=== PATIENT | male | born 1955 | race Caucasian/White ===

== ENCOUNTER 2021-07-17 09:18 | Inpatient (IN) ==
[2021-07-17] MEDS ORDERED: dexAMETHasone**PF** 10 MG/ML VIAL IM ONE (09:52)
[2021-07-17] MEDS ORDERED: SODIUM CHLORIDE 0.9% 1000ML 1,000 ML IV SCH (10:00)
[2021-07-17 10:10] LABS: Basophils # (auto) 0.01 K/uL (0-0.2); Basophils % (auto) 0.1 %; Hematocrit (blood only) 45.7 % (42-52); Hemoglobin 16.3 g/dL (14.0-18.0); Immature Granulocytes # (auto) 0.01 K/uL (0.00-0.02); Immature Granulocytes % (auto) 0.1 %; Lymphocytes # (auto) 0.56 K/uL (1.2-3.4); Lymphocytes % (auto) 7.9 %; Mean Corpuscular Hemoglobin 32.1 pg (25-34); Mean Corpuscular Hgb Conc 35.7 g/dL (32-36); Mean Platelet Volume 10.3 fL (7.4-10.4); Monocytes # (auto) 0.41 K/uL (0.11-0.59); Monocytes % (auto) 5.8 %; Neutrophils # (auto) 6.09 K/uL (1.4-6.5); Neutrophils % (auto) 86.1 %; Platelet Count 172 K/uL (130-400); RDW Coefficient of Variation 12.8 % (11.5-14.5); RDW Standard Deviation 42.2 fL (36.4-46.3); Red Blood Count 5.08 M/uL (4.7-6.1); White Blood Count 7.08 K/uL (4.8-10.8)
[2021-07-17 10:25] LABS: Base Excess VBG 1.2 mEq/L; pH VBG 7.46 (7.36-7.41)
[2021-07-17 10:25] LABS: Partial Thromboplastin Ratio 1.1; Partial Thromboplastin Time 28.1 Seconds (21.0-31.0)
[2021-07-17 10:27] LABS: Alanine Aminotransferase 97 U/L (12-78); Albumin Level 3.1 gm/dl (3.4-5.0); Aspartate Aminotransferase 112 U/L (15-37); BUN Creatinine Ratio 17.8 (10-20); Blood Urea Nitrogen 19 mg/dl (7-18); Calcium 8.2 mg/dl (8.5-10.1); Carbon Dioxide 24 mmol/L (21-32); Chloride 99 mmol/L (98-107); Est GFR (African American) 85.9 ml/min; Est GFR (Non-African American) 74.1 ml/min; Glucose 116 mg/dl (70-99); Magnesium 1.8 mg/dl (1.8-2.4); Potassium 3.8 mmol/L (3.5-5.1); Sodium 132 mmol/L (136-145)
[2021-07-17 10:32] LABS: Albumin Globulin Ratio 0.7 (0.9-2); Alkaline Phosphatase 69 U/L (45-117); Bilirubin,Total 0.7 mg/dl (0.2-1); Globulin 4.5 gm/dl (2.5-4.0); Total Protein 7.6 gm/dl (6.4-8.2); Troponin I < 0.015 ng/ml (0-0.045)
--- NOTE | 2021-07-17 11:19 | CT Scan Report ---
CT ANGIOGRAM OF THE CHEST CLINICAL HISTORY: ro PE COMPARISON STUDY: No previous studies for comparison. TECHNIQUE: Following the IV administration of 119 mL of Optiray, CT angiogram of the thorax was perfo rmed from the thoracic inlet to the lung bases utilizing the pulmonary embolus protocol. Images are r eviewed in the axial, sagittal, and coronal planes. IV contrast was administered without complication . MIP imaging was performed. A dose lowering technique was utilized adhering to the principles of AL SARAH. CT DOSE: 527.22 mGycm FINDINGS: There is adequate opacification within main pulmonary artery. No evidence of filling defect is seen t o suggest pulmonary embolus. Pulmonary artery is normal in caliber. No right heart strain is seen. Heart is normal in size with small amount of of pericardial fluid, likely physiologic. Mild coronary calcifications are seen. There is no axillary, supra clavicle or internal mammary lymphadenopathy seen. Mediastinal and hilar lymph nodes up prominent and measured up to 1.2 cm in short axis. Tracheobronchial tree is patent. Patchy areas of groundglass attenuation associated with septal thickening are seen throughout bilater al lungs, predominantly in peripheral distribution, lower lobes affected more than upper lobes. Patch y areas of airspace consolidations are seen at dependent portions of bilateral lower lobes. Limited evaluation of upper abdominal viscera shows mild fat stranding surrounding partially visualiz ed right kidney which might represent inflammatory process. Small fat containing hiatal hernia is see n. Osseous structures: Multilevel degenerative changes of the spine. IMPRESSION: 1. No evidence of pulmonary embolus. No secondary signs of pulmonary embolus. 2. Patchy areas of groundglass and consolidative opacities associated with septal thickening are see n throughout bilateral lungs and could represent atypical pneumonia/Covid. Short-term follow-up with noncontrast CT of the chest on nonemergency basis in 4-6 weeks is recommended to document improvement /resolution. Report will be sent to emergency Department. 3. Questionable fat stranding surrounding partially visualized right kidney which could represent in flammatory process or sequela from prior inflammatory changes. Please correlate above-mentioned findi ngs with clinical presentation. 4. The rest of findings as above. ACT 112: Negative or not required by law. The above report was generated using voice recognition software. It may contain grammatical, syntax o r spelling errors. Electronically signed by: Moira Flores DO 07/17/2021 11:18 AM
--- NOTE | 2021-07-17 12:08 | XRay Report ---
XR chest 1V portable CLINICAL HISTORY: SEPSIS COMPARISON STUDY: Chest CT performed earlier today. FINDINGS: Lung volumes are normal. Moderate to extensive bilateral airspace opacities are present. Th ere is no pneumothorax or pleural effusion. Cardiac size is normal. Mediastinal contours are normal. There is no evidence for pulmonary edema. IMPRESSION: Moderate to extensive bilateral airspace opacities suggestive of viral pneumonia. ACT 112: Negative or not required by law. Electronically signed by: Ravi Erickson M.D. 07/17/2021 12:06 PM
[2021-07-17 12:26] LABS: Appearance Urine Clear (Clear); Bacteria Urine Automated Negative (Negative); Bilirubin Urine Negative (Negative); Blood Urine 1+ (Negative); Color Urine Yellow; Glucose Urine UA Negative (Negative); Ketones Urine 1+ (Negative); Leukocyte Esterase Urine Negative (Negative); Nitrite Urine Negative (Negative); Protein Urine 2+ (Negative); RBC Urine Automated 0-4 /hpf (0-4); Specific Gravity Urine > 1.045 (1.000-1.030); Urobilinogen Urine Negative (Negative); pH Urine 6.5 (4.5-7.5)
--- NOTE | 2021-07-17 13:25 | History & Physical Report ---
Date of Service July 17, 2021 Assessment & Plan (1) Acute respiratory alkalosis: (2) Pneumonia due to COVID-19 virus: Plan: This is a 65 year old M who has a significant pmh HTN, HLD, pulm nodule, hx of tobacco abuse, RF + who presents to ED 2/2 to worsening SOB x 3 days. Pt tested + 3 days ago for Covid-19. Presents today with hypoxia, O2 in 70s, requiring High Flow NC. VBG reveals respiratory alkalosis. He is unvaccinated. Admit to PCU IV remdesivir - monitor LFTs, AST 112, ALT 97 today, if continues to rise would d/c likely elevated 2/2 to viral etiology IV dexamethasone 6mg daily continue High flow - wean as able aggressive pulmonary toilet incentive spirometry, tessalon Perles, albuterol low threshold for pulm consult follow vbg (3) Transaminitis: Plan: previously not elevated, not on a statin AST 112, ALT 97, likely viral repeat in a.m. follow closely (4) HTN (hypertension): Plan: BP stable, 122/80 continue lisinopril, monitor Dispo: PCU PCP: Lauren FULL CODE Pt was seen and examined in collaboration with Dr. Garcia, please see addendum History of Present Illness Chief Complaint: SOB x 3 days. Primary Care Provider: Luke Aguilar MD This is a 65 year old M who has a significant pmh HTN, HLD, pulm nodule, hx of tobacco abuse, RF + who presents to ED 2/2 to worsening SOB. In ED patient was found to be hypoxic at 74% on room air. Currently requiring high flow nasal cannula saturating at 90%. He did test positive for SARS-CoV-2.VBG pH did reveal acute respiratory alkalosis. In ED he did receive IV dexamethasone. Went to [place] on a trip 2 weeks ago. He got back on 07/08 and started to feel strange with decreased appetite, 2 episodes of loose stool; however since 3 days ago has been getting progressively SOB, "I'm in trouble." He did seek medical care at [facility] 3 days ago and tested positive for covid. He is not vaccinated. Denies f/c/s, chest pain, sob, n/v, abdominal pain. Will be admitted for covid PNA. Allergies Allergy/AdvReac Type Severity Reaction Status Date / Time naproxen [From Naprosyn] Allergy Intermediate Rash Unverified 07/17/21 11:45 atorvastatin [From Lipitor] Allergy Unknown Verified 07/17/21 12:55 house dust Allergy Unknown Verified 07/17/21 12:55 milk Allergy Unknown Verified 07/17/21 12:55 Home Medications Medication Instructions Recorded Confirmed Type albuterol sulfate 90 mcg/actuation 1 puff INHALATION DAILY PRN 07/17/21 07/17/21 History aerosol inhaler (Ventolin HFA) aspirin 81 mg tablet,delayed 81 mg PO DAILY 07/17/21 07/17/21 History release (Aspirin Low Dose) garlic 300 mg capsule (Odorless 0 mg PO DAILY 07/17/21 07/17/21 History Garlic) lisinopril 5 mg tablet (Zestril) 5 mg PO QAM 07/17/21 07/17/21 History ognljmqi-pvy-hzeqw acid 300 1 tab PO DAILY 07/17/21 07/17/21 History mcg-lycopene 600 mcg-lutein 300 mcg tablet (Centrum Silver Men) omega 9-llj-pbl-fish oil 1,200 mg 1 cap PO DAILY 07/17/21 07/17/21 History (144 mg-216 mg) capsule (Fish Oil) ondansetron HCl 4 mg tablet 4 mg PO Q8H PRN 07/17/21 07/17/21 History (Zofran) vitamin C 500 mg-multivitamin with 1 tab PO BID 07/17/21 07/17/21 History minerals chewable tablet (Emergen-C) Past Med/Surg History Medical History (Updated 07/17/21 @ 13:41 by Peyton Lowe PA-C) HLD (hyperlipidemia) HTN (hypertension) Obesity Pulmonary nodule Rheumatoid factor positive Surgical History (Updated 07/17/21 @ 13:28 by Peyton Lowe PA-C) History of tooth extraction Family History Father Coronary heart disease Mother No problems noted. Social History (Updated 07/17/21 @ 13:31 by Peyton Lowe PA-C) Smoking Status: Former smoker Age Quit Using Tobacco: 50; packs per day: 1; Years Smoked: 25; Hx Alcohol Use: No Hx Substance Use: No Preferred Language: Swedish Communication Ability: Effective marital status: Current Living Situation: Spouse Feels Safe at Home: Yes Review of Systems Review of Systems: All systems reviewed & are unremarkable except as noted in HPI & below Physical Exam Physical Exam: refer to Dr. Garcia addendum for physical exam findings Results & Data Results & Data ([facility]) Vital Signs (Past 12 Hours) Vital Signs Temp Pulse Pulse Resp BP BP Pulse Ox 07/17/21 12:12 100 H 22 122/80 90 07/17/21 12:00 104 H 22 122/80 90 07/17/21 11:35 26 H 92 07/17/21 11:31 103 H 22 141/78 H 91 07/17/21 11:00 113 H 25 H 140/94 90 07/17/21 10:30 103 H 29 H 127/78 93 07/17/21 10:11 106 H 24 148/88 H 95 07/17/21 10:07 20 92 07/17/21 09:57 90 07/17/21 09:35 36.9 C 124 H 22 110/67 74 L Diagnostic Findings Chest CTA 07/17/21 09:53 CT ANGIOGRAM OF THE CHEST CLINICAL HISTORY: ro PE COMPARISON STUDY: No previous studies for comparison. TECHNIQUE: Following the IV administration of 119 mL of Optiray, CT angiogram of the thorax was performed from the thoracic inlet to the lung bases utilizing the pulmonary embolus protocol. Images are reviewed in the axial, sagittal, and coronal planes. IV contrast was administered without complication. MIP imaging was performed. A dose lowering technique was utilized adhering to the principles of ALARA. CT DOSE: 527.22 mGycm FINDINGS: There is adequate opacification within main pulmonary artery. No evidence of filling defect is seen to suggest pulmonary embolus. Pulmonary artery is normal in caliber. No right heart strain is seen. Heart is normal in size with small amount of of pericardial fluid, likely physiologic. Mild coronary calcifications are seen. There is no axillary, supra clavicle or internal mammary lymphadenopathy seen. Mediastinal and hilar lymph nodes up prominent and measured up to 1.2 cm in short axis. Tracheobronchial tree is patent. Patchy areas of groundglass attenuation associated with septal thickening are seen throughout bilateral lungs, predominantly in peripheral distribution, lower lobes affected more than upper lobes. Patchy areas of airspace consolidations are seen at dependent portions of bilateral lower lobes. Limited evaluation of upper abdominal viscera shows mild fat stranding surrounding partially visualized right kidney which might represent inflammatory process. Small fat containing hiatal hernia is seen. Osseous structures: Multilevel degenerative changes of the spine. IMPRESSION: 1. No evidence of pulmonary embolus. No secondary signs of pulmonary embolus. 2. Patchy areas of groundglass and consolidative opacities associated with septal thickening are seen throughout bilateral lungs and could represent atypical pneumonia/Covid. Short-term follow-up with noncontrast CT of the chest on nonemergency basis in 4-6 weeks is recommended to document improvement/resolution. Report will be sent to emergency Department. 3. Questionable fat stranding surrounding partially visualized right kidney which could represent inflammatory process or sequela from prior inflammatory changes. Please correlate above-mentioned findings with clinical presentation. 4. The rest of findings as above. ACT 112: Negative or not required by law. The above report was generated using voice recognition software. It may contain grammatical, syntax or spelling errors. Electronically signed by: Moira Flores DO 07/17/2021 11:18 AM Chest X-Ray 07/17/21 09:53 XR chest 1V portable CLINICAL HISTORY: SEPSIS COMPARISON STUDY: Chest CT performed earlier today. FINDINGS: Lung volumes are normal. Moderate to extensive bilateral airspace opacities are present. There is no pneumothorax or pleural effusion. Cardiac size is normal. Mediastinal contours are normal. There is no evidence for pulmonary edema. IMPRESSION: Moderate to extensive bilateral airspace opacities suggestive of viral pneumonia. ACT 112: Negative or not required by law. Electronically signed by: Ravi Erickson M.D. 07/17/2021 12:06 PM Medications Administered Medication List Sodium Chloride (Nss 1000ml) 1,000 mls @ 125 mls/hr IV .Q8H ZARA Stop: 08/16/21 09:59 Last Admin: 07/17/21 10:10 Dose: 125 mls/hr Documented by: [id number] Discontinued Medications Dexamethasone Sodium Phosphate (DexamethasonePf 10 Mg/Ml Vial) 6 mg IM NOW ONE Stop: 07/17/21 09:53 Last Admin: 07/17/21 10:09 Dose: 6 mg Documented by: [id number] COVID-19 Results Results COVID-19 Adm Lab Results: RBC 5.08 M/uL (4.7-6.1) 07/17/21 WBC 7.08 K/uL (4.8-10.8) 07/17/21 Hgb 16.3 g/dL (14.0-18.0) 07/17/21 Hct 45.7 % (42-52) 07/17/21 Plt Count 172 K/uL (130-400) 07/17/21 Neutrophils (%) (Auto) 86.1 % 07/17/21 Lymphocytes (%) (Auto) 7.9 % 07/17/21 Monocytes # (Auto) 0.41 K/uL (0.11-0.59) 07/17/21 Eosinophils # (Auto) 0.00 K/uL (0-0.5) 07/17/21 Immature Granulocyte % (Auto) 0.1 % 07/17/21 Neutrophils # (Auto) 6.09 K/uL (1.4-6.5) 07/17/21 Lymphocytes # (Auto) 0.56 K/uL (1.2-3.4) L 07/17/21 Monocytes # (Auto) 0.41 K/uL (0.11-0.59) 07/17/21 Eosinophils # (Auto) 0.00 K/uL (0-0.5) 07/17/21 Basophils # (Auto) 0.01 K/uL (0-0.2) 07/17/21 Immature Granulocyte # (Auto) 0.01 K/uL (0.00-0.02) 07/17/21 Na 132 mmol/L (136-145) L 07/17/21 K 3.8 mmol/L (3.5-5.1) 07/17/21 Cl 99 mmol/L (98-107) 07/17/21 CO2 24 mmol/L (21-32) 07/17/21 Anion Gap 9.0 (3-11) 07/17/21 BUN 19 mg/dl (7-18) H 07/17/21 Creatinine 1.05 mg/dl (0.6-1.4) 07/17/21 BUN/Creatinine Ratio 17.8 (10-20) 07/17/21 Glucose Level 116 mg/dl (70-99) H 07/17/21 Ca 8.2 mg/dl (8.5-10.1) L 07/17/21 Total Bilirubin 0.7 mg/dl (0.2-1) 07/17/21 AST/SGOT 112 U/L (15-37) H 07/17/21 ALT/SGPT 97 U/L (12-78) H 07/17/21 Alkaline Phosphatase 69 U/L (45-117) 07/17/21 Total Protein 7.6 gm/dl (6.4-8.2) 07/17/21 Albumin 3.1 gm/dl (3.4-5.0) L 07/17/21 Globulin 4.5 gm/dl (2.5-4.0) H 07/17/21 Albumin/Globulin Ratio 0.7 (0.9-2) L 07/17/21 Troponin I < 0.015 ng/ml (0-0.045) 07/17/21 CRP Pending 07/17/21 Procalcitonin 0.09 ng/ml (0-0.5) 07/17/21 Ferritin Pending 07/17/21 PTT 28.1 Seconds (21.0-31.0) 07/17/21 INR 1.0 (0.9-1.1) 07/17/21 COVID-19 PCR POSITIVE (Negative) A* 07/17/21 Chest X-Ray 07/17/21 Code Status & VTE Plan Code Status Full Code VTE Prophylaxis Plan VTE Prophylaxis will be ordered: Yes Supervising Physician Co-Signing Physician Notes I saw this patient with the physician assistant operations manager, I participated in the history, physical, review of systems, and physical exam. I reviewed the medications with the patient and the physician assistant operations manager and helped reconcile the medications. I helped take a detailed family and social history as well. I formulated the assessment and plan personally with the physician assistant operations manager and went over it with the patient. Physical Exam Gen-AAO x 3, NAD, Afebrile, on HFNC Head-NCAT, EOMI, PERRLA, Anicteric Sclera, No Posterior Pharyngeal Erythema Neck-Supple, No JVD, No Thyromegaly, No Masses, No LAD, No Bruits Lungs-Clear to Auscultation Bilaterally, No Rales, No Rhonchi, No Wheezing, No Crepitus Chest-No S4, +S1, +S2, No S3, No Murmurs, No Rubs, No Gallops, No Ectopy Abdomen-Soft, Bowel Sounds Present, Non Tender, Non Distended, No Hepatomegaly, No Splenomegaly, No Palpable Masses, No Rebound, No Rigidity, No Guarding Musculoskeletal-Full Range of Motion Bilaterally, No CVAT Extremities-No Cyanosis, No Clubbing, No Edema Nuero-Cranial Nerves II-XII grossly intact, Motor WNL, DTRs WNL, Strength WNL, Non Focal Psych-Normal Mood
[2021-07-17] MEDS ORDERED: REMDESIVIR 200 MG in SODIUM CHLORIDE 0.9% 210 ML IV STA (13:34)
[2021-07-17 14:37] LABS: Ferritin 2654.1 ng/ml (8-388)
[2021-07-17] MEDS ORDERED: ONDANSETRON INJ 2 MG/ML 2 ML VIAL IV PRN ×2 (15:00)
[2021-07-17] MEDS ORDERED: ALBUTEROL HFA 8 GM INHALER INH SCH (16:00)
[2021-07-17 16:41] LABS: Base Excess VBG 0.9 mEq/L; Oxygen Saturation VBG 89.3 %; pH VBG 7.48 (7.36-7.41)
[2021-07-17] MEDS: BENZONATATE 100 MG CAPSULE PO SCH ×2 (17:01→22:14)
[2021-07-17] MEDS: ALUMINUM/MAGNESIUM SUSP 30 ML UDC PO PRN ×2 (17:32→23:38)
--- NOTE | 2021-07-17 18:44 | Emergency Department Note ---
History of Present Illness General Chief Complaint: Illness Stated Complaint: COVID SYMPTOMS Time Seen by Provider: 07/17/21 09:52 History of Present Illness Provider Complaint: shortness of breath and cough Onset (ago): week(s) (1) Severity: severe Consistency/Duration: + progressively worsening Maximum Pain Intensity: 4 Exacerbated By: + exertion and + coughing Context: + recent illness (Diagnosed with COVID-19 1 week ago.) Associated symptoms: + fever, + cough and + dizziness; no wheezing, no sputum production, no orthopnea, no lower extremity pain, no polyuria, no polydipsia, no paresthesias, no palpitations, no hemoptysis, no diaphoresis, no syncope, no abdominal pain, no sense of impending doom or no lightheadedness HPI Narrative: Patient was not vaccinated against COVID-19. Home Medications Medication Instructions Recorded Confirmed Type albuterol sulfate 90 mcg/actuation 1 puff INHALATION DAILY PRN 07/17/21 07/17/21 History aerosol inhaler (Ventolin HFA) aspirin 81 mg tablet,delayed 81 mg PO DAILY 07/17/21 07/17/21 History release (Aspirin Low Dose) garlic 300 mg capsule (Odorless 0 mg PO DAILY 07/17/21 07/17/21 History Garlic) lisinopril 5 mg tablet (Zestril) 5 mg PO QAM 07/17/21 07/17/21 History dylfbllw-mrt-fgpbh acid 300 1 tab PO DAILY 07/17/21 07/17/21 History mcg-lycopene 600 mcg-lutein 300 mcg tablet (Centrum Silver Men) omega 4-wwx-rkz-fish oil 1,200 mg 1 cap PO DAILY 07/17/21 07/17/21 History (144 mg-216 mg) capsule (Fish Oil) ondansetron HCl 4 mg tablet 4 mg PO Q8H PRN 07/17/21 07/17/21 History (Zofran) vitamin C 500 mg-multivitamin with 1 tab PO BID 07/17/21 07/17/21 History minerals chewable tablet (Emergen-C) Allergies Allergy/AdvReac Type Severity Reaction Status Date / Time naproxen [From Naprosyn] Allergy Intermediate Rash Unverified 07/17/21 11:45 atorvastatin [From Lipitor] Allergy Unknown Verified 07/17/21 12:55 house dust Allergy Unknown Verified 07/17/21 12:55 milk Allergy Unknown Verified 07/17/21 12:55 Past Med/Surg History Medical History HLD (hyperlipidemia) HTN (hypertension) Obesity Pulmonary nodule Rheumatoid factor positive Surgical History History of tooth extraction Family History Father Coronary heart disease Mother No problems noted. Social History Smoking Status: Former smoker Age Quit Using Tobacco: 50; packs per day: 1; Years Smoked: 25; Second Hand Exposure: No; Do You Dip or Chew Tobacco: No; Hx Alcohol Use: No Hx Substance Use: No Preferred Language: [place] Communication Ability: Effective Bottom Ironer Required: No Beliefs That Will Affect Care: None marital status: Current Living Situation: Spouse Feels Safe at Home: Yes Safety Concerns: Feels Safe At This Time Assistive Devices: Glasses Review of Systems A total of 10 systems reviewed and were otherwise negative Physical Exam Vital Signs: Vital Signs - 24 hr 07/17/21 09:35 07/17/21 09:57 07/17/21 10:07 Temperature 36.9 C Temperature Source Oral Pulse Rate 124 H Pulse Rate [Right] Pulse Rate from Sp O2 Sensor Respiratory Rate 22 20 Respiratory Effort / Characteristics Labored Non-Labored Sponta neous Blood Pressure 110/67 Blood Pressure [Ri ght Arm] Blood Pressure Anna n 81 Blood Pressure Anna n [Right Arm] Pulse Oximetry 74 L 90 92 Oxygen Delivery Me thod Room Air Nasal Cannula High Flow Nasal Ca nnula Oxygen Flow Rate 4 25 Fraction of Inspir ed Oxygen 45 Sepsis Recent Feve r Within 48 Hours No Sepsis New/Unexpla ined Change in Men nilay Status No Sepsis Action Take n by Nursing Physician Notified 07/17/21 10:11 07/17/21 10:30 07/17/21 11:00 Temperature Temperature Source Pulse Rate 103 H 113 H Pulse Rate [Right] 106 H Pulse Rate from Sp O2 Sensor 103 H 111 H Respiratory Rate 24 29 H 25 H Respiratory Effort / Characteristics Blood Pressure 127/78 140/94 Blood Pressure [Ri ght Arm] 148/88 H Blood Pressure Anna n 94 109 Blood Pressure Anna n [Right Arm] 108 Pulse Oximetry 95 93 90 Oxygen Delivery Me thod High Flow Nasal Ca nnula High Flow Nasal Ca nnula High Flow Nasal Ca nnula Oxygen Flow Rate Fraction of Inspir ed Oxygen Sepsis Recent Feve r Within 48 Hours Sepsis New/Unexpla ined Change in Men nilay Status Sepsis Action Take n by Nursing 07/17/21 11:31 07/17/21 11:35 07/17/21 12:00 Temperature Temperature Source Pulse Rate 103 H 104 H Pulse Rate [Right] Pulse Rate from Sp O2 Sensor 104 H 103 H Respiratory Rate 22 26 H 22 Respiratory Effort / Characteristics Non-Labored Blood Pressure 141/78 H 122/80 Blood Pressure [Ri ght Arm] Blood Pressure Anna n 99 94 Blood Pressure Anna n [Right Arm] Pulse Oximetry 91 92 90 Oxygen Delivery Me thod High Flow Nasal Ca nnula High Flow Nasal Ca nnula High Flow Nasal Ca nnula Oxygen Flow Rate Fraction of Inspir ed Oxygen Sepsis Recent Feve r Within 48 Hours Sepsis New/Unexpla ined Change in Men nilay Status Sepsis Action Take n by Nursing 07/17/21 12:12 Temperature Temperature Source Pulse Rate Pulse Rate [Right] 100 H Pulse Rate from Sp O2 Sensor Respiratory Rate 22 Respiratory Effort / Characteristics Non-Labored Blood Pressure Blood Pressure [Ri ght Arm] 122/80 Blood Pressure Anna n Blood Pressure Anna n [Right Arm] 94 Pulse Oximetry 90 Oxygen Delivery Me thod High Flow Nasal Ca nnula Oxygen Flow Rate Fraction of Inspir ed Oxygen Sepsis Recent Feve r Within 48 Hours Sepsis New/Unexpla ined Change in Men nilay Status Sepsis Action Take n by Nursing Physical Exam: Physical Exam HENT: Exam performed. - Head: Normocephalic and atraumatic. - Right Ear: External ear normal. No mastoid tenderness. - Left Ear: External ear normal. No mastoid tenderness. - Mouth/Throat: The oropharynx is clear and moist. No trismus in the jaw. No dental abscesses or uvula swelling. No oropharyngeal exudate or tonsillar abscesses. EYES: Conjunctivae and EOM are normal. Pupils are equal, round, and reactive to light. Right eye exhibits no discharge. Left eye exhibits no discharge. No scleral icterus. NECK: Normal range of motion. Neck supple. No JVD present. No spinous process tenderness present. No carotid bruit present. No rigidity. No tracheal deviation and normal range of motion present. No Brudzinski's sign and no Kernig's sign noted. CV: Tachycardic rate, regular rhythm, normal heart sounds and intact distal pulses. There is no peripheral edema. Palpable radial pulses bue. PULM/CHEST: Patient in respiratory distress. Bilateral rhonchi. Tachypneic. ABD: The abdomen is soft. Bowel sounds are normal. He has no distension. No mass is present. There is no tenderness. There is no rebound, no guarding, no Schwarz's sign and no tenderness at McBurney's point. Rovsig negative. MUSC/SKEL: Normal range of motion. There is no peripheral edema, tenderness or deformity. LYMPH: No cervical adenopathy. NEURO: He is alert and oriented to person, place, and time. He has normal strength. No cranial nerve deficit or sensory deficit. Coordination and gait normal. GCS eye subscore is 4. GCS verbal subscore is 5. GCS motor subscore is 6. Cerebellar tests wnl. SKIN: Skin is warm and dry. He is not diaphoretic. PSYCH: He has a normal mood and affect. Behavior is normal. Judgment and thought content normal. Course Course 0952: The patient was evaluated in room C10. A complete history and physical exam was performed Cardiac monitoring: An order was placed for continuous cardiac monitoring. The monitor shows a rate of 120 with sinus tachycardia rhythm Patient was found to be hypoxic on room air. Patient was supplied supplemental oxygen via nasal cannula which minimally improved his oxygen saturations. Respiratory therapy was called and high flow nasal cannula will be started. Decadron 6 mg IV push ordered for the patient given his hypoxia, respiratory distress, and recent COVID-19 positive's test. Will obtain labs and imaging including CT of the chest. 1030: Patient's oxygen saturations are more stable on the high flow nasal cannula and his work of breathing is improved. 1230: Patient's oxygen saturations are more stable on the high flow nasal cannula and his work of breathing is improved. CTA of the chest is negative for PE but does show groundglass opacities. Patient will be admitted to the [facility] team Dr. Garcia. Administered Medications Al Hydrox/Mg Hydrox/Simethicone (Aluminum/Magnesium Susp 30 Ml Udc) 15 ml PO Q4H PRN PRN Reason: Dyspepsia Stop: 08/16/21 14:59 Last Admin: 07/17/21 17:32 Dose: 15 ml Documented by: [id number] Benzonatate (Benzonatate 100 Mg Capsule) 100 mg PO TID ZARA Stop: 08/16/21 15:59 Last Admin: 07/17/21 17:01 Dose: 100 mg Documented by: [id number] Discontinued Medications Albuterol (Albuterol Hfa 8 Gm Inhaler) 2 puffs INH Q4HWA ZARA Stop: 08/16/21 15:59 Last Admin: 07/17/21 15:34 Dose: 2 puffs Documented by: [id number] Dexamethasone Sodium Phosphate (DexamethasonePf 10 Mg/Ml Vial) 6 mg IM NOW ONE Stop: 07/17/21 09:53 Last Admin: 07/17/21 10:09 Dose: 6 mg Documented by: [id number] Sodium Chloride (Nss 1000ml) 1,000 mls @ 125 mls/hr IV .Q8H ZARA Stop: 08/16/21 09:59 Last Infusion: 07/17/21 15:10 Dose: 0 mls/hr Documented by: [id number] Infusion: 07/17/21 15:10 Dose: 0 mls/hr Documented by: [id number] Admin: 07/17/21 10:10 Dose: 125 mls/hr Documented by: [id number] Remdesivir 200 mg/ Sodium (Chloride) 250 mls @ 125 mls/hr IV ONE STA; Protocol Stop: 07/17/21 15:33 Last Infusion: 07/17/21 16:03 Dose: 0 mls/hr Documented by: [id number] Admin: 07/17/21 13:57 Dose: 125 mls/hr Documented by: [id number] Medical Decision Making Laboratory Data Result diagrams: 07/17/21 09:35 07/17/21 09:35 Lab Results 07/17/21 07/17/21 07/17/21 Range/Units 09:25 09:35 09:35 WBC (4.8-10.8) K/uL RBC (4.7-6.1) M/uL Hgb (14.0-18.0) g/dL Hct (42-52) % MCV (80-100) fL MCH (25-34) pg MCHC (32-36) g/dL RDW Std Deviation (36.4-46.3) fL RDW Coeff of Veronica (11.5-14.5) % Plt Count (130-400) K/uL MPV (7.4-10.4) fL Immature Gran % (Auto) % Neut % (Auto) % Lymph % (Auto) % [place] % (Auto) % Eos % (Auto) % Baso % (Auto) % Neut # (Auto) (1.4-6.5) K/uL Lymph # (Auto) (1.2-3.4) K/uL [place] # (Auto) (0.11-0.59) K/uL Eos # (Auto) (0-0.5) K/uL Baso # (Auto) (0-0.2) K/uL Immature Gran # (Auto) (0.00-0.02) K/uL ESR 47 H (0-20) mm/hr PT (9.0-12.0) Seconds INR (0.9-1.1) APTT (21.0-31.0) Seconds PTT Ratio VBG pH (7.36-7.41) VBG pCO2 (38-50) mmHg VBG pO2 mmHg VBG HCO3 mmol/L VBG O2 Saturation % VBG Base Excess mEq/L Barometric Pressure mm/Hg Sodium 132 L (136-145) mmol/L Potassium 3.8 (3.5-5.1) mmol/L Chloride 99 (98-107) mmol/L Carbon Dioxide 24 (21-32) mmol/L Anion Gap 9.0 (3-11) BUN 19 H (7-18) mg/dl Creatinine 1.05 (0.6-1.4) mg/dl Est Cr Clr Drug Dosing 82.0 ml/min Est GFR ( Amer) 85.9 ml/min Est GFR (Non-Af Amer) 74.1 ml/min BUN/Creatinine Ratio 17.8 (10-20) Glucose 116 H (70-99) mg/dl Lactate (0.4-2.0) mmol/L Calcium 8.2 L (8.5-10.1) mg/dl Magnesium 1.8 (1.8-2.4) mg/dl Ferritin (8-388) ng/ml Total Bilirubin 0.7 (0.2-1) mg/dl AST 112 H (15-37) U/L ALT 97 H (12-78) U/L Alkaline Phosphatase 69 (45-117) U/L Troponin I < 0.015 (0-0.045) ng/ml C-Reactive Protein (0-0.29) mg/dl Total Protein 7.6 (6.4-8.2) gm/dl Albumin 3.1 L (3.4-5.0) gm/dl Globulin 4.5 H (2.5-4.0) gm/dl Albumin/Globulin Ratio 0.7 L (0.9-2) Procalcitonin 0.09 (0-0.5) ng/ml Urine Color Urine Appearance (Clear) Urine pH (4.5-7.5) Ur Specific [place] (1.000-1.030) Urine Protein (Negative) Urine Glucose (UA) (Negative) Urine Ketones (Negative) Urine Blood (Negative) Urine Nitrite (Negative) Urine Bilirubin (Negative) Urine Urobilinogen (Negative) Ur Leukocyte Esterase (Negative) Urine WBC (Auto) (0-5) /hpf Urine RBC (Auto) (0-4) /hpf U Hyaline Cast (Auto) (0-5) /lpf U Epithel Cells (Auto) (0-5) /lpf Urine Bacteria (Auto) (Negative) COVID-19 Eval Order SARS-CoV-2 (PCR) (Negative) 07/17/21 07/17/21 07/17/21 Range/Units 09:35 09:35 09:35 WBC 7.08 (4.8-10.8) K/uL RBC 5.08 (4.7-6.1) M/uL Hgb 16.3 (14.0-18.0) g/dL Hct 45.7 (42-52) % MCV 90.0 (80-100) fL MCH 32.1 (25-34) pg MCHC 35.7 (32-36) g/dL RDW Std Deviation 42.2 (36.4-46.3) fL RDW Coeff of Veronica 12.8 (11.5-14.5) % Plt Count 172 (130-400) K/uL MPV 10.3 (7.4-10.4) fL Immature Gran % (Auto) 0.1 % Neut % (Auto) 86.1 % Lymph % (Auto) 7.9 % [place] % (Auto) 5.8 % Eos % (Auto) 0.0 % Baso % (Auto) 0.1 % Neut # (Auto) 6.09 (1.4-6.5) K/uL Lymph # (Auto) 0.56 L (1.2-3.4) K/uL [place] # (Auto) 0.41 (0.11-0.59) K/uL Eos # (Auto) 0.00 (0-0.5) K/uL Baso # (Auto) 0.01 (0-0.2) K/uL Immature Gran # (Auto) 0.01 (0.00-0.02) K/uL ESR (0-20) mm/hr PT 10.0 (9.0-12.0) Seconds INR 1.0 (0.9-1.1) APTT 28.1 (21.0-31.0) Seconds PTT Ratio 1.1 VBG pH (7.36-7.41) VBG pCO2 (38-50) mmHg VBG pO2 mmHg VBG HCO3 mmol/L VBG O2 Saturation % VBG Base Excess mEq/L Barometric Pressure mm/Hg Sodium (136-145) mmol/L Potassium (3.5-5.1) mmol/L Chloride (98-107) mmol/L Carbon Dioxide (21-32) mmol/L Anion Gap (3-11) BUN (7-18) mg/dl Creatinine (0.6-1.4) mg/dl Est Cr Clr Drug Dosing ml/min Est GFR ( Amer) ml/min Est GFR (Non-Af Amer) ml/min BUN/Creatinine Ratio (10-20) Glucose (70-99) mg/dl Lactate (0.4-2.0) mmol/L Calcium (8.5-10.1) mg/dl Magnesium (1.8-2.4) mg/dl Ferritin 2654.1 H (8-388) ng/ml Total Bilirubin (0.2-1) mg/dl AST (15-37) U/L ALT (12-78) U/L Alkaline Phosphatase (45-117) U/L Troponin I (0-0.045) ng/ml C-Reactive Protein 10.00 H (0-0.29) mg/dl Total Protein (6.4-8.2) gm/dl Albumin (3.4-5.0) gm/dl Globulin (2.5-4.0) gm/dl Albumin/Globulin Ratio (0.9-2) Procalcitonin (0-0.5) ng/ml Urine Color Urine Appearance (Clear) Urine pH (4.5-7.5) Ur Specific [place] (1.000-1.030) Urine Protein (Negative) Urine Glucose (UA) (Negative) Urine Ketones (Negative) Urine Blood (Negative) Urine Nitrite (Negative) Urine Bilirubin (Negative) Urine Urobilinogen (Negative) Ur Leukocyte Esterase (Negative) Urine WBC (Auto) (0-5) /hpf Urine RBC (Auto) (0-4) /hpf U Hyaline Cast (Auto) (0-5) /lpf U Epithel Cells (Auto) (0-5) /lpf Urine Bacteria (Auto) (Negative) COVID-19 Eval Order SARS-CoV-2 (PCR) (Negative) 07/17/21 07/17/21 07/17/21 Range/Units 10:07 10:22 10:22 WBC (4.8-10.8) K/uL RBC (4.7-6.1) M/uL Hgb (14.0-18.0) g/dL Hct (42-52) % MCV (80-100) fL MCH (25-34) pg MCHC (32-36) g/dL RDW Std Deviation (36.4-46.3) fL RDW Coeff of Veronica (11.5-14.5) % Plt Count (130-400) K/uL MPV (7.4-10.4) fL Immature Gran % (Auto) % Neut % (Auto) % Lymph % (Auto) % [place] % (Auto) % Eos % (Auto) % Baso % (Auto) % Neut # (Auto) (1.4-6.5) K/uL Lymph # (Auto) (1.2-3.4) K/uL [place] # (Auto) (0.11-0.59) K/uL Eos # (Auto) (0-0.5) K/uL Baso # (Auto) (0-0.2) K/uL Immature Gran # (Auto) (0.00-0.02) K/uL ESR (0-20) mm/hr PT (9.0-12.0) Seconds INR (0.9-1.1) APTT (21.0-31.0) Seconds PTT Ratio VBG pH 7.46 H (7.36-7.41) VBG pCO2 35 L (38-50) mmHg VBG pO2 37 mmHg VBG HCO3 25 mmol/L VBG O2 Saturation 72.0 % VBG Base Excess 1.2 mEq/L Barometric Pressure 728.7 mm/Hg Sodium (136-145) mmol/L Potassium (3.5-5.1) mmol/L Chloride (98-107) mmol/L Carbon Dioxide (21-32) mmol/L Anion Gap (3-11) BUN (7-18) mg/dl Creatinine (0.6-1.4) mg/dl Est Cr Clr Drug Dosing ml/min Est GFR ( Amer) ml/min Est GFR (Non-Af Amer) ml/min BUN/Creatinine Ratio (10-20) Glucose (70-99) mg/dl Lactate (0.4-2.0) mmol/L Calcium (8.5-10.1) mg/dl Magnesium (1.8-2.4) mg/dl Ferritin (8-388) ng/ml Total Bilirubin (0.2-1) mg/dl AST (15-37) U/L ALT (12-78) U/L Alkaline Phosphatase (45-117) U/L Troponin I (0-0.045) ng/ml C-Reactive Protein (0-0.29) mg/dl Total Protein (6.4-8.2) gm/dl Albumin (3.4-5.0) gm/dl Globulin (2.5-4.0) gm/dl Albumin/Globulin Ratio (0.9-2) Procalcitonin (0-0.5) ng/ml Urine Color Urine Appearance (Clear) Urine pH (4.5-7.5) Ur Specific [place] (1.000-1.030) Urine Protein (Negative) Urine Glucose (UA) (Negative) Urine Ketones (Negative) Urine Blood (Negative) Urine Nitrite (Negative) Urine Bilirubin (Negative) Urine Urobilinogen (Negative) Ur Leukocyte Esterase (Negative) Urine WBC (Auto) (0-5) /hpf Urine RBC (Auto) (0-4) /hpf U Hyaline Cast (Auto) (0-5) /lpf U Epithel Cells (Auto) (0-5) /lpf Urine Bacteria (Auto) (Negative) COVID-19 Eval Order Covid19 at [facility] SARS-CoV-2 (PCR) POSITIVE A* (Negative) 07/17/21 07/17/21 Range/Units 11:21 11:42 WBC (4.8-10.8) K/uL RBC (4.7-6.1) M/uL Hgb (14.0-18.0) g/dL Hct (42-52) % MCV (80-100) fL MCH (25-34) pg MCHC (32-36) g/dL RDW Std Deviation (36.4-46.3) fL RDW Coeff of Veronica (11.5-14.5) % Plt Count (130-400) K/uL MPV (7.4-10.4) fL Immature Gran % (Auto) % Neut % (Auto) % Lymph % (Auto) % [place] % (Auto) % Eos % (Auto) % Baso % (Auto) % Neut # (Auto) (1.4-6.5) K/uL Lymph # (Auto) (1.2-3.4) K/uL [place] # (Auto) (0.11-0.59) K/uL Eos # (Auto) (0-0.5) K/uL Baso # (Auto) (0-0.2) K/uL Immature Gran # (Auto) (0.00-0.02) K/uL ESR (0-20) mm/hr PT (9.0-12.0) Seconds INR (0.9-1.1) APTT (21.0-31.0) Seconds PTT Ratio VBG pH (7.36-7.41) VBG pCO2 (38-50) mmHg VBG pO2 mmHg VBG HCO3 mmol/L VBG O2 Saturation % VBG Base Excess mEq/L Barometric Pressure mm/Hg Sodium (136-145) mmol/L Potassium (3.5-5.1) mmol/L Chloride (98-107) mmol/L Carbon Dioxide (21-32) mmol/L Anion Gap (3-11) BUN (7-18) mg/dl Creatinine (0.6-1.4) mg/dl Est Cr Clr Drug Dosing ml/min Est GFR ( Amer) ml/min Est GFR (Non-Af Amer) ml/min BUN/Creatinine Ratio (10-20) Glucose (70-99) mg/dl Lactate 1.2 (0.4-2.0) mmol/L Calcium (8.5-10.1) mg/dl Magnesium (1.8-2.4) mg/dl Ferritin (8-388) ng/ml Total Bilirubin (0.2-1) mg/dl AST (15-37) U/L ALT (12-78) U/L Alkaline Phosphatase (45-117) U/L Troponin I (0-0.045) ng/ml C-Reactive Protein (0-0.29) mg/dl Total Protein (6.4-8.2) gm/dl Albumin (3.4-5.0) gm/dl Globulin (2.5-4.0) gm/dl Albumin/Globulin Ratio (0.9-2) Procalcitonin (0-0.5) ng/ml Urine Color Yellow Urine Appearance Clear (Clear) Urine pH 6.5 (4.5-7.5) Ur Specific [place] > 1.045 H (1.000-1.030) Urine Protein 2+ H (Negative) Urine Glucose (UA) Negative (Negative) Urine Ketones 1+ H (Negative) Urine Blood 1+ H (Negative) Urine Nitrite Negative (Negative) Urine Bilirubin Negative (Negative) Urine Urobilinogen Negative (Negative) Ur Leukocyte Esterase Negative (Negative) Urine WBC (Auto) 1-5 (0-5) /hpf Urine RBC (Auto) 0-4 (0-4) /hpf U Hyaline Cast (Auto) 1-5 (0-5) /lpf U Epithel Cells (Auto) 10-20 H (0-5) /lpf Urine Bacteria (Auto) Negative (Negative) COVID-19 Eval Order SARS-CoV-2 (PCR) (Negative) Imaging Data Radiologist's Impression: Chest CTA 07/17/21 09:53 CT ANGIOGRAM OF THE CHEST CLINICAL HISTORY: ro PE COMPARISON STUDY: No previous studies for comparison. TECHNIQUE: Following the IV administration of 119 mL of Optiray, CT angiogram of the thorax was performed from the thoracic inlet to the lung bases utilizing the pulmonary embolus protocol. Images are reviewed in the axial, sagittal, and coronal planes. IV contrast was administered without complication. MIP imaging was performed. A dose lowering technique was utilized adhering to the principles of ALARA. CT DOSE: 527.22 mGycm FINDINGS: There is adequate opacification within main pulmonary artery. No evidence of filling defect is seen to suggest pulmonary embolus. Pulmonary artery is normal in caliber. No right heart strain is seen. Heart is normal in size with small amount of of pericardial fluid, likely physiologic. Mild coronary calcifications are seen. There is no axillary, supra clavicle or internal mammary lymphadenopathy seen. Mediastinal and hilar lymph nodes up prominent and measured up to 1.2 cm in short axis. Tracheobronchial tree is patent. Patchy areas of groundglass attenuation associated with septal thickening are seen throughout bilateral lungs, predominantly in peripheral distribution, lower lobes affected more than upper lobes. Patchy areas of airspace consolidations are seen at dependent portions of bilateral lower lobes. Limited evaluation of upper abdominal viscera shows mild fat stranding surrounding partially visualized right kidney which might represent inflammatory process. Small fat containing hiatal hernia is seen. Osseous structures: Multilevel degenerative changes of the spine. IMPRESSION: 1. No evidence of pulmonary embolus. No secondary signs of pulmonary embolus. 2. Patchy areas of groundglass and consolidative opacities associated with septal thickening are seen throughout bilateral lungs and could represent at ypical pneumonia/Covid. Short-term follow-up with noncontrast CT of the chest on nonemergency basis in 4-6 weeks is recommended to document improvement/resolution. Report will be sent to emergency Department. 3. Questionable fat stranding surrounding partially visualized right kidney which could represent inflammatory process or sequela from prior inflammatory changes. Please correlate above-mentioned findings with clinical presentation. 4. The rest of findings as above. ACT 112: Negative or not required by law. The above report was generated using voice recognition software. It may contain grammatical, syntax or spelling errors. Electronically signed by: Moira Flores DO 07/17/2021 11:18 AM Chest X-Ray 07/17/21 09:53 XR chest 1V portable CLINICAL HISTORY: SEPSIS COMPARISON STUDY: Chest CT performed earlier today. FINDINGS: Lung volumes are normal. Moderate to extensive bilateral airspace opacities are present. There is no pneumothorax or pleural effusion. Cardiac size is normal. Mediastinal contours are normal. There is no evidence for pulmonary edema. IMPRESSION: Moderate to extensive bilateral airspace opacities suggestive of viral pneumonia. ACT 112: Negative or not required by law. Electronically signed by: Ravi Erickson M.D. 07/17/2021 12:06 PM ECG Data Interpretation: Sinus tachycardia with rate of 108. NE 152 QRS [address] elevation or ST depression. MDM Narrative 0952: The patient was evaluated in room C10. A complete history and physical exam was performed Cardiac monitoring: An order was placed for continuous cardiac monitoring. The monitor shows a rate of 120 with sinus tachycardia rhythm Patient was found to be hypoxic on room air. Patient was supplied supplemental oxygen via nasal cannula which minimally improved his oxygen saturations. Respiratory therapy was called and high flow nasal cannula will be started. Decadron 6 mg IV push ordered for the patient given his hypoxia, respiratory distress, and recent COVID-19 positive's test. Will obtain labs and imaging including CT of the chest. 1030: Patient's oxygen saturations are more stable on the high flow nasal cannula and his work of breathing is improved. 1230: Patient's oxygen saturations are more stable on the high flow nasal cannula and his work of breathing is improved. CTA of the chest is negative for PE but does show groundglass opacities. Patient will be admitted to the [facility] team Dr. Garcia. Impression & Plan Hypoxia, Pneumonia due to COVID-19 virus Critical Care Time Critical Care Time: Yes Total Critical Care Time: 43 I have personally spent greater than 43 minutes of critical care time in the direct management of this patient. This includes bedside care, interpretation of diagnostic studies, and testing, discussion with consultants, patient, and family members, and other required patient management activities. This 43 minutes is in excess of all separately billable procedures. Discharge Plan Visit Data Chief Complaint: Illness Stated Complaint: COVID SYMPTOMS Discharge Problem: Hypoxia, Pneumonia due to COVID-19 virus Patient Disposition: Admitted As Inpatient Discharge Instructions Interventions: ED Discharge Assessment Last Done: 07/17/21 13:38
[2021-07-17] MEDS: ALBUTEROL HFA 8 GM INHALER INH SCH (19:41)
[2021-07-17] MEDS: ENOXAPARIN INJ 40 MG/0.4 ML SYR SQ SCH (22:13)
[2021-07-18] MEDS ORDERED: PNEUMOCOCCAL Polysaccharide Vaccine 25mcg/0.5mL vial/Syr IM ONE (01:00)
--- NOTE | 2021-07-18 05:44 | Electrocardiogram Report ---
Test Reason : Blood Pressure : / mmHG Vent. Rate : 108 BPM Atrial Rate : 108 BPM P-R Int : 152 ms QRS Dur : 068 ms QT Int : 320 ms P-R-T Axes : 048 037 012 degrees QTc Int : 428 ms Sinus tachycardia Possible Left atrial enlargement Nonspecific T wave abnormality Abnormal ECG No previous ECGs available Confirmed by Dre Nguyen ([id number]) on 07/18/2021 5:43:31 AM Referred By: REFERRED SELF Confirmed By:Dre Nguyen
[2021-07-18 07:17] LABS: Hematocrit (blood only) 42.2 % (42-52); Hemoglobin 14.8 g/dL (14.0-18.0); Mean Corpuscular Hemoglobin 31.6 pg (25-34); Mean Corpuscular Hgb Conc 35.1 g/dL (32-36); Mean Corpuscular Volume 90.2 fL (80-100); Mean Platelet Volume 9.9 fL (7.4-10.4); Platelet Count 171 K/uL (130-400); RDW Coefficient of Variation 12.8 % (11.5-14.5); RDW Standard Deviation 41.8 fL (36.4-46.3); Red Blood Count 4.68 M/uL (4.7-6.1)
[2021-07-18] MEDS: ALBUTEROL HFA 8 GM INHALER INH SCH ×4 (07:29→19:30)
[2021-07-18 07:49] LABS: Albumin Level 2.5 gm/dl (3.4-5.0); BUN Creatinine Ratio 24.8 (10-20); Creatinine Clr Calc Pharmacy 104.2 ml/min; Est GFR (African American) 108.7 ml/min; Est GFR (Non-African American) 93.7 ml/min; Potassium 4.2 mmol/L (3.5-5.1)
[2021-07-18 07:52] LABS: Albumin Globulin Ratio 0.6 (0.9-2); Bilirubin,Total 0.4 mg/dl (0.2-1); Total Protein 6.5 gm/dl (6.4-8.2)
[2021-07-18 07:53] LABS: Basophils # (auto) 0.04 K/uL (0-0.2); Basophils % (auto) 0.6 %; Immature Granulocytes # (auto) 0.01 K/uL (0.00-0.02); Immature Granulocytes % (auto) 0.2 %; Lymphocytes # (auto) 0.67 K/uL (1.2-3.4); Lymphocytes % (auto) 10.6 %; Monocytes # (auto) 0.67 K/uL (0.11-0.59); Monocytes % (auto) 10.6 %; Neutrophils # (auto) 4.91 K/uL (1.4-6.5); RBC Morphology Unremarkable
[2021-07-18] MEDS: BENZONATATE 100 MG CAPSULE PO SCH ×3 (08:23→21:00)
[2021-07-18] MEDS: ASPIRIN 81 MG ECTAB PO SCH (08:23)
[2021-07-18] MEDS: CEROVITE ADV FORMULA TAB PO SCH (08:23)
[2021-07-18] MEDS: ENOXAPARIN INJ 40 MG/0.4 ML SYR SQ SCH ×2 (08:24→21:00)
[2021-07-18] MEDS ORDERED: dexAMETHasone 6 MG in SYRINGE 0 ML IV SCH (09:00)
[2021-07-18] MEDS ORDERED: POTASSIUM CHLORIDE CRTAB 20 MEQ TABCR PO STA (10:10)
[2021-07-18] MEDS ORDERED: FUROSEMIDE 40 MG/4 ML VIAL IV SCH (10:30)
[2021-07-18] MEDS ORDERED: FUROSEMIDE 20 MG in SYRINGE 0 ML IV ONE (10:30)
--- NOTE | 2021-07-18 10:46 | Hospitalist Progress Note ---
Date of Service July 18, 2021 Assessment & Plan (1) Acute respiratory failure with hypoxia: Plan: 2/2 covid pneumonia. (2) Pneumonia due to COVID-19 virus: Plan: Worsening hypoxia, continue remdesivir and dexamethasone daily. Pulm evaluated and he is doing well on current therapy. Needs to prone when able. Pulmonary toilet efforts as tolerated. Continues to require max oxygen supplementation on vapotherm. Improvement in saturation with proning. He is unvaccinated. Lasix to keep him net negative (3) Transaminitis: Plan: previously not elevated, not on a statin AST 112, ALT 97, likely viral will cont to monitor (4) HTN (hypertension): Plan: chronic, at goal. Cont home lisinopril . (5) DVT prophylaxis: Plan: Lovenox Full Code Dispo-cont PCU monitoring. Jackie Beltrán DO [facility] Hospitalist Admission and Anticipated Discharge Date Admission Date: July 17, 2021 Subjective 65 yo M appears fatigued, weak and depressed. Dinner is half eaten and he reports a poor appetite this week. Symptoms started "just recently" Denies BM in last two days Some cough present that is productive Has been sweating and warm Review of Systems Review of Systems: At least ten systems were reviewed and negative except as indicated in HPI above. Physical Exam Physical Exam: CONSTITUTIONAL: WNWD, vitals as above, generally ill- appearing. EYES: normal conjunctivae, no scleral icterus ENT: external ear and nose normal, MMM RESPIRATORY: intermittent crackles, slight increased work of breathing, no crackles, rales or wheezes, slight increase in respiratory effort CARDIOVASCULAR: regular rate and rhythm, S1 and 2 heard without murmurs, gallops or rubs, no JVD, no peripheral edema CHEST: inspection of chest was normal GASTROINTESTINAL: soft, nontender, nondistended, no guarding MUSCULOSKELETAL: strength 5/5 throughout, head is normocephalic and atraumatic SKIN: warm and dry NEUROLOGIC: No facial palsy, no dysarthria. CN 2-12 grossly intact, no sensory deficit, normal cognition, normal speech, no tremor PSYCHIATRIC: alert cooperative and oriented to person, place and time. Results & Data Results & Data ([facility]) Vital Signs (Past 12 Hours) Vital Signs Temp Pulse Resp BP Pulse Ox 07/18/21 07:29 89 18 89 L 07/18/21 07:13 36.8 C 83 20 120/72 93 07/18/21 04:08 90 07/18/21 03:36 36.8 C 78 20 118/62 94 07/18/21 03:02 84 20 93 07/18/21 00:47 92 07/18/21 00:20 18 92 07/17/21 23:44 91 07/17/21 23:08 82 22 92 07/17/21 22:55 36.9 C 81 18 113/59 L 95 Laboratory Results Short CBC 07/18/21 Range/Units 06:39 WBC 6.30 (4.8-10.8) K/uL Hgb 14.8 (14.0-18.0) g/dL Hct 42.2 (42-52) % Plt Count 171 (130-400) K/uL BMP 07/18/21 06:39 Sodium 135 L Potassium 4.2 Chloride 102 Carbon Dioxide 26 BUN 20 H Creatinine 0.80 Glucose 121 H Calcium 8.0 L Liver Function 07/18/21 Range/Units 06:39 Total Bilirubin 0.4 (0.2-1) mg/dl AST 83 H (15-37) U/L ALT 79 H (12-78) U/L Alkaline Phosphatase 56 (45-117) U/L Albumin 2.5 L (3.4-5.0) gm/dl Urine 07/17/21 Range/Units 11:42 Urine Color Yellow Urine Appearance Clear (Clear) Urine pH 6.5 (4.5-7.5) Ur Specific [place] > 1.045 H (1.000-1.030) Urine Protein 2+ H (Negative) Urine Glucose (UA) Negative (Negative) Medications Administered Current Inpatient Medications Acetaminophen (Acetaminophen 325 Mg Tab) 650 mg PO Q4H PRN PRN Reason: Pain or Fever Stop: 08/16/21 14:59 Al Hydrox/Mg Hydrox/Simethicone (Aluminum/Magnesium Susp 30 Ml Udc) 15 ml PO Q4H PRN PRN Reason: Dyspepsia Stop: 08/16/21 14:59 Last Admin: 07/17/21 23:38 Dose: 15 ml Documented by: Albuterol (Albuterol Hfa 8 Gm Inhaler) 2 puffs INH Q4RWA [facility] Stop: 08/16/21 15:59 Last Admin: 07/18/21 07:29 Dose: 2 puffs Documented by: Ascorbic Acid (Ascorbic Acid 500 Mg Tab) 500 mg PO BID [facility] Stop: 08/17/21 10:14 Aspirin (Aspirin 81 Mg Ectab) 81 mg PO DAILY [facility] Stop: 08/17/21 08:59 Last Admin: 07/18/21 08:23 Dose: 81 mg Documented by: Benzonatate (Benzonatate 100 Mg Capsule) 100 mg PO TID [facility] Stop: 08/16/21 15:59 Last Admin: 07/18/21 08:23 Dose: 100 mg Documented by: Enoxaparin Sodium (Enoxaparin Inj 40 Mg/0.4 Ml Syr) 40 mg SQ Q12H [facility] Stop: 08/16/21 20:59 Last Admin: 07/18/21 08:24 Dose: 40 mg Documented by: Dexamethasone 6 mg/ Syringe 1.5 mls @ 1 mls/min IV DAILY@0900 [facility] Stop: 07/27/21 09:02 Last Admin: 07/18/21 08:23 Dose: 1 mls/min Documented by: Remdesivir 100 mg/ Sodium (Chloride) 250 mls @ 250 mls/hr IV Q24H [facility]; Protocol Stop: 07/21/21 12:59 Lisinopril (Lisinopril 5 Mg Tab) 5 mg PO QAM [facility] Stop: 08/17/21 08:59 Magnesium Hydroxide (Magnesium Hydroxide Susp 30 Ml Udc) 30 ml PO Q12H PRN PRN Reason: Constipation Stop: 08/16/21 14:59 Multivitamins/Minerals (Cerovite Adv Formula Tab) 1 tab PO DAILY [facility] Stop: 08/17/21 08:59 Last Admin: 07/18/21 08:23 Dose: 1 tab Documented by: Ondansetron HCl (Ondansetron Inj 2 Mg/Ml 2 Ml Vial) 4 mg IV Q6H PRN PRN Reason: Nausea Stop: 08/16/21 14:59 Ondansetron HCl (Ondansetron Inj 2 Mg/Ml 2 Ml Vial) 4 mg IV Q6H PRN PRN Reason: Nausea And Vomiting Stop: 08/16/21 14:59 Polyethylene Glycol (Polyethylene (Miralax) 17 Gm Pack) 17 gm PO DAILY PRN PRN Reason: Constipation Stop: 08/16/21 14:59 Sodium Chloride (Sodium Chloride 0.9% 10ml Flush) 30 ml IV Q24H [facility] Stop: 07/21/21 13:01 Vitamin D (Cholecalciferol 1,000 Units 25 Mcg Tab) 1,000 units PO QA [facility] Stop: 08/17/21 10:14 Zinc Sulfate (Zinc Sulfate 220 Mg Capsule) 220 mg PO [facility] Stop: 08/17/21 10:14
--- NOTE | 2021-07-18 10:49 | Pulmonary Consultation ---
Date of Consultation July 18, 2021 Assessment & Plan (1) Pneumonia due to COVID-19 virus: (2) Acute respiratory failure with hypoxia: CT chest 07/17/2021 personally reviewed: Patchy groundglass opacities appreciated bilaterally upper and lower lobes Minimal biapical scarring more on the left side Mild mediastinal lymphadenopathy --Acute hypoxic respiratory failure Secondary to multilobar COVID-19 pneumonia COVID-19 PCR positive 07/17/2021 CRP 10 Procalcitonin 0.09 Continue with O2 supplementation to keep oxygen saturation between 90-92%. Awake proning will be helpful Continue with incentive spirometry Continue with flutter valve. Recommend patient to be kept euvolemic to negative balance --COPD Not on any inhalers at home Plan: Increase dexamethasone to 10 mg on a daily basis. Add guaifenesin Continue with flutter valve and incentive spirometry Give the patient negative balance Please note the above document was generated using voice recognition software. It may contain grammatical, syntax or spelling errors.Any formal questions or concerns about the content, text or information contained within the body of this dictation should be directly addressed to the provider for clarification. History of Present Illness Attending Physician: Jackie Beltrán, History of Present Illness 65-year-old male past medical history of hypertension, pulmonary nodule, dyslipidemia presented to hospital with complaints of shortness of breath which has been going on for approximately a week it was progressively getting worsethe reason he came to the hospital In the ER he was found to be 74% on room air. He was found to be COVID-19 positive Pulmonary were consulted because of increasing oxygen demand At the time of examination patient was on high flow. He was not in any respiratory distress He said he is feeling the same. May be mild improvement compared to before. Denies any chest pain. No nausea or vomiting. Does complain of cough and he says that whenever he coughs he has this pain in the chest. He does complain of having GERD and burping issues. Denies any dysuria, no diarrhea. Fair appetite. Social history: Greater than [id number] smoking history quit 10 years ago No history of asthma Allergies Allergy/AdvReac Type Severity Reaction Status Date / Time naproxen [From Naprosyn] Allergy Intermediate Rash Unverified 07/17/21 11:45 atorvastatin [From Lipitor] Allergy Unknown Verified 07/17/21 12:55 house dust Allergy Unknown Verified 07/17/21 12:55 milk Allergy Unknown Verified 07/17/21 12:55 Home Medications Medication Instructions Recorded Confirmed Type albuterol sulfate 90 mcg/actuation 1 puff INHALATION DAILY PRN 07/17/21 07/17/21 History aerosol inhaler (Ventolin HFA) aspirin 81 mg tablet,delayed 81 mg PO DAILY 07/17/21 07/17/21 History release (Aspirin Low Dose) garlic 300 mg capsule (Odorless 0 mg PO DAILY 07/17/21 07/17/21 History Garlic) lisinopril 5 mg tablet (Zestril) 5 mg PO QAM 07/17/21 07/17/21 History axwblkhj-yoz-ojvyx acid 300 1 tab PO DAILY 07/17/21 07/17/21 History mcg-lycopene 600 mcg-lutein 300 mcg tablet (Centrum Silver Men) omega 5-bdx-gyk-fish oil 1,200 mg 1 cap PO DAILY 07/17/21 07/17/21 History (144 mg-216 mg) capsule (Fish Oil) ondansetron HCl 4 mg tablet 4 mg PO Q8H PRN 07/17/21 07/17/21 History (Zofran) vitamin C 500 mg-multivitamin with 1 tab PO BID 07/17/21 07/17/21 History minerals chewable tablet (Emergen-C) Patient History Medical History HLD (hyperlipidemia) HTN (hypertension) Obesity Pulmonary nodule Rheumatoid factor positive Surgical History History of tooth extraction Family History Father Coronary heart disease Mother No problems noted. Social History Smoking Status: Former smoker Age Quit Using Tobacco: 50; packs per day: 1; Years Smoked: 25; Second Hand Exposure: No; Do You Dip or Chew Tobacco: No; Hx Alcohol Use: No Hx Substance Use: No Preferred Language: Qatari Communication Ability: Effective Scrap Separator Required: No Beliefs That Will Affect Care: None marital status: Current Living Situation: Spouse Feels Safe at Home: Yes Safety Concerns: Feels Safe At This Time Assistive Devices: Oxygen - Continuous Review of Systems Review of Systems: All systems reviewed & are unremarkable except as noted in HPI & below Physical Exam Physical Exam: Constitutional: No acute distress HEENT: EOMI, PERRLA Respiratory system: Decreased antibiotic, no wheeze, no rhonchi, positive crackles bilateral lower lobes CVS: S1-S2 positive, no murmurs or gallops Abdomen: Soft, nontender, nondistended, positive bowel sounds x4, obese Extremities: +2 pulses bilaterally radialis/ dorsalis pedis, no cyanosis, no edema, no clubbing Neuro: Awake alert oriented x3 Psych: Normal mood and affect G/U: No [place] Skin: no rashes, warm and dry Lymphatic: no cervical or axillary lymphadenopathy Results & Data Results & Data ([facility]) Vital Signs (Past 12 Hours) Vital Signs Temp Pulse Resp BP Pulse Ox 07/18/21 07:29 89 18 89 L 07/18/21 07:13 36.8 C 83 20 120/72 93 07/18/21 04:08 90 07/18/21 03:36 36.8 C 78 20 118/62 94 07/18/21 03:02 84 20 93 07/18/21 00:47 92 07/18/21 00:20 18 92 07/17/21 23:44 91 07/17/21 23:08 82 22 92 07/17/21 22:55 36.9 C 81 18 113/59 L 95 07/18/21 06:39 07/18/21 06:39 PG Care Time/CCT Total # of Minutes Spent Total Time Spent with Patient: Total time spent is greater than 50% in coordination of care (as documented) at patient's floor/unit and/or counseling patient: Coding Level of Care Code 91563 Initial Inpt Care Lvl 3 Diagnoses Pneumonia due to COVID-19 virus U07.1; J12.82 Acute respiratory failure with hypoxia J96.01
[2021-07-18] MEDS: CHOLECALCIFEROL 1,000 UNITS 25 MCG TAB PO SCH (11:30)
[2021-07-18] MEDS: ZINC SULFATE 220 MG CAPSULE PO SCH (11:54)
[2021-07-18] MEDS: ASCORBIC ACID 500 MG TAB PO SCH ×2 (11:55→21:02)
[2021-07-18] MEDS: lisinopril 5 MG TAB PO SCH (11:55)
[2021-07-18] MEDS: REMDESIVIR 100 MG in SODIUM CHLORIDE 0.9% 230 ML IV SCH (11:56)
[2021-07-18] MEDS: SODIUM CHLORIDE 0.9% 10ML FLUSH IV SCH (14:37)
[2021-07-18] MEDS ORDERED: dexAMETHasone 4 MG in SYRINGE 0 ML IV ONE (14:45)
[2021-07-18] MEDS: guaiFENesin 600 MG TABCR PO SCH (21:01)
[2021-07-19] MEDS: ALBUTEROL HFA 8 GM INHALER INH SCH ×4 (07:35→22:21)
[2021-07-19 08:17] LABS: Albumin Globulin Ratio 0.6 (0.9-2); Albumin Level 2.4 gm/dl (3.4-5.0); Bilirubin,Total 0.6 mg/dl (0.2-1); C Reactive Protein 4.12 mg/dl (0-0.29); Calcium 8.1 mg/dl (8.5-10.1); Est GFR (African American) 119.1 ml/min; Est GFR (Non-African American) 102.7 ml/min; Total Protein 6.4 gm/dl (6.4-8.2)
[2021-07-19] MEDS: ASPIRIN 81 MG ECTAB PO SCH (08:44)
[2021-07-19] MEDS: dexAMETHasone 10 MG in SYRINGE 0 ML IV SCH (08:45)
[2021-07-19] MEDS: BENZONATATE 100 MG CAPSULE PO SCH ×3 (08:45→20:35)
[2021-07-19] MEDS: guaiFENesin 600 MG TABCR PO SCH (08:46)
[2021-07-19] MEDS: lisinopril 5 MG TAB PO SCH (08:46)
[2021-07-19] MEDS: ENOXAPARIN INJ 40 MG/0.4 ML SYR SQ SCH ×2 (08:47→20:36)
[2021-07-19] MEDS: ZINC SULFATE 220 MG CAPSULE PO SCH (08:47)
[2021-07-19] MEDS: CEROVITE ADV FORMULA TAB PO SCH (08:47)
[2021-07-19] MEDS: CHOLECALCIFEROL 1,000 UNITS 25 MCG TAB PO SCH (08:47)
[2021-07-19] MEDS: ASCORBIC ACID 500 MG TAB PO SCH ×2 (08:48→20:36)
[2021-07-19 09:09] LABS: Potassium 4.2 mmol/L (3.5-5.1)
[2021-07-19 09:14] LABS: Magnesium 2.6 mg/dl (1.8-2.4)
[2021-07-19] MEDS ORDERED: FUROSEMIDE 20 MG in SYRINGE 0 ML IV ONE (11:25)
[2021-07-19] MEDS ORDERED: POTASSIUM CHLORIDE CRTAB 20 MEQ TABCR PO STA (11:25)
[2021-07-19] MEDS: REMDESIVIR 100 MG in SODIUM CHLORIDE 0.9% 230 ML IV SCH (11:28)
--- NOTE | 2021-07-19 11:30 | Hospitalist Progress Note ---
Date of Service July 19, 2021 Assessment & Plan (1) Acute respiratory failure with hypoxia: Plan: 2/2 covid pneumonia. (2) Pneumonia due to COVID-19 virus: Plan: Worsening hypoxia, continue remdesivir and dexamethasone daily. Pulm evaluated and he is doing well on current therapy. Needs to prone when able. Pulmonary toilet efforts as tolerated. Continues to require max oxygen supplementation on vapotherm. Improvement in saturation with proning. He is unvaccinated. Lasix to keep him net negative (3) Transaminitis: Plan: previously not elevated, not on a statin LFTs improving, likely related to this viral infection will cont to monitor (4) HTN (hypertension): Plan: chronic, at goal. Cont home lisinopril . (5) DVT prophylaxis: Plan: Lovenox Full Code Dispo-cont PCU monitoring. Jackie Beltrán DO [facility] Hospitalist Admission and Anticipated Discharge Date Admission Date: July 17, 2021 Subjective 65 yo M admitted with acute respiratory failure 2/2 covid pneumonia Reports "feeling rotten" States had some chest pain because his pills taken together, got stuck -this has resolved Breathing ok wtih BIPAP overnight Doing well on high flow Continues to prone when he can and utilize incentive spirometry Min to no coughing. Review of Systems Review of Systems: All systems were reviewed and negative except as indicated in HPI above. Physical Exam Physical Exam: CONSTITUTIONAL: WNWD, vitals as above, generally ill- appearing. NAD EYES: normal conjunctivae, no scleral icterus ENT: external ear and nose normal, MMM RESPIRATORY: CTAB, no crackles, rales or wheezes,normal resp effort on vapotherm CARDIOVASCULAR: regular rate and rhythm, S1 and 2 heard without murmurs, gallops or rubs, no JVD, no peripheral edema CHEST: inspection of chest was normal GASTROINTESTINAL: soft, nontender, nondistended, no guarding MUSCULOSKELETAL: strength 5/5 throughout, head is normocephalic and atraumatic SKIN: warm and dry NEUROLOGIC: No facial palsy, no dysarthria. CN 2-12 grossly intact, no sensory deficit, normal cognition, normal speech, no tremor PSYCHIATRIC: alert cooperative and oriented to person, place and time. Results & Data Results & Data ([facility]) Vital Signs (Past 12 Hours) Vital Signs Temp Pulse Pulse Resp BP BP Pulse Ox 07/19/21 09:43 102 H 122/81 90 07/19/21 08:00 96 H 07/19/21 07:50 24 90 07/19/21 07:36 99 H 20 90 07/19/21 07:35 24 86 L 07/19/21 07:00 36.7 C 88 18 113/62 93 07/19/21 04:00 96 07/19/21 03:30 73 25 H 94 07/19/21 03:00 36.8 C 90 20 124/73 93 07/19/21 00:00 20 95 07/18/21 23:59 81 Laboratory Results BMP 07/19/21 07/19/21 06:17 08:32 Sodium 134 L Potassium 4.2 Chloride 104 Carbon Dioxide 23 BUN 24 H Creatinine 0.64 Glucose 121 H Calcium 8.1 L Liver Function 07/19/21 07/19/21 Range/Units 06:17 08:32 Total Bilirubin 0.6 (0.2-1) mg/dl AST 69 H (15-37) U/L ALT 83 H (12-78) U/L Alkaline Phosphatase 59 (45-117) U/L Albumin 2.4 L (3.4-5.0) gm/dl Medications Administered Current Inpatient Medications Acetaminophen (Acetaminophen 325 Mg Tab) 650 mg PO Q4H PRN PRN Reason: Pain or Fever Stop: 08/16/21 14:59 Al Hydrox/Mg Hydrox/Simethicone (Aluminum/Magnesium Susp 30 Ml Udc) 15 ml PO Q4H PRN PRN Reason: Dyspepsia Stop: 08/16/21 14:59 Last Admin: 07/17/21 23:38 Dose: 15 ml Documented by: Albuterol (Albuterol Hfa 8 Gm Inhaler) 2 puffs INH Q4RWA [facility] Stop: 08/16/21 15:59 Last Admin: 07/19/21 07:35 Dose: 2 puffs Documented by: Ascorbic Acid (Ascorbic Acid 500 Mg Tab) 500 mg PO BID [facility] Stop: 08/17/21 10:14 Last Admin: 07/19/21 08:48 Dose: 500 mg Documented by: Aspirin (Aspirin 81 Mg Ectab) 81 mg PO DAILY [facility] Stop: 08/17/21 08:59 Last Admin: 07/19/21 08:44 Dose: 81 mg Documented by: Benzonatate (Benzonatate 100 Mg Capsule) 100 mg PO TID [facility] Stop: 08/16/21 15:59 Last Admin: 07/19/21 08:45 Dose: 100 mg Documented by: Enoxaparin Sodium (Enoxaparin Inj 40 Mg/0.4 Ml Syr) 40 mg SQ Q12H [facility] Stop: 08/16/21 20:59 Last Admin: 07/19/21 08:47 Dose: 40 mg Documented by: Guaifenesin (Guaifenesin 600 Mg Tabcr) 600 mg PO Q12 [facility] Stop: 08/17/21 20:59 Last Admin: 07/19/21 08:46 Dose: 600 mg Documented by: Guaifenesin/Codeine Phosphate (Guaifenesin/Codeine 200mg/20mg 10ml Udc) 10 ml PO Q6H PRN PRN Reason: Cough Stop: 08/17/21 18:18 Remdesivir 100 mg/ Sodium (Chloride) 250 mls @ 250 mls/hr IV Q24H [facility]; Protocol Stop: 07/21/21 12:59 Last Admin: 07/19/21 11:28 Dose: 250 mls/hr Documented by: Dexamethasone 10 mg/ Syringe 2.5 mls @ 1 mls/min IV DAILY@0900 [facility] Stop: 07/27/21 09:03 Last Admin: 07/19/21 08:45 Dose: 1 mls/min Documented by: Furosemide 20 mg/ Syringe 2 mls @ 4 mls/min IV ONE ONE Stop: 07/19/21 11:26 Furosemide 20 mg/ Syringe 2 mls @ 4 mls/min IV QAM [facility] Stop: 08/19/21 08:59 Lisinopril (Lisinopril 5 Mg Tab) 5 mg PO QAM [facility] Stop: 08/17/21 08:59 Last Admin: 07/19/21 08:46 Dose: 5 mg Documented by: Magnesium Hydroxide (Magnesium Hydroxide Susp 30 Ml Udc) 30 ml PO Q12H PRN PRN Reason: Constipation Stop: 08/16/21 14:59 Multivitamins/Minerals (Cerovite Adv Formula Tab) 1 tab PO DAILY [facility] Stop: 08/17/21 08:59 Last Admin: 07/19/21 08:47 Dose: 1 tab Documented by: Ondansetron HCl (Ondansetron Inj 2 Mg/Ml 2 Ml Vial) 4 mg IV Q6H PRN PRN Reason: Nausea Stop: 08/16/21 14:59 Ondansetron HCl (Ondansetron Inj 2 Mg/Ml 2 Ml Vial) 4 mg IV Q6H PRN PRN Reason: Nausea And Vomiting Stop: 08/16/21 14:59 Polyethylene Glycol (Polyethylene (Miralax) 17 Gm Pack) 17 gm PO DAILY PRN PRN Reason: Constipation Stop: 08/16/21 14:59 Potassium Chloride (Potassium Chloride Crtab 20 Meq Tabcr) 20 meq PO NOW STA Stop: 07/19/21 11:26 Potassium Chloride (Potassium Chloride Crtab 20 Meq Tabcr) 20 meq PO QAM [facility] Stop: 08/19/21 08:59 Sodium Chloride (Sodium Chloride 0.9% 10ml Flush) 30 ml IV Q24H [facility] Stop: 07/21/21 13:01 Last Admin: 07/18/21 14:37 Dose: 30 ml Documented by: Vitamin D (Cholecalciferol 1,000 Units 25 Mcg Tab) [facility]: 08/17/21 10:14 Last Admin: 07/19/21 08:47 Dose: 1,000 units Documented by: Zinc Sulfate (Zinc Sulfate 220 Mg Capsule) [facility] Stop: 08/17/21 10:14 Last Admin: 07/19/21 08:47 Dose: 220 mg Documented by:
[2021-07-19] MEDS ORDERED: FUROSEMIDE 40 MG/4 ML VIAL IV SCH (11:45)
[2021-07-19] MEDS: SODIUM CHLORIDE 0.9% 10ML FLUSH IV SCH (12:56)
--- NOTE | 2021-07-19 13:49 | Pulmonology Progress Note ---
Date of Service July 19, 2021 Assessment & Plan (1) Pneumonia due to COVID-19 virus: (2) Acute respiratory failure with hypoxia: (3) COPD with emphysema: (4) Pulmonary nodule: Plan: CT chest 07/17/2021 personally reviewed: Patchy groundglass opacities appreciated bilaterally upper and lower lobes Minimal biapical scarring more on the left side Mild mediastinal lymphadenopathy --Acute hypoxic respiratory failure Secondary to multilobar COVID-19 pneumonia COVID-19 PCR positive 07/17/2021 CRP 10 --> 4.12 Procalcitonin 0.09 Continue with O2 supplementation to keep oxygen saturation between 90-92%. Awake proning will be helpful Continue with incentive spirometry Continue with flutter valve. Recommend patient to be kept euvolemic to negative balance --COPD Not on any inhalers at home Start patient on Anoro --History of lung nodule Not clearly appreciated on the latest CAT scan likely secondary to the opacities Continue outpatient screening Plan: In/out: -390, urine output 2200 Continue with diuretics to keep the patient negative balance I will start the patient on guaifenesin-DM [id number] given that he has issues with significant desaturation on coughing Can go down on the frequency of flutter valve Continue with aggressive incentive spirometry Awake proning will be helpful Given the patient has history of reflux complaining of epigastric pain and burping and is on high-dose steroids I will start the patient on Protonix 40 mg p.o. twice daily along Please note the above document was generated using voice recognition software. It may contain grammatical, syntax or spelling errors.Any formal questions or concerns about the content, text or information contained within the body of this dictation should be directly addressed to the provider for clarification. Admission and Anticipated Discharge Date Admission Date: July 17, 2021 Subjective Patient seen and examined at bedside. No acute distress, no adverse events overnight. Patient was a 90% FiO2, 40 L saturating 93-94% Not in any respiratory distress I went down to 80% patient was still saturating 92%. He says that he has been having epigastric discomfort which is usually feels when he gets reflux. Denies any chest pain Does state that whenever he coughs he really get short of breath. Afebrile. Review of Systems Review of Systems: All systems reviewed & are unremarkable except as noted in Subjective Physical Exam Physical Exam: Constitutional: No acute distress HEENT: EOMI, PERRLA Respiratory system: Decreased antibiotic, no wheeze, no rhonchi, positive crackles bilateral lower lobes CVS: S1-S2 positive, no murmurs or gallops Abdomen: Soft, nontender, nondistended, positive bowel sounds x4, obese Extremities: +2 pulses bilaterally radialis/ dorsalis pedis, no cyanosis, no edema, no clubbing Neuro: Awake alert oriented x3 Psych: Normal mood and affect G/U: No [place] Skin: no rashes, warm and dry Lymphatic: no cervical or axillary lymphadenopathy Results & Data Results & Data ([facility]) Vital Signs (Past 12 Hours) Vital Signs Temp Pulse Pulse Resp BP BP Pulse Ox 07/19/21 11:55 37.1 C 96 H 20 139/71 94 07/19/21 11:49 93 H 22 98 07/19/21 09:43 102 H 122/81 90 07/19/21 08:00 96 H 07/19/21 07:50 24 90 07/19/21 07:36 99 H 20 90 07/19/21 07:35 24 86 L 07/19/21 07:00 36.7 C 88 18 113/62 93 07/19/21 04:00 96 07/19/21 03:30 73 25 H 94 07/19/21 03:00 36.8 C 90 20 124/73 93 07/18/21 06:39 07/19/21 08:32 PG Care Time/CCT Total # of Minutes Spent Total Time Spent with Patient: Total time spent is greater than 50% in coordination of care (as documented) at patient's floor/unit and/or counseling patient: Coding Level of Care Code 60239 Subseq Hosp Care Lvl 3 Diagnoses Pneumonia due to COVID-19 virus U07.1; J12.82 Acute respiratory failure with hypoxia J96.01 COPD with emphysema J43.9 Pulmonary nodule R91.1
[2021-07-19] MEDS: guaiFENesin/DEXTROM SYRUP 200MG/20MG 10ML UDC PO SCH ×2 (15:37→20:35)
[2021-07-19] MEDS: PANTOprazole 40 MG TAB PO SCH (19:05)
[2021-07-20] MEDS: guaiFENesin/DEXTROM SYRUP 200MG/20MG 10ML UDC PO SCH ×4 (02:59→21:14)
--- NOTE | 2021-07-20 06:17 | Electrocardiogram Report ---
Test Reason : Blood Pressure : / mmHG Vent. Rate : 096 BPM Atrial Rate : 096 BPM P-R Int : 162 ms QRS Dur : 068 ms QT Int : 328 ms P-R-T Axes : 056 040 021 degrees QTc Int : 414 ms Normal sinus rhythm Nonspecific T wave abnormality When compared with ECG of 17-JUL-2021 09:33, No significant change was found Confirmed by Dre Nguyen ([id number] on 07/20/2021 6:16:22 AM Referred By: REFERRED SELF Confirmed By:Dre Nguyen
[2021-07-20] MEDS: ALBUTEROL HFA 8 GM INHALER INH SCH ×3 (07:18→22:24)
[2021-07-20 07:41] LABS: Hematocrit (blood only) 42.7 % (42-52); Hemoglobin 15.3 g/dL (14.0-18.0); Mean Corpuscular Hemoglobin 32.3 pg (25-34); Mean Corpuscular Hgb Conc 35.8 g/dL (32-36); Mean Corpuscular Volume 90.1 fL (80-100); Mean Platelet Volume 10.2 fL (7.4-10.4); Platelet Count 275 K/uL (130-400); RDW Coefficient of Variation 12.6 % (11.5-14.5); RDW Standard Deviation 41.5 fL (36.4-46.3); Red Blood Count 4.74 M/uL (4.7-6.1); White Blood Count 13.04 K/uL (4.8-10.8)
[2021-07-20] MEDS: dexAMETHasone 10 MG in SYRINGE 0 ML IV SCH (07:53)
[2021-07-20 08:11] LABS: Albumin Level 2.5 gm/dl (3.4-5.0); BUN Creatinine Ratio 34.1 (10-20); Calcium 8.2 mg/dl (8.5-10.1); Est GFR (African American) 114.8 ml/min; Potassium 4.5 mmol/L (3.5-5.1)
[2021-07-20 08:14] LABS: Albumin Globulin Ratio 0.6 (0.9-2); Bilirubin,Total 0.7 mg/dl (0.2-1); C Reactive Protein 1.75 mg/dl (0-0.29); Globulin 4.1 gm/dl (2.5-4.0); Total Protein 6.6 gm/dl (6.4-8.2)
--- NOTE | 2021-07-20 08:27 | Pulmonology Progress Note ---
Date of Service July 20, 2021 Assessment & Plan (1) Pneumonia due to COVID-19 virus: (2) Acute respiratory failure with hypoxia: (3) COPD with emphysema: (4) Pulmonary nodule: Plan: CT chest 07/17/2021 personally reviewed: Patchy groundglass opacities appreciated bilaterally upper and lower lobes Minimal biapical scarring more on the left side Mild mediastinal lymphadenopathy --Acute hypoxic respiratory failure Secondary to multilobar COVID-19 pneumonia COVID-19 PCR positive 07/17/2021 CRP 10 --> 4.12 Procalcitonin 0.09 Continue with O2 supplementation to keep oxygen saturation between 90-92%. Awake proning will be helpful Continue with incentive spirometry Continue with flutter valve. Recommend patient to be kept euvolemic to negative balance --COPD Not on any inhalers at home Continue with Anoro --History of lung nodule Not clearly appreciated on the latest CAT scan likely secondary to the opacities Continue outpatient screening Plan: In/out: Negative 1000ml, urine output 1250 Continue with diuretics to keep the patient negative balance Continue with guaifenesin DM [id number] Please note the above document was generated using voice recognition software. It may contain grammatical, syntax or spelling errors.Any formal questions or concerns about the content, text or information contained within the body of this dictation should be directly addressed to the provider for clarification. Admission and Anticipated Discharge Date Admission Date: July 17, 2021 Subjective Patient seen and examined at bedside. No acute distress, no adverse events overnight. Patient was lying in the right decubitus position saturating 99% on 80% FiO2, 40 L I went down to 65% patient was still maintaining saturation around 90-92% Stated he is feeling better compared to yesterday. The burping and the epigastric burning has reduced Still coughing bringing up clear phlegm. Denies any chest pain. No fever or chills. Review of Systems Review of Systems: All systems reviewed & are unremarkable except as noted in Subjective Physical Exam Physical Exam: Constitutional: No acute distress HEENT: EOMI, PERRLA Respiratory system: Decreased antibiotic, no wheeze, no rhonchi, positive crackles bilateral lower lobes CVS: S1-S2 positive, no murmurs or gallops Abdomen: Soft, nontender, nondistended, positive bowel sounds x4, obese Extremities: +2 pulses bilaterally radialis/ dorsalis pedis, no cyanosis, no edema, no clubbing Neuro: Awake alert oriented x3 Psych: Normal mood and affect G/U: Positive [place] Skin: no rashes, warm and dry Lymphatic: no cervical or axillary lymphadenopathy Results & Data Results & Data ([facility]) Vital Signs (Past 12 Hours) Vital Signs Temp Pulse Pulse Resp BP Pulse Ox 07/20/21 08:00 76 07/20/21 07:19 87 20 93 07/20/21 04:00 26 H 96 07/20/21 03:34 76 30 H 93 07/20/21 03:00 36.5 C 87 18 133/71 95 07/20/21 00:00 24 94 07/19/21 23:59 74 07/19/21 23:54 36.9 C 90 20 116/72 95 07/19/21 22:23 84 24 92 07/19/21 22:21 78 24 93 07/20/21 06:46 07/20/21 06:46 PG Care Time/CCT Total # of Minutes Spent Total Time Spent with Patient: Total time spent is greater than 50% in coordination of care (as documented) at patient's floor/unit and/or counseling patient: Coding Level of Care Code 02007 Subseq Hosp Care Lvl 3 Diagnoses Pneumonia due to COVID-19 virus U07.1; J12.82 Acute respiratory failure with hypoxia J96.01 COPD with emphysema J43.9 Pulmonary nodule R91.1
[2021-07-20] MEDS ORDERED: FUROSEMIDE 20 MG in SYRINGE 0 ML IV SCH (09:00)
[2021-07-20] MEDS: UMECLIDINIUM/VILANTEROL 62.5/25MCG 7 PUFFS/INHALER INH SCH (09:25)
[2021-07-20] MEDS: PANTOprazole 40 MG TAB PO SCH ×2 (09:26→21:16)
[2021-07-20] MEDS: BENZONATATE 100 MG CAPSULE PO SCH ×3 (09:26→21:14)
[2021-07-20] MEDS: ZINC SULFATE 220 MG CAPSULE PO SCH (09:27)
[2021-07-20] MEDS: ASCORBIC ACID 500 MG TAB PO SCH ×2 (09:27→21:15)
[2021-07-20] MEDS: ASPIRIN 81 MG ECTAB PO SCH (09:27)
[2021-07-20] MEDS: CHOLECALCIFEROL 1,000 UNITS 25 MCG TAB PO SCH (09:27)
[2021-07-20] MEDS: CEROVITE ADV FORMULA TAB PO SCH (09:28)
[2021-07-20] MEDS: lisinopril 5 MG TAB PO SCH (09:28)
[2021-07-20] MEDS: ENOXAPARIN INJ 40 MG/0.4 ML SYR SQ SCH ×2 (09:28→21:15)
[2021-07-20] MEDS: FUROSEMIDE 40 MG/4 ML VIAL IV SCH (09:37)
[2021-07-20] MEDS: POTASSIUM CHLORIDE CRTAB 20 MEQ TABCR PO SCH (09:37)
[2021-07-20] MEDS: REMDESIVIR 100 MG in SODIUM CHLORIDE 0.9% 230 ML IV SCH (11:32)
[2021-07-20] MEDS: SODIUM CHLORIDE 0.9% 10ML FLUSH IV SCH (11:33)
--- NOTE | 2021-07-20 16:06 | Hospitalist Progress Note ---
Date of Service July 20, 2021 Assessment & Plan (1) Acute respiratory failure with hypoxia: Plan: 2/2 covid pneumonia. Has been requiring high flow oxygen to maintain saturation Remains moderate to severe shortness of breath at rest (2) Pneumonia due to COVID-19 virus: Plan: Worsening hypoxia, continue remdesivir and dexamethasone daily. Appreciate pulmonary input and recommendation Needs to prone when able. Continues to require max oxygen supplementation on vapotherm. He is unvaccinated. Lasix to keep him net negative (3) Transaminitis: Plan: Previously not elevated, not on a statin LFTs improving, likely related to this viral infection will cont to monitor-remains minimally elevated (4) HTN (hypertension): Plan: chronic, at goal. Cont home lisinopril . (5) DVT prophylaxis: Plan: Lovenox Full Code Dispo-cont PCU monitoring. Admission and Anticipated Discharge Date Admission Date: July 17, 2021 Subjective 07/20/2021 The patient was seen and examined in telemetry unit in the [facility] room He has been feeling that great and requiring high flow oxygen to maintain saturation Has cough with moderate to severe shortness of breath at rest No fever and no chills and no pain Review of Systems Review of Systems: All systems reviewed and are unremarkable except as noted below Respiratory: Moderate to severe shortness of breath at rest Physical Exam Physical Exam: Lying in bed with some discomfort due to shortness of breath Constitutional: well developed, well nourished, + ill appearing and + obese Eyes: PERRL, conjunctivae normal, anicteric sclerae ENMT: external ear and nose normal, oropharynx normal Neck: trachea midline, no thyromegaly Respiratory: + respiratory distress (Moderate distress at rest) and + uses accessory muscles Auscultation: + diminished lung sounds and + crackles (Minimal crackles at the bases) Cardiovascular: Rate/Rhythm: regular rate and regular rhythm; not tachycardic Heart Sounds: normal S1 and normal S2; no murmur Extremities: no edema Gastrointestinal (Abdomen): Inspection/Auscultation: normal bowel sounds; abdomen not distended Musculoskeletal: No acute arthritis in any joint Neurologic: Alert, awake and oriented x3. No focal sensory no motor deficit appreciated Results & Data Results & Data ([facility]) Vital Signs (Past 12 Hours) Vital Signs Temp Pulse Pulse Resp BP Pulse Ox 07/20/21 15:29 22 92 07/20/21 15:26 95 H 22 90 07/20/21 14:00 36.8 C 98 H 22 93 07/20/21 12:00 20 94 07/20/21 10:53 36.8 C 92 H 20 118/68 94 07/20/21 10:39 107 H 21 91 07/20/21 08:00 76 07/20/21 07:19 87 20 93 07/20/21 07:00 36.1 C L Laboratory Results Short CBC 07/20/21 Range/Units 06:46 WBC 13.04 H (4.8-10.8) K/uL Hgb 15.3 (14.0-18.0) g/dL Hct 42.7 (42-52) % Plt Count 275 (130-400) K/uL BMP 07/20/21 06:46 Sodium 135 L Potassium 4.5 Chloride 104 Carbon Dioxide 24 BUN 24 H Creatinine 0.70 Glucose 108 H Calcium 8.2 L Liver Function 07/20/21 Range/Units 06:46 Total Bilirubin 0.7 (0.2-1) mg/dl AST 67 H (15-37) U/L ALT 92 H (12-78) U/L Alkaline Phosphatase 61 (45-117) U/L Albumin 2.5 L (3.4-5.0) gm/dl Medications Administered Current Inpatient Medications Acetaminophen (Acetaminophen 325 Mg Tab) 650 mg PO Q4H PRN PRN Reason: Pain or Fever Stop: 08/16/21 14:59 Al Hydrox/Mg Hydrox/Simethicone (Aluminum/Magnesium Susp 30 Ml Udc) 15 ml PO Q4H PRN PRN Reason: Dyspepsia Stop: 08/16/21 14:59 Last Admin: 07/17/21 23:38 Dose: 15 ml Documented by: Albuterol (Albuterol Hfa 8 Gm Inhaler) 2 puffs INH Q8R [facility] Stop: 08/18/21 14:59 Last Admin: 07/20/21 15:25 Dose: 2 puffs Documented by: Ascorbic Acid (Ascorbic Acid 500 Mg Tab) 500 mg PO BID [facility] Stop: 08/17/21 10:14 Last Admin: 07/20/21 09:27 Dose: 500 mg Documented by: Aspirin (Aspirin 81 Mg Ectab) 81 mg PO DAILY [facility] Stop: 08/17/21 08:59 Last Admin: 07/20/21 09:27 Dose: 81 mg Documented by: Benzonatate (Benzonatate 100 Mg Capsule) 100 mg PO TID [facility] Stop: 08/16/21 15:59 Last Admin: 07/20/21 13:53 Dose: 100 mg Documented by: Enoxaparin Sodium (Enoxaparin Inj 40 Mg/0.4 Ml Syr) 40 mg SQ Q12H [facility] Stop: 08/16/21 20:59 Last Admin: 07/20/21 09:28 Dose: 40 mg Documented by: Furosemide (Furosemide 40 Mg/4 Ml Vial) 20 mg IV DAILY [facility] Stop: 08/19/21 08:59 Last Admin: 07/20/21 09:37 Dose: 20 mg Documented by: Guaifenesin/Codeine Phosphate (Guaifenesin/Codeine 200mg/20mg 10ml Udc) 10 ml PO Q6H PRN PRN Reason: Cough Stop: 08/17/21 18:18 Guaifenesin/Dextromethorphan (Guaifenesin/Dextrom Syrup 200mg/20mg 10ml Udc) 10 ml PO Q6H [facility] Stop: 08/18/21 13:59 Last Admin: 07/20/21 13:54 Dose: 10 ml Documented by: Remdesivir 100 mg/ Sodium (Chloride) 250 mls @ 250 mls/hr IV Q24H [facility]; Protocol Stop: 07/21/21 12:59 Last Infusion: 07/20/21 12:45 Dose: Infused Documented by: Dexamethasone 10 mg/ Syringe 2.5 mls @ 1 mls/min IV DAILY@0900 [facility] Stop: 07/27/21 09:03 Last Admin: 07/20/21 07:53 Dose: 1 mls/min Documented by: Lisinopril (Lisinopril 5 Mg Tab) 5 mg PO QAM [facility] Stop: 08/17/21 08:59 Last Admin: 07/20/21 09:28 Dose: 5 mg Documented by: Magnesium Hydroxide (Magnesium Hydroxide Susp 30 Ml Udc) 30 ml PO Q12H PRN PRN Reason: Constipation Stop: 08/16/21 14:59 Multivitamins/Minerals (Cerovite Adv Formula Tab) 1 tab PO DAILY [facility] Stop: 08/17/21 08:59 Last Admin: 07/20/21 09:28 Dose: 1 tab Documented by: Ondansetron HCl (Ondansetron Inj 2 Mg/Ml 2 Ml Vial) 4 mg IV Q6H PRN PRN Reason: Nausea Stop: 08/16/21 14:59 Ondansetron HCl (Ondansetron Inj 2 Mg/Ml 2 Ml Vial) 4 mg IV Q6H PRN PRN Reason: Nausea And Vomiting Stop: 08/16/21 14:59 Pantoprazole Sodium (Pantoprazole 40 Mg Tab) 40 mg PO BID [facility] Stop: 08/18/21 20:59 Last Admin: 07/20/21 09:26 Dose: 40 mg Documented by: Polyethylene Glycol (Polyethylene (Miralax) 17 Gm Pack) 17 gm PO DAILY PRN PRN Reason: Constipation Stop: 08/16/21 14:59 Potassium Chloride (Potassium Chloride Crtab 20 Meq Tabcr) 20 meq PO QAM [facility] Stop: 08/19/21 08:59 Last Admin: 07/20/21 09:37 Dose: 20 meq Documented by: Sodium Chloride (Sodium Chloride 0.9% 10ml Flush) 30 ml IV Q24H [facility] Stop: 07/21/21 13:01 Last Admin: 07/20/21 11:33 Dose: 30 ml Documented by: Umeclidinium/Vilanterol (Umeclidinium/Vilanterol 62.5/25mcg 7 Puffs/Inhaler) 1 puffs INH DAILY [facility] Stop: 08/19/21 08:59 Last Admin: 07/20/21 09:25 Dose: 1 puffs Documented by: Vitamin D (Cholecalciferol 1,000 Units 25 Mcg Tab) 1,000 units PO QAM [facility] Stop: 08/17/21 10:14 Last Admin: 07/20/21 09:27 Dose: 1,000 units Documented by: Zinc Sulfate (Zinc Sulfate 220 Mg Capsule) 220 mg PO QAM [facility] Stop: 08/17/21 10:14 Last Admin: 07/20/21 09:27 Dose: 220 mg Documented by:
[2021-07-20] MEDS: POLYETHYLENE (MIRALAX) 17 GM PACK PO PRN (17:58)
[2021-07-20] MEDS ORDERED: SODIUM CHLORIDE 0.65% NA SOLN 45 ML (OCEAN) PRN (22:38)
[2021-07-21] MEDS: guaiFENesin/DEXTROM SYRUP 200MG/20MG 10ML UDC PO SCH ×4 (02:30→19:47)
[2021-07-21 06:35] LABS: Basophils # (auto) 0.03 K/uL (0-0.2); Basophils % (auto) 0.2 %; Hematocrit (blood only) 44.9 % (42-52); Hemoglobin 15.7 g/dL (14.0-18.0); Immature Granulocytes # (auto) 0.05 K/uL (0.00-0.02); Immature Granulocytes % (auto) 0.4 %; Lymphocytes # (auto) 0.83 K/uL (1.2-3.4); Lymphocytes % (auto) 6.9 %; Mean Corpuscular Hemoglobin 31.8 pg (25-34); Mean Corpuscular Volume 90.9 fL (80-100); Mean Platelet Volume 10.5 fL (7.4-10.4); Monocytes # (auto) 0.19 K/uL (0.11-0.59); Monocytes % (auto) 1.6 %; Neutrophils # (auto) 11.01 K/uL (1.4-6.5); Neutrophils % (auto) 90.9 %; Platelet Count 297 K/uL (130-400); RDW Coefficient of Variation 12.6 % (11.5-14.5); RDW Standard Deviation 42.3 fL (36.4-46.3); Red Blood Count 4.94 M/uL (4.7-6.1); White Blood Count 12.11 K/uL (4.8-10.8)
[2021-07-21 07:03] LABS: Albumin Level 2.6 gm/dl (3.4-5.0); BUN Creatinine Ratio 32.8 (10-20); C Reactive Protein 3.24 mg/dl (0-0.29); Calcium 8.5 mg/dl (8.5-10.1); Creatinine Clr Calc Pharmacy 95.1 ml/min; Est GFR (African American) 108.7 ml/min; Est GFR (Non-African American) 93.7 ml/min; Magnesium 2.3 mg/dl (1.8-2.4); Potassium 4.6 mmol/L (3.5-5.1)
[2021-07-21 07:05] LABS: Albumin Globulin Ratio 0.6 (0.9-2); Globulin 4.2 gm/dl (2.5-4.0); Phosphorus 3.1 mg/dl (2.5-4.9); Total Protein 6.8 gm/dl (6.4-8.2)
--- NOTE | 2021-07-21 07:10 | XRay Report ---
XR chest 1V portable CLINICAL HISTORY: f/u COMPARISON STUDY: Chest radiograph and chest CT July 17, 2021. FINDINGS: Lung volumes are normal. Bilateral airspace opacity has slightly improved since exam of Jun us2020. There is no pneumothorax or pleural effusion. Cardiac size is normal. Mediastinal conto urs are normal. There is no evidence for pulmonary edema. IMPRESSION: Slight improvement in bilateral airspace opacities since exam of July 17, 2021. ACT 112: Negative or not required by law. Electronically signed by: Ravi Erickson M.D. 07/21/2021 7:08 AM
[2021-07-21] MEDS: ENOXAPARIN INJ 40 MG/0.4 ML SYR SQ SCH ×2 (07:15→19:46)
[2021-07-21] MEDS: UMECLIDINIUM/VILANTEROL 62.5/25MCG 7 PUFFS/INHALER INH SCH (07:15)
[2021-07-21] MEDS: BENZONATATE 100 MG CAPSULE PO SCH ×4 (07:16→20:01)
[2021-07-21] MEDS: dexAMETHasone 10 MG in SYRINGE 0 ML IV SCH (07:20)
[2021-07-21] MEDS: FUROSEMIDE 40 MG/4 ML VIAL IV SCH (07:20)
[2021-07-21] MEDS ORDERED: LEVALBUTEROL TARTRATE 15 GM HFA.AER.AD INH PRN (07:25)
[2021-07-21] MEDS: CHOLECALCIFEROL 1,000 UNITS 25 MCG TAB PO SCH (07:36)
[2021-07-21] MEDS: ASCORBIC ACID 500 MG TAB PO SCH ×3 (07:36→20:01)
[2021-07-21] MEDS: CEROVITE ADV FORMULA TAB PO SCH (07:37)
[2021-07-21] MEDS: lisinopril 5 MG TAB PO SCH (07:37)
[2021-07-21] MEDS: ASPIRIN 81 MG ECTAB PO SCH (07:37)
[2021-07-21] MEDS: ZINC SULFATE 220 MG CAPSULE PO SCH (07:38)
[2021-07-21] MEDS: POTASSIUM CHLORIDE CRTAB 20 MEQ TABCR PO SCH (07:44)
[2021-07-21] MEDS: PANTOprazole 40 MG TAB PO SCH ×3 (07:44→20:02)
[2021-07-21] MEDS: ALBUTEROL HFA 8 GM INHALER INH SCH (07:46)
--- NOTE | 2021-07-21 08:05 | Pulmonology Progress Note ---
Date of Service July 21, 2021 Assessment & Plan (1) Pneumonia due to COVID-19 virus: (2) Acute respiratory failure with hypoxia: (3) COPD with emphysema: (4) Pulmonary nodule: Plan: CT chest 07/17/2021 personally reviewed: Patchy groundglass opacities appreciated bilaterally upper and lower lobes Minimal biapical scarring more on the left side Mild mediastinal lymphadenopathy --Acute hypoxic respiratory failure Secondary to multilobar COVID-19 pneumonia COVID-19 PCR positive 07/17/2021 CRP 10 --> 4.12 Procalcitonin 0.09 Continue with O2 supplementation to keep oxygen saturation between 90-92%. Awake proning will be helpful Continue with incentive spirometry Continue with flutter valve. Recommend patient to be kept euvolemic to negative balance --COPD Not on any inhalers at home Continue with Anoro --History of lung nodule Not clearly appreciated on the latest CAT scan likely secondary to the opacities Continue outpatient screening Plan: In/out: Negative 690, urine output 2550 Chest x-ray from today shows improvement in the bilateral opacities. I will put patient on CPAP right now. Can go back to high flow once he is more relaxed. He does complain of anxiety as well. I will give him 0.5 of Ativan x1 dose while on CPAP with backup rate of 16. Continue with diuretics to keep the patient negative balance Continue with guaifenesin DM [id number] Case discussed with LILY Alonso Please note the above document was generated using voice recognition software. It may contain grammatical, syntax or spelling errors.Any formal questions or concerns about the content, text or information contained within the body of this dictation should be directly addressed to the provider for clarification. Admission and Anticipated Discharge Date Admission Date: July 17, 2021 Subjective Patient seen and examined at bedside. No acute distress, no adverse events overnight. Patient was on 40 L, 70% saturating 93-94% while proning Today he stated that he feels little bit worse compared to yesterday. He is complaining of heartburn. Has been complaining that he is having difficulty swallowing pills. He denies any odynophagia. Has been urinating well. Patient did not use CPAP last night Review of Systems Review of Systems: All systems reviewed & are unremarkable except as noted in Subjective Physical Exam Physical Exam: Constitutional: No acute distress HEENT: EOMI, PERRLA, no oral thrush Respiratory system: Decreased antibiotic, no wheeze, no rhonchi, positive crackles bilateral lower lobes CVS: S1-S2 positive, no murmurs or gallops Abdomen: Soft, nontender, nondistended, positive bowel sounds x4, obese Extremities: +2 pulses bilaterally radialis/ dorsalis pedis, no cyanosis, no edema, no clubbing Neuro: Awake alert oriented x3 Psych: Normal mood and affect G/U: No [place] Skin: no rashes, warm and dry Lymphatic: no cervical or axillary lymphadenopathy Results & Data Results & Data ([facility]) Vital Signs (Past 12 Hours) Vital Signs Temp Pulse Pulse Pulse Resp BP BP 07/21/21 07:35 110 H 22 07/21/21 07:00 36.8 C 118 H 28 H 140/73 07/21/21 06:00 20 07/21/21 03:23 36.5 C 108 H 18 117/69 07/21/21 02:03 81 18 07/21/21 02:00 18 07/20/21 23:59 89 07/20/21 23:28 35.8 C L 128 H 18 128/79 07/20/21 22:24 92 H 92 H 18 07/20/21 22:00 18 Pulse Ox 07/21/21 07:35 94 07/21/21 07:00 93 07/21/21 06:00 20 L 07/21/21 03:23 90 07/21/21 02:03 94 07/21/21 02:00 95 07/20/21 23:59 07/20/21 23:28 93 07/20/21 22:24 92 07/20/21 22:00 93 07/21/21 05:32 07/21/21 05:32 PG Care Time/CCT Total # of Minutes Spent Total Time Spent with Patient: Total time spent is greater than 50% in coordination of care (as documented) at patient's floor/unit and/or counseling patient: Coding Level of Care Code 60277 Subseq Hosp Care Lvl 3 Diagnoses Pneumonia due to COVID-19 virus U07.1; J12.82 Acute respiratory failure with hypoxia J96.01 COPD with emphysema J43.9 Pulmonary nodule R91.1
[2021-07-21] MEDS ORDERED: LORazepam 0.5 MG/1 ML VIAL IV STA ×2 (09:31→15:40)
[2021-07-21] MEDS: SODIUM CHLORIDE 0.9% 10ML FLUSH IV SCH (12:24)
[2021-07-21] MEDS: REMDESIVIR 100 MG in SODIUM CHLORIDE 0.9% 230 ML IV SCH (12:24)
[2021-07-21] MEDS ORDERED: FUROSEMIDE 20 MG in SYRINGE 0 ML IV ONE (13:44)
[2021-07-21] MEDS ORDERED: FUROSEMIDE 40 MG/4 ML VIAL IV SCH (14:00)
[2021-07-21] MEDS: LORazepam 0.25 MG/0.5 ML VIAL IV PRN (14:25)
--- NOTE | 2021-07-21 16:17 | Hospitalist Progress Note ---
Date of Service July 21, 2021 Assessment & Plan (1) Acute respiratory failure with hypoxia: Plan: 2/2 covid pneumonia. Has been requiring high flow oxygen to maintain saturation Remains moderate to severe shortness of breath at rest Chest x-ray showed some improvement of bibasilar infiltration (2) Pneumonia due to COVID-19 virus: Plan: Worsening hypoxia, continue remdesivir and dexamethasone daily. Appreciate pulmonary input and recommendation Needs to prone when able. Continues to require max oxygen supplementation on vapotherm. He is unvaccinated. Lasix to keep him net negative Intravenous Lasix doses have been increased to 40 mg once daily Has been requiring high flow oxygen at FiO2 of 0.45 with BiPAP to maintain saturation Has been requiring small dose of Ativan for agitation and tachypnea CPR is minimally elevated at 3.24 on 07/21/2021 from 1.75 yesterday (3) Transaminitis: Plan: Previously not elevated, not on a statin LFTs improving, likely related to this viral infection will cont to monitor-remains minimally elevated (4) HTN (hypertension): Plan: chronic, at goal. Cont home lisinopril . (5) DVT prophylaxis: Plan: Lovenox Full Code Dispo-cont PCU monitoring. Admission and Anticipated Discharge Date Admission Date: July 17, 2021 Subjective 07/20/2021 The patient was seen and examined in telemetry unit in the [facility] room He has been feeling that great and requiring high flow oxygen to maintain saturation Has cough with moderate to severe shortness of breath at rest No fever and no chills and no pain 07/21/2021 The patient was seen and examined in telemetry unit and in the [facility] room He has not been doing much better today and has been requiring high flow oxygen with BiPAP to maintain saturation He was noted to be tachycardic, tachypneic early this morning During my examination he was a stable in the room Review of Systems Review of Systems: All systems reviewed and are unremarkable except as noted below Respiratory: Severe shortness of breath at rest on BiPAP Physical Exam Physical Exam: Lying in bed with prone position and with BiPAP Constitutional: well developed, well nourished, + ill appearing and + obese Eyes: PERRL, conjunctivae normal, anicteric sclerae ENMT: external ear and nose normal, oropharynx normal Neck: trachea midline, no thyromegaly Respiratory: + respiratory distress (Moderate distress at rest) and + uses accessory muscles Auscultation: + diminished lung sounds and + crackles (Minimal crackles at the bases) Cardiovascular: Rate/Rhythm: regular rate and regular rhythm; not tachycardic Heart Sounds: normal S1 and normal S2; no murmur Extremities: no edema Gastrointestinal (Abdomen): Inspection/Auscultation: normal bowel sounds; abdomen not distended Musculoskeletal: No acute arthritis in any joint Neurologic: Alert and awake. Generally very weak and lethargic Results & Data Results & Data ([facility]) Vital Signs (Past 12 Hours) Vital Signs Temp Pulse Pulse Resp BP BP Pulse Ox 07/21/21 16:00 104 H 07/21/21 15:58 35 H 95 07/21/21 15:13 113 H 39 H 92 07/21/21 15:00 36.6 C 107 H 40 H 111/69 91 07/21/21 14:00 95 07/21/21 11:06 115 H 34 H 94 07/21/21 11:00 36.8 C 106 H 30 H 117/76 94 07/21/21 10:00 90 07/21/21 09:23 89 L 07/21/21 09:00 07/21/21 08:00 110 H 07/21/21 07:35 110 H 22 94 07/21/21 07:00 36.8 C 118 H 28 H 140/73 93 07/21/21 06:00 20 20 L Pulse Ox 07/21/21 16:00 07/21/21 15:58 07/21/21 15:13 07/21/21 15:00 07/21/21 14:00 07/21/21 11:06 07/21/21 11:00 07/21/21 10:00 91 07/21/21 09:23 07/21/21 09:00 88 L 07/21/21 08:00 07/21/21 07:35 07/21/21 07:00 07/21/21 06:00 Laboratory Results Short CBC 07/21/21 Range/Units 05:32 WBC 12.11 H (4.8-10.8) K/uL Hgb 15.7 (14.0-18.0) g/dL Hct 44.9 (42-52) % Plt Count 297 (130-400) K/uL BMP 09/04/21 05:32 Sodium 134 L Potassium 4.6 Chloride 102 Carbon Dioxide 25 BUN 26 H Creatinine 0.80 Glucose 99 Calcium 8.5 Liver Function 07/21/21 Range/Units 05:32 Total Bilirubin 1.0 (0.2-1) mg/dl AST 75 H (15-37) U/L ALT 138 H (12-78) U/L Alkaline Phosphatase 64 (45-117) U/L Albumin 2.6 L (3.4-5.0) gm/dl Medications Administered Current Inpatient Medications Acetaminophen (Acetaminophen 325 Mg Tab) 650 mg PO Q4H PRN PRN Reason: Pain or Fever Stop: 08/16/21 14:59 Al Hydrox/Mg Hydrox/Simethicone (Aluminum/Magnesium Susp 30 Ml Udc) 15 ml PO Q4H PRN PRN Reason: Dyspepsia Stop: 08/16/21 14:59 Last Admin: 07/17/21 23:38 Dose: 15 ml Documented by: Ascorbic Acid (Ascorbic Acid 500 Mg Tab) 500 mg PO BID [facility] Stop: 08/17/21 10:14 Last Admin: 07/21/21 07:36 Dose: 500 mg Documented by: Aspirin (Aspirin 81 Mg Ectab) 81 mg PO DAILY [facility] Stop: 08/17/21 08:59 Last Admin: 07/21/21 07:37 Dose: 81 mg Documented by: Benzonatate (Benzonatate 100 Mg Capsule) 100 mg PO TID [facility] Stop: 08/16/21 15:59 Last Admin: 07/21/21 14:50 Dose: 100 mg Documented by: Enoxaparin Sodium (Enoxaparin Inj 40 Mg/0.4 Ml Syr) 40 mg SQ Q12H [facility] Stop: 08/16/21 20:59 Last Admin: 07/21/21 07:15 Dose: 40 mg Documented by: Furosemide (Furosemide 40 Mg/4 Ml Vial) 20 mg IV DAILY [facility] Stop: 08/19/21 08:59 Last Admin: 07/21/21 07:20 Dose: 20 mg Documented by: Guaifenesin/Codeine Phosphate (Guaifenesin/Codeine 200mg/20mg 10ml Udc) 10 ml PO Q6H PRN PRN Reason: Cough Stop: 08/17/21 18:18 Guaifenesin/Dextromethorphan (Guaifenesin/Dextrom Syrup 200mg/20mg 10ml Udc) 10 ml PO Q6H [facility] Stop: 08/18/21 13:59 Last Admin: 07/21/21 14:50 Dose: 10 ml Documented by: Dexamethasone 10 mg/ Syringe 2.5 mls @ 1 mls/min IV DAILY@0900 [facility] Stop: 07/27/21 09:03 Last Admin: 07/21/21 07:20 Dose: 1 mls/min Documented by: Lorazepam (Ativan) 0.25 mg in 0.5 mls @ 0.5 mls/min IV Q6H PRN PRN Reason: Anxiety Stop: 08/20/21 13:45 Last Admin: 07/21/21 14:25 Dose: 0.5 mls/min Documented by: Levalbuterol HCl (Levalbuterol Tartrate 15 Gm Hfa.Aer.Ad) 2 puffs INH QID PRN; Protocol PRN Reason: Wheezing Stop: 08/20/21 08:59 Lisinopril (Lisinopril 5 Mg Tab) 5 mg PO QAM [facility] Stop: 08/17/21 08:59 Last Admin: 07/21/21 07:37 Dose: 5 mg Documented by: Magnesium Hydroxide (Magnesium Hydroxide Susp 30 Ml Udc) 30 ml PO Q12H PRN PRN Reason: Constipation Stop: 08/16/21 14:59 Multivitamins/Minerals (Cerovite Adv Formula Tab) 1 tab PO DAILY [facility] Stop: 08/17/21 08:59 Last Admin: 07/21/21 07:37 Dose: 1 tab Documented by: Ondansetron HCl (Ondansetron Inj 2 Mg/Ml 2 Ml Vial) 4 mg IV Q6H PRN PRN Reason: Nausea Stop: 08/16/21 14:59 Ondansetron HCl (Ondansetron Inj 2 Mg/Ml 2 Ml Vial) 4 mg IV Q6H PRN PRN Reason: Nausea And Vomiting Stop: 08/16/21 14:59 Pantoprazole Sodium (Pantoprazole 40 Mg Tab) 40 mg PO BID [facility] Stop: 08/18/21 20:59 Last Admin: 07/21/21 07:44 Dose: 40 mg Documented by: Polyethylene Glycol (Polyethylene (Miralax) 17 Gm Pack) 17 gm PO DAILY PRN PRN Reason: Constipation Stop: 08/16/21 14:59 Last Admin: 07/20/21 17:58 Dose: 17 gm Documented by: Potassium Chloride (Potassium Chloride Crtab 20 Meq Tabcr) 20 meq PO QAM [facility] Stop: 08/19/21 08:59 Last Admin: 07/21/21 07:44 Dose: 20 meq Documented by: Sodium Chloride (Sodium Chloride 0.65% Na Soln 45 Ml ([place])) 2 sprays NA TID PRN PRN Reason: Nasal Congestion Stop: 08/19/21 22:37 Umeclidinium/Vilanterol (Umeclidinium/Vilanterol 62.5/25mcg 7 Puffs/Inhaler) 1 puffs INH DAILY [facility] Stop: 08/19/21 08:59 Last Admin: 07/21/21 07:15 Dose: 1 puffs Documented by: Vitamin D (Cholecalciferol 1,000 Units 25 Mcg Tab) 1,000 units PO QAM [facility] Stop: 08/17/21 10:14 Last Admin: 07/21/21 07:36 Dose: 1,000 units Documented by: Zinc Sulfate (Zinc Sulfate 220 Mg Capsule) 220 mg PO QAM [facility] Stop: 08/17/21 10:14 Last Admin: 07/21/21 07:38 Dose: 220 mg Documented by:
[2021-07-21] MEDS ORDERED: RAPID SEQUENCE INDUCTION BAG ONE (17:18)
--- NOTE | 2021-07-21 18:16 | Communication Note ---
Date of Service: July 21, 2021 Critical CARE addendum: Was called to evaluate the patient as he was getting more tachypneic. During the time of examination earlier he was on 40 L, 70% saturating 93-94 I was able to go down to 65%. He was breathing at that time in the mid 20s. RN called me that patient is getting more tachypneic. On asking what he is on he was put on BiPAP. Respiratory rate on the phone was told to be in the 40s. Patient saturation was 93% on 45% FiO2 I do know the patient is very anxious to CPAP/BiPAP. Patient was given 0.5 of Ativan IV around 10 AM which was followed by 0.25. He was given another 0.5 prior to me going to see the patient At the time of examination patient was on BiPAP 14/10 45% saturating 93% He was breathing in the mid 30s. Getting tidal volume 500-650 I went down on BiPAP to 12/8. Patient was still getting good tidal volume. His respiratory rate did improve. He was still under the effect of the Ativan was not able to get much history out of him. Given the need of oxygen being not that high once the Ativan starts to wean off I will try to put the patient on high flow again If the patient is still anxious I would can give a trial of Precedex. If the patient is still tachypneic not responding to the above measures I would intubate the patient Case was discussed with RN, RT. Patient will be transferred to the ICU for closer monitoring I have personally spent 41 minutes of critical care time in the direct management of this patient. This is a life/limb threatening event. This includes time spent evaluating patient, direct bedside care, chart review, placing orders, interpretation of diagnostic studies, discussion with consultants, patient, and family members, as well as other required patient management activities. This time is exclusive of all separately billable procedures, and teaching time and separate from and in addition to any other critical care service time. Please note the above document was generated using voice recognition software. It may contain grammatical, syntax or spelling errors. Coding Level of Care Code Critical Care 1st 30-74 mins Time Spent (min) 41
[2021-07-22] MEDS: guaiFENesin/DEXTROM SYRUP 200MG/20MG 10ML UDC PO SCH ×4 (01:34→20:33)
[2021-07-22 05:31] LABS: Basophils # (auto) 0.02 K/uL (0-0.2); Basophils % (auto) 0.2 %; Hematocrit (blood only) 44.1 % (42-52); Hemoglobin 15.6 g/dL (14.0-18.0); Immature Granulocytes # (auto) 0.06 K/uL (0.00-0.02); Immature Granulocytes % (auto) 0.5 %; Lymphocytes # (auto) 0.58 K/uL (1.2-3.4); Mean Corpuscular Hemoglobin 31.8 pg (25-34); Mean Corpuscular Hgb Conc 35.4 g/dL (32-36); Mean Platelet Volume 9.9 fL (7.4-10.4); Monocytes # (auto) 0.65 K/uL (0.11-0.59); Monocytes % (auto) 5.6 %; Neutrophils # (auto) 10.39 K/uL (1.4-6.5); Neutrophils % (auto) 88.7 %; Platelet Count 298 K/uL (130-400); RDW Coefficient of Variation 12.7 % (11.5-14.5); RDW Standard Deviation 41.4 fL (36.4-46.3)
[2021-07-22 06:10] LABS: Albumin Level 2.6 gm/dl (3.4-5.0); BUN Creatinine Ratio 40.2 (10-20); Calcium 8.4 mg/dl (8.5-10.1); Creatinine Clr Calc Pharmacy 97.5 ml/min; Est GFR (Non-African American) 91.4 ml/min; Magnesium 2.7 mg/dl (1.8-2.4); Potassium 4.6 mmol/L (3.5-5.1)
[2021-07-22 06:13] LABS: Albumin Globulin Ratio 0.6 (0.9-2); Bilirubin,Total 1.1 mg/dl (0.2-1); C Reactive Protein 10.2 mg/dl (0-0.29); Globulin 4.6 gm/dl (2.5-4.0); Phosphorus 3.5 mg/dl (2.5-4.9); Total Protein 7.2 gm/dl (6.4-8.2)
--- NOTE | 2021-07-22 06:54 | XRay Report ---
XR chest 1V portable CLINICAL HISTORY: f/u COMPARISON STUDY: Chest CT July 17, 2021. Chest radiograph July 21, 2021. FINDINGS: Lung volumes are normal. Multifocal bilateral airspace opacities are similar to prior exam. There is no pneumothorax or pleural effusion. Cardiac size is normal. Mediastinal contours are kaykay l. There is no evidence for pulmonary edema. IMPRESSION: No significant change in bilateral airspace opacities suggestive of viral pneumonia. ACT 112: Negative or not required by law. Electronically signed by: Ravi Erickson M.D. 07/22/2021 6:53 AM
--- NOTE | 2021-07-22 08:17 | Critical Care Progress Note ---
Date of Service July 22, 2021 Assessment & Plan (1) Pneumonia due to COVID-19 virus: (2) Acute respiratory failure with hypoxia: (3) COPD with emphysema: (4) Pulmonary nodule: Plan: CT chest 07/17/2021 personally reviewed: Patchy groundglass opacities appreciated bilaterally upper and lower lobes Minimal biapical scarring more on the left side Mild mediastinal lymphadenopathy --Acute hypoxic respiratory failure Secondary to multilobar COVID-19 pneumonia COVID-19 PCR positive 07/17/2021 Continue with O2 supplementation to keep oxygen saturation between 90-92%. Awake proning will be helpful Continue with incentive spirometry Continue with flutter valve. Recommend patient to be kept euvolemic to negative balance --COPD Not on any inhalers at home Continue with Anoro --History of lung nodule Not clearly appreciated on the latest CAT scan likely secondary to the opacities Continue outpatient screening Plan: Continue current therapy -CT scan pending to rule out PE Patient critically ill due to acute hypoxic respiratory failure Admission and Anticipated Discharge Date Admission Date: July 17, 2021 Supervising Physician Co-Signing Physician Notes I have personally spent 35 minutes of critical care time in the direct management of this patient. This is a life/limb threatening event. This includes time spent evaluating patient, direct bedside care, chart review, placing orders, interpretation of diagnostic studies, discussion with consultants, patient, and/or family members regarding treatment decisions, as well as other required patient management activities. This time is exclusive of all separately billable procedures, and teaching time and separate from and in addition to any other critical care service time. Subjective Discussed with staff patient requesting water and soda. Converted from BiPAP to high flow nasal cannula Physical Exam Physical Exam: Observed from outside secondary to COVID-19 protocols General: Alert. nontoxic. Ears, nose, mouth and throat: airway patent Cardiovascular: Normal sinus rhythm on bedside monitor Respiratory: no respiratory distress, mild tachypnea Musculoskeletal: Moves all 4 extremities Results & Data Results & Data ([facility]) Vital Signs (Past 12 Hours) Vital Signs Temp Pulse Pulse Resp BP Pulse Ox 07/22/21 07:40 120 H 24 91 07/22/21 05:42 104 H 36 H 120/79 92 07/22/21 04:48 104 H 29 H 94 07/22/21 04:42 97 H 30 H 122/80 94 07/22/21 04:00 37 C 32 H 93 07/22/21 03:42 95 H 34 H 117/77 94 07/22/21 03:06 104 H 29 H 93 07/22/21 02:42 108 H 29 H 129/81 90 07/22/21 02:00 90 27 H 92 07/22/21 01:43 91 H 28 H 108/70 93 07/22/21 00:42 94 H 34 H 135/78 91 07/22/21 00:00 36.7 C 32 H 93 07/21/21 23:59 105 H 07/21/21 23:42 105 H 34 H 119/72 90 07/21/21 22:43 98 H 16 127/97 93 07/21/21 22:05 102 H 32 H 90 07/21/21 21:43 95 H 14 118/80 91 07/21/21 20:43 98 H 16 122/80 90 Laboratory Results 07/22/21 07/22/21 07/22/21 Range/Units 05:21 05:21 05:21 WBC 11.70 H (4.8-10.8) K/uL RBC 4.90 (4.7-6.1) M/uL Hgb 15.6 (14.0-18.0) g/dL Hct 44.1 (42-52) % MCV 90.0 (80-100) fL MCH 31.8 (25-34) pg MCHC 35.4 (32-36) g/dL RDW Std Deviation 41.4 (36.4-46.3) fL RDW Coeff of Veronica 12.7 (11.5-14.5) % Plt Count 298 (130-400) K/uL MPV 9.9 (7.4-10.4) fL Immature Gran % (Auto) 0.5 % Neut % (Auto) 88.7 % Lymph % (Auto) 5.0 % [place] % (Auto) 5.6 % Eos % (Auto) 0.0 % Baso % (Auto) 0.2 % Neut # (Auto) 10.39 H (1.4-6.5) K/uL Lymph # (Auto) 0.58 L (1.2-3.4) K/uL [place] # (Auto) 0.65 H (0.11-0.59) K/uL Eos # (Auto) 0.00 (0-0.5) K/uL Baso # (Auto) 0.02 (0-0.2) K/uL Immature Gran # (Auto) 0.06 H (0.00-0.02) K/uL Sodium 135 L (136-145) mmol/L Potassium 4.6 (3.5-5.1) mmol/L Chloride 103 (98-107) mmol/L Carbon Dioxide 27 (21-32) mmol/L Anion Gap 5.0 (3-11) BUN 34 H (7-18) mg/dl Creatinine 0.85 (0.6-1.4) mg/dl Est Cr Clr Drug Dosing 97.5 ml/min Est GFR ( Amer) 106.0 ml/min Est GFR (Non-Af Amer) 91.4 ml/min BUN/Creatinine Ratio 40.2 H (10-20) Glucose 109 H (70-99) mg/dl Calcium 8.4 L (8.5-10.1) mg/dl Phosphorus 3.5 (2.5-4.9) mg/dl Magnesium 2.7 H (1.8-2.4) mg/dl Total Bilirubin 1.1 H (0.2-1) mg/dl AST 43 H (15-37) U/L ALT 122 H (12-78) U/L Alkaline Phosphatase 62 (45-117) U/L C-Reactive Protein 10.20 H (0-0.29) mg/dl Total Protein 7.2 (6.4-8.2) gm/dl Albumin 2.6 L (3.4-5.0) gm/dl Globulin 4.6 H (2.5-4.0) gm/dl Albumin/Globulin Ratio 0.6 L (0.9-2) Procalcitonin 0.13 (0-0.5) ng/ml Coding Level of Care Code Critical Care 1st 30-74 mins Diagnoses Pneumonia due to COVID-19 virus U07.1; J12.82 Acute respiratory failure with hypoxia J96.01 COPD with emphysema J43.9 Pulmonary nodule R91.1
--- NOTE | 2021-07-22 08:31 | Pulmonology Progress Note ---
Date of Service July 22, 2021 Assessment & Plan (1) Pneumonia due to COVID-19 virus: (2) Acute respiratory failure with hypoxia: (3) COPD with emphysema: (4) Pulmonary nodule: Plan: CT chest 07/17/2021 personally reviewed: Patchy groundglass opacities appreciated bilaterally upper and lower lobes Minimal biapical scarring more on the left side Mild mediastinal lymphadenopathy --Acute hypoxic respiratory failure Secondary to multilobar COVID-19 pneumonia COVID-19 PCR positive 07/17/2021 CRP 10 --> 4.12 --> 10 Procalcitonin 0.09 Continue with O2 supplementation to keep oxygen saturation between 90-92%. Awake proning will be helpful Continue with incentive spirometry Continue with flutter valve. Recommend patient to be kept euvolemic to negative balance --COPD Not on any inhalers at home Continue with Anoro --History of lung nodule Not clearly appreciated on the latest CAT scan likely secondary to the opacities Continue outpatient screening Plan: In/out: Negative 700, urine output 1150, -2.9 L since coming to the hospital Chest x-ray again shows opacities alveolar but has improved compared to when he came to the hospital Given patient's increasing oxygen need and he being tachycardic with no significant change on the chest x-ray opacities, will rule out PE Give the patient therapeutic Lovenox and order CTA I am going to give him 500 mL of normal saline over 4 hours as he is going to get contrast as well. Case discussed with RN and Dr. Reza ICU care as per welding process specialist Please note the above document was generated using voice recognition software. It may contain grammatical, syntax or spelling errors.Any formal questions or concerns about the content, text or information contained within the body of this dictation should be directly addressed to the provider for clarification. Admission and Anticipated Discharge Date Admission Date: July 17, 2021 Subjective Patient seen and examined. Overnight patient required BiPAP He is getting more noncompliant with suggestions. At the time of examination he was on 60 L 90% saturation around 89-90% Tachycardic in the 120s Has been afebrile Review of Systems Review of Systems: All systems reviewed & are unremarkable except as noted in Subjective Physical Exam Physical Exam: Constitutional: No acute distress HEENT: EOMI, PERRLA, no oral thrush Respiratory system: Decreased antibiotic, no wheeze, no rhonchi, positive crackles bilateral lower lobes CVS: S1-S2 positive, no murmurs or gallops Abdomen: Soft, nontender, nondistended, positive bowel sounds x4, obese Extremities: +2 pulses bilaterally radialis/ dorsalis pedis, no cyanosis, no edema, no clubbing Neuro: Awake alert oriented to self and place Psych: Normal mood and affect G/U: Positive [place] Skin: no rashes, warm and dry Lymphatic: no cervical or axillary lymphadenopathy Results & Data Results & Data ([facility]) Vital Signs (Past 12 Hours) Vital Signs Temp Pulse Pulse Resp BP Pulse Ox 07/22/21 08:00 37 C 80 07/22/21 07:40 120 H 24 91 07/22/21 05:42 104 H 36 H 120/79 92 07/22/21 04:48 104 H 29 H 94 07/22/21 04:42 97 H 30 H 122/80 94 07/22/21 04:00 37 C 32 H 93 07/22/21 03:42 95 H 34 H 117/77 94 07/22/21 03:06 104 H 29 H 93 07/22/21 02:42 108 H 29 H 129/81 90 07/22/21 02:00 90 27 H 92 07/22/21 01:43 91 H 28 H 108/70 93 07/22/21 00:42 94 H 34 H 135/78 91 07/22/21 00:00 36.7 C 32 H 93 07/21/21 23:59 105 H 07/21/21 23:42 105 H 34 H 119/72 90 07/21/21 22:43 98 H 16 127/97 93 07/21/21 22:05 102 H 32 H 90 07/21/21 21:43 95 H 14 118/80 91 07/21/21 20:43 98 H 16 122/80 90 07/22/21 05:21 07/22/21 05:21 PG Care Time/CCT Total # of Minutes Spent Total Time Spent with Patient: Total time spent is greater than 50% in coordination of care (as documented) at patient's floor/unit and/or counseling patient: Coding Level of Care Code 42536 Subseq Hosp Care Lvl 3 Diagnoses Pneumonia due to COVID-19 virus U07.1; J12.82 Acute respiratory failure with hypoxia J96.01 COPD with emphysema J43.9 Pulmonary nodule R91.1
[2021-07-22] MEDS: ZINC SULFATE 220 MG CAPSULE PO SCH (08:44)
[2021-07-22] MEDS: CEROVITE ADV FORMULA TAB PO SCH (08:44)
[2021-07-22] MEDS: lisinopril 5 MG TAB PO SCH (08:44)
[2021-07-22] MEDS: CHOLECALCIFEROL 1,000 UNITS 25 MCG TAB PO SCH (08:45)
[2021-07-22] MEDS: ASPIRIN 81 MG ECTAB PO SCH (08:45)
[2021-07-22] MEDS: dexAMETHasone 10 MG in SYRINGE 0 ML IV SCH (09:01)
[2021-07-22] MEDS: SODIUM CHLORIDE 0.9% 1000ML 1,000 ML IV SCH ×2 (09:15→17:20)
[2021-07-22] MEDS: UMECLIDINIUM/VILANTEROL 62.5/25MCG 7 PUFFS/INHALER INH SCH (09:16)
[2021-07-22] MEDS: FUROSEMIDE 40 MG/4 ML VIAL IV SCH (09:51)
[2021-07-22] MEDS: POTASSIUM CHLORIDE CRTAB 20 MEQ TABCR PO SCH (09:51)
[2021-07-22] MEDS: ENOXAPARIN 100 MG/1ML SYR SQ SCH ×2 (09:51→20:38)
--- NOTE | 2021-07-22 12:40 | Hospitalist Progress Note ---
Date of Service July 22, 2021 Assessment & Plan (1) Acute respiratory failure with hypoxia: Plan: 2/2 covid pneumonia. Has been requiring high flow oxygen to maintain saturation Remains moderate to severe shortness of breath at rest Chest x-ray showed some improvement of bibasilar infiltration CRP is increased from 3.24 on 07/21/2021 to 10.20 as of 07/22/2021 Required BiPAP overnight and has been requiring high flow nasal cannula oxygen in ICU now We'll get CTA to rule out any pulmonary embolism (2) Pneumonia due to COVID-19 virus: Plan: Worsening hypoxia, continue remdesivir and dexamethasone daily. Appreciate pulmonary input and recommendation Needs to prone when able. Continues to require max oxygen supplementation on vapotherm. He is unvaccinated. Lasix to keep him net negative Intravenous Lasix doses have been increased to 40 mg once daily Has been requiring high flow oxygen at FiO2 of 0.45 with BiPAP to maintain saturation Has been requiring small dose of Ativan for agitation and tachypnea CPR is minimally elevated at 3.24 on 07/21/2021 from 1.75 yesterday As above (3) Transaminitis: Plan: Previously not elevated, not on a statin LFTs improving, likely related to this viral infection will cont to monitor-remains minimally elevated LFTs are minimally better (4) HTN (hypertension): Plan: chronic, at goal. Cont home lisinopril . (5) DVT prophylaxis: Plan: Lovenox Full Code Dispo-cont PCU monitoring. Plan: Discussed with the on 07/21/2021 Admission and Anticipated Discharge Date Admission Date: July 17, 2021 Subjective 07/20/2021 The patient was seen and examined in telemetry unit in the Covid room He has been feeling that great and requiring high flow oxygen to maintain saturation Has cough with moderate to severe shortness of breath at rest No fever and no chills and no pain 07/21/2021 The patient was seen and examined in telemetry unit and in the Covid room He has not been doing much better today and has been requiring high flow oxygen with BiPAP to maintain saturation He was noted to be tachycardic, tachypneic early this morning During my examination he was a stable in the room 07/22/2021 The patient was seen and examined in ICU He was requiring very high flow of oxygen and was tachypneic and tachycardic He was moved to ICU for close monitoring Remains on high flow oxygen but feeling stable Review of Systems Review of Systems: All systems reviewed and are unremarkable except as noted below Respiratory: Severe shortness of breath at rest on BiPAP Physical Exam Physical Exam: Lying in bed with prone position and with BiPAP Constitutional: well developed, well nourished, + ill appearing and + obese Eyes: PERRL, conjunctivae normal, anicteric sclerae ENMT: external ear and nose normal, oropharynx normal Neck: trachea midline, no thyromegaly Respiratory: + respiratory distress (Moderate distress at rest) and + uses accessory muscles Auscultation: + diminished lung sounds and + crackles (Minimal crackles at the bases) Cardiovascular: Rate/Rhythm: regular rate and regular rhythm; not tachycardic Heart Sounds: normal S1 and normal S2; no murmur Extremities: no edema Gastrointestinal (Abdomen): Inspection/Auscultation: normal bowel sounds; abdomen not distended Musculoskeletal: No acute arthritis in any joint Neurologic: Alert, awake and oriented x3. Communicating well. Generally weak and lethargic. No focal neuro deficit Lymphatic: no cervical or axillary lymphadenopathy Results & Data Results & Data ([facility]) Vital Signs (Past 12 Hours) Vital Signs Temp Pulse Pulse Resp BP Pulse Ox Pulse Ox 07/22/21 12:00 37.1 C 07/22/21 11:42 106 H 135/80 93 07/22/21 11:17 116 H 22 93 07/22/21 10:42 121 H 24 127/82 88 L 07/22/21 10:00 90 07/22/21 09:42 119 H 26 H 148/85 H 94 07/22/21 08:42 116 H 35 H 138/83 93 07/22/21 08:00 37 C 80 07/22/21 07:42 127 H 32 H 126/82 07/22/21 07:40 120 H 24 91 07/22/21 06:42 108 H 37 H 131/79 92 07/22/21 05:42 104 H 36 H 120/79 92 07/22/21 04:48 104 H 29 H 94 07/22/21 04:42 97 H 30 H 122/80 94 07/22/21 04:00 37 C 32 H 93 07/22/21 03:42 95 H 34 H 117/77 94 07/22/21 03:06 104 H 29 H 93 07/22/21 02:42 108 H 29 H 129/81 90 07/22/21 02:00 90 27 H 92 07/22/21 01:43 91 H 28 H 108/70 93 07/22/21 00:42 94 H 34 H 135/78 91 Laboratory Results Short CBC 07/22/21 Range/Units 05:21 WBC 11.70 H (4.8-10.8) K/uL Hgb 15.6 (14.0-18.0) g/dL Hct 44.1 (42-52) % Plt Count 298 (130-400) K/uL BMP 07/22/21 05:21 Sodium 135 L Potassium 4.6 Chloride 103 Carbon Dioxide 27 BUN 34 H Creatinine 0.85 Glucose 109 H Calcium 8.4 L Liver Function 07/22/21 Range/Units 05:21 Total Bilirubin 1.1 H (0.2-1) mg/dl AST 43 H (15-37) U/L ALT 122 H (12-78) U/L Alkaline Phosphatase 62 (45-117) U/L Albumin 2.6 L (3.4-5.0) gm/dl Medications Administered Current Inpatient Medications Acetaminophen (Acetaminophen 325 Mg Tab) 650 mg PO Q4H PRN PRN Reason: Pain or Fever Stop: 08/16/21 14:59 Al Hydrox/Mg Hydrox/Simethicone (Aluminum/Magnesium Susp 30 Ml Udc) 15 ml PO Q4H PRN PRN Reason: Dyspepsia Stop: 08/16/21 14:59 Last Admin: 07/17/21 23:38 Dose: 15 ml Documented by: Ascorbic Acid (Ascorbic Acid 500 Mg Tab) 500 mg PO BID [facility] Stop: 08/17/21 10:14 Last Admin: 07/21/21 20:01 Dose: Not Given Documented by: Aspirin (Aspirin 81 Mg Ectab) 81 mg PO DAILY [facility] Stop: 08/17/21 08:59 Last Admin: 07/22/21 08:45 Dose: 81 mg Documented by: Benzonatate (Benzonatate 100 Mg Capsule) 100 mg PO TID [facility] Stop: 08/16/21 15:59 Last Admin: 07/21/21 20:01 Dose: Not Given Documented by: Enoxaparin Sodium (Enoxaparin 100 Mg/1ml Syr) 90 mg SQ Q12H [facility] Stop: 08/21/21 08:59 Last Admin: 07/22/21 09:51 Dose: 90 mg Documented by: Furosemide (Furosemide 40 Mg/4 Ml Vial) 20 mg IV DAILY [facility] Stop: 08/19/21 08:59 Last Admin: 07/22/21 09:51 Dose: 20 mg Documented by: Guaifenesin/Codeine Phosphate (Guaifenesin/Codeine 200mg/20mg 10ml Udc) 10 ml PO Q6H PRN PRN Reason: Cough Stop: 08/17/21 18:18 Guaifenesin/Dextromethorphan (Guaifenesin/Dextrom Syrup 200mg/20mg 10ml Udc) 10 ml PO Q6H [facility]ARA Stop: 08/18/21 13:59 Last Admin: 07/22/21 08:44 Dose: 10 ml Documented by: Dexamethasone 10 mg/ Syringe 2.5 mls @ 1 mls/min IV DAILY@0900 [facility]ARA Stop: 07/27/21 09:03 Last Admin: 07/22/21 09:01 Dose: 1 mls/min Documented by: Lorazepam (Ativan) 0.25 mg in 0.5 mls @ 0.5 mls/min IV Q6H PRN PRN Reason: Anxiety Stop: 08/20/21 13:45 Last Admin: 07/21/21 14:25 Dose: 0.5 mls/min Documented by: Sodium Chloride (Nss 1000ml) 1,000 mls @ 125 mls/hr IV .Q8H [facility]ARA Stop: 08/21/21 08:44 Last Admin: 07/22/21 09:15 Dose: 125 mls/hr Documented by: Levalbuterol HCl (Levalbuterol Tartrate 15 Gm Hfa.Aer.Ad) 2 puffs INH QID PRN; Protocol PRN Reason: Wheezing Stop: 08/20/21 08:59 Lisinopril (Lisinopril 5 Mg Tab) 5 mg PO QAM [facility] Stop: 08/17/21 08:59 Last Admin: 07/22/21 08:44 Dose: 5 mg Documented by: Magnesium Hydroxide (Magnesium Hydroxide Susp 30 Ml Udc) 30 ml PO Q12H PRN PRN Reason: Constipation Stop: 08/16/21 14:59 Multivitamins/Minerals (Cerovite Adv Formula Tab) 1 tab PO DAILY [facility]ARA Stop: 08/17/21 08:59 Last Admin: 07/22/21 08:44 Dose: 1 tab Documented by: Ondansetron HCl (Ondansetron Inj 2 Mg/Ml 2 Ml Vial) 4 mg IV Q6H PRN PRN Reason: Nausea Stop: 08/16/21 14:59 Ondansetron HCl (Ondansetron Inj 2 Mg/Ml 2 Ml Vial) 4 mg IV Q6H PRN PRN Reason: Nausea And Vomiting Stop: 08/16/21 14:59 Pantoprazole Sodium (Pantoprazole 40 Mg Tab) 40 mg PO BID [facility] Stop: 08/18/21 20:59 Last Admin: 07/21/21 20:02 Dose: Not Given Documented by: Polyethylene Glycol (Polyethylene (Miralax) 17 Gm Pack) 17 gm PO DAILY PRN PRN Reason: Constipation Stop: 08/16/21 14:59 Last Admin: 07/20/21 17:58 Dose: 17 gm Documented by: Potassium Chloride (Potassium Chloride Crtab 20 Meq Tabcr) 20 meq PO QAM [facility] Stop: 08/19/21 08:59 Last Admin: 07/22/21 09:51 Dose: 20 meq Documented by: Sodium Chloride (Sodium Chloride 0.65% Na Soln 45 Ml ([place])) 2 sprays NA TID PRN PRN Reason: Nasal Congestion Stop: 08/19/21 22:37 Umeclidinium/Vilanterol (Umeclidinium/Vilanterol 62.5/25mcg 7 Puffs/Inhaler) 1 puffs INH DAILY [facility] Stop: 08/19/21 08:59 Last Admin: 07/22/21 09:16 Dose: 1 puffs Documented by: Vitamin D (Cholecalciferol 1,000 Units 25 Mcg Tab) 1,000 units PO QAM [facility] Stop: 08/17/21 10:14 Last Admin: 07/22/21 08:45 Dose: 1,000 units Documented by: Zinc Sulfate (Zinc Sulfate 220 Mg Capsule) 220 mg PO QAM [facility] Stop: 08/17/21 10:14 Last Admin: 07/22/21 08:44 Dose: 220 mg Documented by:
[2021-07-22] MEDS: BENZONATATE 100 MG CAPSULE PO SCH ×2 (15:12→20:35)
[2021-07-22] MEDS: ASCORBIC ACID 500 MG TAB PO SCH (20:35)
[2021-07-22] MEDS: PANTOprazole 40 MG TAB PO SCH (20:35)
[2021-07-23] MEDS: SODIUM CHLORIDE 0.9% 1000ML 1,000 ML IV SCH ×2 (00:22→08:43)
[2021-07-23] MEDS: guaiFENesin/DEXTROM SYRUP 200MG/20MG 10ML UDC PO SCH ×4 (03:22→20:46)
[2021-07-23 04:58] LABS: Basophils # (auto) 0.01 K/uL (0-0.2); Basophils % (auto) 0.1 %; Hematocrit (blood only) 42.1 % (42-52); Hemoglobin 14.7 g/dL (14.0-18.0); Immature Granulocytes # (auto) 0.05 K/uL (0.00-0.02); Immature Granulocytes % (auto) 0.6 %; Lymphocytes # (auto) 0.45 K/uL (1.2-3.4); Lymphocytes % (auto) 5.1 %; Mean Corpuscular Hemoglobin 31.8 pg (25-34); Mean Corpuscular Hgb Conc 34.9 g/dL (32-36); Mean Corpuscular Volume 91.1 fL (80-100); Mean Platelet Volume 9.7 fL (7.4-10.4); Monocytes # (auto) 0.52 K/uL (0.11-0.59); Monocytes % (auto) 5.9 %; Neutrophils # (auto) 7.78 K/uL (1.4-6.5); Neutrophils % (auto) 88.3 %; Platelet Count 327 K/uL (130-400); RDW Coefficient of Variation 12.6 % (11.5-14.5); RDW Standard Deviation 41.9 fL (36.4-46.3); Red Blood Count 4.62 M/uL (4.7-6.1); White Blood Count 8.81 K/uL (4.8-10.8)
[2021-07-23 05:29] LABS: Albumin Level 2.3 gm/dl (3.4-5.0); Calcium 7.8 mg/dl (8.5-10.1); Creatinine Clr Calc Pharmacy 118.5 ml/min; Est GFR (African American) 114.8 ml/min; Magnesium 2.6 mg/dl (1.8-2.4); Potassium 4.5 mmol/L (3.5-5.1)
[2021-07-23 05:32] LABS: Albumin Globulin Ratio 0.5 (0.9-2); Bilirubin,Total 0.8 mg/dl (0.2-1); C Reactive Protein 6.95 mg/dl (0-0.29); Globulin 4.2 gm/dl (2.5-4.0); Phosphorus 3.2 mg/dl (2.5-4.9); Total Protein 6.5 gm/dl (6.4-8.2)
--- NOTE | 2021-07-23 06:49 | XRay Report ---
XR chest 1V portable CLINICAL HISTORY: f/u COMPARISON STUDY: Chest CT July 17, 2021. Chest radiograph July 22, 2021. FINDINGS: Lung volumes are normal. There has slight increase in bilateral airspace opacities since pr ior exam There is no pneumothorax or pleural effusion. Cardiac size is normal. Mediastinal contours a re normal. There is no evidence for pulmonary edema. IMPRESSION: Slight increase in bilateral airspace opacities since prior exam. The findings suggest v iral pneumonia. ACT 112: Negative or not required by law. Electronically signed by: Ravi Erickson M.D. 07/23/2021 6:47 AM
[2021-07-23] MEDS: ENOXAPARIN 100 MG/1ML SYR SQ SCH ×2 (08:43→20:18)
[2021-07-23] MEDS: dexAMETHasone 10 MG in SYRINGE 0 ML IV SCH (08:43)
[2021-07-23] MEDS: FUROSEMIDE 40 MG/4 ML VIAL IV SCH (08:44)
--- NOTE | 2021-07-23 08:47 | Billing Data ---
Date of Service July 23, 2021 Coding Level of Care Code Critical Care 12 16- mins
[2021-07-23] MEDS: NORMOSOL-R 1,000 ML IV SCH (10:36)
--- NOTE | 2021-07-23 11:03 | Hospitalist Progress Note ---
Date of Service July 23, 2021 Assessment & Plan (1) Acute respiratory failure with hypoxia: Plan: 2/2 covid pneumonia. Has been requiring high flow oxygen to maintain saturation Remains moderate to severe shortness of breath at rest Chest x-ray showed some improvement of bibasilar infiltration CRP is increased from 3.24 on 07/21/2021 to 10.20 as of 07/22/2021 He was moved to ICU for better observation on 07/22/2021 We'll get CTA to rule out any pulmonary embolism-CT is not yet done Still requiring BiPAP with high flow oxygen to maintain saturation (2) Pneumonia due to COVID-19 virus: Plan: Worsening hypoxia, continue remdesivir and dexamethasone daily. Appreciate pulmonary input and recommendation Needs to prone when able. Continues to require max oxygen supplementation on vapotherm. He is unvaccinated. Lasix to keep him net negative Intravenous Lasix doses have been increased to 40 mg once daily Has been requiring high flow oxygen at FiO2 of 0.45 with BiPAP to maintain saturation Has been requiring small dose of Ativan for agitation and tachypnea CRP is minimally elevated at 3.24 on 07/21/2021 from 1.75 yesterday CRP went up to 10.20 on 07/22/2021 and has improved to 6.95 on 07/23/2021 Clinically better but has been requiring high flow oxygen with BiPAP (3) Transaminitis: Plan: Previously not elevated, not on a statin LFTs improving, likely related to this viral infection will cont to monitor-remains minimally elevated LFTs are much improved (4) HTN (hypertension): Plan: chronic, at goal. Cont home lisinopril . (5) DVT prophylaxis: Plan: Lovenox Full Code Dispo-cont PCU monitoring. Plan: Discussed with the on 07/21/2021 Admission and Anticipated Discharge Date Admission Date: July 17, 2021 Subjective 07/20/2021 The patient was seen and examined in telemetry unit in the Covid room He has been feeling that great and requiring high flow oxygen to maintain saturation Has cough with moderate to severe shortness of breath at rest No fever and no chills and no pain 07/21/2021 The patient was seen and examined in telemetry unit and in the Covid room He has not been doing much better today and has been requiring high flow oxygen with BiPAP to maintain saturation He was noted to be tachycardic, tachypneic early this morning During my examination he was a stable in the room 07/22/2021 The patient was seen and examined in ICU He was requiring very high flow of oxygen and was tachypneic and tachycardic He was moved to ICU for close monitoring Remains on high flow oxygen but feeling stable 03/22/2021 The patient was seen and examined in ICU She has been conversing normally but requiring high flow oxygen and BiPAP to maintain saturation No acute distress at rest Review of Systems Review of Systems: All systems reviewed and are unremarkable except as noted below Respiratory: Moderate shortness of breath at rest on BiPAP Physical Exam Physical Exam: Lying in bed with BiPAP without any significant distress Constitutional: well developed, well nourished, + ill appearing and + obese Eyes: PERRL, conjunctivae normal, anicteric sclerae ENMT: external ear and nose normal, oropharynx normal Neck: trachea midline, no thyromegaly Respiratory: + respiratory distress (Moderate distress at rest) and + uses accessory muscles Auscultation: + diminished lung sounds and + crackles (Minimal crackles at the bases) Cardiovascular: Rate/Rhythm: regular rate and regular rhythm; not tachycardic Heart Sounds: normal S1 and normal S2; no murmur Extremities: no edema Gastrointestinal (Abdomen): Inspection/Auscultation: normal bowel sounds; abdomen not distended Musculoskeletal: No acute arthritis in any joint Neurologic: Alert, awake and oriented. Remains weak and lethargic Lymphatic: no cervical or axillary lymphadenopathy Results & Data Results & Data ([facility]) Vital Signs (Past 12 Hours) Vital Signs Temp Pulse Resp BP Pulse Ox Pulse Ox 07/23/21 10:00 92 07/23/21 09:42 112 H 24 128/83 92 07/23/21 08:42 82 28 H 143/81 H 96 07/23/21 08:00 37 C 07/23/21 07:42 79 26 H 139/80 95 07/23/21 07:14 95 H 25 H 93 07/23/21 05:25 74 21 95 07/23/21 01:00 78 18 93 07/22/21 23:43 37 C 80 30 H 146/84 H 94 Laboratory Results Short CBC 07/23/21 Range/Units 04:36 WBC 8.81 (4.8-10.8) K/uL Hgb 14.7 (14.0-18.0) g/dL Hct 42.1 (42-52) % Plt Count 327 (130-400) K/uL BMP 07/23/21 04:35 Sodium 137 Potassium 4.5 Chloride 109 H Carbon Dioxide 24 BUN 27 H Creatinine 0.70 Glucose 106 H Calcium 7.8 L Liver Function 07/23/21 Range/Units 04:35 Total Bilirubin 0.8 (0.2-1) mg/dl AST 27 (15-37) U/L ALT 91 H (12-78) U/L Alkaline Phosphatase 55 (45-117) U/L Albumin 2.3 L (3.4-5.0) gm/dl Medications Administered Current Inpatient Medications Acetaminophen (Acetaminophen 325 Mg Tab) 650 mg PO Q4H PRN PRN Reason: Pain or Fever Stop: 08/16/21 14:59 Al Hydrox/Mg Hydrox/Simethicone (Aluminum/Magnesium Susp 30 Ml Udc) 15 ml PO Q4H PRN PRN Reason: Dyspepsia Stop: 08/16/21 14:59 Last Admin: 07/17/21 23:38 Dose: 15 ml Documented by: Ascorbic Acid (Ascorbic Acid 500 Mg Tab) 500 mg PO BID [facility] Stop: 08/17/21 10:14 Last Admin: 07/22/21 20:35 Dose: 500 mg Documented by: Aspirin (Aspirin 81 Mg Ectab) 81 mg PO DAILY ZARA Stop: 08/17/21 08:59 Last Admin: 07/22/21 08:45 Dose: 81 mg Documented by: Benzonatate (Benzonatate 100 Mg Capsule) 100 mg PO TID ZARA Stop: 08/16/21 15:59 Last Admin: 07/22/21 20:35 Dose: 100 mg Documented by: Enoxaparin Sodium (Enoxaparin 100 Mg/1ml Syr) 90 mg SQ Q12H ZARA Stop: 08/21/21 08:59 Last Admin: 07/23/21 08:43 Dose: 90 mg Documented by: Furosemide (Furosemide 40 Mg/4 Ml Vial) 20 mg IV DAILY ZARA Stop: 08/19/21 08:59 Last Admin: 07/23/21 08:44 Dose: 20 mg Documented by: Guaifenesin/Codeine Phosphate (Guaifenesin/Codeine 200mg/20mg 10ml Udc) 10 ml PO Q6H PRN PRN Reason: Cough Stop: 08/17/21 18:18 Guaifenesin/Dextromethorphan (Guaifenesin/Dextrom Syrup 200mg/20mg 10ml Udc) 10 ml PO Q6H ZARA Stop: 08/18/21 13:59 Last Admin: 07/23/21 03:22 Dose: Not Given Documented by: Dexamethasone 10 mg/ Syringe 2.5 mls @ 1 mls/min IV DAILY@0900 ZARA Stop: 07/27/21 09:03 Last Admin: 07/23/21 08:43 Dose: 1 mls/min Documented by: Lorazepam (Ativan) 0.25 mg in 0.5 mls @ 0.5 mls/min IV Q6H PRN PRN Reason: Anxiety Stop: 08/20/21 13:45 Last Admin: 07/21/21 14:25 Dose: 0.5 mls/min Documented by: Parenteral Electrolytes (Normosol-R) 1,000 mls @ 40 mls/hr IV .Q24H ZRAA Stop: 08/22/21 10:14 Last Admin: 07/23/21 10:36 Dose: 40 mls/hr Documented by: Levalbuterol HCl (Levalbuterol Tartrate 15 Gm Hfa.Aer.Ad) 2 puffs INH QID PRN; Protocol PRN Reason: Wheezing Stop: 08/20/21 08:59 Lisinopril (Lisinopril 5 Mg Tab) 5 mg PO QAM ZARA Stop: 08/17/21 08:59 Last Admin: 07/22/21 08:44 Dose: 5 mg Documented by: Magnesium Hydroxide (Magnesium Hydroxide Susp 30 Ml Udc) 30 ml PO Q12H PRN PRN Reason: Constipation Stop: 08/16/21 14:59 Multivitamins/Minerals (Cerovite Adv Formula Tab) 1 tab PO DAILY ZARA Stop: 08/17/21 08:59 Last Admin: 07/22/21 08:44 Dose: 1 tab Documented by: Ondansetron HCl (Ondansetron Inj 2 Mg/Ml 2 Ml Vial) 4 mg IV Q6H PRN PRN Reason: Nausea Stop: 08/16/21 14:59 Ondansetron HCl (Ondansetron Inj 2 Mg/Ml 2 Ml Vial) 4 mg IV Q6H PRN PRN Reason: Nausea And Vomiting Stop: 08/16/21 14:59 Pantoprazole Sodium (Pantoprazole 40 Mg Tab) 40 mg PO BID [facility] Stop: 08/18/21 20:59 Last Admin: 07/22/21 20:35 Dose: 40 mg Documented by: Polyethylene Glycol (Polyethylene (Miralax) 17 Gm Pack) 17 gm PO DAILY PRN PRN Reason: Constipation Stop: 08/16/21 14:59 Last Admin: 07/20/21 17:58 Dose: 17 gm Documented by: Potassium Chloride (Potassium Chloride Crtab 20 Meq Tabcr) 20 meq PO QAM [facility] Stop: 08/19/21 08:59 Last Admin: 07/22/21 09:51 Dose: 20 meq Documented by: Sodium Chloride (Sodium Chloride 0.65% Na Soln 45 Ml ([place])) 2 sprays NA TID PRN PRN Reason: Nasal Congestion Stop: 08/19/21 22:37 Umeclidinium/Vilanterol (Umeclidinium/Vilanterol 62.5/25mcg 7 Puffs/Inhaler) 1 puffs INH DAILY [facility] Stop: 08/19/21 08:59 Last Admin: 07/22/21 09:16 Dose: 1 puffs Documented by: Vitamin D (Cholecalciferol 1,000 Units 25 Mcg Tab) 1,000 units PO QAM [facility] Stop: 08/17/21 10:14 Last Admin: 07/22/21 08:45 Dose: 1,000 units Documented by: Zinc Sulfate (Zinc Sulfate 220 Mg Capsule) [facility] Stop: 08/17/21 10:14 Last Admin: 07/22/21 08:44 Dose: 220 mg Documented by:
[2021-07-23] MEDS: BENZONATATE 100 MG CAPSULE PO SCH ×3 (11:09→20:47)
[2021-07-23] MEDS: ZINC SULFATE 220 MG CAPSULE PO SCH (11:23)
[2021-07-23] MEDS: lisinopril 5 MG TAB PO SCH (11:23)
[2021-07-23] MEDS: CEROVITE ADV FORMULA TAB PO SCH (11:23)
[2021-07-23] MEDS: PANTOprazole 40 MG TAB PO SCH ×2 (11:23→20:19)
[2021-07-23] MEDS: POTASSIUM CHLORIDE CRTAB 20 MEQ TABCR PO SCH (11:23)
[2021-07-23] MEDS: CHOLECALCIFEROL 1,000 UNITS 25 MCG TAB PO SCH (11:24)
[2021-07-23] MEDS: ASPIRIN 81 MG ECTAB PO SCH (11:24)
[2021-07-23] MEDS: UMECLIDINIUM/VILANTEROL 62.5/25MCG 7 PUFFS/INHALER INH SCH (11:24)
[2021-07-23] MEDS: ASCORBIC ACID 500 MG TAB PO SCH ×2 (11:24→20:17)
--- NOTE | 2021-07-23 12:36 | Critical Care Progress Note ---
Date of Service July 23, 2021 Assessment & Plan (1) Acute respiratory failure with hypoxia: Plan: Reason critically ill: 65 yo male with signifcant PMHx of HTN, HLD, pulmonary nodule, tobacco abuse in ICU for acute hypoxic repsiratory failure secondary to multilobar COVID-19 pneumonia. Neuro: - CAM ICU negative - Alert and oriented - Patient requesting to stay on BiPap -- current settings of 12/6, 80% Cardiac/Vascular: - Sinus tach if persistent, will consider beta wilda - Continue continuous monitoring on tele Respiratory: Acute hypoxic respiratory failure secondary to multilobar COVID-19 pneumonia - COVID-19 PCR positive 07/17/21 --> transferred to ICU 07/21/21 for increasing O2 requirements and monitoring - Continue with O2 supplementation to keep O2 sat between 90-92% - Episode of desaturation overnight w/ drinking fluids - Was able to tolerate po intake this AM with RT - Continue IS use - Continue BiPAP with current settings of 12/6, 80% --> can try to transition to high flow - Can encourage awake proning - Attempted to repeat CT scan to rule out PE yesterday, however patient was unable to tolerate laying flat for the CT and study was not completed COPD - Not on any inhalers at home - Continue with Anoro History of lung nodule - Not clearly appreciated on the latest CT scan likely secondary to the opacities - Recommend continue outpatient screening GI/Nutrition: - Last BM 07/20, continue to monitor, consider starting Senna - No other acute concerns Renal/Lytes: - Discontinue NSS IVF -- will start patient on Normosol at 40 cc/hr - Continue to monitor strict Is/Os - Continue euvolemic to negative balance - Continue Lasix 20mg IV daily; will provide additional 20mg IV dose tday Genitourinary: - Mansfield catheter in place - Continue to monitor strict Is/Os Endo: - No hx of DM or thyroid disease - ICU hyperglycemic protocol with ISS --> gtt if needed Heme: - No acute concerns ID: - Afebrile and without leukocytosis - No acute concerns - Will continue monitoring DVT Prophylaxis: Lovenox 90mg SQ q12h (2) Pneumonia due to COVID-19 virus: (3) COPD with emphysema: (4) Pulmonary nodule: Admission and Anticipated Discharge Date Admission Date: July 17, 2021 Supervising Physician Co-Signing Physician Notes Dr. Fox was resident physician during care of patient. I separately evaluated patient for gama portions of the history and the exam. I was present during the critical portion of medical decision making, and I discussed the case with the resident. I generally agree with the findings and plan. Patient remains critically ill due to high oxygen requirement on high flow nasal cannula and BiPAP intermittently continued ICU observation Subjective Discussed with staff including RN and RT. Patient requesting to stay on BiPap as it is more comfortable. No other specific complaints or concerns reported at this time. Physical Exam Physical Exam: Please see attending attestation. Results & Data Results & Data ([facility]) Vital Signs (Past 12 Hours) Vital Signs Temp Pulse Resp BP Pulse Ox Pulse Ox 07/23/21 10:00 92 07/23/21 09:42 112 H 24 128/83 92 07/23/21 08:42 82 28 H 143/81 H 96 07/23/21 08:00 37 C 07/23/21 07:42 79 26 H 139/80 95 07/23/21 07:14 95 H 25 H 93 07/23/21 05:25 74 21 95 07/23/21 01:00 78 18 93 Laboratory Results 07/23/21 07/23/21 07/23/21 Range/Units 04:36 04:35 04:35 WBC 8.81 (4.8-10.8) K/uL RBC 4.62 L (4.7-6.1) M/uL Hgb 14.7 (14.0-18.0) g/dL Hct 42.1 (42-52) % MCV 91.1 (80-100) fL MCH 31.8 (25-34) pg MCHC 34.9 (32-36) g/dL RDW Std Deviation 41.9 (36.4-46.3) fL RDW Coeff of Veronica 12.6 (11.5-14.5) % Plt Count 327 (130-400) K/uL MPV 9.7 (7.4-10.4) fL Immature Gran % (Auto) 0.6 % Neut % (Auto) 88.3 % Lymph % (Auto) 5.1 % [place] % (Auto) 5.9 % Eos % (Auto) 0.0 % Baso % (Auto) 0.1 % Neut # (Auto) 7.78 H (1.4-6.5) K/uL Lymph # (Auto) 0.45 L (1.2-3.4) K/uL [place] # (Auto) 0.52 (0.11-0.59) K/uL Eos # (Auto) 0.00 (0-0.5) K/uL Baso # (Auto) 0.01 (0-0.2) K/uL Immature Gran # (Auto) 0.05 H (0.00-0.02) K/uL Sodium 137 (136-145) mmol/L Potassium 4.5 (3.5-5.1) mmol/L Chloride 109 H (98-107) mmol/L Carbon Dioxide 24 (21-32) mmol/L Anion Gap 4.0 (3-11) BUN 27 H (7-18) mg/dl Creatinine 0.70 (0.6-1.4) mg/dl Est Cr Clr Drug Dosing 118.5 ml/min Est GFR ( Amer) 114.8 ml/min Est GFR (Non-Af Amer) 99.0 ml/min BUN/Creatinine Ratio 39.0 H (10-20) Glucose 106 H (70-99) mg/dl Calcium 7.8 L (8.5-10.1) mg/dl Phosphorus 3.2 (2.5-4.9) mg/dl Magnesium 2.6 H (1.8-2.4) mg/dl Total Bilirubin 0.8 (0.2-1) mg/dl AST 27 (15-37) U/L ALT 91 H (12-78) U/L Alkaline Phosphatase 55 (45-117) U/L C-Reactive Protein 6.95 H (0-0.29) mg/dl Total Protein 6.5 (6.4-8.2) gm/dl Albumin 2.3 L (3.4-5.0) gm/dl Globulin 4.2 H (2.5-4.0) gm/dl Albumin/Globulin Ratio 0.5 L (0.9-2) Procalcitonin 0.07 (0-0.5) ng/ml Critical Care Time I have personally spent 35 minutes of critical care time in the direct management of this patient. This is a life/limb threatening event. This includes time spent evaluating patient, direct bedside care, chart review, placing orders, interpretation of diagnostic studies, discussion with consultants, patient, and/or family members regarding treatment decisions, as well as other required patient management activities. This time is exclusive of all separately billable procedures, and teaching time and separate from and in addition to any other critical care service time. Resident Activity Tracking Resident Involvement: Resident Care Provided Care Provided: Adult [facility]
[2021-07-23] MEDS ORDERED: FUROSEMIDE 20 MG in SYRINGE 0 ML IV ONE (13:30)
[2021-07-23] MEDS: ACETAMINOPHEN 325 MG TAB PO PRN (17:34)
[2021-07-24] MEDS: guaiFENesin/DEXTROM SYRUP 200MG/20MG 10ML UDC PO SCH ×4 (02:58→19:30)
[2021-07-24 05:21] LABS: Eosinophils # (auto) 0.03 K/uL (0-0.5); Eosinophils % (auto) 0.3 %; Hematocrit (blood only) 44.5 % (42-52); Hemoglobin 15.3 g/dL (14.0-18.0); Immature Granulocytes # (auto) 0.05 K/uL (0.00-0.02); Immature Granulocytes % (auto) 0.6 %; Lymphocytes # (auto) 0.67 K/uL (1.2-3.4); Lymphocytes % (auto) 7.7 %; Mean Corpuscular Hemoglobin 31.7 pg (25-34); Mean Corpuscular Hgb Conc 34.4 g/dL (32-36); Mean Corpuscular Volume 92.1 fL (80-100); Mean Platelet Volume 9.5 fL (7.4-10.4); Monocytes # (auto) 0.57 K/uL (0.11-0.59); Monocytes % (auto) 6.5 %; Neutrophils # (auto) 7.43 K/uL (1.4-6.5); Neutrophils % (auto) 84.9 %; Platelet Count 374 K/uL (130-400); RDW Coefficient of Variation 12.5 % (11.5-14.5); RDW Standard Deviation 42.2 fL (36.4-46.3); Red Blood Count 4.83 M/uL (4.7-6.1); White Blood Count 8.75 K/uL (4.8-10.8)
[2021-07-24 05:42] LABS: Albumin Level 2.3 gm/dl (3.4-5.0); BUN Creatinine Ratio 40.7 (10-20); Creatinine Clr Calc Pharmacy 102.8 ml/min; Est GFR (African American) 112.2 ml/min; Est GFR (Non-African American) 96.8 ml/min; Magnesium 2.4 mg/dl (1.8-2.4); Potassium 4.3 mmol/L (3.5-5.1)
[2021-07-24 05:45] LABS: Albumin Globulin Ratio 0.5 (0.9-2); Bilirubin,Total 0.9 mg/dl (0.2-1); C Reactive Protein 4.35 mg/dl (0-0.29); Globulin 4.5 gm/dl (2.5-4.0); Phosphorus 3.4 mg/dl (2.5-4.9); Total Protein 6.8 gm/dl (6.4-8.2)
[2021-07-24] MEDS: dexAMETHasone 10 MG in SYRINGE 0 ML IV SCH (08:12)
[2021-07-24] MEDS: ENOXAPARIN 100 MG/1ML SYR SQ SCH ×2 (08:13→20:49)
[2021-07-24] MEDS: POTASSIUM CHLORIDE CRTAB 20 MEQ TABCR PO SCH (08:13)
[2021-07-24] MEDS: BENZONATATE 100 MG CAPSULE PO SCH ×3 (08:13→19:32)
[2021-07-24] MEDS: ZINC SULFATE 220 MG CAPSULE PO SCH (08:14)
[2021-07-24] MEDS: NORMOSOL-R 1,000 ML IV SCH (08:14)
[2021-07-24] MEDS: UMECLIDINIUM/VILANTEROL 62.5/25MCG 7 PUFFS/INHALER INH SCH (08:14)
[2021-07-24] MEDS: CHOLECALCIFEROL 1,000 UNITS 25 MCG TAB PO SCH (08:14)
[2021-07-24] MEDS: ASPIRIN 81 MG ECTAB PO SCH (08:14)
[2021-07-24] MEDS: FUROSEMIDE 40 MG/4 ML VIAL IV SCH (08:14)
[2021-07-24] MEDS: PANTOprazole 40 MG TAB PO SCH ×2 (08:14→20:50)
[2021-07-24] MEDS: lisinopril 5 MG TAB PO SCH (08:14)
[2021-07-24] MEDS: CEROVITE ADV FORMULA TAB PO SCH (08:14)
[2021-07-24] MEDS: ACETAMINOPHEN 325 MG TAB PO PRN ×2 (08:15→19:29)
--- NOTE | 2021-07-24 08:18 | Critical Care Progress Note ---
Date of Service July 24, 2021 Assessment & Plan (1) Acute respiratory failure with hypoxia: Plan: Reason critically ill: 65 yo male with signifcant PMHx of HTN, HLD, pulmonary nodule, tobacco abuse in ICU for acute hypoxic repsiratory failure secondary to multilobar COVID-19 pneumonia. Neuro: - CAM ICU negative - Alert and oriented Cardiac/Vascular: - Sinus tach, resolved - Continue continuous monitoring on tele Respiratory: Acute hypoxic respiratory failure secondary to multilobar COVID-19 pneumonia, improving - COVID-19 PCR positive 07/17/21 --> transferred to ICU 07/21/21 for increasing O2 requirements and monitoring --> at this point, patient is slightly improving and is stable for transfer out of ICU back to COVID unit - Continue with O2 supplementation to keep O2 sat between 90-92% - Continue to encourage IS and flutter valve use - Continue high flow at 50L, 60% FiO2; can continue BiPAP at night as needed - Can encourage awake proning - Attempted to repeat CT scan to rule out PE 07/22, however patient was unable to tolerate laying flat for the CT and study was not completed COPD - Not on any inhalers at home - Continue with Anoro History of lung nodule - Not clearly appreciated on the latest CT scan likely secondary to the opacities - Recommend continue outpatient screening GI/Nutrition: - Last BM 07/20, ordered 60mg of lactulose today - No other acute concerns Renal/Lytes: - Discontinue IVF - Continue to monitor strict Is/Os - Continue euvolemic to negative balance - Continue Lasix 20mg IV daily Genitourinary: - [place] catheter in place - Continue to monitor strict Is/Os Endo: - No hx of DM or thyroid disease - ICU hyperglycemic protocol with ISS --> gtt if needed Heme: - No acute concerns ID: - Afebrile and without leukocytosis - No acute concerns - Will continue monitoring DVT Prophylaxis: Lovenox 90mg SQ q12h (2) Pneumonia due to COVID-19 virus: (3) COPD with emphysema: (4) Pulmonary nodule: Admission and Anticipated Discharge Date Admission Date: July 17, 2021 Supervising Physician Co-Signing Physician Notes Dr. Fox was resident physician during care of patient. I separately evaluated patient for gama portions of the history and the exam. I was present during the critical portion of medical decision making, and I discussed the case with the resident. I generally agree with the findings and plan. Mild improvement in oxygen requirements, stable for movement from ICU back to Covid unit, I do not anticipate the patient will necessarily need intubated as he is now appearing to turn the corner very slightly. Subjective Patient resting comfortably. Continued with BiPAP overnight. No acute events overnight. Per RN report, patient is not very cooperative with proning because he reports that it hurts his back. He has also not been using IS or flutter valve very often despite encouragement. Physical Exam Physical Exam: Please see attending attestation. Results & Data Results & Data ([facility]) Vital Signs (Past 12 Hours) Vital Signs Temp Pulse Pulse Resp BP Pulse Ox 07/24/21 07:34 98 H 22 93 07/24/21 07:15 93 H 07/24/21 06:42 86 19 131/77 94 07/24/21 05:42 70 21 131/81 96 07/24/21 04:43 80 24 121/78 95 07/24/21 03:42 91 H 21 126/81 91 07/24/21 03:10 68 21 94 07/24/21 02:42 73 21 128/75 93 07/24/21 01:42 78 25 H 122/73 93 07/24/21 00:42 76 20 119/79 93 07/23/21 23:42 70 22 126/72 91 07/23/21 22:42 77 23 122/80 92 07/23/21 22:10 86 18 91 07/23/21 21:42 83 20 119/71 91 07/23/21 20:42 36.5 C 83 17 111/66 93 Laboratory Results 07/24/21 07/24/21 07/24/21 Range/Units 05:06 05:06 05:06 WBC 8.75 (4.8-10.8) K/uL RBC 4.83 (4.7-6.1) M/uL Hgb 15.3 (14.0-18.0) g/dL Hct 44.5 (42-52) % MCV 92.1 (80-100) fL MCH 31.7 (25-34) pg MCHC 34.4 (32-36) g/dL RDW Std Deviation 42.2 (36.4-46.3) fL RDW Coeff of Veronica 12.5 (11.5-14.5) % Plt Count 374 (130-400) K/uL MPV 9.5 (7.4-10.4) fL Immature Gran % (Auto) 0.6 % Neut % (Auto) 84.9 % Lymph % (Auto) 7.7 % [place] % (Auto) 6.5 % Eos % (Auto) 0.3 % Baso % (Auto) 0.0 % Neut # (Auto) 7.43 H (1.4-6.5) K/uL Lymph # (Auto) 0.67 L (1.2-3.4) K/uL [place] # (Auto) 0.57 (0.11-0.59) K/uL Eos # (Auto) 0.03 (0-0.5) K/uL Baso # (Auto) 0.00 (0-0.2) K/uL Immature Gran # (Auto) 0.05 H (0.00-0.02) K/uL Sodium 134 L (136-145) mmol/L Potassium 4.3 (3.5-5.1) mmol/L Chloride 105 (98-107) mmol/L Carbon Dioxide 25 (21-32) mmol/L Anion Gap 4.0 (3-11) BUN 30 H (7-18) mg/dl Creatinine 0.74 (0.6-1.4) mg/dl Est Cr Clr Drug Dosing 102.8 ml/min Est GFR ( Amer) 112.2 ml/min Est GFR (Non-Af Amer) 96.8 ml/min BUN/Creatinine Ratio 40.7 H (10-20) Glucose 96 (70-99) mg/dl Calcium 8.0 L (8.5-10.1) mg/dl Phosphorus 3.4 (2.5-4.9) mg/dl Magnesium 2.4 (1.8-2.4) mg/dl Total Bilirubin 0.9 (0.2-1) mg/dl AST 20 (15-37) U/L ALT 77 (12-78) U/L Alkaline Phosphatase 56 (45-117) U/L C-Reactive Protein 4.35 H (0-0.29) mg/dl Total Protein 6.8 (6.4-8.2) gm/dl Albumin 2.3 L (3.4-5.0) gm/dl Globulin 4.5 H (2.5-4.0) gm/dl Albumin/Globulin Ratio 0.5 L (0.9-2) Procalcitonin Pending Critical Care Time I have personally spent 35 minutes of critical care time in the direct management of this patient. This is a life/limb threatening event. This includes time spent evaluating patient, direct bedside care, chart review, placing orders, interpretation of diagnostic studies, discussion with consultants, patient, and/or family members regarding treatment decisions, as w ell as other required patient management activities. This time is exclusive of all separately billable procedures, and teaching time and separate from and in addition to any other critical care service time. Resident Activity Tracking Resident Involvement: Resident Care Provided Care Provided: Adult [facility]
--- NOTE | 2021-07-24 09:41 | Billing Data ---
Date of Service July 24, 2021 Coding Level of Care Code Critical Care 1st - mins
--- NOTE | 2021-07-24 09:43 | Billing Data ---
Date of Service July 24, 2021 Coding Level of Care Code Critical Care 1st - mins
[2021-07-24] MEDS ORDERED: LACTULOSE SYRUP 20 GM/30 ML UDC PO ONE (10:00)
[2021-07-24] MEDS: ASCORBIC ACID 500 MG TAB PO SCH ×2 (11:25→19:32)
--- NOTE | 2021-07-24 13:36 | Hospitalist Progress Note ---
Date of Service July 24, 2021 Assessment & Plan (1) Acute respiratory failure with hypoxia: Plan: 2/2 covid pneumonia. Has been requiring high flow oxygen to maintain saturation Remains moderate to severe shortness of breath at rest Chest x-ray showed some improvement of bibasilar infiltration CRP is increased from 3.24 on 07/21/2021 to 10.20 as of 07/22/2021 He was moved to ICU for better observation on 07/22/2021 We'll get CTA to rule out any pulmonary embolism-CT is not yet done CTA is not yet done He is clinically better today and requiring high flow nasal cannula to maintain saturation We will transfer him to [facility] [place] telemetry unit (2) Pneumonia due to COVID-19 virus: Plan: Worsening hypoxia, continue remdesivir and dexamethasone daily. Appreciate pulmonary input and recommendation Needs to prone when able. Continues to require max oxygen supplementation on vapotherm. He is unvaccinated. Lasix to keep him net negative Intravenous Lasix doses have been increased to 40 mg once daily Has been requiring high flow oxygen at FiO2 of 0.45 with BiPAP to maintain saturation Has been requiring small dose of Ativan for agitation and tachypnea CRP is minimally elevated at 3.24 on 07/21/2021 from 1.75 yesterday CRP went up to 10.20 on 07/22/2021 and has improved to 6.95 on 07/23/2021 Clinically better but has been requiring high flow oxygen with nasal cannula as of this morning Inflammatory markers are down Strongly advised to use flutter valves and spirometry (3) Transaminitis: Plan: Previously not elevated, not on a statin LFTs improving, likely related to this viral infection will cont to monitor-remains minimally elevated LFTs are much improved (4) HTN (hypertension): Plan: chronic, at goal. Cont home lisinopril . (5) DVT prophylaxis: Plan: Lovenox Full Code Dispo-cont PCU monitoring. Plan: Discussed with the on 07/21/2021 Admission and Anticipated Discharge Date Admission Date: July 17, 2021 Subjective 07/20/2021 The patient was seen and examined in telemetry unit in the [facility] [place] room He has been feeling that great and requiring high flow oxygen to maintain saturation Has cough with moderate to severe shortness of breath at rest No fever and no chills and no pain 07/21/2021 The patient was seen and examined in telemetry unit and in the Covid room He has not been doing much better today and has been requiring high flow oxygen with BiPAP to maintain saturation He was noted to be tachycardic, tachypneic early this morning During my examination he was a stable in the room 07/22/2021 The patient was seen and examined in ICU He was requiring very high flow of oxygen and was tachypneic and tachycardic He was moved to ICU for close monitoring Remains on high flow oxygen but feeling stable 07/23/2021 The patient was seen and examined in ICU She has been conversing normally but requiring high flow oxygen and BiPAP to maintain saturation No acute distress at rest 07/24/2021 The patient was seen and examined in ICU He has been feeling a little better but is still requiring high flow nasal cannula oxygen to maintain saturation Has been communicating well Not in any acute distress at rest Review of Systems Review of Systems: All systems reviewed and are unremarkable except as noted below Respiratory: Moderate shortness of breath at rest on high flow nasal cannula oxygen Physical Exam Physical Exam: Lying in bed with BiPAP without any significant distress Constitutional: well developed, well nourished, + ill appearing and + obese Eyes: PERRL, conjunctivae normal, anicteric sclerae ENMT: external ear and nose normal, oropharynx normal Neck: trachea midline, no thyromegaly Respiratory: + respiratory distress (Moderate distress at rest) and + uses accessory muscles Auscultation: + diminished lung sounds and + crackles (Minimal crackles at the bases) Cardiovascular: Rate/Rhythm: regular rate and regular rhythm; not tachycardic Heart Sounds: normal S1 and normal S2; no murmur Extremities: no edema Gastrointestinal (Abdomen): Inspection/Auscultation: normal bowel sounds; abdomen not distended Musculoskeletal: No acute arthritis in any joint Neurologic: Alert, awake and oriented x3. Very weak and lethargic Psychiatric: Mood: + depressed mood Lymphatic: no cervical or axillary lymphadenopathy Results & Data Results & Data ([facility]) Vital Signs (Past 12 Hours) Vital Signs Temp Pulse Pulse Resp BP Pulse Ox Pulse Ox 07/24/21 12:42 112 H 25 H 125/86 90 07/24/21 12:00 18 91 07/24/21 11:43 99 H 21 112/69 90 07/24/21 10:42 85 19 114/69 95 07/24/21 10:00 95 07/24/21 09:43 105 H 19 119/70 95 07/24/21 08:28 116 H 19 129/91 90 07/24/21 08:00 37 C 07/24/21 07:43 130 H 17 111/77 91 07/24/21 07:34 98 H 22 93 07/24/21 07:15 93 H 07/24/21 06:42 86 19 131/77 94 07/24/21 05:42 70 21 131/81 96 07/24/21 04:43 80 24 121/78 95 07/24/21 03:42 91 H 21 126/81 91 07/24/21 03:10 68 21 94 07/24/21 02:42 73 21 128/75 93 07/24/21 01:42 78 25 H 122/73 93 Laboratory Results Short CBC 07/24/21 Range/Units 05:06 WBC 8.75 (4.8-10.8) K/uL Hgb 15.3 (14.0-18.0) g/dL Hct 44.5 (42-52) % Plt Count 374 (130-400) K/uL BMP 07/24/21 05:06 Sodium 134 L Potassium 4.3 Chloride 105 Carbon Dioxide 25 BUN 30 H Creatinine 0.74 Glucose 96 Calcium 8.0 L Liver Function 07/24/21 Range/Units 05:06 Total Bilirubin 0.9 (0.2-1) mg/dl AST 20 (15-37) U/L ALT 77 (12-78) U/L Alkaline Phosphatase 56 (45-117) U/L Albumin 2.3 L (3.4-5.0) gm/dl Medications Administered Current Inpatient Medications Acetaminophen (Acetaminophen 325 Mg Tab) 650 mg PO Q4H PRN PRN Reason: Pain or Fever Stop: 08/16/21 14:59 Last Admin: 07/24/21 08:15 Dose: 650 mg Documented by: Al Hydrox/Mg Hydrox/Simethicone (Aluminum/Magnesium Susp 30 Ml Udc) 15 ml PO Q4H PRN PRN Reason: Dyspepsia Stop: 08/16/21 14:59 Last Admin: 07/17/21 23:38 Dose: 15 ml Documented by: Ascorbic Acid (Ascorbic Acid 500 Mg Tab) 500 mg PO BID ZARA Stop: 08/17/21 10:14 Last Admin: 07/24/21 11:25 Dose: 500 mg Documented by: Aspirin (Aspirin 81 Mg Ectab) 81 mg PO DAILY ZARA Stop: 08/17/21 08:59 Last Admin: 07/24/21 08:14 Dose: 81 mg Documented by: Benzonatate (Benzonatate 100 Mg Capsule) 100 mg PO TID ZARA Stop: 08/16/21 15:59 Last Admin: 07/24/21 08:13 Dose: Not Given Documented by: Enoxaparin Sodium (Enoxaparin 100 Mg/1ml Syr) 90 mg SQ Q12H ZARA Stop: 08/21/21 08:59 Last Admin: 07/24/21 08:13 Dose: 90 mg Documented by: Furosemide (Furosemide 40 Mg/4 Ml Vial) [address] [facility] Stop: 08/19/21 08:59 Last Admin: 07/24/21 08:14 Dose: 20 mg Documented by: Guaifenesin/Codeine Phosphate (Guaifenesin/Codeine 200mg/20mg 10ml Udc) 10 ml PO Q6H PRN PRN Reason: Cough Stop: 08/17/21 18:18 Guaifenesin/Dextromethorphan (Guaifenesin/Dextrom Syrup 200mg/20mg 10ml Udc) 10 ml PO Q6H ZARA Stop: 08/18/21 13:59 Last Admin: 07/24/21 08:12 Dose: 10 ml Documented by: Dexamethasone 10 mg/ Syringe 2.5 mls @ 1 mls/min IV DAILY@0900 [facility] Stop: 07/27/21 09:03 Last Admin: 07/24/21 08:12 Dose: 1 mls/min Documented by: Lorazepam (Ativan) 0.25 mg in 0.5 mls @ 0.5 mls/min IV Q6H PRN PRN Reason: Anxiety Stop: 08/20/21 13:45 Last Admin: 07/21/21 14:25 Dose: 0.5 mls/min Documented by: Levalbuterol HCl (Levalbuterol Tartrate 15 Gm Hfa.Aer.Ad) 2 puffs INH QID PRN; Protocol PRN Reason: Wheezing Stop: 08/20/21 08:59 Lisinopril (Lisinopril 5 Mg Tab) [address] [facility] Stop: 08/17/21 08:59 Last Admin: 07/24/21 08:14 Dose: 5 mg Documented by: Magnesium Hydroxide (Magnesium Hydroxide Susp 30 Ml Udc) 30 ml PO Q12H PRN PRN Reason: Constipation Stop: 08/16/21 14:59 Multivitamins/Minerals (Cerovite Adv Formula Tab) 1 tab PO DAILY ZARA Stop: 08/17/21 08:59 Last Admin: 07/24/21 08:14 Dose: 1 tab Documented by: Ondansetron HCl (Ondansetron Inj 2 Mg/Ml 2 Ml Vial) 4 mg IV Q6H PRN PRN Reason: Nausea And Vomiting Stop: 08/16/21 14:59 Pantoprazole Sodium (Pantoprazole 40 Mg Tab) [address] [facility] Stop: 08/18/21 20:59 Last Admin: 07/24/21 08:14 Dose: 40 mg Documented by: Polyethylene Glycol (Polyethylene (Miralax) 17 Gm Pack) 17 gm PO DAILY PRN PRN Reason: Constipation Stop: 08/16/21 14:59 Last Admin: 07/20/21 17:58 Dose: 17 gm Documented by: Potassium Chloride (Potassium Chloride Crtab 20 Meq Tabcr) [address] [facility] Stop: 08/19/21 08:59 Last Admin: 07/24/21 08:13 Dose: 20 meq Documented by: Sodium Chloride (Sodium Chloride 0.65% Na Soln 45 Ml ([place]on)) 2 sprays NA TID PRN PRN Reason: Nasal Congestion Stop: 08/19/21 22:37 Umeclidinium/Vilanterol (Umeclidinium/Vilanterol 62.5/25mcg 7 Puffs/Inhaler) 1 puffs INH DAILY [facility] Stop: 08/19/21 08:59 Last Admin: 07/24/21 08:14 Dose: 1 puffs Documented by: Vitamin D (Cholecalciferol 1,000 Units 25 Mcg Tab) 1,[address] [facility] Stop: 08/17/21 10:14 Last Admin: 07/24/21 08:14 Dose: 1,000 units Documented by: Zinc Sulfate (Zinc Sulfate 220 Mg Capsule) [address] [facility] Stop: 08/17/21 10:14 Last Admin: 07/24/21 08:14 Dose: 220 mg Documented by:
[2021-07-25] MEDS: guaiFENesin/DEXTROM SYRUP 200MG/20MG 10ML UDC PO SCH ×4 (03:10→20:13)
[2021-07-25] MEDS: dexAMETHasone 10 MG in SYRINGE 0 ML IV SCH (08:13)
[2021-07-25] MEDS: BENZONATATE 100 MG CAPSULE PO SCH ×3 (08:13→20:16)
[2021-07-25] MEDS: ENOXAPARIN 100 MG/1ML SYR SQ SCH ×2 (08:13→20:45)
[2021-07-25] MEDS: PANTOprazole 40 MG TAB PO SCH ×2 (08:14→20:14)
[2021-07-25] MEDS: CHOLECALCIFEROL 1,000 UNITS 25 MCG TAB PO SCH (08:14)
[2021-07-25] MEDS: CEROVITE ADV FORMULA TAB PO SCH (08:14)
[2021-07-25] MEDS: ZINC SULFATE 220 MG CAPSULE PO SCH (08:14)
[2021-07-25] MEDS: lisinopril 5 MG TAB PO SCH (08:14)
[2021-07-25] MEDS: ASCORBIC ACID 500 MG TAB PO SCH ×2 (08:14→20:13)
[2021-07-25] MEDS: ASPIRIN 81 MG ECTAB PO SCH (08:14)
[2021-07-25] MEDS: UMECLIDINIUM/VILANTEROL 62.5/25MCG 7 PUFFS/INHALER INH SCH (08:15)
[2021-07-25] MEDS: POTASSIUM CHLORIDE CRTAB 20 MEQ TABCR PO SCH (08:24)
[2021-07-25] MEDS: FUROSEMIDE 40 MG/4 ML VIAL IV SCH (08:24)
--- NOTE | 2021-07-25 16:52 | Hospitalist Progress Note ---
Date of Service July 25, 2021 Assessment & Plan (1) Acute respiratory failure with hypoxia: Plan: 2/2 covid pneumonia. Has been requiring high flow oxygen to maintain saturation Remains moderate to severe shortness of breath at rest Chest x-ray showed some improvement of bibasilar infiltration CRP is increased from 3.24 on 07/21/2021 to 10.20 as of 07/22/2021 He was moved to ICU for better observation on 07/22/2021 We'll get CTA to rule out any pulmonary embolism-CT is not yet done CTA is not done He is clinically better today and requiring high flow nasal cannula to maintain saturation Clinically much better today and he still requiring about 15 L of oxygen through oxygen mask (2) Pneumonia due to COVID-19 virus: Plan: Worsening hypoxia, continue remdesivir and dexamethasone daily. Appreciate pulmonary input and recommendation Needs to prone when able. Continues to require max oxygen supplementation on vapotherm. He is unvaccinated. Lasix to keep him net negative Intravenous Lasix doses have been increased to 40 mg once daily Has been requiring high flow oxygen at FiO2 of 0.45 with BiPAP to maintain saturation Has been requiring small dose of Ativan for agitation and tachypnea CRP is minimally elevated at 3.24 on 07/21/2021 from 1.75 yesterday CRP went up to 10.20 on 07/22/2021 and has improved to 6.95 on 07/23/2021 Clinically better but has been requiring high flow oxygen with nasal cannula as of this morning Inflammatory markers are down Strongly advised to use flutter valves and spirometry We will recheck labs tomorrow (3) Transaminitis: Plan: Previously not elevated, not on a statin LFTs improving, likely related to this viral infection will cont to monitor-remains minimally elevated LFTs are much improved (4) HTN (hypertension): Plan: chronic, at goal. Cont home lisinopril . (5) DVT prophylaxis: Plan: Lovenox Full Code Dispo-cont PCU monitoring. Plan: Discussed with the on 07/24/2021 Admission and Anticipated Discharge Date Admission Date: July 17, 2021 Subjective 07/20/2021 The patient was seen and examined in telemetry unit in the Covid room He has been feeling that great and requiring high flow oxygen to maintain saturation Has cough with moderate to severe shortness of breath at rest No fever and no chills and no pain 07/21/2021 The patient was seen and examined in telemetry unit and in the Covid room He has not been doing much better today and has been requiring high flow oxygen with BiPAP to maintain saturation He was noted to be tachycardic, tachypneic early this morning During my examination he was a stable in the room 07/22/2021 The patient was seen and examined in ICU He was requiring very high flow of oxygen and was tachypneic and tachycardic He was moved to ICU for close monitoring Remains on high flow oxygen but feeling stable 07/23/2021 The patient was seen and examined in ICU She has been conversing normally but requiring high flow oxygen and BiPAP to maintain saturation No acute distress at rest 07/24/2021 The patient was seen and examined in ICU He has been feeling a little better but is still requiring high flow nasal cannula oxygen to maintain saturation Has been communicating well Not in any acute distress at rest 07/25/2021 The patient was seen and examined in telemetry unit and in the Covid room He has been feeling much better and oxygen requirement is improving Complains today of extreme weakness denies any other symptoms Review of Systems Review of Systems: All systems reviewed and are unremarkable except as noted below Respiratory: Moderate shortness of breath at rest on high flow nasal cannula oxygen Physical Exam Physical Exam: Lying in bed without any significant distress Constitutional: well developed, well nourished, + ill appearing and + obese Eyes: PERRL, conjunctivae normal, anicteric sclerae ENMT: external ear and nose normal, oropharynx normal Neck: trachea midline, no thyromegaly Respiratory: + respiratory distress (Moderate distress at rest) and + uses accessory muscles Auscultation: + diminished lung sounds and + crackles (Minimal crackles at the bases) Cardiovascular: Rate/Rhythm: regular rate and regular rhythm; not tachycardic Heart Sounds: normal S1 and normal S2; no murmur Extremities: no edema Gastrointestinal (Abdomen): Inspection/Auscultation: normal bowel sounds; abdomen not distended Percussion/Palpation: abdomen soft; abdomen nontender Musculoskeletal: No acute arthritis in any joint Neurologic: Alert, awake and oriented x3. Generally weak but no focal neuro deficit Psychiatric: Mood: + depressed mood Lymphatic: no cervical or axillary lymphadenopathy Results & Data Results & Data ([facility]) Vital Signs (Past 12 Hours) Vital Signs Temp Pulse Pulse Resp BP Pulse Ox 07/25/21 15:21 108 H 07/25/21 15:00 90 07/25/21 14:57 37.0 C 97 H 18 117/64 94 07/25/21 11:01 36.8 C 111 H 19 131/75 93 07/25/21 11:00 24 92 07/25/21 07:49 79 07/25/21 07:29 101 H 22 95 07/25/21 07:12 36.7 C 94 H 20 108/68 94 07/25/21 07:00 26 H 91 Medications Administered Current Inpatient Medications Acetaminophen (Acetaminophen 325 Mg Tab) 650 mg PO Q4H PRN PRN Reason: Pain or Fever Stop: 08/16/21 14:59 Last Admin: 07/24/21 19:29 Dose: 650 mg Documented by: Al Hydrox/Mg Hydrox/Simethicone (Aluminum/Magnesium Susp 30 Ml Udc) 15 ml PO Q4H PRN PRN Reason: Dyspepsia Stop: 08/16/21 14:59 Last Admin: 07/17/21 23:38 Dose: 15 ml Documented by: Ascorbic Acid (Ascorbic Acid 500 Mg Tab) 500 mg PO BID ZARA Stop: 08/17/21 10:14 Last Admin: 07/25/21 08:14 Dose: 500 mg Documented by: Aspirin (Aspirin 81 Mg Ectab) 81 mg PO DAILY [facility]ARA Stop: 08/17/21 08:59 Last Admin: 07/25/21 08:14 Dose: 81 mg Documented by: Benzonatate (Benzonatate 100 Mg Capsule) 100 mg PO TID [facility]ARA Stop: 08/16/21 15:59 Last Admin: 07/25/21 13:51 Dose: 100 mg Documented by: Enoxaparin Sodium (Enoxaparin 100 Mg/1ml Syr) 90 mg SQ Q12H [facility]ARA Stop: 08/21/21 08:59 Last Admin: 07/25/21 08:13 Dose: 90 mg Documented by: Furosemide (Furosemide 40 Mg/4 Ml Vial) 20 mg IV DAILY [facility] Stop: 08/19/21 08:59 Last Admin: 07/25/21 08:24 Dose: 20 mg Documented by: Guaifenesin/Codeine Phosphate (Guaifenesin/Codeine 200mg/20mg 10ml Udc) 10 ml PO Q6H PRN PRN Reason: Cough Stop: 08/17/21 18:18 Guaifenesin/Dextromethorphan (Guaifenesin/Dextrom Syrup 200mg/20mg 10ml Udc) 10 ml PO Q6H [facility]ARA Stop: 08/18/21 13:59 Last Admin: 07/25/21 13:51 Dose: 10 ml Documented by: Dexamethasone 10 mg/ Syringe 2.5 mls @ 1 mls/min IV DAILY@0900 [facility] Stop: 07/27/21 09:03 Last Admin: 07/25/21 08:13 Dose: 1 mls/min Documented by: Lorazepam (Ativan) 0.25 mg in 0.5 mls @ 0.5 mls/min IV Q6H PRN PRN Reason: Anxiety Stop: 08/20/21 13:45 Last Admin: 07/21/21 14:25 Dose: 0.5 mls/min Documented by: Levalbuterol HCl (Levalbuterol Tartrate 15 Gm Hfa.Aer.Ad) 2 puffs INH QID PRN; Protocol PRN Reason: Wheezing Stop: 08/20/21 08:59 Lisinopril (Lisinopril 5 Mg Tab) 5 mg PO QAM [facility] Stop: 08/17/21 08:59 Last Admin: 07/25/21 08:14 Dose: 5 mg Documented by: Magnesium Hydroxide (Magnesium Hydroxide Susp 30 Ml Udc) 30 ml PO Q12H PRN PRN Reason: Constipation Stop: 08/16/21 14:59 Multivitamins/Minerals (Cerovite Adv Formula Tab) 1 tab PO DAILY [facility]ARA Stop: 08/17/21 08:59 Last Admin: 07/25/21 08:14 Dose: 1 tab Documented by: Ondansetron HCl (Ondansetron Inj 2 Mg/Ml 2 Ml Vial) 4 mg IV Q6H PRN PRN Reason: Nausea And Vomiting Stop: 08/16/21 14:59 Pantoprazole Sodium (Pantoprazole 40 Mg Tab) 40 mg PO BID [facility]ARA Stop: 08/18/21 20:59 Last Admin: 07/25/21 08:14 Dose: 40 mg Documented by: Polyethylene Glycol (Polyethylene (Miralax) 17 Gm Pack) 17 gm PO DAILY PRN PRN Reason: Constipation Stop: 08/16/21 14:59 Last Admin: 07/20/21 17:58 Dose: 17 gm Documented by: Potassium Chloride (Potassium Chloride Crtab 20 Meq Tabcr) 20 meq PO QAM [facility] Stop: 08/19/21 08:59 Last Admin: 07/25/21 08:24 Dose: 20 meq Documented by: Sodium Chloride (Sodium Chloride 0.65% Na Soln 45 Ml ([place])) 2 sprays NA TID PRN PRN Reason: Nasal Congestion Stop: 08/19/21 22:37 Umeclidinium/Vilanterol (Umeclidinium/Vilanterol 62.5/25mcg 7 Puffs/Inhaler) 1 puffs INH DAILY [facility] Stop: 08/19/21 08:59 Last Admin: 07/25/21 08:15 Dose: 1 puffs Documented by: Vitamin D (Cholecalciferol 1,000 Units 25 Mcg Tab) 1,000 units PO QAM [facility] Stop: 08/17/21 10:14 Last Admin: 07/25/21 08:14 Dose: 1,000 units Documented by: Zinc Sulfate (Zinc Sulfate 220 Mg Capsule) [facility] Stop: 08/17/21 10:14 Last Admin: 07/25/21 08:14 Dose: 220 mg Documented by:
[2021-07-26] MEDS: guaiFENesin/DEXTROM SYRUP 200MG/20MG 10ML UDC PO SCH ×4 (02:50→20:39)
[2021-07-26 06:20] LABS: Eosinophils # (auto) 0.05 K/uL (0-0.5); Eosinophils % (auto) 0.5 %; Hematocrit (blood only) 45.7 % (42-52); Hemoglobin 16.2 g/dL (14.0-18.0); Immature Granulocytes # (auto) 0.04 K/uL (0.00-0.02); Immature Granulocytes % (auto) 0.4 %; Lymphocytes % (auto) 9.8 %; Mean Corpuscular Hemoglobin 32.3 pg (25-34); Mean Corpuscular Hgb Conc 35.4 g/dL (32-36); Mean Corpuscular Volume 91.2 fL (80-100); Mean Platelet Volume 9.6 fL (7.4-10.4); Monocytes # (auto) 1.11 K/uL (0.11-0.59); Monocytes % (auto) 12.1 %; Neutrophils # (auto) 7.07 K/uL (1.4-6.5); Neutrophils % (auto) 77.2 %; Platelet Count 368 K/uL (130-400); RDW Coefficient of Variation 12.4 % (11.5-14.5); RDW Standard Deviation 41.7 fL (36.4-46.3); Red Blood Count 5.01 M/uL (4.7-6.1); White Blood Count 9.17 K/uL (4.8-10.8)
[2021-07-26 07:13] LABS: Albumin Globulin Ratio 0.5 (0.9-2); Albumin Level 2.4 gm/dl (3.4-5.0); BUN Creatinine Ratio 32.7 (10-20); Bilirubin,Total 0.9 mg/dl (0.2-1); C Reactive Protein 1.66 mg/dl (0-0.29); Calcium 8.6 mg/dl (8.5-10.1); Creatinine Clr Calc Pharmacy 89.5 ml/min; Est GFR (Non-African American) 91.4 ml/min; Globulin 4.8 gm/dl (2.5-4.0); Total Protein 7.2 gm/dl (6.4-8.2)
[2021-07-26 07:17] LABS: Potassium 4.5 mmol/L (3.5-5.1)
[2021-07-26] MEDS: UMECLIDINIUM/VILANTEROL 62.5/25MCG 7 PUFFS/INHALER INH SCH (07:57)
[2021-07-26] MEDS: dexAMETHasone 10 MG in SYRINGE 0 ML IV SCH (07:58)
[2021-07-26] MEDS: ZINC SULFATE 220 MG CAPSULE PO SCH (07:58)
[2021-07-26] MEDS: ASPIRIN 81 MG ECTAB PO SCH (07:58)
[2021-07-26] MEDS: CEROVITE ADV FORMULA TAB PO SCH (07:59)
[2021-07-26] MEDS: ASCORBIC ACID 500 MG TAB PO SCH ×2 (07:59→20:39)
[2021-07-26] MEDS: ENOXAPARIN 100 MG/1ML SYR SQ SCH ×2 (07:59→20:39)
[2021-07-26] MEDS: CHOLECALCIFEROL 1,000 UNITS 25 MCG TAB PO SCH (07:59)
[2021-07-26] MEDS: BENZONATATE 100 MG CAPSULE PO SCH ×3 (07:59→20:39)
[2021-07-26] MEDS: lisinopril 5 MG TAB PO SCH (07:59)
[2021-07-26] MEDS: PANTOprazole 40 MG TAB PO SCH ×2 (07:59→20:39)
[2021-07-26] MEDS: ACETAMINOPHEN 325 MG TAB PO PRN ×2 (08:01→21:45)
[2021-07-26] MEDS: POTASSIUM CHLORIDE CRTAB 20 MEQ TABCR PO SCH (08:01)
[2021-07-26] MEDS: FUROSEMIDE 40 MG/4 ML VIAL IV SCH (08:19)
--- NOTE | 2021-07-26 11:30 | Hospitalist Progress Note ---
Date of Service July 26, 2021 Assessment & Plan (1) Acute respiratory failure with hypoxia: Plan: 2/2 covid pneumonia. Currently remains on 8 L of nasal cannula. Reports breathing is better. Chest x-ray showed some improvement of bibasilar infiltration CRP is increased from 3.24 on 07/21/2021 to 10.20 as of 07/22/2021 He was moved to ICU for better observation on 07/22/2021 CTA on 07/17 - for any PE. (2) Pneumonia due to COVID-19 virus: Plan: Completed course of remdesivir. We will continue with Decadron. Appreciate pulmonary input and recommendation Needs to prone when able. Continues to require max oxygen supplementation on vapotherm. He is unvaccinated. Continue IV Lasix 20 mg daily. Under ins and outs along with daily weights. Has been requiring high flow oxygen at FiO2 of 0.45 with BiPAP to maintain saturation Has been requiring small dose of Ativan for agitation and tachypnea. Patient on Atarax today. CRP is minimally elevated at 3.24 on 07/21/2021 from 1.75 yesterday CRP went up to 10.20 on 07/22/2021 and has improved to 6.95 on 07/23/2021. 07/26 CRP is a significantly down. (3) Transaminitis: Plan: Previously not elevated, not on a statin LFTs improving, likely related to this viral infection will cont to monitor-remains minimally elevated LFTs are much improved (4) HTN (hypertension): Plan: chronic, at goal. Cont home lisinopril . (5) DVT prophylaxis: Plan: Lovenox Full Code Dispo-cont PCU monitoring. Plan: Discussed with the on 07/24/2021 Admission and Anticipated Discharge Date Admission Date: July 17, 2021 Subjective Patient reports feeling okay this morning. Shortness of breath is improved however does have some chest discomfort and has persistent cough. She remains on 8 L of nasal cannula. Adequate urine output. Denies any abdominal pain or diarrhea. Appetite is okay. Rest of the review of system is negative. Review of Systems Review of Systems: All systems reviewed & are unremarkable except as noted in HPI & below Physical Exam Physical Exam: General: A&Ox3 HENT: NCAT, MMM, EOMI Eyes: PERRLA Neck: Supple, normal range of motion CVS: normal rate and rhythm Resp: b/l coarse breath sounds Abdomen: Soft, ND/NT, +BS Extremities: Absence of any edema Neuro: face symmetric, no gross focal deficits appreciated Skin: warm and dry, no rashes/lesions/errythema MSK: normal ROM, no joint swelling/erythema Mansfield catheter in place. Results & Data Results & Data ([facility]) Vital Signs (Past 12 Hours) Vital Signs Temp Pulse Pulse Resp BP Pulse Ox 07/26/21 11:04 37.1 C 95 H 20 115/69 94 07/26/21 10:34 20 93 07/26/21 08:00 102 H 28 H 90 07/26/21 06:00 36.9 C 109 H 28 H 119/76 89 L 07/26/21 04:00 20 91 07/26/21 02:56 36.6 C 90 20 124/82 91 07/26/21 00:58 36.6 C 88 18 128/74 94 07/26/21 00:00 89 20 91
[2021-07-26] MEDS: hydrOXYzine HCl 10 MG TAB PO PRN (12:55)
[2021-07-26] MEDS ORDERED: FUROSEMIDE 40 MG/4 ML VIAL IV ONE (14:15)
[2021-07-26] MEDS: ALUMINUM/MAGNESIUM SUSP 30 ML UDC PO PRN (17:39)
[2021-07-26] MEDS: MAGNESIUM HYDROXIDE SUSP 30 ML UDC PO PRN (17:40)
[2021-07-27] MEDS: guaiFENesin/DEXTROM SYRUP 200MG/20MG 10ML UDC PO SCH ×4 (03:20→20:42)
[2021-07-27] MEDS: SIMETHICONE 80 MG CHEW PO PRN (06:01)
[2021-07-27] MEDS: DOCUSATE SODIUM/SENNA 50/8.6MG TAB PO SCH ×2 (06:02→08:49)
[2021-07-27 07:21] LABS: BUN Creatinine Ratio 42.2 (10-20); Calcium 8.3 mg/dl (8.5-10.1); Creatinine Clr Calc Pharmacy 97.5 ml/min; Est GFR (African American) 109.8 ml/min; Est GFR (Non-African American) 94.7 ml/min; Potassium 4.3 mmol/L (3.5-5.1)
[2021-07-27] MEDS: ASCORBIC ACID 500 MG TAB PO SCH ×2 (08:46→20:43)
[2021-07-27] MEDS: lisinopril 5 MG TAB PO SCH (08:46)
[2021-07-27] MEDS: PANTOprazole 40 MG TAB PO SCH ×2 (08:46→20:45)
[2021-07-27] MEDS: ENOXAPARIN 100 MG/1ML SYR SQ SCH ×2 (08:46→20:44)
[2021-07-27] MEDS: dexAMETHasone 10 MG in SYRINGE 0 ML IV SCH (08:46)
[2021-07-27] MEDS: ASPIRIN 81 MG ECTAB PO SCH (08:47)
[2021-07-27] MEDS: CEROVITE ADV FORMULA TAB PO SCH (08:48)
[2021-07-27] MEDS: CHOLECALCIFEROL 1,000 UNITS 25 MCG TAB PO SCH (08:49)
[2021-07-27] MEDS: UMECLIDINIUM/VILANTEROL 62.5/25MCG 7 PUFFS/INHALER INH SCH (08:49)
[2021-07-27] MEDS: ZINC SULFATE 220 MG CAPSULE PO SCH (08:50)
[2021-07-27] MEDS: POTASSIUM CHLORIDE CRTAB 20 MEQ TABCR PO SCH (08:52)
[2021-07-27] MEDS: BENZONATATE 100 MG CAPSULE PO SCH ×3 (08:52→20:45)
[2021-07-27] MEDS ORDERED: FUROSEMIDE 40 MG in SYRINGE 0 ML IV SCH (09:00)
--- NOTE | 2021-07-27 12:38 | Hospitalist Progress Note ---
Date of Service July 27, 2021 Assessment & Plan (1) Acute respiratory failure with hypoxia: Plan: 2/2 covid pneumonia. Chest x-ray showed some improvement of bibasilar infiltration. CTA on 07/17 - for any PE. CRP is increased from 3.24 on 07/21/2021 to 10.20 as of 07/22/2021 He was moved to ICU for better observation on 07/22/2021 Weaned down to 5 L of nasal cannula. (2) Pneumonia due to COVID-19 virus: Plan: He is unvaccinated. Completed course of remdesivir. Completed 10-day course of dexamethasone today. Appreciate pulmonary input and recommendation Na 1t 128 this morning. Possibly secondary to diuresis. Hold further Lasix for now. Monitor ins and outs along with daily weights. Mansfield catheter in place. Have been off the BiPAP. Has been requiring small dose of Ativan for agitation and tachypnea. Started patient on Atarax. 07/26 CRP is a significantly down. Encourage patient to get up and walk. Encouraged the use of incentive spirometer. Work with PT/OT. (3) Transaminitis: Plan: Previously not elevated, not on a statin LFTs improving, likely related to this viral infection will cont to monitor-remains minimally elevated LFTs are much improved (4) HTN (hypertension): Plan: chronic, at goal. Cont home lisinopril . (5) DVT prophylaxis: Plan: Lovenox Full Code Dispo-cont PCU monitoring. Plan: Discussed with the on 07/24/2021 Admission and Anticipated Discharge Date Admission Date: July 17, 2021 Subjective Reports he does not feel that good today. Could not specify reason. Does report that he feels anxious, no prior history. Reports shortness of breath is stable. Denies any significant cough. Remains afebrile. Denies any nausea, vomiting or any diarrhea. Appetite is okay. Hemodynamically doing fine. Review of Systems Review of Systems: All systems reviewed & are unremarkable except as noted in HPI & below Physical Exam Physical Exam: General: A&Ox3 HENT: NCAT, MMM, EOMI Eyes: PERRLA Neck: Supple, normal range of motion CVS: normal rate and rhythm Resp: b/l coarse breath sounds Abdomen: Soft, ND/NT, +BS Extremities: Absence of any edema Neuro: face symmetric, no gross focal deficits appreciated Skin: warm and dry, no rashes/lesions/errythema MSK: normal ROM, no joint swelling/erythema Mansfield catheter in place. Results & Data Results & Data ([facility]) Vital Signs (Past 12 Hours) Vital Signs Temp Pulse Pulse Resp BP Pulse Ox 07/27/21 10:49 36.8 C 109 H 20 107/66 92 07/27/21 10:00 20 92 07/27/21 08:00 103 H 07/27/21 07:36 36.8 C 97 H 21 120/75 91 07/27/21 03:51 36.6 C 88 20 113/80 92
[2021-07-27] MEDS: ACETAMINOPHEN 325 MG TAB PO PRN (14:08)
[2021-07-27] MEDS: hydrOXYzine HCl 10 MG TAB PO PRN ×2 (16:13→20:43)
[2021-07-27] MEDS: POLYETHYLENE (MIRALAX) 17 GM PACK PO PRN (19:24)
[2021-07-28] MEDS: guaiFENesin/DEXTROM SYRUP 200MG/20MG 10ML UDC PO SCH ×3 (01:33→13:48)
[2021-07-28] MEDS: ACETAMINOPHEN 325 MG TAB PO PRN ×3 (05:56→21:16)
[2021-07-28 07:26] LABS: BUN Creatinine Ratio 42.7 (10-20); Calcium 8.3 mg/dl (8.5-10.1); Creatinine Clr Calc Pharmacy 104.2 ml/min; Est GFR (African American) 112.8 ml/min; Est GFR (Non-African American) 97.3 ml/min; Potassium 4.3 mmol/L (3.5-5.1)
[2021-07-28] MEDS: ASPIRIN 81 MG ECTAB PO SCH (08:31)
[2021-07-28] MEDS: BENZONATATE 100 MG CAPSULE PO SCH ×2 (08:31→13:48)
[2021-07-28] MEDS: POLYETHYLENE (MIRALAX) 17 GM PACK PO PRN (08:31)
[2021-07-28] MEDS: ASCORBIC ACID 500 MG TAB PO SCH ×2 (08:32→21:17)
[2021-07-28] MEDS: DOCUSATE SODIUM/SENNA 50/8.6MG TAB PO SCH (08:32)
[2021-07-28] MEDS: lisinopril 5 MG TAB PO SCH (08:33)
[2021-07-28] MEDS: PANTOprazole 40 MG TAB PO SCH ×2 (08:33→21:17)
[2021-07-28] MEDS: CEROVITE ADV FORMULA TAB PO SCH (08:34)
[2021-07-28] MEDS: ENOXAPARIN 100 MG/1ML SYR SQ SCH ×2 (08:34→21:15)
[2021-07-28] MEDS: CHOLECALCIFEROL 1,000 UNITS 25 MCG TAB PO SCH (08:34)
[2021-07-28] MEDS: ZINC SULFATE 220 MG CAPSULE PO SCH (08:35)
[2021-07-28] MEDS: UMECLIDINIUM/VILANTEROL 62.5/25MCG 7 PUFFS/INHALER INH SCH (08:35)
[2021-07-28] MEDS: POTASSIUM CHLORIDE CRTAB 20 MEQ TABCR PO SCH (08:40)
[2021-07-28] MEDS ORDERED: SODIUM CHLORIDE 0.9% 1000ML 1,000 ML IV SCH (10:15)
--- NOTE | 2021-07-28 12:50 | Hospitalist Progress Note ---
Date of Service July 28, 2021 Assessment & Plan (1) Acute respiratory failure with hypoxia: Plan: Unvaccinated patient presented with covid pneumonia. . CTA on 07/17 - for any PE. He is completed a 10-day course of dexamethasone and a 5-day course of remdesivir. He was seen by pulmonology earlier in course but did not receive Tocilizumab. Again continue to encourage patient to get up and walk, transfer to chair and mobilize. Encouraged to use incentive spirometry and work with therapy and nursing staff. Encouraged to prone as often as able. Continue oxygen supplementation which appears to be lessening. Continue to fight depression from isolation and hypoxia. Steroids off which should be helpful (2) Pneumonia due to COVID-19 virus: Plan: Plan as above (3) Hyponatremia: Plan: Sodium again decreased to 126 this morning likely secondary to daily Lasix use. This has been held however we will add IV fluids and repeat BMP in a.m. Continue efforts to maintain euvolemia and optimize ventilation. (4) Transaminitis: Plan: Previously not on a statin, likely viral related to Covid infection. Repeat as outpatient with primary care provider when discharged. (5) HTN (hypertension): Plan: chronic, at goal. Cont home lisinopril . (6) DVT prophylaxis: Plan: Lovenox Full Code Dispo-cont PCU monitoring. Admission and Anticipated Discharge Date Admission Date: July 17, 2021 Subjective 65-year-old man presented with acute respiratory failure with hypoxia secondary to Covid pneumonia. Per nursing staff he appears to be unmotivated and somewhat depressed. Isolation likely contributing I discussed this with the patient and encouraged him to still continue to prone and mobilize as able. He agreed that if we got the urinary catheter out he would attempt to prone as it would be easier without the catheter. He continues to have periods of desaturation such as when transferring to the chair this morning. He otherwise is feeling well tolerating p.o. and afebrile. No other concerns at this time. Review of Systems Review of Systems: At least ten systems were reviewed and negative except as indicated in HPI above. Physical Exam Physical Exam: CONSTITUTIONAL: WNWD, vitals as above, generally NAD EYES: normal conjunctivae, no scleral icterus ENT: external ear and nose normal, MMM RESPIRATORY: CTAB, no crackles, rales or wheezes,normal resp effort CARDIOVASCULAR: regular rate and rhythm, S1 and 2 heard without murmurs, gallops or rubs, no JVD, no peripheral edema CHEST: inspection of chest was normal GASTROINTESTINAL: soft, nontender, nondistended, no guarding MUSCULOSKELETAL: strength 5/5 throughout, head is normocephalic and atraumatic SKIN: warm and dry NEUROLOGIC: No facial palsy, no dysarthria. CN 2-12 grossly intact, no sensory deficit, normal cognition, normal speech, no tremor PSYCHIATRIC: alert cooperative and oriented to person, place and time. Results & Data Results & Data ([facility]) Vital Signs (Past 12 Hours) Vital Signs Temp Pulse Pulse Resp BP Pulse Ox 07/28/21 10:49 37.0 C 107 H 20 115/74 95 07/28/21 10:00 20 88 L 07/28/21 08:00 77 07/28/21 07:50 36.8 C 91 H 20 118/78 93 07/28/21 03:00 36.8 C 74 18 110/78 95 07/28/21 02:00 18 95 Laboratory Results [facility] 07/28/21 06:18 Sodium 126 L Potassium 4.3 Chloride 96 L Carbon Dioxide 24 BUN 31 H Creatinine 0.73 Glucose 92 Calcium 8.3 L Medications Administered Current Inpatient Medications Acetaminophen (Acetaminophen 325 Mg Tab) 650 mg PO Q4H PRN PRN Reason: Pain or Fever Stop: 08/16/21 14:59 Last Admin: 07/28/21 05:56 Dose: 650 mg Documented by: Al Hydrox/Mg Hydrox/Simethicone (Aluminum/Magnesium Susp 30 Ml Udc) 15 ml PO Q4H PRN PRN Reason: Dyspepsia Stop: 08/16/21 14:59 Last Admin: 07/26/21 17:39 Dose: 15 ml Documented by: Ascorbic Acid (Ascorbic Acid 500 Mg Tab) 500 mg PO BID [facility] Stop: 08/17/21 10:14 Last Admin: 07/28/21 08:32 Dose: 500 mg Documented by: Aspirin (Aspirin 81 Mg Ectab) 81 mg PO DAILY [facility] Stop: 08/17/21 08:59 Last Admin: 07/28/21 08:31 Dose: 81 mg Documented by: Benzonatate (Benzonatate 100 Mg Capsule) 100 mg PO TID [facility] Stop: 08/16/21 15:59 Last Admin: 07/28/21 08:31 Dose: 100 mg Documented by: Enoxaparin Sodium (Enoxaparin 100 Mg/1ml Syr) 90 mg SQ Q12H [facility] Stop: 08/21/21 08:59 Last Admin: 07/28/21 08:34 Dose: 90 mg Documented by: Guaifenesin/Codeine Phosphate (Guaifenesin/Codeine 200mg/20mg 10ml Udc) 10 ml PO Q6H PRN PRN Reason: Cough Stop: 08/17/21 18:18 Guaifenesin/Dextromethorphan (Guaifenesin/Dextrom Syrup 200mg/20mg 10ml Udc) 10 ml PO Q6H [facility] Stop: 08/18/21 13:59 Last Admin: 07/28/21 08:32 Dose: 10 ml Documented by: Hydroxyzine HCl (Hydroxyzine Hcl 10 Mg Tab) 10 mg PO TID PRN PRN Reason: Anxiety Stop: 08/25/21 10:44 Last Admin: 07/27/21 20:43 Dose: 10 mg Documented by: Lorazepam (Ativan) 0.25 mg in 0.5 mls @ 0.5 mls/min IV Q6H PRN PRN Reason: Anxiety Stop: 08/20/21 13:45 Last Admin: 07/21/21 14:25 Dose: 0.5 mls/min Documented by: Furosemide 40 mg/ Syringe 4 mls @ 4 mls/min IV DAILY [facility] Stop: 08/26/21 08:59 Last Admin: 07/27/21 08:45 Dose: 4 mls/min Documented by: Sodium Chloride (Nss 1000ml) 1,000 mls @ 125 mls/hr IV .Q8H [facility] Stop: 07/28/21 18:14 Last Admin: 07/28/21 11:45 Dose: 125 mls/hr Documented by: Levalbuterol HCl (Levalbuterol Tartrate 15 Gm Hfa.Aer.Ad) 2 puffs INH QID PRN; Protocol PRN Reason: Wheezing Stop: 08/20/21 08:59 Lisinopril (Lisinopril 5 Mg Tab) 5 mg PO QAM [facility] Stop: 08/17/21 08:59 Last Admin: 07/28/21 08:33 Dose: 5 mg Documented by: Magnesium Hydroxide (Magnesium Hydroxide Susp 30 Ml Udc) 30 ml PO Q12H PRN PRN Reason: Constipation Stop: 08/16/21 14:59 Last Admin: 07/26/21 17:40 Dose: 30 ml Documented by: Multivitamins/Minerals (Cerovite Adv Formula Tab) 1 tab PO DAILY [facility] Stop: 08/17/21 08:59 Last Admin: 07/28/21 08:34 Dose: 1 tab Documented by: Ondansetron HCl (Ondansetron Inj 2 Mg/Ml 2 Ml Vial) 4 mg IV Q6H PRN PRN Reason: Nausea And Vomiting Stop: 08/16/21 14:59 Pantoprazole Sodium (Pantoprazole 40 Mg Tab) 40 mg PO BID [facility] Stop: 08/18/21 20:59 Last Admin: 07/28/21 08:33 Dose: 40 mg Documented by: Polyethylene Glycol (Polyethylene (Miralax) 17 Gm Pack) 17 gm PO DAILY PRN PRN Reason: Constipation Stop: 08/16/21 14:59 Last Admin: 07/28/21 08:31 Dose: 17 gm Documented by: Potassium Chloride (Potassium Chloride Crtab 20 Meq Tabcr) 20 meq PO QAM [facility] Stop: 08/19/21 08:59 Last Admin: 07/28/21 08:40 Dose: 20 meq Documented by: Senna/Docusate Sodium (Docusate Sodium/Senna 50/8.6mg Tab) 1 tab PO QAM [facility] Stop: 08/26/21 05:49 Last Admin: 07/28/21 08:32 Dose: 1 tab Documented by: Simethicone (Simethicone 80 Mg Chew) 80 mg PO Q6H PRN PRN Reason: gas Stop: 08/26/21 05:44 Last Admin: 07/27/21 06:01 Dose: 80 mg Documented by: Sodium Chloride (Sodium Chloride 0.65% Na Soln 45 Ml ([place])) 2 sprays NA TID PRN PRN Reason: Nasal Congestion Stop: 08/19/21 22:37 Last Admin: 07/26/21 08:01 Dose: 2 sprays Documented by: Umeclidinium/Vilanterol (Umeclidinium/Vilanterol 62.5/25mcg 7 Puffs/Inhaler) 1 puffs INH DAILY [facility] Stop: 08/19/21 08:59 Last Admin: 07/28/21 08:35 Dose: 1 puffs Documented by: Vitamin D (Cholecalciferol 1,000 Units 25 Mcg Tab) 1,000 units PO QAM [facility] Stop: 08/17/21 10:14 Last Admin: 07/28/21 08:34 Dose: 1,000 units Documented by: Zinc Sulfate (Zinc Sulfate 220 Mg Capsule) 220 mg PO QAM [facility] Stop: 08/17/21 10:14 Last Admin: 07/28/21 08:35 Dose: 220 mg Documented by:
[2021-07-28] MEDS ORDERED: GLYCERIN ADULT 12 SUPP/BOX SUPP PR ONE (16:30)
[2021-07-28] MEDS: hydrOXYzine HCl 10 MG TAB PO PRN (21:16)
[2021-07-29 07:35] LABS: BUN Creatinine Ratio 27.2 (10-20); Creatinine Clr Calc Pharmacy 110.2 ml/min; Est GFR (African American) 115.5 ml/min; Est GFR (Non-African American) 99.6 ml/min; Potassium 4.4 mmol/L (3.5-5.1)
[2021-07-29] MEDS: PANTOprazole 40 MG TAB PO SCH ×2 (08:50→19:51)
[2021-07-29] MEDS: ASPIRIN 81 MG ECTAB PO SCH (08:51)
[2021-07-29] MEDS: CHOLECALCIFEROL 1,000 UNITS 25 MCG TAB PO SCH (08:51)
[2021-07-29] MEDS: CEROVITE ADV FORMULA TAB PO SCH (08:51)
[2021-07-29] MEDS: ASCORBIC ACID 500 MG TAB PO SCH ×2 (08:51→19:52)
[2021-07-29] MEDS: DOCUSATE SODIUM/SENNA 50/8.6MG TAB PO SCH (08:51)
[2021-07-29] MEDS: UMECLIDINIUM/VILANTEROL 62.5/25MCG 7 PUFFS/INHALER INH SCH (08:52)
[2021-07-29] MEDS: ENOXAPARIN 100 MG/1ML SYR SQ SCH ×2 (08:52→19:51)
[2021-07-29] MEDS: ZINC SULFATE 220 MG CAPSULE PO SCH (08:52)
[2021-07-29] MEDS: lisinopril 5 MG TAB PO SCH (08:52)
[2021-07-29] MEDS: SIMETHICONE 80 MG CHEW PO PRN (08:57)
[2021-07-29] MEDS: POTASSIUM CHLORIDE CRTAB 20 MEQ TABCR PO SCH (08:57)
--- NOTE | 2021-07-29 10:28 | Hospitalist Progress Note ---
Date of Service July 29, 2021 Assessment & Plan (1) Acute respiratory failure with hypoxia: Plan: Unvaccinated patient presented with covid pneumonia. CTA on 07/17 - for any PE. He is completed a 10-day course of dexamethasone and a 5-day course of remdesivir. He was seen by pulmonology earlier in course but did not receive Tocilizumab. Encouraged to use incentive spirometry and work with therapy and nursing staff. Encouraged to prone as often as able. Continue oxygen supplementation which appears to be lessening. Continue to fight depression from isolation and hypoxia. Steroids off which should be helpful-brighter disposition today. (2) Pneumonia due to COVID-19 virus: Plan: Plan as above (3) Hyponatremia: Plan: Sodium improved with NSS. Cont holding Lasix and give additional 1 bag tonight. BMP in am. (4) Transaminitis: Plan: Previously not on a statin, likely viral related to Covid infection. Repeat as outpatient with primary care provider when discharged. (5) HTN (hypertension): Plan: chronic, at goal. Cont home lisinopril . (6) DVT prophylaxis: Plan: Lovenox Full Code Dispo-cont PCU monitoring. Jackie Beltrán DO [facility] Hospitalist Admission and Anticipated Discharge Date Admission Date: July 17, 2021 Subjective 65-year-old man presented with acute respiratory failure with hypoxia secondary to Covid pneumonia. In good spirits today Decreasing oxygen needs Denies shortness of breath Physically deconditioned but reports getting out of bed today Encouraged to prone, patient reports unable to do so. Review of Systems Review of Systems: At least ten systems were reviewed and negative except as indicated in HPI above. Physical Exam Physical Exam: CONSTITUTIONAL: WNWD, vitals as above, generally NAD EYES: normal conjunctivae, no scleral icterus ENT: external ear and nose normal, MMM RESPIRATORY: CTAB, no crackles, rales or wheezes,normal resp effort CARDIOVASCULAR: regular rate and rhythm, S1 and 2 heard without murmurs, gallops or rubs, no JVD, no peripheral edema CHEST: inspection of chest was normal GASTROINTESTINAL: soft, nontender, nondistended, no guarding MUSCULOSKELETAL: strength 5/5 throughout, head is normocephalic and atraumatic SKIN: warm and dry NEUROLOGIC: No facial palsy, no dysarthria. CN 2-12 grossly intact, no sensory deficit, normal cognition, normal speech, no tremor PSYCHIATRIC: alert cooperative and oriented to person, place and time. Results & Data Results & Data ([facility]) Vital Signs (Past 12 Hours) Vital Signs Temp Pulse Pulse Resp BP Pulse Ox 07/29/21 10:00 19 87 L 07/29/21 08:00 83 07/29/21 07:17 36.7 C 88 19 121/67 97 07/29/21 06:00 20 89 L 07/29/21 02:42 36.7 C 86 20 110/73 94 07/29/21 02:00 20 95 07/28/21 23:59 86 07/28/21 23:30 93 07/28/21 22:53 36.8 C 71 20 106/59 L 96 Laboratory Results BMP 07/29/21 05:36 Sodium 128 L Potassium 4.4 Chloride 98 Carbon Dioxide 24 BUN 19 H Creatinine 0.69 Glucose 82 Calcium 8.0 L Medications Administered Current Inpatient Medications Acetaminophen (Acetaminophen 325 Mg Tab) 650 mg PO Q4H PRN PRN Reason: Pain or Fever Stop: 08/16/21 14:59 Last Admin: 07/28/21 21:16 Dose: 650 mg Documented by: Al Hydrox/Mg Hydrox/Simethicone (Aluminum/Magnesium Susp 30 Ml Udc) 15 ml PO Q4H PRN PRN Reason: Dyspepsia Stop: 08/16/21 14:59 Last Admin: 07/26/21 17:39 Dose: 15 ml Documented by: Ascorbic Acid (Ascorbic Acid 500 Mg Tab) 500 mg PO BID [facility] Stop: 08/17/21 10:14 Last Admin: 07/29/21 08:51 Dose: 500 mg Documented by: Aspirin (Aspirin 81 Mg Ectab) 81 mg PO DAILY [facility] Stop: 08/17/21 08:59 Last Admin: 07/29/21 08:51 Dose: 81 mg Documented by: Benzonatate (Benzonatate 100 Mg Capsule) 100 mg PO TID PRN PRN Reason: cough Stop: 08/16/21 15:59 Enoxaparin Sodium (Enoxaparin 100 Mg/1ml Syr) 90 mg SQ Q12H [facility] Stop: 08/21/21 08:59 Last Admin: 07/29/21 08:52 Dose: 90 mg Documented by: Guaifenesin/Codeine Phosphate (Guaifenesin/Codeine 200mg/20mg 10ml Udc) 10 ml PO Q6H PRN PRN Reason: Cough Stop: 08/17/21 18:18 Hydroxyzine HCl (Hydroxyzine Hcl 10 Mg Tab) 10 mg PO TID PRN PRN Reason: Anxiety Stop: 08/25/21 10:44 Last Admin: 07/28/21 21:16 Dose: 10 mg Documented by: Lorazepam (Ativan) 0.25 mg in 0.5 mls @ 0.5 mls/min IV Q6H PRN PRN Reason: Anxiety Stop: 08/20/21 13:45 Last Admin: 07/21/21 14:25 Dose: 0.5 mls/min Documented by: Furosemide 40 mg/ Syringe 4 mls @ 4 mls/min IV DAILY [facility] Stop: 08/26/21 08:59 Last Admin: 07/27/21 08:45 Dose: 4 mls/min Documented by: Levalbuterol HCl (Levalbuterol Tartrate 15 Gm Hfa.Aer.Ad) 2 puffs INH QID PRN; Protocol PRN Reason: Wheezing Stop: 08/20/21 08:59 Lisinopril (Lisinopril 5 Mg Tab) 5 mg PO QAM [facility] Stop: 08/17/21 08:59 Last Admin: 07/29/21 08:52 Dose: 5 mg Documented by: Magnesium Hydroxide (Magnesium Hydroxide Susp 30 Ml Udc) 30 ml PO Q12H PRN PRN Reason: Constipation Stop: 08/16/21 14:59 Last Admin: 07/26/21 17:40 Dose: 30 ml Documented by: Multivitamins/Minerals (Cerovite Adv Formula Tab) 1 tab PO DAILY [facility] Stop: 08/17/21 08:59 Last Admin: 07/29/21 08:51 Dose: 1 tab Documented by: Ondansetron HCl (Ondansetron Inj 2 Mg/Ml 2 Ml Vial) 4 mg IV Q6H PRN PRN Reason: Nausea And Vomiting Stop: 08/16/21 14:59 Pantoprazole Sodium (Pantoprazole 40 Mg Tab) 40 mg PO BID [facility] Stop: 08/18/21 20:59 Last Admin: 07/29/21 08:50 Dose: 40 mg Documented by: Polyethylene Glycol (Polyethylene (Miralax) 17 Gm Pack) 17 gm PO DAILY PRN PRN Reason: Constipation Stop: 08/16/21 14:59 Last Admin: 07/28/21 08:31 Dose: 17 gm Documented by: Potassium Chloride (Potassium Chloride Crtab 20 Meq Tabcr) 20 meq PO QAM [facility] Stop: 08/19/21 08:59 Last Admin: 07/29/21 08:57 Dose: 20 meq Documented by: Senna/Docusate Sodium (Docusate Sodium/Senna 50/8.6mg Tab) 1 tab PO QAM [facility] Stop: 08/26/21 05:49 Last Admin: 07/29/21 08:51 Dose: 1 tab Documented by: Simethicone (Simethicone 80 Mg Chew) 80 mg PO Q6H PRN PRN Reason: gas Stop: 08/26/21 05:44 Last Admin: 07/29/21 08:57 Dose: 80 mg Documented by: Sodium Chloride (Sodium Chloride 0.65% Na Soln 45 Ml ([place])) 2 sprays NA TID PRN PRN Reason: Nasal Congestion Stop: 08/19/21 22:37 Last Admin: 07/26/21 08:01 Dose: 2 sprays Documented by: Umeclidinium/Vilanterol (Umeclidinium/Vilanterol 62.5/25mcg 7 Puffs/Inhaler) 1 puffs INH DAILY [facility] Stop: 08/19/21 08:59 Last Admin: 07/29/21 08:52 Dose: 1 puffs Documented by: Vitamin D (Cholecalciferol 1,000 Units 25 Mcg Tab) 1,000 units PO QAM [facility] Stop: 08/17/21 10:14 Last Admin: 07/29/21 08:51 Dose: 1,000 units Documented by: Zinc Sulfate (Zinc Sulfate 220 Mg Capsule) 220 mg PO QAM [facility] Stop: 08/17/21 10:14 Last Admin: 07/29/21 08:52 Dose: 220 mg Documented by:
[2021-07-29] MEDS: hydrOXYzine HCl 10 MG TAB PO PRN (19:50)
[2021-07-29] MEDS ORDERED: SODIUM CHLORIDE 0.9% 1000ML 1,000 ML IV SCH (21:45)
[2021-07-30 06:48] LABS: Hematocrit (blood only) 37.9 % (42-52); Hemoglobin 13.6 g/dL (14.0-18.0); Mean Corpuscular Hemoglobin 31.6 pg (25-34); Mean Corpuscular Hgb Conc 35.9 g/dL (32-36); Mean Corpuscular Volume 87.9 fL (80-100); Mean Platelet Volume 10.2 fL (7.4-10.4); Platelet Count 240 K/uL (130-400); RDW Coefficient of Variation 12.2 % (11.5-14.5); RDW Standard Deviation 39.4 fL (36.4-46.3); Red Blood Count 4.31 M/uL (4.7-6.1); White Blood Count 6.63 K/uL (4.8-10.8)
[2021-07-30 07:25] LABS: BUN Creatinine Ratio 22.9 (10-20); Calcium 7.8 mg/dl (8.5-10.1); Creatinine Clr Calc Pharmacy 122.6 ml/min; Est GFR (African American) 120.7 ml/min; Est GFR (Non-African American) 104.1 ml/min; Magnesium 2.1 mg/dl (1.8-2.4); Potassium 3.9 mmol/L (3.5-5.1)
[2021-07-30] MEDS: ASPIRIN 81 MG ECTAB PO SCH (08:12)
[2021-07-30] MEDS: PANTOprazole 40 MG TAB PO SCH ×2 (08:12→21:15)
[2021-07-30] MEDS: ASCORBIC ACID 500 MG TAB PO SCH ×2 (08:12→21:13)
[2021-07-30] MEDS: CHOLECALCIFEROL 1,000 UNITS 25 MCG TAB PO SCH (08:13)
[2021-07-30] MEDS: CEROVITE ADV FORMULA TAB PO SCH (08:13)
[2021-07-30] MEDS: hydrOXYzine HCl 10 MG TAB PO PRN (08:13)
[2021-07-30] MEDS: ENOXAPARIN 100 MG/1ML SYR SQ SCH ×2 (08:14→21:13)
[2021-07-30] MEDS: UMECLIDINIUM/VILANTEROL 62.5/25MCG 7 PUFFS/INHALER INH SCH (08:15)
[2021-07-30] MEDS: DOCUSATE SODIUM/SENNA 50/8.6MG TAB PO SCH (08:17)
[2021-07-30] MEDS: ZINC SULFATE 220 MG CAPSULE PO SCH (08:20)
[2021-07-30] MEDS: POTASSIUM CHLORIDE CRTAB 20 MEQ TABCR PO SCH (08:20)
[2021-07-30] MEDS: lisinopril 5 MG TAB PO SCH (10:30)
[2021-07-30] MEDS: ALUMINUM/MAGNESIUM SUSP 30 ML UDC PO PRN (14:09)
[2021-07-30] MEDS: MAGNESIUM HYDROXIDE SUSP 30 ML UDC PO PRN (14:12)
--- NOTE | 2021-07-30 14:14 | Hospitalist Progress Note ---
Date of Service July 30, 2021 Assessment & Plan (1) Acute respiratory failure with hypoxia: Plan: Unvaccinated patient presented with covid pneumonia. CTA on 07/17 - for any PE. He is completed a 10-day course of dexamethasone and a 5-day course of remdesivir. He was seen by pulmonology earlier in course but did not receive Tocilizumab. Patient remains on 4 to 5 L of nasal cannula. Encourage ambulation, work with PT/OT and use of spirometer. Will obtain procalcitonin and proBNP level to follow-up status. (2) Pneumonia due to COVID-19 virus: Plan: Plan as above (3) Hyponatremia: Plan: Sodium remains at 128. Continue holding Lasix for now. Will obtain proBNP level. Give resuscitation with fluids and assess response. Repeat BMP tonight. (4) Transaminitis: Plan: Previously not on a statin, likely viral related to Covid infection. Repeat as outpatient with primary care provider when discharged. (5) HTN (hypertension): Plan: chronic, at goal. Cont home lisinopril . (6) DVT prophylaxis: Plan: Lovenox Full Code Dispo-cont PCU monitoring. Admission and Anticipated Discharge Date Admission Date: July 17, 2021 Subjective Doing okay this morning. Denies any worsening shortness of breath. Does not seem very motivated to get out of the bed. Rest of the review of system is negative. Review of Systems Review of Systems: All systems reviewed & are unremarkable except as noted in HPI & below Physical Exam Physical Exam: General: A&Ox3 HENT: NCAT, MMM, EOMI Eyes: PERRLA Neck: Supple, normal range of motion CVS: normal rate and rhythm Resp: b/l coarse breath sounds Abdomen: Soft, ND/NT, +BS Extremities: Absence of any edema Neuro: face symmetric, no gross focal deficits appreciated Skin: warm and dry, no rashes/lesions/errythema MSK: normal ROM, no joint swelling/erythema Mans[place] catheter in place. Results & Data Results & Data ([facility]) Vital Signs (Past 12 Hours) Vital Signs Temp Pulse Pulse Resp BP Pulse Ox 07/30/21 12:10 36.6 C 104 H 20 111/69 96 07/30/21 08:00 20 93 07/30/21 07:18 36.5 C 78 20 111/65 97 07/30/21 07:00 82 07/30/21 04:26 36.9 C 79 16 114/61 96
[2021-07-30] MEDS ORDERED: SODIUM CHLORIDE 0.9% 1000ML 500 ML IV ONE (14:16)
[2021-07-30] MEDS: LORazepam 0.25 MG/0.5 ML VIAL IV PRN (23:32)
[2021-07-31 07:12] LABS: BUN Creatinine Ratio 19.7 (10-20); Calcium 7.6 mg/dl (8.5-10.1); Creatinine Clr Calc Pharmacy 128.9 ml/min; Est GFR (African American) 123.1 ml/min; Est GFR (Non-African American) 106.2 ml/min; Potassium 4.5 mmol/L (3.5-5.1)
[2021-07-31] MEDS: ASCORBIC ACID 500 MG TAB PO SCH ×2 (08:12→19:17)
[2021-07-31] MEDS: CHOLECALCIFEROL 1,000 UNITS 25 MCG TAB PO SCH (08:12)
[2021-07-31] MEDS: CEROVITE ADV FORMULA TAB PO SCH (08:12)
[2021-07-31] MEDS: DOCUSATE SODIUM/SENNA 50/8.6MG TAB PO SCH (08:12)
[2021-07-31] MEDS: ENOXAPARIN 100 MG/1ML SYR SQ SCH ×2 (08:13→19:18)
[2021-07-31] MEDS: ZINC SULFATE 220 MG CAPSULE PO SCH (08:13)
[2021-07-31] MEDS: ASPIRIN 81 MG ECTAB PO SCH (08:13)
[2021-07-31] MEDS: lisinopril 5 MG TAB PO SCH (08:13)
[2021-07-31] MEDS: UMECLIDINIUM/VILANTEROL 62.5/25MCG 7 PUFFS/INHALER INH SCH (08:14)
[2021-07-31] MEDS: PANTOprazole 40 MG TAB PO SCH ×2 (08:14→19:18)
[2021-07-31] MEDS: POTASSIUM CHLORIDE CRTAB 20 MEQ TABCR PO SCH (08:23)
--- NOTE | 2021-07-31 12:02 | Nephrology Consultation ---
Date of Consultation July 31, 2021 Assessment & Plan (1) Hyponatremia: chronic hyponatremia which has gone from low 130s on admission to hgih 120s past 72 hrs. his volume status is difficult to assess - suspect euvolemia given IVF he's had and PE findings; could though be slightly dehydrated sNa 127 today; has had 2.5L IVF past 72 hrs and no lasix. K ok. 02 needs stable at 5L past 72 hrs but actually improving today to 2-3 L; no significant hypotension or in last 72 hrs; no obvious liver dysfunction -recheck bmp, serum osms, urine osm, urine Na >> all ordered -check orthostatic vital signs - order in as weli -hold off on CXR as exam ff and hx c/w most recent one; unlikely to change -would not give fluid limit or diuretics or more IV fluid at this time >> await labs History of Present Illness Reason for Consultation: hyponatremia Requesting Physician: Dr Saucedo Attending Physician: Yandel Saucedo MD History of Present Illness 65 y/o M admitted 2 wks ago for covid pneumonia has sNa in high 120s since 07/27, for which my input is requested. PMH includes HTN, HL, pulm nodule, reformed tobacco abuse. He is not vaccinated against covid; he presented w/ acute hypoxemic respiratory failure. He completed 10 days of dexamethasone and 5 of revlimid. Remains on 5L 02nC. His sodium runs low 130s since admission but dropped some as above more recently. He had a dose of 40 mg IV lasix x 1 on 07/27; he had 500 mL NS yesterday. I and O are incomplete; but he did have 1.9L NS on 07/23 as well as normosol 1L; on 07/28 he had NS 1L; 07/29-07/30 had another 1.5 L. For lasix, on 07/23 he had 20 mg IV lasix x 1; then he had on 07/26 40 mg IV; then 40 mg IV lasix on 07/27. he feels tired somewhat and states he's not been out of bed at all. no abdominal chest or musculoskeletal pain; denies voiding concerns. he was down to 3L NC when I saw him at 1230 PM. Allergies Allergy/AdvReac Type Severity Reaction Status Date / Time naproxen [From Naprosyn] Allergy Intermediate Rash Unverified 07/17/21 11:45 atorvastatin [From Lipitor] Allergy Unknown Verified 07/17/21 12:55 house dust Allergy Unknown Verified 07/17/21 12:55 lactose AdvReac Mild Gastrointestinal Verified 07/20/21 14:50 Upset Home Medications Medication Instructions Recorded Confirmed Type albuterol sulfate 90 mcg/actuation 1 puff INHALATION DAILY PRN 07/17/21 07/17/21 History aerosol inhaler (Ventolin HFA) aspirin 81 mg tablet,delayed 81 mg PO DAILY 07/17/21 07/17/21 History release (Aspirin Low Dose) garlic 300 mg capsule (Odorless 0 mg PO DAILY 07/17/21 07/17/21 History Garlic) lisinopril 5 mg tablet (Zestril) 5 mg PO QAM 07/17/21 07/17/21 History haercdwg-moy-jibof acid 300 1 tab PO DAILY 07/17/21 07/17/21 History mcg-lycopene 600 mcg-lutein 300 mcg tablet (Centrum Silver Men) omega 8-bli-jwe-fish oil 1,200 mg 1 cap PO DAILY 07/17/21 07/17/21 History (144 mg-216 mg) capsule (Fish Oil) ondansetron HCl 4 mg tablet 4 mg PO Q8H PRN 07/17/21 07/17/21 History (Zofran) vitamin C 500 mg-multivitamin with 1 tab PO BID 07/17/21 07/17/21 History minerals chewable tablet (Emergen-C) Patient History Medical History HLD (hyperlipidemia) HTN (hypertension) Obesity Pulmonary nodule Rheumatoid factor positive Surgical History History of tooth extraction Family History Father Coronary heart disease Mother No problems noted. Social History Smoking Status: Former smoker Age Quit Using Tobacco: 50; packs per day: 1; Years Smoked: 25; Second Hand Exposure: No; Do You Dip or Chew Tobacco: No; Hx Alcohol Use: No Hx Substance Use: No Preferred Language: Telugu Communication Ability: Effective Histotechnologist Supervisor Required: No Beliefs That Will Affect Care: None marital status: Current Living Situation: Spouse Feels Safe at Home: Yes Safety Concerns: Feels Safe At This Time Assistive Devices: Glasses Review of Systems Review of Systems: All systems reviewed & are unremarkable except as noted in HPI & below Physical Exam Constitutional: well developed, well nourished, cooperative and comfortable; no acute distress Eyes: EOM intact bilaterally ENMT: Ears: no external ear abnormality Nose: no external nose abnormality Mouth: + dry oral mucous membranes Neck: no nuchal rigidity Respiratory: normal respiratory effort Auscultation: + diminished lung sounds and + crackles (throughout his posterior [place]) Cardiovascular: Rate/Rhythm: regular rhythm and + tachycardic Heart Sounds: normal S1 and normal S2 Extremities: no edema Gastrointestinal (Abdomen): Inspection/Auscultation: normal bowel sounds Percussion/Palpation: abdomen soft; abdomen nontender Musculoskeletal: Extremities: strength 5/5 throughout Skin: no rashes, warm and dry Neurologic: brown, fluent speech, no tremor Psychiatric: Orientation: oriented x 3 Speech: normal rate/rhythm/volume of speech Results & Data ([facility]) Vital Signs (Past 12 Hours) Vital Signs Temp Pulse Resp BP Pulse Ox 07/31/21 07:25 36.7 C 85 18 105/64 99 07/31/21 03:32 36.9 C 83 18 102/56 L 99 Laboratory Results 07/30/21 05:46 07/31/21 06:32 serum osms 07/28 272; urine osms 07/28 144, Mishel 20; BG generally in 90s albumin 2.4 on 07/26; was 3.1 on presentation Diagnostic Findings cxr 07/23 IMPRESSION: Slight increase in bilateral airspace opacities since prior exam. The findings suggest viral pneumonia. CT angio 07/17 1. No evidence of pulmonary embolus. No secondary signs of pulmonary embolus. 2. Patchy areas of groundglass and consolidative opacities associated with septal thickening are seen throughout bilateral lungs and could represent atypical pneumonia/Covid. Short-term follow-up with noncontrast CT of the chest on nonemergency basis in 4-6 weeks is recommended to document improvement/resolution. Report will be sent to emergency Department. 3. Questionable fat stranding surrounding partially visualized right kidney which could represent inflammatory process or sequela from prior inflammatory changes. Please correlate above-mentioned findings with clinical presentation.
--- NOTE | 2021-07-31 13:43 | Hospitalist Progress Note ---
Date of Service July 31, 2021 Assessment & Plan (1) Acute respiratory failure with hypoxia: Plan: Unvaccinated patient presented with covid pneumonia. CTA on 07/17 - for any PE. He is completed a 10-day course of dexamethasone and a 5-day course of remdesivir. He was seen by pulmonology earlier in course but did not receive Tocilizumab. Patient is down to 3 L of nasal cannula. proBNP of 14 and procalcitonin of 0.05. Encourage ambulation, work with PT/OT and use of spirometer. Most importantly at this point patient needs to get up and work with therapy and ambulate to get him off the oxygen. (2) Pneumonia due to COVID-19 virus: Plan: Plan as above (3) Hyponatremia: Plan: Sodium remains at 127. Continue holding Lasix for now. Sodium level unchanged with fluid challenge yesterday. Will consult nephrology for further input. (4) Transaminitis: Plan: Previously not on a statin, likely viral related to Covid infection. Repeat as outpatient with primary care provider when discharged. (5) HTN (hypertension): Plan: chronic, at goal. Cont home lisinopril . (6) DVT prophylaxis: Plan: Lovenox Full Code Dispo-cont PCU monitoring. Admission and Anticipated Discharge Date Admission Date: July 17, 2021 Subjective Patient resting comfortable. No acute complaints. Has not been working with therapy that much. Currently he is down to 3 L of nasal cannula. Review of system is negative. Review of Systems Review of Systems: All systems reviewed & are unremarkable except as noted in HPI & below Physical Exam Physical Exam: General: A&Ox3 HENT: NCAT, MMM, EOMI Eyes: PERRLA Neck: Supple, normal range of motion CVS: normal rate and rhythm Resp: b/l coarse breath sounds Abdomen: Soft, ND/NT, +BS Extremities: Absence of any edema Neuro: face symmetric, no gross focal deficits appreciated Skin: warm and dry, no rashes/lesions/errythema MSK: normal ROM, no joint swelling/erythema [place] catheter in place. Results & Data Results & Data ([place]) Vital Signs (Past 12 Hours) Vital Signs Temp Pulse Pulse Resp BP Pulse Ox 07/31/21 12:23 36.7 C 115 H 18 108/59 L 93 07/31/21 08:00 77 07/31/21 07:25 36.7 C 85 18 105/64 99 07/31/21 03:32 36.9 C 83 18 102/56 L 99
[2021-07-31 20:00] LABS: BUN Creatinine Ratio 21.6 (10-20); Calcium 7.9 mg/dl (8.5-10.1); Creatinine Clr Calc Pharmacy 101.4 ml/min; Est GFR (African American) 111.6 ml/min; Est GFR (Non-African American) 96.3 ml/min; Potassium 4.7 mmol/L (3.5-5.1)
[2021-07-31] MEDS: LORazepam 0.25 MG/0.5 ML VIAL IV PRN (22:13)
[2021-08-01] MEDS: ASPIRIN 81 MG ECTAB PO SCH (08:10)
[2021-08-01] MEDS: CHOLECALCIFEROL 1,000 UNITS 25 MCG TAB PO SCH (08:11)
[2021-08-01] MEDS: lisinopril 5 MG TAB PO SCH (08:11)
[2021-08-01] MEDS: DOCUSATE SODIUM/SENNA 50/8.6MG TAB PO SCH (08:11)
[2021-08-01] MEDS: CEROVITE ADV FORMULA TAB PO SCH (08:11)
[2021-08-01] MEDS: ASCORBIC ACID 500 MG TAB PO SCH ×2 (08:11→20:17)
[2021-08-01] MEDS: ZINC SULFATE 220 MG CAPSULE PO SCH (08:11)
[2021-08-01] MEDS: ENOXAPARIN 100 MG/1ML SYR SQ SCH ×2 (08:11→20:17)
[2021-08-01] MEDS: UMECLIDINIUM/VILANTEROL 62.5/25MCG 7 PUFFS/INHALER INH SCH (08:12)
[2021-08-01] MEDS: PANTOprazole 40 MG TAB PO SCH ×2 (08:12→20:17)
[2021-08-01] MEDS: POTASSIUM CHLORIDE CRTAB 20 MEQ TABCR PO SCH (08:14)
[2021-08-01 15:28] LABS: Calcium 8.5 mg/dl (8.5-10.1); Creatinine Clr Calc Pharmacy 91.6 ml/min; Est GFR (Non-African American) 92.3 ml/min; Magnesium 2.7 mg/dl (1.8-2.4); Potassium 4.7 mmol/L (3.5-5.1)
--- NOTE | 2021-08-01 16:55 | Nephrology Progress Note ---
Date of Service August 01, 2021 Assessment & Plan (1) Hyponatremia: Plan: chronic hyponatremia which has gone from low 130s on admission to high 120s past 72 hrs through 07/31. his volume status is difficult to assess - suspect euvolemia given IVF he's had and PE findings; could though be slightly dehydrated sNa 131 today; HR increases w/ standing on orthostatics 08/01 but not meeting criteria for orthostasis. has had 2.5L IVF past 72 hrs prior to 07/31 and no l asix. K ok. 02 needs improved markedly and on RA most of day (though on when I saw him); no significant hypotension or in last 72 hrs though would not call sbp robust; no obvious liver dysfunction. u osm 198; Mishel 36 -labs c/w polydipsia > advised him to eat more/drink less; given near orthosta sis will not give him fluid limit; recommend protein shakes Admission and Anticipated Discharge Date Admission Date: July 17, 2021 Subjective up to bathroom today; exertional dysppnea noted; no edema, no n/v Review of Systems Review of Systems: All systems reviewed & are unremarkable except as noted in Subjective Physical Exam Constitutional: well developed, well nourished, cooperative and comfortable; no acute distress Eyes: EOM intact bilaterally ENMT: Ears: no external ear abnormality Nose: no external nose abnormality Mouth: + dry oral mucous membranes Neck: no nuchal rigidity Respiratory: normal respiratory effort, + labored breathing (slight) and able to speak in complete sentences (but still dyspneic w/ speech) Auscultation: + diminished lung sounds and + crackles (throughout his posterior sanford) Cardiovascular: Rate/Rhythm: regular rhythm and + tachycardic Heart Sounds: normal S1 and normal S2 Extremities: no edema Gastrointestinal (Abdomen): Inspection/Auscultation: normal bowel sounds Percussion/Palpation: abdomen soft; abdomen nontender Musculoskeletal: Extremities: strength 5/5 throughout Skin: no rashes, warm and dry Psychiatric: Orientation: oriented x 3 Speech: normal rate/rhythm/volume of speech Results & Data ([facility]) Vital Signs (Past 12 Hours) Vital Signs Temp Pulse Pulse Resp BP Pulse Ox 08/01/21 16:17 36.9 C 120 H 19 99/67 L 94 08/01/21 11:28 36.9 C 120 H 19 97/67 L 92 08/01/21 08:00 92 H 18 92 08/01/21 07:33 36.9 C 90 18 114/71 93 08/01/21 04:51 37.1 C 105 H 18 112/67 90 Laboratory Results 07/30/21 05:46 08/01/21 10:36
--- NOTE | 2021-08-01 20:36 | Hospitalist Progress Note ---
Date of Service August 01, 2021 Assessment & Plan (1) Acute respiratory failure with hypoxia: Plan: Unvaccinated patient presented with covid pneumonia. CTA on 07/17 - for any PE. He is completed a 10-day course of dexamethasone and a 5-day course of remdesivir. He was seen by pulmonology earlier in course but did not receive Tocilizumab. Continues to require less and less oxygen. Encourage ambulation, work with PT/OT and use of spirometer. (2) Pneumonia due to COVID-19 virus: Plan: Plan as above (3) Hyponatremia: Plan: Sodium is 131 today. Nephrology was consulted. Agree with plan above this is likely multifactorial in etiology. Patient is borderline orthostatic. He was encouraged to continue eating more and drinking less fluid, but will not be on a fluid restriction at this time. (4) Transaminitis: Plan: Previously not on a statin, likely viral related to Covid infection. Repeat as outpatient with primary care provider when discharged. (5) HTN (hypertension): Plan: chronic, at goal. Cont home lisinopril . (6) DVT prophylaxis: Plan: Lovenox Full Code Dispo-cont PCU monitoring. Jackie Beltrán DO [facility] Hospitalist Admission and Anticipated Discharge Date Admission Date: July 17, 2021 Subjective 65-year-old man admitted with acute respiratory failure secondary to Covid pneumonia. He is doing well overall and appears in good spirits Tolerating p.o., afebrile Reports that he is moving around and not having as many issues with desaturation. Nephrology seeing him for hyponatremia in setting of recent Lasix use Review of Systems Review of Systems: At least ten systems were reviewed and negative except as indicated in HPI above. Physical Exam Physical Exam: CONSTITUTIONAL: WNWD, vitals as above, generally NAD EYES: normal conjunctivae, no scleral icterus ENT: external ear and nose normal, MMM RESPIRATORY: CTAB, no crackles, rales or wheezes, normal resp effort CARDIOVASCULAR: regular rate and rhythm, S1 and 2 heard without murmurs, gallops or rubs, no JVD, no peripheral edema CHEST: inspection of chest was normal GASTROINTESTINAL: soft, nontender, nondistended, no guarding MUSCULOSKELETAL: strength 5/5 throughout, head is normocephalic and atraumatic SKIN: warm and dry NEUROLOGIC: No facial palsy, no dysarthria. CN 2-12 grossly intact, no sensory deficit, normal cognition, normal speech, no tremor PSYCHIATRIC: alert cooperative and oriented to person, place and time. Results & Data Results & Data ([facility]) Vital Signs (Past 12 Hours) Vital Signs Temp Pulse Pulse Resp BP Pulse Ox 08/01/21 19:55 36.6 C 106 H 12 117/67 91 08/01/21 16:17 36.9 C 120 H 19 99/67 L 94 08/01/21 16:00 108 H 91 08/01/21 11:28 36.9 C 120 H 19 97/67 L 92 Laboratory Results BMP 08/01/21 10:36 Sodium 131 L Potassium 4.7 Chloride 99 Carbon Dioxide 25 BUN 10 D Creatinine 0.83 Glucose 90 Calcium 8.5 Medications Administered Current Inpatient Medications Acetaminophen (Acetaminophen 325 Mg Tab) 650 mg PO Q4H PRN PRN Reason: Pain or Fever Stop: 08/16/21 14:59 Last Admin: 07/28/21 21:16 Dose: 650 mg Documented by: Al Hydrox/Mg Hydrox/Simethicone (Aluminum/Magnesium Susp 30 Ml Udc) 15 ml PO Q4H PRN PRN Reason: Dyspepsia Stop: 08/16/21 14:59 Last Admin: 07/30/21 14:09 Dose: 15 ml Documented by: Ascorbic Acid (Ascorbic Acid 500 Mg Tab) 500 mg PO BID [facility] Stop: 08/17/21 10:14 Last Admin: 08/01/21 20:17 Dose: 500 mg Documented by: Aspirin (Aspirin 81 Mg Ectab) 81 mg PO DAILY [facility] Stop: 08/17/21 08:59 Last Admin: 08/01/21 08:10 Dose: 81 mg Documented by: Benzonatate (Benzonatate 100 Mg Capsule) 100 mg PO TID PRN PRN Reason: cough Stop: 08/16/21 15:59 Enoxaparin Sodium (Enoxaparin 100 Mg/1ml Syr) 90 mg SQ Q12H [facility] Stop: 08/21/21 08:59 Last Admin: 08/01/21 20:17 Dose: 90 mg Documented by: Guaifenesin/Codeine Phosphate (Guaifenesin/Codeine 200mg/20mg 10ml Udc) 10 ml PO Q6H PRN PRN Reason: Cough Stop: 10/01/21 18:18 Last Admin: 07/29/21 19:52 Dose: 10 ml Documented by: Hydroxyzine HCl (Hydroxyzine Hcl 10 Mg Tab) 10 mg PO TID PRN PRN Reason: Anxiety Stop: 08/25/21 10:44 Last Admin: 07/30/21 08:13 Dose: 10 mg Documented by: Lorazepam (Ativan) 0.25 mg in 0.5 mls @ 0.5 mls/min IV Q6H PRN PRN Reason: Anxiety Stop: 08/20/21 13:45 Last Admin: 07/31/21 22:13 Dose: 0.5 mls/min Documented by: Furosemide 40 mg/ Syringe 4 mls @ 4 mls/min IV DAILY [facility] Stop: 08/26/21 08:59 Last Admin: 07/27/21 08:45 Dose: 4 mls/min Documented by: Levalbuterol HCl (Levalbuterol Tartrate 15 Gm Hfa.Aer.Ad) 2 puffs INH QID PRN; Protocol PRN Reason: Wheezing Stop: 08/20/21 08:59 Lisinopril (Lisinopril 5 Mg Tab) 5 mg PO QAM [facility] Stop: 08/17/21 08:59 Last Admin: 08/01/21 08:11 Dose: 5 mg Documented by: Magnesium Hydroxide (Magnesium Hydroxide Susp 30 Ml Udc) 30 ml PO Q12H PRN PRN Reason: Constipation Stop: 08/16/21 14:59 Last Admin: 07/30/21 14:12 Dose: 30 ml Documented by: Multivitamins/Minerals (Cerovite Adv Formula Tab) 1 tab PO DAILY [facility] Stop: 08/17/21 08:59 Last Admin: 08/01/21 08:11 Dose: 1 tab Documented by: Ondansetron HCl (Ondansetron Inj 2 Mg/Ml 2 Ml Vial) 4 mg IV Q6H PRN PRN Reason: Nausea And Vomiting Stop: 08/16/21 14:59 Pantoprazole Sodium (Pantoprazole 40 Mg Tab) 40 mg PO BID [facility] Stop: 08/18/21 20:59 Last Admin: 08/01/21 20:17 Dose: 40 mg Documented by: Polyethylene Glycol (Polyethylene (Miralax) 17 Gm Pack) 17 gm PO DAILY PRN PRN Reason: Constipation Stop: 08/16/21 14:59 Last Admin: 07/28/21 08:31 Dose: 17 gm Documented by: Potassium Chloride (Potassium Chloride Crtab 20 Meq Tabcr) 20 meq PO QAM [facility] Stop: 08/19/21 08:59 Last Admin: 08/01/21 08:14 Dose: 20 meq Documented by: Senna/Docusate Sodium (Docusate Sodium/Senna 50/8.6mg Tab) 1 tab PO QAM [facility] Stop: 08/26/21 05:49 Last Admin: 08/01/21 08:11 Dose: 1 tab Documented by: Simethicone (Simethicone 80 Mg Chew) 80 mg PO Q6H PRN PRN Reason: gas Stop: 08/26/21 05:44 Last Admin: 07/29/21 08:57 Dose: 80 mg Documented by: Sodium Chloride (Sodium Chloride 0.65% Na Soln 45 Ml ([place])) 2 sprays NA TID PRN PRN Reason: Nasal Congestion Stop: 08/19/21 22:37 Last Admin: 07/26/21 08:01 Dose: 2 sprays Documented by: Umeclidinium/Vilanterol (Umeclidinium/Vilanterol 62.5/25mcg 7 Puffs/Inhaler) 1 puffs INH DAILY [facility] Stop: 08/19/21 08:59 Last Admin: 08/01/21 08:12 Dose: 1 puffs Documented by: Vitamin D (Cholecalciferol 1,000 Units 25 Mcg Tab) 1,000 units PO QAM [facility] Stop: 08/17/21 10:14 Last Admin: 08/01/21 08:11 Dose: 1,000 units Documented by: Zinc Sulfate (Zinc Sulfate 220 Mg Capsule) 220 mg PO QAM [facility] Stop: 08/17/21 10:14 Last Admin: 08/01/21 08:11 Dose: 220 mg Documented by:
[2021-08-01] MEDS: LORazepam 0.25 MG/0.5 ML VIAL IV PRN (22:12)
[2021-08-02] MEDS: ASCORBIC ACID 500 MG TAB PO SCH ×2 (08:24→20:28)
[2021-08-02] MEDS: CEROVITE ADV FORMULA TAB PO SCH (08:24)
[2021-08-02] MEDS: PANTOprazole 40 MG TAB PO SCH ×2 (08:24→20:27)
[2021-08-02] MEDS: CHOLECALCIFEROL 1,000 UNITS 25 MCG TAB PO SCH (08:24)
[2021-08-02] MEDS: lisinopril 5 MG TAB PO SCH (08:25)
[2021-08-02] MEDS: UMECLIDINIUM/VILANTEROL 62.5/25MCG 7 PUFFS/INHALER INH SCH (08:25)
[2021-08-02] MEDS: ASPIRIN 81 MG ECTAB PO SCH (08:25)
[2021-08-02] MEDS: ENOXAPARIN 100 MG/1ML SYR SQ SCH ×2 (08:25→20:24)
[2021-08-02] MEDS: ZINC SULFATE 220 MG CAPSULE PO SCH (08:25)
[2021-08-02 08:29] LABS: Calcium 8.4 mg/dl (8.5-10.1); Creatinine Clr Calc Pharmacy 100.1 ml/min; Est GFR (Non-African American) 95.7 ml/min; Potassium 4.4 mmol/L (3.5-5.1)
[2021-08-02] MEDS: DOCUSATE SODIUM/SENNA 50/8.6MG TAB PO SCH (08:29)
[2021-08-02] MEDS: SODIUM CHLORIDE 1 GM TABLET PO SCH ×2 (13:17→20:27)
--- NOTE | 2021-08-02 16:20 | Nephrology Progress Note ---
Date of Service August 02, 2021 Assessment & Plan (1) Hyponatremia: Plan: chronic hyponatremia which has gone from low 130s on admission to high 120s past 72 hrs through 07/31. his volume status is difficult to assess - suspect euvolemia given IVF he's had and PE findings; could though be slightly dehydrated sNa 130 today; HR increases w/ standing on orthostatics 08/01 but not meeting criteria for orthostasis. has had 2.5L IVF past 72 hrs prior to 07/31 and no l asix. K ok. 02 needs improved markedly and on RA most of day (though on when I saw him); no significant hypotension or in last 72 hrs though would not call sbp robust; no obvious liver dysfunction. u osm 198; Mishel 36 which are c/w polydipsia > advised him again to eat more/drink less -given near orthostasis will not give him fluid limit -recommend protein shakes -started salt tabs 1 gm bid -daily bmp while in house Will sign off; pls call if ? ;recommend nephrology OP follow up if hyponatremia persists after d/c; care coordinated w/ Dr Beltrán Admission and Anticipated Discharge Date Admission Date: July 17, 2021 Subjective feeling a bit blue when I saw him 1245; no worsenign sob; having some nosebleeds; no n/v; eating better; no voiding concerns; no edema; no n/v/d Review of Systems Review of Systems: All systems reviewed & are unremarkable except as noted in Subjective Physical Exam Constitutional: well developed, well nourished, cooperative and comfortable; no acute distress Eyes: EOM intact bilaterally ENMT: Ears: no external ear abnormality Nose: no external nose abnormality Mouth: + dry oral mucous membranes Neck: no nuchal rigidity Respiratory: normal respiratory effort, + labored breathing (slight) and able to speak in complete sentences Auscultation: + diminished lung sounds and + crackles (throughout his posterior sanford) Cardiovascular: Rate/Rhythm: regular rhythm and + tachycardic Heart Sounds: normal S1 and normal S2 Extremities: no edema Gastrointestinal (Abdomen): Inspection/Auscultation: normal bowel sounds Percussion/Palpation: abdomen soft; abdomen nontender Musculoskeletal: Extremities: strength 5/5 throughout Skin: no rashes, warm and dry Psychiatric: Orientation: oriented x 3 Speech: normal rate/rhythm/volume of speech Mood: + depressed mood Results & Data ([facility]) Vital Signs (Past 12 Hours) Vital Signs Temp Pulse Pulse Resp BP BP Pulse Ox 08/02/21 14:43 36.8 C 100 H 20 102/60 91 08/02/21 12:00 105 H 08/02/21 11:00 36.6 C 123 H 20 107/70 90 08/02/21 07:57 102 H 08/02/21 07:00 36.5 C 93 H 19 115/72 93 Laboratory Results 07/30/21 05:46 08/02/21 06:56
--- NOTE | 2021-08-02 17:37 | Hospitalist Progress Note ---
Date of Service August 02, 2021 Assessment & Plan (1) Acute respiratory failure with hypoxia: Plan: Unvaccinated patient presented with covid pneumonia. CTA on 07/17 - for any PE. He is completed a 10-day course of dexamethasone and a 5-day course of remdesivir. He was seen by pulmonology earlier in course but did not receive Tocilizumab. Continues to require less and less oxygen. Encourage ambulation, work with PT/OT and use of spirometer. (2) Pneumonia due to COVID-19 virus: Plan: Plan as above, still needing time/oxygen support to recover. Tachy with exertion and prolonged recovery. Will wait for discharge until he is doing better on recovery after physical exertion as patient is heading home and not rehab as recommended by therapy. (3) Hyponatremia: Plan: Sodium is 130 today likely related to recent IVF v. psychogenic polydipsia v SIADH with ongoing pulmonary infection that is severe. Appears euvolemic to dry on exam and is not orthostatic. Salt tabs started. Solids over fluids encouraged. BMP in am. (4) Transaminitis: Plan: Previously not on a statin, likely viral related to Covid infection. Repeat as outpatient with primary care provider when discharged. (5) HTN (hypertension): Plan: chronic, at goal. Cont home lisinopril (6) DVT prophylaxis: Plan: Lovenox Full Code Dispo-cont PCU monitoring. Jackie Beltrán DO [facility] Hospitalist Admission and Anticipated Discharge Date Admission Date: July 17, 2021 Subjective 65-year-old man admitted with acute respiratory failure secondary to Covid pneumonia. He is doing well overall and appears in good spirits Tolerating p.o., afebrile somewhat winded with movement and subsequent recovery tachy Review of Systems Review of Systems: At least ten systems were reviewed and negative except as indicated in HPI above. Physical Exam Physical Exam: CONSTITUTIONAL: WNWD, vitals as above, generally NAD EYES: normal conjunctivae, no scleral icterus ENT: external ear and nose normal, MMM RESPIRATORY: CTAB, no crackles, rales or wheezes, normal resp effort CARDIOVASCULAR: tachy rate and rhythm, S1 and 2 heard without murmurs, gallops or rubs, no JVD, no peripheral edema CHEST: inspection of chest was normal GASTROINTESTINAL: soft, nontender, nondistended, no guarding MUSCULOSKELETAL: strength 5/5 throughout, head is normocephalic and atraumatic SKIN: warm and dry NEUROLOGIC: No facial palsy, no dysarthria. CN 2-12 grossly intact, no sensory deficit, normal cognition, normal speech, no tremor PSYCHIATRIC: alert cooperative and oriented to person, place and time. Results & Data Results & Data ([facility]) Vital Signs (Past 12 Hours) Vital Signs Temp Pulse Pulse Resp BP BP Pulse Ox 08/02/21 16:00 107 H 94 08/02/21 14:43 36.8 C 100 H 20 102/60 91 08/02/21 12:00 105 H 08/02/21 11:00 36.6 C 123 H 20 107/70 90 08/02/21 07:57 102 H 08/02/21 07:00 36.5 C 93 H 19 115/72 93 Laboratory Results [facility] 08/02/21 06:56 Sodium 130 L Potassium 4.4 Chloride 99 Carbon Dioxide 24 BUN 11 Creatinine 0.76 Glucose 90 Calcium 8.4 L Medications Administered Current Inpatient Medications Acetaminophen (Acetaminophen 325 Mg Tab) 650 mg PO Q4H PRN PRN Reason: Pain or Fever Stop: 08/16/21 14:59 Last Admin: 07/28/21 21:16 Dose: 650 mg Documented by: Al Hydrox/Mg Hydrox/Simethicone (Aluminum/Magnesium Susp 30 Ml Udc) 15 ml PO Q4H PRN PRN Reason: Dyspepsia Stop: 08/16/21 14:59 Last Admin: 07/30/21 14:09 Dose: 15 ml Documented by: Ascorbic Acid (Ascorbic Acid 500 Mg Tab) 500 mg PO BID [facility] Stop: 08/17/21 10:14 Last Admin: 08/02/21 08:24 Dose: 500 mg Documented by: Aspirin (Aspirin 81 Mg Ectab) 81 mg PO DAILY [facility] Stop: 08/17/21 08:59 Last Admin: 08/02/21 08:25 Dose: 81 mg Documented by: Benzonatate (Benzonatate 100 Mg Capsule) 100 mg PO TID PRN PRN Reason: cough Stop: 08/16/21 15:59 Enoxaparin Sodium (Enoxaparin 100 Mg/1ml Syr) 90 mg SQ Q12H [facility] Stop: 08/21/21 08:59 Last Admin: 08/02/21 08:25 Dose: 90 mg Documented by: Guaifenesin/Codeine Phosphate (Guaifenesin/Codeine 200mg/20mg 10ml Udc) 10 ml PO Q6H PRN PRN Reason: Cough Stop: 08/17/21 18:18 Last Admin: 07/29/21 19:52 Dose: 10 ml Documented by: Hydroxyzine HCl (Hydroxyzine Hcl 10 Mg Tab) 10 mg PO TID PRN PRN Reason: Anxiety Stop: 08/25/21 10:44 Last Admin: 07/30/21 08:13 Dose: 10 mg Documented by: Lorazepam (Ativan) 0.25 mg in 0.5 mls @ 0.5 mls/min IV Q6H PRN PRN Reason: Anxiety Stop: 08/20/21 13:45 Last Admin: 08/01/21 22:12 Dose: 0.5 mls/min Documented by: Levalbuterol HCl (Levalbuterol Tartrate 15 Gm Hfa.Aer.Ad) 2 puffs INH QID PRN; Protocol PRN Reason: Wheezing Stop: 08/20/21 08:59 Lisinopril (Lisinopril 5 Mg Tab) 5 mg PO QAM [facility] Stop: 08/17/21 08:59 Last Admin: 08/02/21 08:25 Dose: 5 mg Documented by: Magnesium Hydroxide (Magnesium Hydroxide Susp 30 Ml Udc) 30 ml PO Q12H PRN PRN Reason: Constipation Stop: 08/16/21 14:59 Last Admin: 07/30/21 14:12 Dose: 30 ml Documented by: Multivitamins/Minerals (Cerovite Adv Formula Tab) 1 tab PO DAILY [facility] Stop: 08/17/21 08:59 Last Admin: 08/02/21 08:24 Dose: 1 tab Documented by: Ondansetron HCl (Ondansetron Inj 2 Mg/Ml 2 Ml Vial) 4 mg IV Q6H PRN PRN Reason: Nausea And Vomiting Stop: 08/16/21 14:59 Pantoprazole Sodium (Pantoprazole 40 Mg Tab) 40 mg PO BID [facility] Stop: 08/18/21 20:59 Last Admin: 08/02/21 08:24 Dose: 40 mg Documented by: Polyethylene Glycol (Polyethylene (Miralax) 17 Gm Pack) 17 gm PO DAILY PRN PRN Reason: Constipation Stop: 08/16/21 14:59 Last Admin: 07/28/21 08:31 Dose: 17 gm Documented by: Senna/Docusate Sodium (Docusate Sodium/Senna 50/8.6mg Tab) 1 tab PO QAM [facility] Stop: 08/26/21 05:49 Last Admin: 08/02/21 08:29 Dose: 1 tab Documented by: Simethicone (Simethicone 80 Mg Chew) 80 mg PO Q6H PRN PRN Reason: gas Stop: 08/26/21 05:44 Last Admin: 07/29/21 08:57 Dose: 80 mg Documented by: Sodium Chloride (Sodium Chloride 0.65% Na Soln 45 Ml ([place])) 2 sprays NA TID PRN PRN Reason: Nasal Congestion Stop: 08/19/21 22:37 Last Admin: 07/26/21 08:01 Dose: 2 sprays Documented by: Sodium Chloride (Sodium Chloride 1 Gm Tablet) 1 gm PO TID [facility] Stop: 09/01/21 13:59 Last Admin: 08/02/21 13:17 Dose: 1 gm Documented by: Umeclidinium/Vilanterol (Umeclidinium/Vilanterol 62.5/25mcg 7 Puffs/Inhaler) 1 puffs INH DAILY [facility] Stop: 08/19/21 08:59 Last Admin: 08/02/21 08:25 Dose: 1 puffs Documented by: Vitamin D (Cholecalciferol 1,000 Units 25 Mcg Tab) 1,000 units PO QAM [facility] Stop: 08/17/21 10:14 Last Admin: 08/02/21 08:24 Dose: 1,000 units Documented by: Zinc Sulfate (Zinc Sulfate 220 Mg Capsule) 220 mg PO QAM [facility] Stop: 08/17/21 10:14 Last Admin: 08/02/21 08:25 Dose: 220 mg Documented by:
[2021-08-02] MEDS: LORazepam 0.25 MG/0.5 ML VIAL IV PRN (22:22)
[2021-08-03] MEDS: ASCORBIC ACID 500 MG TAB PO SCH ×2 (09:40→21:17)
[2021-08-03] MEDS: DOCUSATE SODIUM/SENNA 50/8.6MG TAB PO SCH (09:40)
[2021-08-03] MEDS: CHOLECALCIFEROL 1,000 UNITS 25 MCG TAB PO SCH (09:40)
[2021-08-03] MEDS: PANTOprazole 40 MG TAB PO SCH ×2 (09:40→21:17)
[2021-08-03] MEDS: ZINC SULFATE 220 MG CAPSULE PO SCH (09:41)
[2021-08-03] MEDS: ASPIRIN 81 MG ECTAB PO SCH (09:41)
[2021-08-03] MEDS: CEROVITE ADV FORMULA TAB PO SCH (09:41)
[2021-08-03] MEDS: lisinopril 5 MG TAB PO SCH (10:11)
[2021-08-03] MEDS: BENZONATATE 100 MG CAPSULE PO PRN (10:28)
[2021-08-03] MEDS: UMECLIDINIUM/VILANTEROL 62.5/25MCG 7 PUFFS/INHALER INH SCH (10:28)
[2021-08-03] MEDS: ENOXAPARIN 100 MG/1ML SYR SQ SCH ×2 (10:29→21:16)
[2021-08-03] MEDS: SODIUM CHLORIDE 1 GM TABLET PO SCH ×3 (10:29→21:17)
[2021-08-03 10:50] LABS: Hematocrit (blood only) 42.7 % (42-52); Mean Corpuscular Hemoglobin 31.7 pg (25-34); Mean Corpuscular Hgb Conc 35.1 g/dL (32-36); Mean Corpuscular Volume 90.3 fL (80-100); Mean Platelet Volume 9.6 fL (7.4-10.4); Platelet Count 240 K/uL (130-400); RDW Coefficient of Variation 12.6 % (11.5-14.5); RDW Standard Deviation 41.3 fL (36.4-46.3); Red Blood Count 4.73 M/uL (4.7-6.1); White Blood Count 7.28 K/uL (4.8-10.8)
[2021-08-03 11:19] LABS: BUN Creatinine Ratio 12.9 (10-20); Creatinine Clr Calc Pharmacy 101.4 ml/min; Est GFR (African American) 111.6 ml/min; Est GFR (Non-African American) 96.3 ml/min; Potassium 4.2 mmol/L (3.5-5.1)
--- NOTE | 2021-08-03 13:58 | Hospitalist Progress Note ---
Date of Service August 03, 2021 Assessment & Plan (1) Acute respiratory failure with hypoxia: Plan: Unvaccinated patient presented with covid pneumonia. CTA on 07/17 - for any PE. He is completed a 10-day course of dexamethasone and a 5-day course of remdesivir. He was seen by pulmonology earlier in course but did not receive Tocilizumab. Continues to require less and less oxygen. Encourage ambulation, work with PT/OT and use of spirometer. Notably he is still having oxygenation issues when recovering from exertion and heart rate is abnormally elevated. Will obtain echocardiogram and CT chest to rule out PE at this point. Last chest CT was at the beginning of his illness over 2 weeks ago. (2) Pneumonia due to COVID-19 virus: Plan: Plan as above, still needing time/oxygen support to recover. Tachy with exertion and prolonged recovery. Work-up as above. Will wait for discharge until he is doing better on recovery after physical exertion as patient is heading home and not rehab as recommended by therapy. (3) Hyponatremia: Plan: Sodium is 130 today likely related to recent IVF v. psychogenic polydipsia v SI ADH with ongoing pulmonary infection that is severe. Appears euvolemic to dry on exam and is not orthostatic. Salt tabs started 08/02. Solids over fluids encouraged. Monitor BMP (4) Transaminitis: Plan: Previously not on a statin, likely viral related to Covid infection. Repeat as outpatient with primary care provider when discharged. (5) HTN (hypertension): Plan: chronic, at goal. Cont home lisinopril (6) DVT prophylaxis: Plan: Lovenox Full Code Dispo-cont PCU monitoring. Jackie Beltrán DO [facility] Hospitalist Admission and Anticipated Discharge Date Admission Date: July 17, 2021 Subjective 65-year-old man admitted with acute respiratory failure secondary to Covid pneumonia. He is doing well overall and appears in good spirits Tolerating p.o., afebrile Occupational therapist walked with patient and he became tachycardic again in the 120s to 150s. Wear his oxygen saturation was in the 90s, when his heart rate reached the 140s he dropped to 78% on room air and was placed on 2 L/min oxygen until he recovered. Heart rate now hanging in the low 100s. Patient does report some pleurisy that has been there this whole hospitalization. He is not mentioned this to this provider previously. Review of Systems Review of Systems: At least ten systems were reviewed and negative except as indicated in HPI above. Physical Exam Physical Exam: CONSTITUTIONAL: WNWD, vitals as above, generally NAD EYES: normal conjunctivae, no scleral icterus ENT: external ear and nose normal, MMM RESPIRATORY: CTAB, no crackles, rales or wheezes, normal resp effort CARDIOVASCULAR: tachy rate and rhythm, S1 and 2 heard without murmurs, gallops or rubs, no JVD, no peripheral edema CHEST: inspection of chest was normal GASTROINTESTINAL: soft, nontender, nondistended, no guarding MUSCULOSKELETAL: strength 5/5 throughout, head is normocephalic and atraumatic SKIN: warm and dry NEUROLOGIC: No facial palsy, no dysarthria. CN 2-12 grossly intact, no sensory deficit, normal cognition, normal speech, no tremor PSYCHIATRIC: alert cooperative and oriented to person, place and time. Results & Data Results & Data ([facility]) Vital Signs (Past 12 Hours) Vital Signs Temp Pulse Pulse Resp BP BP Pulse Ox 08/03/21 11:58 36.7 C 116 H 18 115/76 95 08/03/21 08:00 86 08/03/21 07:22 36.8 C 93 H 20 107/66 92 08/03/21 04:30 36.8 C 90 18 98/60 L 94 Laboratory Results Short CBC 08/03/21 Range/Units 10:39 WBC 7.28 (4.8-10.8) K/uL Hgb 15.0 (14.0-18.0) g/dL Hct 42.7 (42-52) % Plt Count 240 (130-400) K/uL BMP 08/03/21 10:39 Sodium 130 L Potassium 4.2 Chloride 99 Carbon Dioxide 24 BUN 10 Creatinine 0.75 Glucose 94 Calcium 9.0 Medications Administered Current Inpatient Medications Acetaminophen (Acetaminophen 325 Mg Tab) 650 mg PO Q4H PRN PRN Reason: Pain or Fever Stop: 08/16/21 14:59 Last Admin: 07/28/21 21:16 Dose: 650 mg Documented by: Al Hydrox/Mg Hydrox/Simethicone (Aluminum/Magnesium Susp 30 Ml Udc) 15 ml PO Q4H PRN PRN Reason: Dyspepsia Stop: 08/16/21 14:59 Last Admin: 07/30/21 14:09 Dose: 15 ml Documented by: Ascorbic Acid (Ascorbic Acid 500 Mg Tab) 500 mg PO BID ZARA Stop: 08/17/21 10:14 Last Admin: 08/03/21 09:40 Dose: 500 mg Documented by: Aspirin (Aspirin 81 Mg Ectab) 81 mg PO DAILY ZARA Stop: 08/17/21 08:59 Last Admin: 08/03/21 09:41 Dose: 81 mg Documented by: Benzonatate (Benzonatate 100 Mg Capsule) 100 mg PO TID PRN PRN Reason: cough Stop: 08/16/21 15:59 Last Admin: 08/03/21 10:28 Dose: 100 mg Documented by: Enoxaparin Sodium (Enoxaparin 100 Mg/1ml Syr) 90 mg SQ Q12H ZARA Stop: 08/21/21 08:59 Last Admin: 08/03/21 10:29 Dose: 90 mg Documented by: Guaifenesin/Codeine Phosphate (Guaifenesin/Codeine 200mg/20mg 10ml Udc) 10 ml PO Q6H PRN PRN Reason: Cough Stop: 08/17/21 18:18 Last Admin: 07/29/21 19:52 Dose: 10 ml Documented by: Hydroxyzine HCl (Hydroxyzine Hcl 10 Mg Tab) 10 mg PO TID PRN PRN Reason: Anxiety Stop: 08/25/21 10:44 Last Admin: 07/30/21 08:13 Dose: 10 mg Documented by: Lorazepam (Ativan) 0.25 mg in 0.5 mls @ 0.5 mls/min IV Q6H PRN PRN Reason: Anxiety Stop: 08/20/21 13:45 Last Admin: 08/02/21 22:22 Dose: 0.5 mls/min Documented by: Levalbuterol HCl (Levalbuterol Tartrate 15 Gm Hfa.Aer.Ad) 2 puffs INH QID PRN; Protocol PRN Reason: Wheezing Stop: 08/20/21 08:59 Lisinopril (Lisinopril 5 Mg Tab) 5 mg PO QAM ZARA Stop: 08/17/21 08:59 Last Admin: 08/03/21 10:11 Dose: Not Given Documented by: Magnesium Hydroxide (Magnesium Hydroxide Susp 30 Ml Udc) 30 ml PO Q12H PRN PRN Reason: Constipation Stop: 08/16/21 14:59 Last Admin: 07/30/21 14:12 Dose: 30 ml Documented by: Multivitamins/Minerals (Cerovite Adv Formula Tab) 1 tab PO DAILY ZARA Stop: 08/17/21 08:59 Last Admin: 08/03/21 09:41 Dose: 1 tab Documented by: Ondansetron HCl (Ondansetron Inj 2 Mg/Ml 2 Ml Vial) 4 mg IV Q6H PRN PRN Reason: Nausea And Vomiting Stop: 08/16/21 14:59 Pantoprazole Sodium (Pantoprazole 40 Mg Tab) 40 mg PO BID ZARA Stop: 08/18/21 20:59 Last Admin: 08/03/21 09:40 Dose: 40 mg Documented by: Polyethylene Glycol (Polyethylene (Miralax) 17 Gm Pack) 17 gm PO DAILY PRN PRN Reason: Constipation Stop: 08/16/21 14:59 Last Admin: 07/28/21 08:31 Dose: 17 gm Documented by: Senna/Docusate Sodium (Docusate Sodium/Senna 50/8.6mg Tab) 1 tab PO QAM ZARA Stop: 08/26/21 05:49 Last Admin: 08/03/21 09:40 Dose: 1 tab Documented by: Simethicone (Simethicone 80 Mg Chew) 80 mg PO Q6H PRN PRN Reason: gas Stop: 08/26/21 05:44 Last Admin: 07/29/21 08:57 Dose: 80 mg Documented by: Sodium Chloride (Sodium Chloride 0.65% Na Soln 45 Ml ([place])) 2 sprays NA TID PRN PRN Reason: Nasal Congestion Stop: 08/19/21 22:37 Last Admin: 07/26/21 08:01 Dose: 2 sprays Documented by: Sodium Chloride (Sodium Chloride 1 Gm Tablet) 1 gm PO TID ZARA Stop: 09/01/21 13:59 Last Admin: 08/03/21 10:29 Dose: 1 gm Documented by: Umeclidinium/Vilanterol (Umeclidinium/Vilanterol 62.5/25mcg 7 Puffs/Inhaler) 1 puffs INH DAILY ZARA Stop: 08/19/21 08:59 Last Admin: 08/03/21 10:28 Dose: 1 puffs Documented by: Vitamin D (Cholecalciferol 1,000 Units 25 Mcg Tab) 1,[address] [facility] Stop: 08/17/21 10:14 Last Admin: 08/03/21 09:40 Dose: 1,000 units Documented by: Zinc Sulfate (Zinc Sulfate 220 Mg Capsule) [address] [facility] Stop: 08/17/21 10:14 Last Admin: 08/03/21 09:41 Dose: 220 mg Documented by:
[2021-08-03] MEDS ORDERED: OPTIRAY 320 100ml IV ONE (15:31)
--- NOTE | 2021-08-03 17:06 | CT Scan Report ---
CT angio chest PE protocol INDICATION: Shortness of breath. TECHNIQUE: Multidetector row helical CT of the chest was performed. Coronal and sagittal reformations were obtained. Automated dose lowering techniques and/or adjustment according to patient size were u tilized for this exam. Comparison: Comparison is made to CT chest 07/07/2021 FINDINGS: Lungs and pleura: Previously noted groundglass opacities are less prominent, but have been replaced b y peripheral predominant fibrotic changes compatible with post viral inflammation. Heart and pericardium: Heart size is normal. No pericardial effusion. Vessels: No evidence of pulmonary embolism. Mediastinum and katheryn: Unremarkable. Chest wall and lower neck: Unremarkable. Abdomen: Unremarkable. Bones: Degenerative changes in the thoracic spine. IMPRESSION: 1. No evidence of pulmonary embolism. 2. Interval development of fibrotic type changes within the lung which can be seen in post viral inf lammation. ACT 112: Negative or not required by law. Electronically signed by: Aramis Huizar M.D. 08/03/2021 5:05 PM
[2021-08-03] MEDS: POLYETHYLENE (MIRALAX) 17 GM PACK PO PRN (21:27)
[2021-08-03] MEDS: LORazepam 0.25 MG/0.5 ML VIAL IV PRN (21:27)
[2021-08-04] MEDS: ACETAMINOPHEN 325 MG TAB PO PRN (03:21)
[2021-08-04 06:15] LABS: Hematocrit (blood only) 38.6 % (42-52); Hemoglobin 13.4 g/dL (14.0-18.0); Mean Corpuscular Hemoglobin 31.8 pg (25-34); Mean Corpuscular Hgb Conc 34.7 g/dL (32-36); Mean Corpuscular Volume 91.5 fL (80-100); Mean Platelet Volume 9.4 fL (7.4-10.4); Platelet Count 191 K/uL (130-400); RDW Coefficient of Variation 12.6 % (11.5-14.5); RDW Standard Deviation 42.3 fL (36.4-46.3); Red Blood Count 4.22 M/uL (4.7-6.1); White Blood Count 9.03 K/uL (4.8-10.8)
[2021-08-04 06:50] LABS: BUN Creatinine Ratio 14.5 (10-20); Calcium 8.5 mg/dl (8.5-10.1); Creatinine Clr Calc Pharmacy 92.7 ml/min; Est GFR (African American) 107.6 ml/min; Est GFR (Non-African American) 92.8 ml/min; Potassium 4.5 mmol/L (3.5-5.1)
[2021-08-04] MEDS: CHOLECALCIFEROL 1,000 UNITS 25 MCG TAB PO SCH (08:01)
[2021-08-04] MEDS: ASCORBIC ACID 500 MG TAB PO SCH ×2 (08:01→20:58)
[2021-08-04] MEDS: PANTOprazole 40 MG TAB PO SCH ×2 (08:01→20:57)
[2021-08-04] MEDS: ASPIRIN 81 MG ECTAB PO SCH (08:01)
[2021-08-04] MEDS: CEROVITE ADV FORMULA TAB PO SCH (08:02)
[2021-08-04] MEDS: lisinopril 5 MG TAB PO SCH (08:02)
[2021-08-04] MEDS: SODIUM CHLORIDE 1 GM TABLET PO SCH ×3 (08:02→20:59)
[2021-08-04] MEDS: ZINC SULFATE 220 MG CAPSULE PO SCH (08:02)
[2021-08-04] MEDS: BENZONATATE 100 MG CAPSULE PO PRN (08:03)
[2021-08-04] MEDS: UMECLIDINIUM/VILANTEROL 62.5/25MCG 7 PUFFS/INHALER INH SCH (08:04)
[2021-08-04] MEDS: ENOXAPARIN 100 MG/1ML SYR SQ SCH ×2 (08:04→20:58)
[2021-08-04] MEDS: DOCUSATE SODIUM/SENNA 50/8.6MG TAB PO SCH (08:15)
--- NOTE | 2021-08-04 16:55 | Hospitalist Progress Note ---
Date of Service August 04, 2021 Assessment & Plan (1) Acute respiratory failure with hypoxia: Plan: Unvaccinated patient presented with covid pneumonia. CTA on 07/17 - for any PE. He is completed a 10-day course of dexamethasone and a 5-day course of remdesivir. He was seen by pulmonology earlier in course but did not receive Tocilizumab. Encourage ambulation, work with PT/OT and use of spirometer. Appears motivated doing well with this. Orthostatic hypotension and augmented tachycardic response to exercise present. Will give small bolus of fluid and continue to reassess orthostatics. Two-step performed and oxygen ordered for home. (2) Pneumonia due to COVID-19 virus: Plan: Plan as above, still needing time/oxygen support to recover. 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 This likely explains his persistent oxygen req uirements with exertion. This may be reversed in a couple of months. We will continue with Vishnu at discharge. Discussed this case with pulmonology who saw him earlier this admission. Repeat CT scan in next couple of months. (4) Hyponatremia: Plan: Sodium improved to 131. Bolus given for hemodynamic support, trend BMP in a.m. (5) Orthostatic hypotension: Plan: Likely related to his state of deconditioning with prolonged hospitalization and severe illness. Bolus normal saline and repeat vital signs. Continue to ambulate as he is doing. (6) Transaminitis: Plan: Previously not on a statin, likely viral related to Covid infection. Repeat as outpatient with primary care provider when discharged. (7) HTN (hypertension): Plan: Relatively low hypotension and orthostatic hypotension upon standing. We will hold lisinopril at this point. (8) DVT prophylaxis: Plan: Lovenox Full Code Dispo-cont PCU monitoring. Jackie Beltrán DO [facility] Hospitalist Admission and Anticipated Discharge Date Admission Date: July 17, 2021 Subjective 65-year-old man admitted with acute respiratory failure secondary to Covid pne [place]. Echo not performed yesterday so was taken today We discussed the results of the CT scan Discussed fibrotic changes and prognosis with pulmonology, post viral lung fibrosis may be reversible Patient denies shortness of breath but is requiring 2 L oxygen with ambulation Still becoming tachycardic especially with exertion up into the 130s 140s He remains deconditioned and now orthostatic with blood pressure dropping into the 80s systolic. Overall he is stable and his clinical picture, however with his persistent orthostatic hypotension and tachycardia with exertion will continue to keep him in the hospital Did order oxygen supply for him. Review of Systems Review of Systems: At least ten systems were reviewed and negative except as indicated in HPI above. Physical Exam Physical Exam: CONSTITUTIONAL: WNWD, vitals as above, generally NAD EYES: normal conjunctivae, no scleral icterus ENT: external ear and nose normal, MMM RESPIRATORY: CTAB, no crackles, rales or wheezes, normal resp effort CARDIOVASCULAR: tachy rate and rhythm, S1 and 2 heard without murmurs, gallops or rubs, no JVD, no peripheral edema CHEST: inspection of chest was normal GASTROINTESTINAL: soft, nontender, nondistended, no guarding MUSCULOSKELETAL: strength 5/5 throughout, head is normocephalic and atraumatic SKIN: warm and dry NEUROLOGIC: No facial palsy, no dysarthria. CN 2-12 grossly intact, no sensory deficit, normal cognition, normal speech, no tremor PSYCHIATRIC: alert cooperative and oriented to person, place and time. Results & Data Results & Data ([facility]) Vital Signs (Past 12 Hours) Vital Signs Temp Pulse Pulse Pulse Pulse Pulse Pulse 08/04/21 15:35 37.3 C 107 H 08/04/21 15:06 113 H 08/04/21 12:22 128 H 134 H 114 H 114 H 08/04/21 12:00 08/04/21 11:17 36.5 C 132 H 08/04/21 08:00 08/04/21 07:47 93 H 08/04/21 07:36 37.0 C 101 H Resp Resp Resp Resp Resp BP BP 08/04/21 15:35 20 102/66 08/04/21 15:06 08/04/21 12:22 20 22 20 18 08/04/21 12:00 18 08/04/21 11:17 22 93/63 L 08/04/21 08:00 18 08/04/21 07:47 08/04/21 07:36 20 108/63 Pulse Ox Pulse Ox Pulse Ox Pulse Ox Pulse Ox 08/04/21 15:35 93 08/04/21 15:06 08/04/21 12:22 91 84 L 91 90 08/04/21 12:00 95 08/04/21 11:17 92 08/04/21 08:00 96 08/04/21 07:47 08/04/21 07:36 91 Laboratory Results Short CBC 08/04/21 Range/Units 06:03 WBC 9.03 (4.8-10.8) K/uL Hgb 13.4 L (14.0-18.0) g/dL Hct 38.6 L (42-52) % Plt Count 191 (130-400) K/uL BMP 08/04/21 06:03 Sodium 131 L Potassium 4.5 Chloride 101 Carbon Dioxide 23 BUN 12 Creatinine 0.82 Glucose 101 H Calcium 8.5 Medications Administered Current Inpatient Medications Acetaminophen (Acetaminophen 325 Mg Tab) 650 mg PO Q4H PRN PRN Reason: Pain or Fever Stop: 08/16/21 14:59 Last Admin: 08/04/21 03:21 Dose: 650 mg Documented by: Al Hydrox/Mg Hydrox/Simethicone (Aluminum/Magnesium Susp 30 Ml Udc) 15 ml PO Q4H PRN PRN Reason: Dyspepsia Stop: 08/16/21 14:59 Last Admin: 07/30/21 14:09 Dose: 15 ml Documented by: Ascorbic Acid (Ascorbic Acid 500 Mg Tab) 500 mg PO BID [facility] Stop: 08/17/21 10:14 Last Admin: 08/04/21 08:01 Dose: 500 mg Documented by: Aspirin (Aspirin 81 Mg Ectab) 81 mg PO DAILY [facility] Stop: 08/17/21 08:59 Last Admin: 08/04/21 08:01 Dose: 81 mg Documented by: Benzonatate (Benzonatate 100 Mg Capsule) 100 mg PO TID PRN PRN Reason: cough Stop: 08/16/21 15:59 Last Admin: 08/04/21 08:03 Dose: 100 mg Documented by: Enoxaparin Sodium (Enoxaparin 100 Mg/1ml Syr) 90 mg SQ Q12H [facility] Stop: 08/21/21 08:59 Last Admin: 08/04/21 08:04 Dose: 90 mg Documented by: Guaifenesin/Codeine Phosphate (Guaifenesin/Codeine 200mg/20mg 10ml Udc) 10 ml PO Q6H PRN PRN Reason: Cough Stop: 08/17/21 18:18 Last Admin: 07/29/21 19:52 Dose: 10 ml Documented by: Hydroxyzine HCl (Hydroxyzine Hcl 10 Mg Tab) 10 mg PO TID PRN PRN Reason: Anxiety Stop: 08/25/21 10:44 Last Admin: 07/30/21 08:13 Dose: 10 mg Documented by: Lorazepam (Ativan) 0.25 mg in 0.5 mls @ 0.5 mls/min IV Q6H PRN PRN Reason: Anxiety Stop: 08/20/21 13:45 Last Admin: 08/03/21 21:27 Dose: 0.5 mls/min Documented by: Sodium Chloride (Nss 1000ml) 1,000 mls @ 250 mls/hr IV .Q4H ZARA Stop: 08/04/21 20:59 Levalbuterol HCl (Levalbuterol Tartrate 15 Gm Hfa.Aer.Ad) 2 puffs INH QID PRN; Protocol PRN Reason: Wheezing Stop: 08/20/21 08:59 Lisinopril (Lisinopril 5 Mg Tab) 5 mg PO QAM ZARA Stop: 08/17/21 08:59 Last Admin: 08/04/21 08:02 Dose: 5 mg Documented by: Magnesium Hydroxide (Magnesium Hydroxide Susp 30 Ml Udc) 30 ml PO Q12H PRN PRN Reason: Constipation Stop: 08/16/21 14:59 Last Admin: 07/30/21 14:12 Dose: 30 ml Documented by: Multivitamins/Minerals (Cerovite Adv Formula Tab) 1 tab PO DAILY ZARA Stop: 08/17/21 08:59 Last Admin: 08/04/21 08:02 Dose: 1 tab Documented by: Ondansetron HCl (Ondansetron Inj 2 Mg/Ml 2 Ml Vial) 4 mg IV Q6H PRN PRN Reason: Nausea And Vomiting Stop: 08/16/21 14:59 Pantoprazole Sodium (Pantoprazole 40 Mg Tab) 40 mg PO BID ZARA Stop: 08/18/21 20:59 Last Admin: 08/04/21 08:01 Dose: 40 mg Documented by: Polyethylene Glycol (Polyethylene (Miralax) 17 Gm Pack) 17 gm PO DAILY PRN PRN Reason: Constipation Stop: 08/16/21 14:59 Last Admin: 08/03/21 21:27 Dose: 17 gm Documented by: Senna/Docusate Sodium (Docusate Sodium/Senna 50/8.6mg Tab) 1 tab PO QAM ZARA Stop: 08/26/21 05:49 Last Admin: 08/04/21 08:15 Dose: 1 tab Documented by: Simethicone (Simethicone 80 Mg Chew) 80 mg PO Q6H PRN PRN Reason: gas Stop: 08/26/21 05:44 Last Admin: 07/29/21 08:57 Dose: 80 mg Documented by: Sodium Chloride (Sodium Chloride 0.65% Na Soln 45 Ml ([place])) 2 sprays NA TID PRN PRN Reason: Nasal Congestion Stop: 08/19/21 22:37 Last Admin: 07/26/21 08:01 Dose: 2 sprays Documented by: Sodium Chloride (Sodium Chloride 1 Gm Tablet) 1 gm PO TID ZARA Stop: 09/01/21 13:59 Last Admin: 08/04/21 14:16 Dose: 1 gm Documented by: Umeclidinium/Vilanterol (Umeclidinium/Vilanterol 62.5/25mcg 7 Puffs/Inhaler) 1 puffs INH DAILY ZARA Stop: 08/19/21 08:59 Last Admin: 08/04/21 08:04 Dose: 1 puffs Documented by: Vitamin D (Cholecalciferol 1,000 Units 25 Mcg Tab) 1,000 units PO QAM ZARA Stop: 08/17/21 10:14 Last Admin: 08/04/21 08:01 Dose: 1,000 units Documented by: Zinc Sulfate (Zinc Sulfate 220 Mg Capsule) 220 mg PO QAM ZARA Stop: 08/17/21 10:14 Last Admin: 08/04/21 08:02 Dose: 220 mg Documented by:
[2021-08-04] MEDS ORDERED: SODIUM CHLORIDE 0.9% 1000ML 1,000 ML IV SCH (17:00)
[2021-08-05 07:12] LABS: BUN Creatinine Ratio 14.4 (10-20); Calcium 8.4 mg/dl (8.5-10.1); Creatinine Clr Calc Pharmacy 120.7 ml/min; Est GFR (African American) 119.9 ml/min; Est GFR (Non-African American) 103.4 ml/min; Potassium 3.9 mmol/L (3.5-5.1)
[2021-08-05] MEDS: SODIUM CHLORIDE 1 GM TABLET PO SCH (07:44)
[2021-08-05] MEDS: ASCORBIC ACID 500 MG TAB PO SCH (07:44)
[2021-08-05] MEDS: ZINC SULFATE 220 MG CAPSULE PO SCH (07:44)
[2021-08-05] MEDS: CEROVITE ADV FORMULA TAB PO SCH (07:44)
[2021-08-05] MEDS: PANTOprazole 40 MG TAB PO SCH (07:44)
[2021-08-05] MEDS: ASPIRIN 81 MG ECTAB PO SCH (07:45)
[2021-08-05] MEDS: UMECLIDINIUM/VILANTEROL 62.5/25MCG 7 PUFFS/INHALER INH SCH (07:45)
[2021-08-05] MEDS: CHOLECALCIFEROL 1,000 UNITS 25 MCG TAB PO SCH (07:45)
[2021-08-05] MEDS: ENOXAPARIN 100 MG/1ML SYR SQ SCH (07:45)
[2021-08-05] MEDS: DOCUSATE SODIUM/SENNA 50/8.6MG TAB PO SCH (07:49)
[2021-08-05] MEDS: MAGNESIUM HYDROXIDE SUSP 30 ML UDC PO PRN (07:49)
--- NOTE | 2021-08-05 09:59 | Discharge Summary ---
Date of Service August 05, 2021 Admission HPI Per Admitting Provider This is a 65 year old M who has a significant pmh HTN, HLD, pulm nodule, hx of tobacco abuse, RF + who presents to ED 2/2 to worsening SOB. In ED patient was found to be hypoxic at 74% on room air. Currently requiring high flow nasal cannula saturating at 90%. He did test positive for SARS-CoV-2.VBG pH did reveal acute respiratory alkalosis. In ED he did receive IV dexamethasone. Went to [place] on a trip 2 weeks ago. He got back on 07/08 and started to feel strange with decreased appetite, 2 episodes of loose stool; however since 3 days ago has been getting progressively SOB, "I'm in trouble." He did seek medical care at [facility] 3 days ago and tested positive for covid. He is not vaccinated. Denies f/c/s, chest pain, sob, n/v, abdominal pain. Will be admitted for covid PNA. Admission Exam Per Admitting Provider Physical Exam Gen-AAO x 3, NAD, Afebrile, on HFNC Head-NCAT, EOMI, PERRLA, Anicteric Sclera, No Posterior Pharyngeal Erythema Neck-Supple, No JVD, No Thyromegaly, No Masses, No LAD, No Bruits Lungs-Clear to Auscultation Bilaterally, No Rales, No Rhonchi, No Wheezing, No Crepitus Chest-No S4, +S1, +S2, No S3, No Murmurs, No Rubs, No Gallops, No Ectopy Abdomen-Soft, Bowel Sounds Present, Non Tender, Non Distended, No Hepatomegaly, No Splenomegaly, No Palpable Masses, No Rebound, No Rigidity, No Guarding Musculoskeletal-Full Range of Motion Bilaterally, No CVAT Extremities-No Cyanosis, No Clubbing, No Edema Nuero-Cranial Nerves II-XII grossly intact, Motor WNL, DTRs WNL, Strength WNL, Non Focal Psych-Normal Mood Principal Diagnosis Acute respiratory failure Pneumonia due to covid-19 virus Fibrosis of lungs Hyponatremia Orthostatic hypotension Transaminitis Discharge Exam CONSTITUTIONAL: WNWD, vitals as above, generally NAD EYES: normal conjunctivae, no scleral icterus ENT: external ear and nose normal, MMM RESPIRATORY: CTAB, no crackles, rales or wheezes, normal resp effort CARDIOVASCULAR: tachy rate and rhythm, S1 and 2 heard without murmurs, gallops or rubs, no JVD, no peripheral edema CHEST: inspection of chest was normal GASTROINTESTINAL: soft, nontender, nondistended, no guarding MUSCULOSKELETAL: strength 5/5 throughout, head is normocephalic and atraumatic SKIN: warm and dry NEUROLOGIC: No facial palsy, no dysarthria. CN 2-12 grossly intact, no sensory deficit, normal cognition, normal speech, no tremor PSYCHIATRIC: alert cooperative and oriented to person, place an Discharge Data Allergies Allergy/AdvReac Type Severity Reaction Status Date / Time naproxen [From Naprosyn] Allergy Intermediate Rash Unverified 07/17/21 11:45 atorvastatin [From Lipitor] Allergy Unknown Verified 07/17/21 12:55 house dust Allergy Unknown Verified 07/17/21 12:55 lactose AdvReac Mild Gastrointestinal Verified 07/20/21 14:50 Upset Consultations 07/17/21 12:27 ED Decision to Admit Stat 07/18/21 10:06 Consult Pulmonology Routine 07/23/21 10:41 Consult Passenger Service Agent Routine 07/31/21 10:56 Consult Nephrology Routine Ordered Studies Laboratory Results WBC 9.03 K/uL (4.8-10.8) 08/04/21 06:03 RBC 4.22 M/uL (4.7-6.1) L 08/04/21 06:03 Hgb 13.4 g/dL (14.0-18.0) L 08/04/21 06:03 Hct 38.6 % (42-52) L 08/04/21 06:03 MCV 91.5 fL (80-100) 08/04/21 06:03 MCH 31.8 pg (25-34) 08/04/21 06:03 MCHC 34.7 g/dL (32-36) 08/04/21 06:03 RDW Std Deviation 42.3 fL (36.4-46.3) 08/04/21 06:03 RDW Coeff of Veronica 12.6 % (11.5-14.5) 08/04/21 06:03 Plt Count 191 K/uL (130-400) 08/04/21 06:03 MPV 9.4 fL (7.4-10.4) 08/04/21 06:03 Immature Gran % (Auto) 0.4 % 07/26/21 06:00 Neut % (Auto) 77.2 % 07/26/21 06:00 Lymph % (Auto) 9.8 % 07/26/21 06:00 Dawson % (Auto) 12.1 % 07/26/21 06:00 Eos % (Auto) 0.5 % 07/26/21 06:00 Baso % (Auto) 0.0 % 07/26/21 06:00 Neut # (Auto) 7.07 K/uL (1.4-6.5) H 07/26/21 06:00 Lymph # (Auto) 0.90 K/uL (1.2-3.4) L 07/26/21 06:00 Dawson # (Auto) 1.11 K/uL (0.11-0.59) H 07/26/21 06:00 Eos # (Auto) 0.05 K/uL (0-0.5) 07/26/21 06:00 Baso # (Auto) 0.00 K/uL (0-0.2) 07/26/21 06:00 Immature Gran # (Auto) 0.04 K/uL (0.00-0.02) H 07/26/21 06:00 RBC Morphology Unremarkable 07/18/21 06:39 ESR 47 mm/hr (0-20) H 07/17/21 09:25 PT 10.0 Seconds (9.0-12.0) 07/17/21 09:35 INR 1.0 (0.9-1.1) 07/17/21 09:35 APTT 28.1 Seconds (21.0-31.0) 07/17/21 09:35 PTT Ratio 1.1 07/17/21 09:35 VBG pH 7.48 (7.36-7.41) H 07/17/21 16:22 VBG pCO2 33 mmHg (38-50) L 07/17/21 16:22 VBG pO2 54 mmHg 07/17/21 16:22 VBG HCO3 24 mmol/L 07/17/21 16:22 VBG O2 Saturation 89.3 % 07/17/21 16:22 VBG Base Excess 0.9 mEq/L 07/17/21 16:22 Barometric Pressure 728.1 mm/Hg 07/17/21 16:22 Sodium 134 mmol/L (136-145) L 08/05/21 05:53 Potassium 3.9 mmol/L (3.5-5.1) 08/05/21 05:53 Chloride 103 mmol/L (98-107) 08/05/21 05:53 Carbon Dioxide 27 mmol/L (21-32) 08/05/21 05:53 Anion Gap 4.0 (3-11) 08/05/21 05:53 BUN 9 mg/dl (7-18) 08/05/21 05:53 Creatinine 0.63 mg/dl (0.6-1.4) 08/05/21 05:53 Est Cr Clr Drug Dosing 120.7 ml/min 08/05/21 05:53 Est GFR ( Amer) 119.9 ml/min 08/05/21 05:53 Est GFR (Non-Af Amer) 103.4 ml/min 08/05/21 05:53 BUN/Creatinine Ratio 14.4 (10-20) 08/05/21 05:53 Glucose 90 mg/dl (70-99) 08/05/21 05:53 Osmolality 268 mOsm/kg (280-300) L 07/31/21 19:31 Lactate 1.2 mmol/L (0.4-2.0) 07/17/21 11:21 Calcium 8.4 mg/dl (8.5-10.1) L 08/05/21 05:53 Phosphorus 3.4 mg/dl (2.5-4.9) 07/24/21 05:06 Magnesium 2.7 mg/dl (1.8-2.4) H 08/01/21 10:36 Ferritin 2654.1 ng/ml (8-388) H 07/17/21 09:35 Total Bilirubin 0.9 mg/dl (0.2-1) 07/26/21 06:00 AST 28 U/L (15-37) 07/26/21 06:00 ALT 75 U/L (12-78) 07/26/21 06:00 Alkaline Phosphatase 59 U/L (45-117) 07/26/21 06:00 Troponin I < 0.015 ng/ml (0-0.045) 07/17/21 09:35 C-Reactive Protein 1.66 mg/dl (0-0.29) H 07/26/21 06:00 NT-Pro-B Natriuret Pep 14 pg/ml (0-900) 07/30/21 05:46 Total Protein 7.2 gm/dl (6.4-8.2) 07/26/21 06:00 Albumin 2.4 gm/dl (3.4-5.0) L 07/26/21 06:00 Globulin 4.8 gm/dl (2.5-4.0) H 07/26/21 06:00 Albumin/Globulin Ratio 0.5 (0.9-2) L 07/26/21 06:00 Procalcitonin 0.05 ng/ml (0-0.5) 07/30/21 05:52 Urine Color Yellow 07/17/21 11:42 Urine Appearance Clear (Clear) 07/17/21 11:42 Urine pH 6.5 (4.5-7.5) 07/17/21 11:42 Ur Specific [place] > 1.045 (1.000-1.030) H 07/17/21 11:42 Urine Protein 2+ (Negative) H 07/17/21 11:42 Urine Glucose (UA) Negative (Negative) 07/17/21 11:42 Urine Ketones 1+ (Negative) H 07/17/21 11:42 Urine Blood 1+ (Negative) H 07/17/21 11:42 Urine Nitrite Negative (Negative) 07/17/21 11:42 Urine Bilirubin Negative (Negative) 07/17/21 11:42 Urine Urobilinogen Negative (Negative) 07/17/21 11:42 Ur Leukocyte Esterase Negative (Negative) 07/17/21 11:42 Urine WBC (Auto) 1-5 /hpf (0-5) 07/17/21 11:42 Urine RBC (Auto) 0-4 /hpf (0-4) 07/17/21 11:42 U Hyaline Cast (Auto) 1-5 /lpf (0-5) 07/17/21 11:42 U Epithel Cells (Auto) 10-20 /lpf (0-5) H 07/17/21 11:42 Urine Bacteria (Auto) Negative (Negative) 07/17/21 11:42 Urine Osmolality 198 mOsm/kg (500-800) L 07/31/21 Unknown Ur Random Creatinine 144.0 mg/dl 07/28/21 11:45 Ur Random Sodium 36 mmol/L 07/31/21 Unknown COVID-[address] Eval [address] [facility] 07/17/21 10:22 SARS-CoV-2 (PCR) POSITIVE (Negative) A* 07/17/21 10:22 Impressions Chest X-Ray 07/23/21 07:00 XR chest 1V portable CLINICAL HISTORY: f/u COMPARISON STUDY: Chest CT July 17, 2021. Chest radiograph July 22, 2021. FINDINGS: Lung volumes are normal. There has slight increase in bilateral airspace opacities since prior exam There is no pneumothorax or pleural effusion. Cardiac size is normal. Mediastinal contours are normal. There is no evidence for pulmonary edema. IMPRESSION: Slight increase in bilateral airspace opacities since prior exam. The findings suggest viral pneumonia. ACT 112: Negative or not required by law. Electronically signed by: Ravi Erickson M.D. 07/23/2021 6:47 AM Chest CTA 08/03/21 14:01 CT angio chest PE protocol INDICATION: Shortness of breath. TECHNIQUE: Multidetector row helical CT of the chest was performed. Coronal and sagittal reformations were obtained. Automated dose lowering techniques and/or adjustment according to patient size were utilized for this exam. Comparison: Comparison is made to CT chest 07/07/2021 FINDINGS: Lungs and pleura: Previously noted groundglass opacities are less prominent, but have been replaced by peripheral predominant fibrotic changes compatible with post viral inflammation. Heart and pericardium: Heart size is normal. No pericardial effusion. Vessels: No evidence of pulmonary embolism. Mediastinum and katheryn: Unremarkable. Chest wall and lower neck: Unremarkable. Abdomen: Unremarkable. Bones: Degenerative changes in the thoracic spine. IMPRESSION: 1. No evidence of pulmonary embolism. 2. Interval development of fibrotic type changes within the lung which can be seen in post viral inflammation. ACT 112: Negative or not required by law. Electronically signed by: Aramis Huizar M.D. 08/03/2021 5:05 PM Hospital Course (1) Acute respiratory failure with hypoxia: Unvaccinated patient presented with covid pneumonia. CTA on 07/17 - for any PE. He is completed a 10-day course of dexamethasone and a 5-day course of remdesivir. He was seen by pulmonology earlier in course but did qualify for Tocilizumab therapy Encourage ambulation, work with PT/OT and use of spirometer. Appears motivated doing well with this. Orthostatic hypotension and augmented tachycardic response to exercise present closer to end of stay. Off oxygen for several days while at rest but would require oxygen with recovery from exertion, even transferring to bedside commode. Orthostaics were positive, which was improved with some IVF overnight. 2LPM with ambulation recommended. (2) Pneumonia due to COVID-19 virus: Plan as above, still needing time/oxygen support to recover. 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 This likely explains his persistent clinical findings. Although with some persistent tachycardia at time of discharge, echo was within normal limits and he remains stable for [address] Cleared for discharge to home to continue to convalesce. (4) Hyponatremia: Sodium improved to 134 prior to discharge. Nephro gave salt tablets during his stay. (5) Orthostatic hypotension: Likely related to his state of deconditioning with prolonged hospitalization and severe illness. Had some hypotension day prior to discharge. Lisinopril held at discharge and he was clinically improved after bolus. (6) Transaminitis: Previously not on a statin, likely viral related to Covid infection. Repeat as outpatient with primary care provider when discharged. (7) HTN (hypertension): Relatively low hypotension and orthostatic hypotension upon standing. We will hold lisinopril at this point. (8) DVT prophylaxis: Lovenox Full Code Dispo-to home with close PCP followup. Fibrotic lung expected to continue to improve over the next couple of months. He was given Brreo and spiriva at discharge. Repeat CT chest in 2 months. Discussed discharge recommendations with by phone. Jackie Beltrán DO [facility] Hospitalist Total Time Total Time Spent Total Time Spent (In Minutes): 60 Discharge Plan Discharge Items Patient Disposition: Home - Self-Care Reason For Visit: COVID PNA Discharge Diagnosis: Acute respiratory failure Pneumonia due to covid-19 virus Fibrosis of lungs Hyponatremia Orthostatic hypotension Transaminitis Condition on Discharge: Good Activity: Resume your previous activity Activity Comment: as tolerated, please always wear oxygen with ANY activity. Non-emergency contact: Primary Care Provider Call non-emergency contact if: you have any medication questions, your symptoms worsen and your pain is not controlled Follow-up/Referrals: Luke Aguilar MD [Primary Care Provider] - Diet: Regular Addtl Attending Provider Instructions: Please take all medications as instructed on discharge list below. You are being placed on two new inhalers to continue to take daily. Also, because of some lower blood pressure noted later in the hospitalization, please hold off on taking lisinopril for now. This may be restarted on followup when your blood pressure and pulse can be reevaluated. 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 This may clear over the next few months. A repeat CT scan of the chest is recommended in a couple of months to re-evaluate this. As this clears up your oxygen needs should decrease over time. Please consider vaccination with any available covid-19 vaccination. This can be done as early as one week from now. Evidence is emerging that people get better protection by being fully vaccinated compared with having had COVID-19. One study showed that unvaccinated people who already had COVID-19 are more than 2 times as likely than fully vaccinated people to get COVID-19 again. https://www.cdc.gov/coronavirus/2019-ncov/vaccines/bqmjpaq-brl-bdipjfnztao.html Your liver function tests were elevated during the hospital stay which was thought secondary to the covid virus. It is recommended to obtain repeat bloodwork to check this when you follow-up with your primary care provider, in about one week. It was a pleasure taking care of you! Please call if you have any questions or problems. You can reach a [facility] hospitalist on duty at [facility] 24 hours a day by calling [phone]. Take care of yourself. Jackie Beltrán, DO [facility] Hospitalist Pending Studies at Discharge: No Stand-Alone Forms: My [facility] Medications and DC Order Prescriptions: New Anoro Ellipta 62.5-25 mcg/actuation Blister With Device 1 ea inhalation DAILY Qty: 60 RF: 0 sodium chloride 1 gram Tablet 1 g PO TID Qty: 90 RF: 0 Spiriva with HandiHaler 18 mcg capsule, w/inhalation device 1 cap inhalation DAILY Qty: 60 RF: 0 (DME) Oxygen Home Liters Per Minute See Rx Instructions .Route Qty: 1 RF: 0 Continued Odorless Garlic 300 mg Capsule 0 mg PO DAILY RF: 0 ondansetron HCl [Zofran] 4 mg tablet 4 mg PO Q8H PRN (Reason: Nausea) RF: 0 aspirin [Aspirin Low Dose] 81 mg Tablet,Delayed Release (Dr/Ec) 81 mg PO DAILY RF: 0 albuterol sulfate [Ventolin HFA] 90 mcg/actuation HFA aerosol inhaler 1 puff INHALATION DAILY PRN (Reason: Shortness Of Breath) RF: 0 omega [id number]-fish oil [Fish Oil] 1,200 (144-216) mg Capsule 1 cap PO DAILY RF: 0 Centrum Silver Men 300-600-300 mcg Tablet 1 tab PO DAILY RF: 0 Emergen-C 500 mg Tablet,Chewable 1 tab PO BID RF: 0 Discontinued lisinopril [Zestril] 5 mg tablet 5 mg PO QAM RF: 0 Discharge Orders: Discharge Order (Routine); Ordered 08/05/21 Ordered By: Jackie Beltrán Admission Data Admit Date/Time: 07/17/21 13:13 Attending Provider: Jackie Beltrán Admit Provider: Kathryn Maya Primary Care Provider: Luke Aguilar Other Providers: Jackie Beltrán ; Arash Garcia ; See Flores ; Tim Reza ; Ainsley Noe ; Mathew Cabrera ; Diane Sweeney ; Lauren Thurston ; Shannan Bo ; Jonny Chaidez Other Interventions: Discharge Summary Assessment (RN) Last Done: 08/05/21 10:42
== END 2021-08-05 11:50 | disposition home or self-care (01) | DRG 177 ==
LOC: ED 09:18 → 2S 13:13 → SUATTDRO 13:13 → 2S 13:38 → 2E 07-20 17:43 → 1E 07-21 17:49 → 2S 07-24 11:50 → 2E 07-24 18:40 → 2S 07-30 21:10

== ENCOUNTER 2023-05-29 07:22 | Inpatient (IN) ==
--- NOTE | 2023-05-29 07:45 | Emergency Department Note ---
Impression & Plan Acute Lyme disease, Fever, Tachycardia, Shortness of breath ED Provider Note NAME: GEORGE ORTEGA AGE: 67 SEX: M : 1955 ARRIVES VIA: Walk-In INFORMANT: Patient ED PROVIDER(S): Pedro Pablo Mena DO CHIEF COMPLAINT: shortness of breath HPI: Patient is a 67-year-old male with a past medical history of COPD, restrictive lung disease, fibrosis, hyperlipidemia who presents the ER for shortness of breath. Symptoms started for the past 48 hours. He denies any cough or congestion. No runny nose or sore throat. He does admit to a fever of 100.7 last night. Denies any chest pain. No belly pain, nausea, vomiting or diarrhea. No dysuria, urgency or frequency. No open wounds or sores. No other exacerbating or remitting factors. No sick contacts. Patient denies diabetes, hypertension, hyperlipidemia, CAD, history of sudden at a young age, and smoking. Patient denies swelling of calves, recent trips, history of immobilization or recent surgery, prior history of DVT, hemoptysis, and history of malignancy. PAST MEDICAL HISTORY:See Below PAST SURGICAL HISTORY:See Below FAMILY HISTORY:See Below SOCIAL HISTORY:See Below HOME MEDICATIONS:See Below ALLERGIES:See Below VITALS:See Below PHYSICAL EXAMINATION: GENERAL: Sitting up in bed, alert, well appearing, well nourished, no distress, non-toxic EYE EXAM: normal conjunctiva. PERRL and EOM's grossly intact. OROPHARYNX: no exudate, no erythema, lips, buccal mucosa, and tongue normal and mucous membranes are moist NECK: supple, no nuchal rigidity, no adenopathy, non-tender LUNGS: Clear to auscultation. Normal chest wall mechanics HEART: no murmurs, S1 normal and S2 normal ABDOMEN: abdomen soft, non-tender, normo-active bowel sounds, no masses, no rebound or guarding. UPPER EXTREMITIES: upper extremities are grossly normal. LOWER EXTREMITIES: No pitting edema. Calves are equal bilateral NEURO EXAM: Normal sensorium, cranial nerves II-XII grossly intact, normal speech, no gross weakness of arms, no gross weakness of legs. MEDICAL DECISION MAKING: Patient is a 67-year-old male who presents ER for above-stated complaint. IV was established blood work was obtained. External records were reviewed. Labs show no significant leukocytosis or anemia. D-dimer was elevated. BMP with mild hyponatremia. LFTs bilirubin was unremarkable. Troponin was negative. Pro-Eitan up at 1.09. UA does suggest dehydration. Lyme was ordered and IgM was equivocal. Patient was given Rocephin as well as 2 L IV fluids. Heart rate still remained in the 120s. He was slightly hypoxic to be down intermittently to 89%. He was placed on 2 L nasal cannula. He was updated at bedside. [facility]. Patient was also covered with doxycycline in case anaplasmosis was present although labs do not suggest this. Patient was given steroids as well as a neb treatment due to mild wheezing upon presentation initially. Triage Nursing notes reviewed. Limited review of prior medical records performed Vital Signs: reviewed and remarkable for no significant abnormalities Differential diagnosis: Differential diagnosis includes etiologies such as sepsis, UTI, pneumonia, metabolic, electrolyte abnormalities, cardiac sources, intracerebral event, toxicologic, neurological, as well as others were entertained. ER treatment provided: See below Diagnostics interpreted by me include EKG and cardiac monitoring as listed below: -Cardiac Monitoring: An order was placed for continuous cardiac monitoring. The monitor shows a rate of 115 with sinus rhythm. -ECG: Sinus rhythm rate of 119 Normal axis No PVCs T wave inversion in the inferior leads QTc 422 No change from previous -Laboratory studies:Interpreted by me as stated above in MDM and shown below. Imaging studies: Xrays: As interpreted by me: Portable AP upright 1 view of the chest shows no focal infiltrate CTs show: CT angio of the chest as described above. Consultation(s): As described in MDM Procedures:none Critical Care: None Past Med/Surg History Medical History HLD (hyperlipidemia) HTN (hypertension) Obesity Pulmonary nodule Rheumatoid factor positive Surgical History History of tooth extraction Family History Father Coronary heart disease Mother No problems noted. Social History Smoking Status: Never smoker Age Quit Using Tobacco: 50; packs per day: 1; Second Hand Exposure: No; Do You Dip or Chew Tobacco: No; Hx Alcohol Use: No Hx Substance Use: No Preferred Language: Luxembourgish Communication Ability: Effective Monomer Recovery Operator Required: No Beliefs That Will Affect Care: None marital status: Current Living Situation: Spouse Feels Safe at Home: Yes Assistive Devices: Walker Allergies Allergies Allergy/AdvReac Type Severity Reaction Status Date / Time naproxen [From Naprosyn] Allergy Intermediate Rash Unverified 12/18/22 15:36 atorvastatin [From Lipitor] Allergy Unknown Verified 12/18/22 15:36 house dust Allergy Unknown Verified 12/18/22 15:36 lactose AdvReac Mild Gastrointestinal Verified 12/18/22 15:36 Upset Home Meds Home Medications Medication Instructions Recorded Confirmed aspirin 81 mg tablet,delayed 81 mg PO DAILY 07/17/21 05/29/23 release (Brian Low Dose Aspirin) rosuvastatin 10 mg tablet (Crestor) 10 mg PO DAILY 09/27/21 05/29/23 cholecalciferol (vitamin D3) 1 tab PO DAILY 12/18/22 05/29/23 vitamin C 500 mg-multivitamin with 1 tab PO DAILY 12/18/22 05/29/23 minerals chewable tablet (Emergen-C) [facility] 2 cap PO DAILY 05/29/23 05/29/23 garlic 1,000 mg capsule 1,000 mg PO DAILY 05/29/23 05/29/23 meloxicam 15 mg tablet 15 mg PO DAILY 05/29/23 05/29/23 multivitamin with minerals 1 tab PO DAILY 05/29/23 05/29/23 Previous Rx's Medication Instructions Recorded albuterol sulfate 90 mcg/actuation 1 puff inhalation DAILY PRN 01/14/22 aerosol inhaler (Ventolin HFA) Shortness Of Breath #8.5 grams umeclidinium 62.5 mcg-vilanterol 1 ea inhalation DAILY #60 ea 12/19/22 25 mcg/actuation powdr for inhalation (Anoro Ellipta) Results & Data (ED) Vital Signs Vital Signs - 24 hr 05/29/23 07:29 05/29/23 07:56 05/29/23 07:56 Temperature 37.5 C Temperature Source Temporal Artery Scan Pulse Rate 128 H Pulse Rate [Right Finger] Pulse Rhythm Pulse Rhythm [Right Finger] Pulse Strength [Right Finger] Respiratory Rate 22 Respiratory Effort / Characteristics SOB on Exertion Non-Labored Respiratory Depth Normal Respiratory Pattern Regular Blood Pressure 166/88 H Blood Pressure [Right Arm] Blood Pressure Mean 114 Blood Pressure Mean [Right Arm] Blood Pressure Position [Right Arm] Pulse Oximetry 95 Oxygen Delivery Method Room Air Room Air Room Air Oxygen Flow Rate Sepsis Recent Fever Within 48 Hours Yes Sepsis New/Unexplained Change in Mental Status No Sepsis Action Taken by Nursing Physician Notified 05/29/23 07:56 05/29/23 08:03 05/29/23 08:03 Temperature Temperature Source Pulse Rate 123 H Pulse Rate [Right Finger] 123 H 123 H Pulse Rhythm Regular Pulse Rhythm [Right Finger] Regular Pulse Strength [Right Finger] Normal Respiratory Rate 22 22 22 Respiratory Effort / Characteristics Non-Labored Non-Labored Respiratory Depth Normal Normal Respiratory Pattern Regular Regular Blood Pressure Blood Pressure [Right Arm] 164/98 H 164/72 H Blood Pressure Mean Blood Pressure Mean [Right Arm] 120 102 Blood Pressure Position [Right Arm] Pulse Oximetry 93 93 93 Oxygen Delivery Method Room Air Room Air Room Air Oxygen Flow Rate Sepsis Recent Fever Within 48 Hours Sepsis New/Unexplained Change in Mental Status Sepsis Action Taken by Nursing 05/29/23 08:20 05/29/23 09:28 05/29/23 09:55 Temperature Temperature Source Pulse Rate 118 H Pulse Rate [Right Finger] 117 H 118 H Pulse Rhythm Pulse Rhythm [Right Finger] Regular Regular Pulse Strength [Right Finger] Normal Respiratory Rate 22 20 Respiratory Effort / Characteristics Non-Labored Non-Labored Respiratory Depth Normal Normal Respiratory Pattern Regular Regular Blood Pressure Blood Pressure [Right Arm] 193/114 H 117/83 Blood Pressure Mean Blood Pressure Mean [Right Arm] 140 94 Blood Pressure Position [Right Arm] Sitting Pulse Oximetry 90 94 Oxygen Delivery Method Room Air Nasal Cannula Oxygen Flow Rate 2 Sepsis Recent Fever Within 48 Hours Sepsis New/Unexplained Change in Mental Status Sepsis Action Taken by Nursing 05/29/23 09:55 05/29/23 10:06 05/29/23 10:15 Temperature Temperature Source Pulse Rate 117 H Pulse Rate [Right Finger] 92 H 95 H Pulse Rhythm Regular Pulse Rhythm [Right Finger] Regular Regular Pulse Strength [Right Finger] Normal Normal Respiratory Rate 20 20 18 Respiratory Effort / Characteristics Non-Labored Non-Labored Respiratory Depth Normal Normal Respiratory Pattern Regular Regular Blood Pressure Blood Pressure [Right Arm] 160/98 H 162/102 H Blood Pressure Mean Blood Pressure Mean [Right Arm] 118 122 Blood Pressure Position [Right Arm] Sitting Pulse Oximetry 94 94 95 Oxygen Delivery Method Nasal Cannula Nasal Cannula Nasal Cannula Oxygen Flow Rate 2 2 Sepsis Recent Fever Within 48 Hours Sepsis New/Unexplained Change in Mental Status Sepsis Action Taken by Nursing 05/29/23 11:26 05/29/23 12:41 Temperature Temperature Source Pulse Rate 118 H Pulse Rate [Right Finger] 96 H Pulse Rhythm Pulse Rhythm [Right Finger] Regular Pulse Strength [Right Finger] Normal Respiratory Rate 18 Respiratory Effort / Characteristics Non-Labored Respiratory Depth Normal Respiratory Pattern Regular Blood Pressure Blood Pressure [Right Arm] Blood Pressure Mean Blood Pressure Mean [Right Arm] Blood Pressure Position [Right Arm] Pulse Oximetry 96 Oxygen Delivery Method Nasal Cannula Oxygen Flow Rate 2 Sepsis Recent Fever Within 48 Hours Sepsis New/Unexplained Change in Mental Status Sepsis Action Taken by Nursing Laboratory Data 05/29/23 07:44 05/29/23 09:10 Lab Results 05/29/23 05/29/23 05/29/23 Range/Units 07:44 07:44 07:44 WBC 8.89 (4.8-10.8) K/ul RBC 5.25 (4.70-6.10) M/uL Hgb 16.5 (14.0-18.0) g/dl Hct 48.2 (42.0-52.0) % MCV 91.8 (80.0-100.0) fL MCH 31.4 (25.0-34.0) pg MCHC 34.2 (32.0-36.0) g/dL RDW Std Deviation 41.6 (36.4-46.3) fL RDW Coeff of Veronica 12.2 (11.5-14.5) % Plt Count 167 (130-400) K/uL MPV 9.9 (9.4-12.4) fL Immature Gran % (Auto) 0.3 % Neut % (Auto) 89.3 % Lymph % (Auto) 5.3 % [place] % (Auto) 4.8 % Eos % (Auto) 0.0 % Baso % (Auto) 0.3 % Neut # (Auto) 7.93 H (1.40-6.50) K/uL Lymph # (Auto) 0.47 L (1.2-3.4) K/uL [place] # (Auto) 0.43 (0.11-0.59) K/uL Eos # (Auto) 0.00 (0-0.50) K/uL Baso # (Auto) 0.03 (0-0.2) K/uL Immature Gran # (Auto) 0.03 (0.01-0.20) K/uL PT INR D-Dimer Sodium 134 L (136-145) mmol/L Potassium TNP Chloride 101 (98-107) mmol/L Carbon Dioxide 23 (21-32) mmol/L Anion Gap 10 (3-11) BUN 17 (6-23) mg/dl Creatinine 0.93 (0.6-1.4) mg/dl Est Cr Clr Drug Dosing 88.1 ml/min Est GFR ( Amer) 98.1 ml/min Est GFR (Non-Af Amer) 84.6 ml/min BUN/Creatinine Ratio 18.3 (10-20) Glucose 135 H (70-99(Fasting)) mg/dl Lactate (0.4-2.0) mmol/L Calcium 8.9 (8.6-10.3) mg/dl Magnesium 2.0 (1.7-2.4) mg/dl Total Bilirubin 1.0 (0.2-1.0) mg/dl Direct Bilirubin TNP AST TNP ALT 38 (7-52) U/L Alkaline Phosphatase 80 (34-104) U/L Troponin I High Sens 4.8 (0-20) pg/ml Total Protein 7.5 (6.0-8.3) gm/dl Albumin 4.5 (3.4-5.0) gm/dl Procalcitonin 1.09 H (0-0.5) ng/ml Urine Color Urine Appearance (Clear) Urine pH (4.5-7.5) Ur Specific [place] (1.000-1.030) Urine Protein (Negative) Urine Glucose (UA) (Negative) Urine Ketones (Negative) Urine Blood (Negative) Urine Nitrite (Negative) Urine Bilirubin (Negative) Urine Urobilinogen (Negative) Ur Leukocyte Esterase (Negative) Urine WBC (Auto) (0-5) /hpf Urine RBC (Auto) (0-4) /hpf U Hyaline Cast (Auto) (0-5) /lpf U Epithel Cells (Auto) (0-5) /lpf Urine Bacteria (Auto) (Negative) Adenovirus (PCR) (NotDetected) B. pertussis DNA (PCR) (NotDetected) B.parapertussis DNA PCR (NotDetected) Lyme Disease IgG Ab (Negative) Lyme Disease IgM Ab (Negative) C. pneumoniae DNA (PCR) (NotDetected) Coronavirus OC43 (PCR) (NotDetected) Coronavirus HKU1 (PCR) (NotDetected) Coronavirus 229E (PCR) (NotDetected) SARS-CoV-2 (PCR) (NotDetected) Coronavirus NL63 (PCR) (NotDetected) Human Metapneumovir PCR (NotDetected) Influenza Type A (PCR) (NotDetected) Influenza Type B (PCR) (NotDetected) M. pneumoniae (PCR) (NotDetected) Parainfluenza 1 (PCR) (NotDetected) Parainfluenza 2 (PCR) (NotDetected) Parainfluenza 3 (PCR) (NotDetected) Parainfluenza 4 (PCR) (NotDetected) RSV (PCR) (NotDetected) Entero/Rhino (PCR) (NotDetected) 05/29/23 05/29/23 05/29/23 Range/Units 07:44 07:44 07:44 WBC (4.8-10.8) K/ul RBC (4.70-6.10) M/uL Hgb (14.0-18.0) g/dl Hct (42.0-52.0) % MCV (80.0-100.0) fL MCH (25.0-34.0) pg MCHC (32.0-36.0) g/dL RDW Std Deviation (36.4-46.3) fL RDW Coeff of Veronica (11.5-14.5) % Plt Count (130-400) K/uL MPV (9.4-12.4) fL Immature Gran % (Auto) % Neut % (Auto) % Lymph % (Auto) % [place] % (Auto) % Eos % (Auto) % Baso % (Auto) % Neut # (Auto) (1.40-6.50) K/uL Lymph # (Auto) (1.2-3.4) K/uL [place] # (Auto) (0.11-0.59) K/uL Eos # (Auto) (0-0.50) K/uL Baso # (Auto) (0-0.2) K/uL Immature Gran # (Auto) (0.01-0.20) K/uL PT Cancelled INR Cancelled D-Dimer Cancelled Cancelled Sodium (136-145) mmol/L Potassium Chloride (98-107) mmol/L Carbon Dioxide (21-32) mmol/L Anion Gap (3-11) BUN (6-23) mg/dl Creatinine (0.6-1.4) mg/dl Est Cr Clr Drug Dosing ml/min Est GFR ( Amer) ml/min Est GFR (Non-Af Amer) ml/min BUN/Creatinine Ratio (10-20) Glucose (70-99(Fasting)) mg/dl Lactate (0.4-2.0) mmol/L Calcium (8.6-10.3) mg/dl Magnesium (1.7-2.4) mg/dl Total Bilirubin (0.2-1.0) mg/dl Direct Bilirubin AST ALT (7-52) U/L Alkaline Phosphatase (34-104) U/L Troponin I High Sens (0-20) pg/ml Total Protein (6.0-8.3) gm/dl Albumin (3.4-5.0) gm/dl Procalcitonin (0-0.5) ng/ml Urine Color Urine Appearance (Clear) Urine pH (4.5-7.5) Ur Specific [place] (1.000-1.030) Urine Protein (Negative) Urine Glucose (UA) (Negative) Urine Ketones (Negative) Urine Blood (Negative) Urine Nitrite (Negative) Urine Bilirubin (Negative) Urine Urobilinogen (Negative) Ur Leukocyte Esterase (Negative) Urine WBC (Auto) (0-5) /hpf Urine RBC (Auto) (0-4) /hpf U Hyaline Cast (Auto) (0-5) /lpf U Epithel Cells (Auto) (0-5) /lpf Urine Bacteria (Auto) (Negative) Adenovirus (PCR) Not Detected (NotDetected) B. pertussis DNA (PCR) Not Detected (NotDetected) B.parapertussis DNA PCR Not Detected (NotDetected) Lyme Disease IgG Ab (Negative) Lyme Disease IgM Ab (Negative) C. pneumoniae DNA (PCR) Not Detected (NotDetected) Coronavirus OC43 (PCR) Not Detected (NotDetected) Coronavirus HKU1 (PCR) Not Detected (NotDetected) Coronavirus 229E (PCR) Not Detected (NotDetected) SARS-CoV-2 (PCR) Not Detected (NotDetected) Coronavirus NL63 (PCR) Not Detected (NotDetected) Human Metapneumovir PCR Not Detected (NotDetected) Influenza Type A (PCR) Not Detected (NotDetected) Influenza Type B (PCR) Not Detected (NotDetected) M. pneumoniae (PCR) Not Detected (NotDetected) Parainfluenza 1 (PCR) Not Detected (NotDetected) Parainfluenza 2 (PCR) Not Detected (NotDetected) Parainfluenza 3 (PCR) Not Detected (NotDetected) Parainfluenza 4 (PCR) Not Detected (NotDetected) RSV (PCR) Not Detected (NotDetected) Entero/Rhino (PCR) Not Detected (NotDetected) 05/29/23 05/29/23 05/29/23 Range/Units 07:51 08:07 08:10 WBC (4.8-10.8) K/ul RBC (4.70-6.10) M/uL Hgb (14.0-18.0) g/dl Hct (42.0-52.0) % MCV (80.0-100.0) fL MCH (25.0-34.0) pg MCHC (32.0-36.0) g/dL RDW Std Deviation (36.4-46.3) fL RDW Coeff of Veronica (11.5-14.5) % Plt Count (130-400) K/uL MPV (9.4-12.4) fL Immature Gran % (Auto) % Neut % (Auto) % Lymph % (Auto) % [place] % (Auto) % Eos % (Auto) % Baso % (Auto) % Neut # (Auto) (1.40-6.50) K/uL Lymph # (Auto) (1.2-3.4) K/uL [place] # (Auto) (0.11-0.59) K/uL Eos # (Auto) (0-0.50) K/uL Baso # (Auto) (0-0.2) K/uL Immature Gran # (Auto) (0.01-0.20) K/uL PT INR D-Dimer Sodium (136-145) mmol/L Potassium Chloride (98-107) mmol/L Carbon Dioxide (21-32) mmol/L Anion Gap (3-11) BUN (6-23) mg/dl Creatinine (0.6-1.4) mg/dl Est Cr Clr Drug Dosing ml/min Est GFR ( Amer) ml/min Est GFR (Non-Af Amer) ml/min BUN/Creatinine Ratio (10-20) Glucose (70-99(Fasting)) mg/dl Lactate 1.8 (0.4-2.0) mmol/L Calcium (8.6-10.3) mg/dl Magnesium (1.7-2.4) mg/dl Total Bilirubin (0.2-1.0) mg/dl Direct Bilirubin AST ALT (7-52) U/L Alkaline Phosphatase (34-104) U/L Troponin I High Sens (0-20) pg/ml Total Protein (6.0-8.3) gm/dl Albumin (3.4-5.0) gm/dl Procalcitonin (0-0.5) ng/ml Urine Color Yellow Urine Appearance Clear (Clear) Urine pH 5.5 (4.5-7.5) Ur Specific [place] 1.024 (1.000-1.030) Urine Protein 1+ H (Negative) Urine Glucose (UA) Negative (Negative) Urine Ketones 2+ H (Negative) Urine Blood Negative (Negative) Urine Nitrite Negative (Negative) Urine Bilirubin Negative (Negative) Urine Urobilinogen Negative (Negative) Ur Leukocyte Esterase Trace H (Negative) Urine WBC (Auto) 1-5 (0-5) /hpf Urine RBC (Auto) 0-4 (0-4) /hpf U Hyaline Cast (Auto) 1-5 (0-5) /lpf U Epithel Cells (Auto) 0-5 (0-5) /lpf Urine Bacteria (Auto) Negative (Negative) Adenovirus (PCR) (NotDetected) B. pertussis DNA (PCR) (NotDetected) B.parapertussis DNA PCR (NotDetected) Lyme Disease IgG Ab Negative (Negative) Lyme Disease IgM Ab Equivocal A (Negative) C. pneumoniae DNA (PCR) (NotDetected) Coronavirus OC43 (PCR) (NotDetected) Coronavirus HKU1 (PCR) (NotDetected) Coronavirus 229E (PCR) (NotDetected) SARS-CoV-2 (PCR) (NotDetected) Coronavirus NL63 (PCR) (NotDetected) Human Metapneumovir PCR (NotDetected) Influenza Type A (PCR) (NotDetected) Influenza Type B (PCR) (NotDetected) M. pneumoniae (PCR) (NotDetected) Parainfluenza 1 (PCR) (NotDetected) Parainfluenza 2 (PCR) (NotDetected) Parainfluenza 3 (PCR) (NotDetected) Parainfluenza 4 (PCR) (NotDetected) RSV (PCR) (NotDetected) Entero/Rhino (PCR) (NotDetected) 05/29/23 05/29/23 Range/Units 09:10 09:10 WBC (4.8-10.8) K/ul RBC (4.70-6.10) M/uL Hgb (14.0-18.0) g/dl Hct (42.0-52.0) % MCV (80.0-100.0) fL MCH (25.0-34.0) pg MCHC (32.0-36.0) g/dL RDW Std Deviation (36.4-46.3) fL RDW Coeff of Veronica (11.5-14.5) % Plt Count (130-400) K/uL MPV (9.4-12.4) fL Immature Gran % (Auto) % Neut % (Auto) % Lymph % (Auto) % [place] % (Auto) % Eos % (Auto) % Baso % (Auto) % Neut # (Auto) (1.40-6.50) K/uL Lymph # (Auto) (1.2-3.4) K/uL [place] # (Auto) (0.11-0.59) K/uL Eos # (Auto) (0-0.50) K/uL Baso # (Auto) (0-0.2) K/uL Immature Gran # (Auto) (0.01-0.20) K/uL PT 11.9 INR 1.1 D-Dimer 1240 H* Sodium (136-145) mmol/L Potassium 3.9 Chloride (98-107) mmol/L Carbon Dioxide (21-32) mmol/L Anion Gap (3-11) BUN (6-23) mg/dl Creatinine (0.6-1.4) mg/dl Est Cr Clr Drug Dosing ml/min Est GFR ( Amer) ml/min Est GFR (Non-Af Amer) ml/min BUN/Creatinine Ratio (10-20) Glucose (70-99(Fasting)) mg/dl Lactate (0.4-2.0) mmol/L Calcium (8.6-10.3) mg/dl Magnesium (1.7-2.4) mg/dl Total Bilirubin (0.2-1.0) mg/dl Direct Bilirubin 0.2 AST 27 ALT (7-52) U/L Alkaline Phosphatase (34-104) U/L Troponin I High Sens (0-20) pg/ml Total Protein (6.0-8.3) gm/dl Albumin (3.4-5.0) gm/dl Procalcitonin (0-0.5) ng/ml Urine Color Urine Appearance (Clear) Urine pH (4.5-7.5) Ur Specific [place] (1.000-1.030) Urine Protein (Negative) Urine Glucose (UA) (Negative) Urine Ketones (Negative) Urine Blood (Negative) Urine Nitrite (Negative) Urine Bilirubin (Negative) Urine Urobilinogen (Negative) Ur Leukocyte Esterase (Negative) Urine WBC (Auto) (0-5) /hpf Urine RBC (Auto) (0-4) /hpf U Hyaline Cast (Auto) (0-5) /lpf U Epithel Cells (Auto) (0-5) /lpf Urine Bacteria (Auto) (Negative) Adenovirus (PCR) (NotDetected) B. pertussis DNA (PCR) (NotDetected) B.parapertussis DNA PCR (NotDetected) Lyme Disease IgG Ab (Negative) Lyme Disease IgM Ab (Negative) C. pneumoniae DNA (PCR) (NotDetected) Coronavirus OC43 (PCR) (NotDetected) Coronavirus HKU1 (PCR) (NotDetected) Coronavirus 229E (PCR) (NotDetected) SARS-CoV-2 (PCR) (NotDetected) Coronavirus NL63 (PCR) (NotDetected) Human Metapneumovir PCR (NotDetected) Influenza Type A (PCR) (NotDetected) Influenza Type B (PCR) (NotDetected) M. pneumoniae (PCR) (NotDetected) Parainfluenza 1 (PCR) (NotDetected) Parainfluenza 2 (PCR) (NotDetected) Parainfluenza 3 (PCR) (NotDetected) Parainfluenza 4 (PCR) (NotDetected) RSV (PCR) (NotDetected) Entero/Rhino (PCR) (NotDetected) Administered Medications Discontinued Medications Albuterol (Albuterol 0.083% Nebu Soln 3 Ml Vial) 2.5 mg NEB NOW STA; Protocol Stop: 05/29/23 09:24 Last Admin: 05/29/23 09:49 Dose: 2.5 mg Documented By: VINNY Sodium Chloride (Nss 1000ml) 2,000 mls @ 999 mls/hr IV .Q2H1M ONE Stop: 05/29/23 10:05 Last Admin: 05/29/23 08:16 Dose: 999 mls/hr Documented By: VINNY Ceftriaxone Sodium (Rocephin) 2,000 mg in 70 mls @ 140 mls/hr IV NOW STA Stop: 05/29/23 08:34 Last Infusion: 05/29/23 10:24 Dose: 140 mls/hr Documented By: Admin: 05/29/23 08:16 Dose: 140 mls/hr Documented By: VINNY Ioversol (Optiray 320 125ml) 120 ml IV ONCE ONE Stop: 05/29/23 11:22 Last Admin: 05/29/23 11:21 Dose: 120 ml Documented By: DONNA Methylprednisolone (Methylprednisolone 125 Mg/2 Ml Vial) 60 mg IV NOW STA Stop: 05/29/23 09:33 Last Admin: 05/29/23 09:48 Dose: 60 mg Documented By: VINNY Imaging Data Radiologist's Impression: Chest X-Ray 05/29/23 07:34 XR chest 1V portable HISTORY: 67 years-old Male Sepsis acute sepsis COMPARISON: 11/26/2022 TECHNIQUE: AP view of the chest FINDINGS: Cardiomediastinal and hilar silhouettes are within normal limits. No pneumothorax, pleural effusion, airspace consolidation or pulmonary edema. Mild chronic interstitial coarsening. Spondylotic spurring of the spine. IMPRESSION: No acute process. ACT 112: Negative or not required by law. The above report was generated using voice recognition software. It may contain grammatical, syntax or spelling errors. Electronically signed by: Venkata Edwards M.D. 05/29/2023 7:58 AM Chest CTA 05/29/23 10:30 CHEST CTA for PULMONARY ARTERIES CT DOSE: HISTORY: Shortness of breath. TECHNIQUE: Multiaxial CT images of the chest were performed following the intravenous administration of contrast to evaluate the pulmonary arteries. 3D/Ma ximal intensity projection images were also obtained. Sagittal and coronal reformations were also reviewed. A dose lowering technique was utilized adhering to the principles of ALARA. COMPARISON STUDY: CT lung screening 11/26/2022. Chest CTA 08/03/2021. FINDINGS: Normal caliber thoracic aorta with no evidence for a dissection. The heart is borderline enlarged. No pleural or pericardial effusions. Respiratory motion artifact results in nondiagnostic evaluation of the majority of the lingular, right middle lobe, bilateral lower lobe segmental/subsegmental pulmonary emboli. Questionable filling defect seen within the right lower lobe segmental pulmonary emboli are likely due to the motion artifact. The remaining pulmonary arteries are patent. No mediastinal or hilar lymphadenopathy. Limited views the upper abdomen demonstrate normal liver, spleen, and adrenal glands. Normal caliber esophagus. No acute fractures identified. No pneumothorax. The central airways are patent. Emphysema again noted. No new focal lung consolidations to suggest a pneumonia. No evidence for pulmonary edema. Mild peripheral subpleural reticulation persistent could represent mild fibrotic change. A few scattered subcentimeter pulmonary nodules are likely stable but suboptimally assessed due to the motion artifact. IMPRESSION: 1. Suboptimal evaluation of the chest due to the respiratory motion artifact. 2. No evidence for a pulmonary embolus with limitations as described above. 3. Emphysema and mild fibrotic change again noted. No new focal lung consolidations to suggest a pneumonia. 4. A few scattered subcentimeter pulmonary nodules are likely stable. ACT 112: Negative or not required by law. Electronically signed by: Carlos Alberto Howard M.D. 05/29/2023 11:49 AM Discharge Plan Visit Data Chief Complaint: Respiratory Problems Stated Complaint: HARD TO BREATHE ED Provider: Pedro Pablo Mena Discharge Problem: Acute Lyme disease, Fever, Tachycardia, Shortness of breath Forms Stand Alone Forms: My [facility] [address] Prescriptions Prescriptions: No Action rosuvastatin [Crestor] 10 mg tablet 10 mg PO DAILY cholecalciferol (vitamin D3) 1 tab PO DAILY Rx Instructions: Patient not sure of strength Anoro Ellipta 62.5-25 mcg/actuation blister with device 1 ea inhalation DAILY Qty: 60 12RF albuterol sulfate [Ventolin HFA] 90 mcg/actuation HFA aerosol inhaler 1 puff INHALATION DAILY PRN (Reason: Shortness Of Breath) Qty: 8.5 3RF meloxicam 15 mg tablet 15 mg PO DAILY garlic 1,000 mg Capsule 1,000 mg PO DAILY Men's One Daily Tablet 1 tab PO DAILY [facility] 2 cap PO DAILY aspirin [Brian Low Dose Aspirin] 81 mg Tablet,Delayed Release (Dr/Ec) 81 mg PO DAILY Emergen-C 500 mg tablet,chewable 1 tab PO DAILY Rx Instructions: every other day Referrals Referrals: PCP,NO [Physician] -
--- NOTE | 2023-05-29 08:00 | XRay Report ---
XR chest 1V portable HISTORY: 67 years-old Male Sepsis acute sepsis COMPARISON: 11/26/2022 TECHNIQUE: AP view of the chest FINDINGS: Cardiomediastinal and hilar silhouettes are within normal limits. No pneumothorax, pleural effusion, airspace consolidation or pulmonary edema. Mild chronic interstitial coarsening. Spondylotic spurring of the spine. IMPRESSION: No acute process. ACT 112: Negative or not required by law. The above report was generated using voice recognition software. It may contain grammatical, syntax o r spelling errors. Electronically signed by: Venkata Edwards M.D. 05/29/2023 7:58 AM
[2023-05-29] MEDS ORDERED: SODIUM CHLORIDE 0.9% 1000ML 2,000 ML IV ONE (08:05)
[2023-05-29] MEDS ORDERED: cefTRIAXone SODIUM 2,000 MG/70 ML BAG IV STA (08:05)
[2023-05-29 08:15] LABS: Basophils # (auto) 0.03 K/uL (0-0.2); Basophils % (auto) 0.3 %; Hematocrit (blood only) 48.2 % (42.0-52.0); Hemoglobin 16.5 g/dl (14.0-18.0); Immature Granulocytes # (auto) 0.03 K/uL (0.01-0.20); Immature Granulocytes % (auto) 0.3 %; Lymphocytes # (auto) 0.47 K/uL (1.2-3.4); Lymphocytes % (auto) 5.3 %; Mean Corpuscular Hemoglobin 31.4 pg (25.0-34.0); Mean Corpuscular Hgb Conc 34.2 g/dL (32.0-36.0); Mean Corpuscular Volume 91.8 fL (80.0-100.0); Mean Platelet Volume 9.9 fL (9.4-12.4); Monocytes # (auto) 0.43 K/uL (0.11-0.59); Monocytes % (auto) 4.8 %; Neutrophils # (auto) 7.93 K/uL (1.40-6.50); Neutrophils % (auto) 89.3 %; Platelet Count 167 K/uL (130-400); RDW Coefficient of Variation 12.2 % (11.5-14.5); RDW Standard Deviation 41.6 fL (36.4-46.3); Red Blood Count 5.25 M/uL (4.70-6.10); White Blood Count 8.89 K/ul (4.8-10.8)
[2023-05-29 08:30] LABS: Appearance Urine Clear (Clear); Bacteria Urine Automated Negative (Negative); Bilirubin Urine Negative (Negative); Blood Urine Negative (Negative); Color Urine Yellow; Epithelial Cell Urine Auto 0-5 /lpf (0-5); Glucose Urine UA Negative (Negative); Ketones Urine 2+ (Negative); Leukocyte Esterase Urine Trace (Negative); Nitrite Urine Negative (Negative); Protein Urine 1+ (Negative); RBC Urine Automated 0-4 /hpf (0-4); Specific Gravity Urine 1.024 (1.000-1.030); Urobilinogen Urine Negative (Negative); pH Urine 5.5 (4.5-7.5)
[2023-05-29 08:46] LABS: Alanine Aminotransferase 38 U/L (7-52); Albumin Level 4.5 gm/dl (3.4-5.0); Alkaline Phosphatase 80 U/L (34-104); Anion Gap 10 (3-11); BUN Creatinine Ratio 18.3 (10-20); Blood Urea Nitrogen 17 mg/dl (6-23); Calcium 8.9 mg/dl (8.6-10.3); Carbon Dioxide 23 mmol/L (21-32); Chloride 101 mmol/L (98-107); Creatinine Clr Calc Pharmacy 88.1 ml/min; Est GFR (African American) 98.1 ml/min; Est GFR (Non-African American) 84.6 ml/min; Glucose 135 mg/dl (70-99(Fasting)); Sodium 134 mmol/L (136-145); Total Protein 7.5 gm/dl (6.0-8.3); Troponin I High Sensitivity 4.8 pg/ml (0-20)
[2023-05-29 09:17] LABS: Adenovirus PCR Not Detected (NotDetected); Bordetella parapertussis PCR Not Detected (NotDetected); Bordetella pertussis PCR Not Detected (NotDetected); Chlamydia pneumoniae PCR Not Detected (NotDetected); Coronavirus 229E PCR Not Detected (NotDetected); Coronavirus CoV-2 (COVID19)PCR Not Detected (NotDetected); Coronavirus HKU1 PCR Not Detected (NotDetected); Coronavirus NL63 PCR Not Detected (NotDetected); Coronavirus OC43PCR Not Detected (NotDetected); Human Metapneumovirus PCR Not Detected (NotDetected); Influenza A PCR Not Detected (NotDetected); Influenza B PCR Not Detected (NotDetected); Mycoplasma pneumoniae PCR Not Detected (NotDetected); Parainfluenza Virus 1 PCR Not Detected (NotDetected); Parainfluenza Virus 2 PCR Not Detected (NotDetected); Parainfluenza Virus 3 PCR Not Detected (NotDetected); Parainfluenza Virus 4 PCR Not Detected (NotDetected); Respiratory Syncytial VirusPCR Not Detected (NotDetected); Rhinovirus/Enterovirus PCR Not Detected (NotDetected)
[2023-05-29] MEDS ORDERED: ALBUTEROL 0.083% NEBU SOLN 3 ML VIAL NEB STA (09:23)
[2023-05-29] MEDS ORDERED: methylPREDNISolone 125 MG/2 ML VIAL IV STA (09:32)
[2023-05-29 10:04] LABS: Bilirubin Direct 0.2 mg/dl (0-0.2); Potassium 3.9 mmol/L (3.5-5.1)
[2023-05-29 10:24] LABS: INR 1.1 (0.9-1.1); Prothrombin Time 11.9 Seconds (9.0-12.0)
[2023-05-29 10:26] LABS: D Dimer 1240 ug/L FEU (0-500)
[2023-05-29 10:59] LABS: Lyme Ab IgG w/WB Rflx Negative (Negative)
[2023-05-29 11:02] LABS: Lyme Ab IgM w/WB Rflx Equivocal (Negative)
[2023-05-29] MEDS ORDERED: OPTIRAY 320 125ml IV ONE (11:21)
--- NOTE | 2023-05-29 11:50 | CT Scan Report ---
CHEST CTA for PULMONARY ARTERIES CT DOSE: HISTORY: Shortness of breath. TECHNIQUE: Multiaxial CT images of the chest were performed following the intravenous administration of contrast to evaluate the pulmonary arteries. 3D/Maximal intensity projection images were also obta ined. Sagittal and coronal reformations were also reviewed. A dose lowering technique was utilized a dhering to the principles of ALARA. COMPARISON STUDY: CT lung screening 11/26/2022. Chest CTA 08/03/2021. FINDINGS: Normal caliber thoracic aorta with no evidence for a dissection. The heart is borderline en larged. No pleural or pericardial effusions. Respiratory motion artifact results in nondiagnostic urbano luation of the majority of the lingular, right middle lobe, bilateral lower lobe segmental/subsegment al pulmonary emboli. Questionable filling defect seen within the right lower lobe segmental pulmonary emboli are likely due to the motion artifact. The remaining pulmonary arteries are patent. No medias tinal or hilar lymphadenopathy. Limited views the upper abdomen demonstrate normal liver, spleen, and adrenal glands. Normal caliber esophagus. No acute fractures identified. No pneumothorax. The centra l airways are patent. Emphysema again noted. No new focal lung consolidations to suggest a pneumonia. No evidence for pulmonary edema. Mild peripheral subpleural reticulation persistent could represent mild fibrotic change. A few scattered subcentimeter pulmonary nodules are likely stable but suboptima lly assessed due to the motion artifact. IMPRESSION: 1. Suboptimal evaluation of the chest due to the respiratory motion artifact. 2. No evidence for a pulmonary embolus with limitations as described above. 3. Emphysema and mild fibrotic change again noted. No new focal lung consolidations to suggest a pneu monia. 4. A few scattered subcentimeter pulmonary nodules are likely stable. ACT 112: Negative or not required by law. Electronically signed by: Carlos Alberto Howard M.D. 05/29/2023 11:49 AM
--- NOTE | 2023-05-29 12:22 | Electrocardiogram Report ---
Test Reason : Blood Pressure : / mmHG Vent. Rate : 119 BPM Atrial Rate : 119 BPM P-R Int : 164 ms QRS Dur : 072 ms QT Int : 300 ms P-R-T Axes : 042 031 -29 degrees QTc Int : 422 ms Sinus tachycardia Possible Left atrial enlargement Nonspecific T wave abnormality Abnormal ECG When compared with ECG of 19-JUL-2021 09:49, Non-specific change in ST segment in Inferior leads ST no longer elevated in Lateral leads Confirmed by Gregg Vallecillo ([id number]) on 05/29/2023 12:22:42 PM Referred By: REFERRED SELF Confirmed By:Andrea Vallecillo
[2023-05-29] MEDS ORDERED: ACETAMINOPHEN 1,000 MG/100 ML VIAL IV STA (12:41)
[2023-05-29] MEDS ORDERED: DOXYCYCLINE HYCLATE 100 MG in DEXTROSE 5% 100 ML IV STA (12:44)
--- NOTE | 2023-05-29 12:50 | History & Physical Report ---
Date of Service May 29, 2023 Assessment & Plan (1) SIRS (systemic inflammatory response syndrome): (2) Hypoxia: (3) Shortness of breath: (4) Acute Lyme disease: (5) COPD with emphysema: (6) ILD (interstitial lung disease): (7) HLD (hyperlipidemia): Plan This is a 67-year-old male who has significant past medical history of interstitial lung disease, restrictive lung disease, COPD, ex-smoker, hyperlipidemia and history of COVID-19 pneumonia who presents to ED secondary to shortness of breath x2 days. Hypoxia - transient/resolved SOB Known ILD, RLD and COPD admit to tele pt presented with SOB, hypoxia 89-90% which has resolved since albuterol neb tx and solumedrol pt w/o other respiratory complaint and feels improved, biofire panel negative feel SOB/transient hypoxia likely 2/2 bronchospasm in relation to environmental triggers with humidity, grass mowing and intermittent noncompliance with anoro CTA negative for PE or PNA will tx with pred 40mg daily x 5 days empirically, incentive spirometry and peak flow continue anoro, prn duoneb SIRS Acute Lyme disease pt with tachycardia and temp of 100.4 during my eval blood cultures pending, equivocal lyme, western blot pending continue 2g IV ceftriaxone and oral doxy 100mg bid for now until cultures returned his lactic acid is normal and he received 2L of Fluid, he appears resuscitated at this time Elevated D-Dimer CTA negative for PE pt c/o throbbing RUE, no signs of warmth, redness or swelling will obtain upper/lower ext dopplers r/o DVTs HLD continue statin Dvt ppx: SQ Lovenox Dispo: admit to tele for infectious work up in setting of SIRS FULL CODE PCP: Pauline Martin Pt was seen and examined in collaboration with Dr. Beltrán, please see addendum A total of 80 was spent coordinating, documenting, and providing care for this patient excluding time spent in the performance of separately billed services. This included personally viewing all current laboratories and imaging studies, medication reconciliation, outpatient chart review, and discussion with specialists. History of Present Illness Chief Complaint: SOB x 2 days. Primary Care Provider: Betty Martin, This is a 67-year-old male who has significant past medical history of interstitial lung disease, restrictive lung disease, COPD, ex-smoker, hyperlipidemia and history of COVID-19 pneumonia who presents to ED secondary to shortness of breath x2 days. Patient's is at bedside. Up until the past 2 days he has been in a good state of health. Over the last 2 days he had noted getting increasingly more short of breath with exertion and at rest. Last night he was unable to sleep due to being short of breath. His took his pulse ox and it was 89%. He did take albuterol at home with mild relief. He also states having chills, sweats and feeling feverish. He did mow the grass last evening and feels the shortness of breath got worse after that. He also tends to have difficulty with breathing in relation to humidity. He follows [facility] pulmonology in regards to his restrictive lung disease. He has been following on a yearly basis. He is prescribed Riley daily but does admit to not always being compliant with it. Due to worsening shortness of breath he opted to present to ED. He does admit to having fever as took his temperature and it was 100.4. He currently feels sweaty at the moment. He denies any other respiratory symptoms including cough, current wheezing, sinus congestion, postnasal drip, chest pain, hemoptysis, nausea, vomiting, abdominal pain, dysuria, increased urgency or frequency with urination, change in bowel habits. He denies orthopnea or lower ext edema. He has had a throbbing pain in his right arm but denies any redness or swelling. He denies target lesion/rash. He does have chronic arthralgias but nothing worse than baseline. In ED patient was slightly hypoxic requiring 2 L of oxygen. He did receive an albuterol nebulizer treatment as well as 60 mg of IV Solu-Medrol. From a respiratory standpoint he does feel much improved although he does still feel feverish. His D-dimer was elevated in ED and therefore a CTA was pursued which was negative for PE and pneumonia did reveal stable pulmonary nodules. His initial Lyme titer was equivocal and therefore he was started on IV Rocephin. Patient does meet SIRS criteria in setting of fever and tachycardia. He did receive 2 g IV ceftriaxone. Allergies Allergy/AdvReac Type Severity Reaction Status Date / Time naproxen [From Naprosyn] Allergy Intermediate Rash Unverified 12/18/22 15:36 atorvastatin [From Lipitor] Allergy Unknown Verified 12/18/22 15:36 house dust Allergy Unknown Verified 12/18/22 15:36 lactose AdvReac Mild Gastrointestinal Verified 12/18/22 15:36 Upset Home Medications Medication Instructions Recorded Confirmed Type aspirin 81 mg tablet,delayed 81 mg PO DAILY 07/17/21 05/29/23 History release (Brian Low Dose Aspirin) rosuvastatin 10 mg tablet (Crestor) 10 mg PO DAILY 09/27/21 05/29/23 History albuterol sulfate 90 mcg/actuation 1 puff inhalation DAILY PRN 01/14/22 05/29/23 Rx aerosol inhaler (Ventolin HFA) Shortness Of Breath #8.5 grams cholecalciferol (vitamin D3) 1 tab PO DAILY 12/18/22 05/29/23 History vitamin C 500 mg-multivitamin with 1 tab PO DAILY 12/18/22 05/29/23 History minerals chewable tablet (Emergen-C) umeclidinium 62.5 mcg-vilanterol 1 ea inhalation DAILY #60 ea 12/19/22 05/29/23 Rx 25 mcg/actuation powdr for inhalation (Anoro Ellipta) [facility] 2 cap PO DAILY 05/29/23 05/29/23 History garlic 1,000 mg capsule 1,000 mg PO DAILY 05/29/23 05/29/23 History meloxicam 15 mg tablet 15 mg PO DAILY 05/29/23 05/29/23 History multivitamin with minerals 1 tab PO DAILY 05/29/23 05/29/23 History Past Med/Surg History Medical History (Updated 05/29/23 @ 12:57 by Peyton Barney PA-C) Acute respiratory alkalosis Acute respiratory failure with hypoxia COPD with emphysema DVT prophylaxis HLD (hyperlipidemia) HTN (hypertension) Hyponatremia Hypoxia Obesity Orthostatic hypotension Pneumonia due to COVID-19 virus Pulmonary nodule Rheumatoid factor positive Transaminitis Surgical History History of tooth extraction Family History Father Coronary heart disease Mother No problems noted. Social History Smoking Status: Former smoker Age Quit Using Tobacco: 50; packs per day: 1; Cigarettes Per Day: 2.5 pack; Second Hand Exposure: No; Do You Dip or Chew Tobacco: No; Hx Alcohol Use: Yes Alcohol type: wine Hx Substance Use: No Preferred Language: Albanian Communication Ability: Effective Emergency Medical Services Coordinator Required: No Beliefs That Will Affect Care: None marital status: Current Living Situation: Spouse Current Living Situation Comment: in 1 story house Feels Safe at Home: Yes Safety Concerns: Feels Safe At This Time Assistive Devices: None Review of Systems Review of Systems: All systems reviewed & are unremarkable except as noted in HPI & below Physical Exam Physical Exam: Constitutional: WD/WN, vitals as above, NAD, sitting up in bed, pleasant, conversing easily Head: Normocephalic, Atraumatic Eyes: PERRL, conjunctivae normal, anicteric sclerae ENMT: external ear and nose normal, oropharynx normal Neck: trachea midline, no thyromegaly normal visual inspection Respiratory: normal respiratory effort, lungs clear to auscultation, no wheeze, rales, rhonchi. Normal insp/exp effort, no accessory muscle use Cardiovascular: RRR, no murmur, no edema Vessels: no JVD or carotid bruit Chest: normal inspection of chest Abdomen: normal bowel sounds, protuberant abd, soft, nontender, no hepatosplenomegaly Musculoskeletal: no cyanosis or clubbing, extremities motor strength 5/5 Skin: no rashes, warm and dry normal turgor Neurologic: PERRL, EOMI, accommodation nl, no face palsy, no dysarthria CN's II-XI intact bilaterally and moves all extremities Psychiatric: A+Ox3, euthymic affect Lymphatic: no cervical or axillary lymphadenopathy : deferred Results & Data Results & Data Vital Signs (Past 12 Hours) Vital Signs Temp Pulse Pulse Resp BP BP Pulse Ox 05/29/23 12:41 118 H 05/29/23 11:26 96 H 18 96 05/29/23 10:15 95 H 18 162/102 H 95 05/29/23 10:06 92 H 20 160/98 H 94 05/29/23 09:55 117 H 20 94 05/29/23 09:55 118 H 20 117/83 94 05/29/23 09:28 117 H 22 193/114 H 90 05/29/23 08:20 118 H 05/29/23 08:03 123 H 22 164/72 H 93 05/29/23 08:03 123 H 22 93 05/29/23 07:56 123 H 22 164/98 H 93 05/29/23 07:56 05/29/23 07:56 05/29/23 07:29 37.5 C 128 H 22 166/88 H 95 O2 Del Method O2 Flow Rate 05/29/23 12:41 05/29/23 11:26 Nasal Cannula 2 05/29/23 10:15 Nasal Cannula 2 05/29/23 10:06 Nasal Cannula 05/29/23 09:55 Nasal Cannula 2 05/29/23 09:55 Nasal Cannula 2 05/29/23 09:28 Room Air 05/29/23 08:20 05/29/23 08:03 Room Air 05/29/23 08:03 Room Air 05/29/23 07:56 Room Air 05/29/23 07:56 Room Air 05/29/23 07:56 Room Air 05/29/23 07:29 Room Air Diagnostic Findings Chest X-Ray 05/29/23 07:34 XR chest 1V portable HISTORY: 67 years-old Male Sepsis acute sepsis COMPARISON: 11/26/2022 TECHNIQUE: AP view of the chest FINDINGS: Cardiomediastinal and hilar silhouettes are within normal limits. No pneumothorax, pleural effusion, airspace consolidation or pulmonary edema. Mild chronic interstitial coarsening. Spondylotic spurring of the spine. IMPRESSION: No acute process. ACT 112: Negative or not required by law. The above report was generated using voice recognition software. It may contain grammatical, syntax or spelling errors. Electronically signed by: Venkata Edwards M.D. 05/29/2023 7:58 AM Chest CTA 05/29/23 10:30 CHEST CTA for PULMONARY ARTERIES CT DOSE: HISTORY: Shortness of breath. TECHNIQUE: Multiaxial CT images of the chest were performed following the intravenous administration of contrast to evaluate the pulmonary arteries. 3D/Maximal intensity projection images were also obtained. Sagittal and coronal reformations were also reviewed. A dose lowering technique was utilized adhering to the principles of ALARA. COMPARISON STUDY: CT lung screening 11/26/2022. Chest CTA 08/03/2021. FINDINGS: Normal caliber thoracic aorta with no evidence for a dissection. The heart is borderline enlarged. No pleural or pericardial effusions. Respiratory motion artifact results in nondiagnostic evaluation of the majority of the lingular, right middle lobe, bilateral lower lobe segmental/subsegmental pulmonary emboli. Questionable filling defect seen within the right lower lobe segmental pulmonary emboli are likely due to the motion artifact. The remaining pulmonary arteries are patent. No mediastinal or hilar lymphadenopathy. Limited views the upper abdomen demonstrate normal liver, spleen, and adrenal glands. Normal caliber esophagus. No acute fractures identified. No pneumothorax. The central airways are patent. Emphysema again noted. No new focal lung consolidations to suggest a pneumonia. No evidence for pulmonary edema. Mild peripheral subpleural reticulation persistent could represent mild fibrotic change. A few scattered subcentimeter pulmonary nodules are likely stable but suboptimally assessed due to the motion artifact. IMPRESSION: 1. Suboptimal evaluation of the chest due to the respiratory motion artifact. 2. No evidence for a pulmonary embolus with limitations as described above. 3. Emphysema and mild fibrotic change again noted. No new focal lung consolidations to suggest a pneumonia. 4. A few scattered subcentimeter pulmonary nodules are likely stable. ACT 112: Negative or not required by law. Electronically signed by: Carlos Alberto Howard M.D. 05/29/2023 11:49 AM Medications Administered Medication List Discontinued Medications Albuterol (Albuterol 0.083% Nebu Soln 3 Ml Vial) 2.5 mg NEB NOW STA; Protocol Stop: 05/29/23 09:24 Last Admin: 05/29/23 09:49 Dose: 2.5 mg Documented By: VINNY Sodium Chloride (Nss 1000ml) 2,000 mls @ 999 mls/hr IV .Q2H1M ONE Stop: 05/29/23 10:05 Last Admin: 05/29/23 08:16 Dose: 999 mls/hr Documented By: VINNY Ceftriaxone Sodium (Rocephin) 2,000 mg in 70 mls @ 140 mls/hr IV NOW STA Stop: 05/29/23 08:34 Last Infusion: 05/29/23 10:24 Dose: 140 mls/hr Documented By: Admin: 05/29/23 08:16 Dose: 140 mls/hr Documented By: VINNY Ioversol (Optiray 320 125ml) 120 ml IV ONCE ONE Stop: 05/29/23 11:22 Last Admin: 05/29/23 11:21 Dose: 120 ml Documented By: DONNA Methylprednisolone (Methylprednisolone 125 Mg/2 Ml Vial) 60 mg IV NOW STA Stop: 05/29/23 09:33 Last Admin: 05/29/23 09:48 Dose: 60 mg Documented By: VINNY ECG Rate (beats per minute): 119 Rhythm: sinus tachycardia Additional Comments: nonspecific st in inferior leads COVID-19 Results Results COVID-19 Adm Lab Results: RBC 5.25 M/uL (4.70-6.10) 05/29/23 WBC 8.89 K/ul (4.8-10.8) 05/29/23 Hgb 16.5 g/dl (14.0-18.0) 05/29/23 Hct 48.2 % (42.0-52.0) 05/29/23 Plt Count 167 K/uL (130-400) 05/29/23 Neutrophils (%) (Auto) 89.3 % 05/29/23 Lymphocytes (%) (Auto) 5.3 % 05/29/23 Monocytes # (Auto) 0.43 K/uL (0.11-0.59) 05/29/23 Eosinophils # (Auto) 0.00 K/uL (0-0.50) 05/29/23 Immature Granulocyte % (Auto) 0.3 % 05/29/23 Neutrophils # (Auto) 7.93 K/uL (1.40-6.50) H 05/29/23 Lymphocytes # (Auto) 0.47 K/uL (1.2-3.4) L 05/29/23 Monocytes # (Auto) 0.43 K/uL (0.11-0.59) 05/29/23 Eosinophils # (Auto) 0.00 K/uL (0-0.50) 05/29/23 Basophils # (Auto) 0.03 K/uL (0-0.2) 05/29/23 Immature Granulocyte # (Auto) 0.03 K/uL (0.01-0.20) 3 Na 134 mmol/L (136-145) L 05/29/23 K 3.9 mmol/L (3.5-5.1) 05/29/23 Cl 101 mmol/L (98-107) 05/29/23 CO2 23 mmol/L (21-32) 05/29/23 Anion Gap 10 (3-11) 05/29/23 BUN 17 mg/dl (6-23) 05/29/23 Creatinine 0.93 mg/dl (0.6-1.4) 05/29/23 BUN/Creatinine Ratio 18.3 (10-20) 05/29/23 Glucose Level 135 mg/dl (70-99(Fasting)) H 05/29/23 Ca 8.9 mg/dl (8.6-10.3) 05/29/23 Total Bilirubin 1.0 mg/dl (0.2-1.0) 05/29/23 Direct Bilirubin 0.2 mg/dl (0-0.2) 05/29/23 AST/SGOT 27 U/L (13-39) 05/29/23 ALT/SGPT 38 U/L (7-52) 05/29/23 Alkaline Phosphatase 80 U/L (34-104) 05/29/23 Total Protein 7.5 gm/dl (6.0-8.3) 05/29/23 Albumin 4.5 gm/dl (3.4-5.0) 05/29/23 Procalcitonin 1.09 ng/ml (0-0.5) H 05/29/23 D-Dimer 1240 ug/L FEU (0-500) H* 05/29/23 INR 1.1 (0.9-1.1) 05/29/23 Adenovirus (PCR) Not Detected (NotDetected) 05/29/23 B. parapertussis DNA (PCR) Not Detected (NotDetected) 05/17 02/06 B. pertussis DNA (PCR) Not Detected (NotDetected) 05/29/23 C. pneumoniae DNA (PCR) Not Detected (NotDetected) 3 Coronavirus Type OC43 (PCR) Not Detected (NotDetected) Coronavirus Type HKU1 (PCR) Not Detected (NotDetected) Coronavirus Type 229E (PCR) Not Detected (NotDetected) COVID-19 PCR Not Detected (NotDetected) 05/29/23 Coronavirus Type NL63 (PCR) Not Detected (NotDetected) Human Metapneumovirus (PCR) Not Detected (NotDetected) Influenza Virus Type A (PCR) Not Detected (NotDetected) Influenza Virus Type B (PCR) Not Detected (NotDetected) M. pneumoniae (PCR) Not Detected (NotDetected) 05/29/23 Parainfluenza Type 1 (PCR) Not Detected (NotDetected) 05/17 02/06 Parainfluenza Type 2 (PCR) Not Detected (NotDetected) 05/17 02/06 Parainfluenza Type 3 (PCR) Not Detected (NotDetected) 05/17 02/06 Parainfluenza Type 4 (PCR) Not Detected (NotDetected) 05/17 02/06 RSV (PCR) Not Detected (NotDetected) 05/29/23 Enterovirus/Rhinovirus (PCR) Not Detected (NotDetected) Chest X-Ray 05/29/23 Code Status & VTE Plan Code Status FULL CODE VTE Prophylaxis Plan VTE Prophylaxis will be ordered: Yes Supervising Physician Co-Signing Physician Notes I have seen and examined the patient and have discussed the case with the provider above. I agree with the assessment and plan as stated with the follow ing exceptions. 67 yo man with h/o COPD presented with shortness of breath x 2 days. He reports feeling intolerant of the humidity. He states he has always done yard work without much issue. After treatment in the ER, including solumedrol and albuterol nebulizer, his breathing is improved and he is not requiring oxygen. He reports yesterday having shaking chills and feeling malaise, causing him to stay home while others in his libertarian went to [facility]. Today he notes drenching sweats and fever. He reports having periodic numbness in different places since covid. He does have a bug bit on his ankle from two weeks ago. On exam BP is 156/78 with HR 98. He is not demonstrating any increased work of breathing and is oxygenating 93% on room air. Overall my exam is consistent with that above aside from cool, wet skin. His lungs were clear to auscultation throughout. Cardiac exam revealed reg rate and rhythm with S1/2 heard without murmurs. No edema was present and he examined as euvolemic. A full skin exam was performed and he had a small scabbed over bite with min surrounding erythema on his lower left ankle. Lyme panel is equivocal with western blot pending. CBC is within normal limits. D dimer 1240, chem panel is WNL. Procal 1.09, chest CT without pneumonia, PE. Mild fibrotic changes and emphysema was noted with a few scattered pulmonary nodules. 1. SIRS 2/2 possible acute lyme disease 2. Hypoxia and shortness of breath likely related to SIRS in setting of chronic lung disease 3. COPD without exacerbation 4. Interstitial lung disease Agree with plan above to continue Rocephin and doxycycline pending clinical improvement and culture/WB results. Possible developing sepsis picture 2/2 Lyme given recent bug bite two weeks ago and symptoms consistent with a rickettsial illness. Transient hypoxia likely related to SIRS/sepsis process and is improved with minimal treatment and no residual wheezing noted with patient feeling breathing is closer to baseline. CT and lack of respiratory symptoms also support this to be more of a systemic response issue as opposed to a localized lung infection. Consider stopping steroids after 1-2 days if he remains improved. DO Jerel
--- NOTE | 2023-05-29 15:54 | Ultrasound Report ---
RIGHT UPPER EXTREMITY VENOUS DOPPLER HISTORY: Shortness of breath. Right arm swelling. COMPARISON STUDY: None. FINDINGS: The right internal jugular vein is patent. There is normal flow within the right subclavian vein. There is normal flow and compressibility within the right axillary, basilic, brachial, radial, ulnar, and visualized cephalic veins. IMPRESSION: No DVT within the right upper extremity. ACT 112: Negative or not required by law. Electronically signed by: Carlos Alberto Howard M.D. 05/29/2023 3:52 PM
--- NOTE | 2023-05-29 16:02 | Ultrasound Report ---
BILATERAL LOWER EXTREMITY VENOUS DOPPLER HISTORY: Acute pain with soft tissue swelling of the lower legs r/o dvt COMPARISON STUDY: None. FINDINGS: There is normal compressibility, flow, and augmentation within the bilateral lower extremit y deep venous systems. IMPRESSION: No DVT within the right or left lower extremity. ACT 112: Negative or not required by law. Electronically signed by: Venkata Edwards M.D. 05/29/2023 4:01 PM
[2023-05-29] MEDS ORDERED: ALBUT/IPRATROP 3MG/0.5MG NEB 3 ML VIAL NEB PRN (16:33)
[2023-05-29] MEDS ORDERED: ACETAMINOPHEN 325 MG TAB PO PRN (16:33)
[2023-05-29] MEDS ORDERED: ALUMINUM/MAGNESIUM SUSP 30 ML UDC PO PRN (16:33)
[2023-05-29] MEDS ORDERED: POLYETHYLENE (MIRALAX) 17 GM PACK PO PRN (16:33)
[2023-05-29] MEDS ORDERED: MAGNESIUM HYDROXIDE SUSP 30 ML UDC PO PRN (16:33)
[2023-05-29] MEDS ORDERED: ONDANSETRON INJ 2 MG/ML 2 ML VIAL IV PRN (16:33)
[2023-05-29] MEDS: ASPIRIN 81 MG ECTAB PO SCH (17:40)
[2023-05-29] MEDS: predniSONE 20 MG TAB PO SCH (17:40)
[2023-05-29] MEDS: UMECLIDINIUM/VILANTEROL 62.5/25MCG 7 PUFFS/INHALER INH SCH (18:59)
[2023-05-29] MEDS: DOXYCYCLINE HYCLATE 100 MG CAP PO SCH (20:35)
[2023-05-29] MEDS ORDERED: ENOXAPARIN INJ 40 MG/0.4 ML SYR SQ SCH (21:00)
[2023-05-30 07:28] LABS: Basophils # (auto) 0.01 K/uL (0-0.2); Basophils % (auto) 0.1 %; Hematocrit (blood only) 42.5 % (42.0-52.0); Hemoglobin 14.8 g/dl (14.0-18.0); Immature Granulocytes # (auto) 0.05 K/uL (0.01-0.20); Immature Granulocytes % (auto) 0.4 %; Lymphocytes # (auto) 0.84 K/uL (1.2-3.4); Lymphocytes % (auto) 6.4 %; Mean Corpuscular Hemoglobin 31.3 pg (25.0-34.0); Mean Corpuscular Hgb Conc 34.8 g/dL (32.0-36.0); Mean Corpuscular Volume 89.9 fL (80.0-100.0); Mean Platelet Volume 9.9 fL (9.4-12.4); Monocytes # (auto) 0.85 K/uL (0.11-0.59); Monocytes % (auto) 6.4 %; Neutrophils # (auto) 11.45 K/uL (1.40-6.50); Neutrophils % (auto) 86.7 %; Platelet Count 156 K/uL (130-400); RDW Coefficient of Variation 12.1 % (11.5-14.5); RDW Standard Deviation 40.2 fL (36.4-46.3); Red Blood Count 4.73 M/uL (4.70-6.10)
[2023-05-30 07:45] LABS: Albumin Globulin Ratio 1.3 (0.9-2); BUN Creatinine Ratio 29.7 (10-20); Bilirubin,Total 0.8 mg/dl (0.2-1.0); Calcium 8.7 mg/dl (8.6-10.3); Creatinine Clr Calc Pharmacy 113.9 ml/min; Est GFR (African American) 110.6 ml/min; Est GFR (Non-African American) 95.4 ml/min; Globulin 3.1 gm/dl (2.5-4.0); Magnesium 2.2 mg/dl (1.7-2.4); Potassium 4.2 mmol/L (3.5-5.1); Total Protein 7.1 gm/dl (6.0-8.3)
[2023-05-30] MEDS: predniSONE 20 MG TAB PO SCH (08:11)
[2023-05-30] MEDS: DOXYCYCLINE HYCLATE 100 MG CAP PO SCH (08:11)
[2023-05-30] MEDS: UMECLIDINIUM/VILANTEROL 62.5/25MCG 7 PUFFS/INHALER INH SCH (08:12)
[2023-05-30] MEDS: ASPIRIN 81 MG ECTAB PO SCH (08:12)
[2023-05-30] MEDS ORDERED: NON-FORMULARY MEDICATION (Cholecalciferol (Vitamin D3) 1 TAB) PO SCH (09:00)
[2023-05-30] MEDS ORDERED: CEROVITE ADV FORMULA TAB PO SCH (09:00)
[2023-05-30] MEDS ORDERED: cefTRIAXone SODIUM 2,000 MG in DEXTROSE 5% 50 ML IV SCH (09:00)
[2023-05-30] MEDS ORDERED: ROSUVASTATIN CALCIUM 10 MG TAB PO SCH (09:00)
[2023-05-30] MEDS ORDERED: MELOXICAM 7.5 MG TAB PO SCH (09:00)
--- NOTE | 2023-05-30 12:24 | Hospitalist Progress Note ---
Date of Service May 30, 2023 Assessment & Plan (1) SIRS (systemic inflammatory response syndrome): (2) Hypoxia: (3) Shortness of breath: (4) Acute Lyme disease: (5) COPD with emphysema: (6) ILD (interstitial lung disease): (7) HLD (hyperlipidemia): Plan Patient is a 67-year-old male who has significant past medical history of interstitial lung disease, restrictive lung disease, COPD, ex-smoker, hyperlipidemia and history of COVID-19 pneumonia who presents to ED secondary to shortness of breath x2 days. Hypoxia - transient/resolved SOB likely multifactorial: due ot ILD, RLD and COPD Pt presented with SOB, hypoxia 89-90% which has resolved since albuterol neb tx and solumedrol -Biofire:Negative -CTA:Suboptimal evaluation of the chest due to the respiratory motion artifact. No evidence for a pulmonary embolus with limitations as described above. Emphyse ma and mild fibrotic change again noted. No new focal lung consolidations to suggest a pneumonia. A few scattered subcentimeter pulmonary nodules are likely stable. -- Continue p.o. prednisone for now Pulmonary hygiene with incentive spirometer, flutter Continue home inhalers DuoNebs as needed Dyspnea resolved Saturating well on room Advised to follow-up with pulmonology as outpatient SIRS Possible Acute Lyme disease Lyme Serology: Equivocal IgM, IgG antibody negative. Western blot pending Blood cultures: Negative to date Empirically started on ceftriaxone, doxycycline Normal lactate levels Received IV fluids Patient refuses to continue to be hospitalized despite explaining the risks and complications of being untreated appropriately. He understands the risks and complications and agrees to continue doxycycline until final Lyme serology results and follow-up with PCP for further management. Plan to continue doxycycline upon discharge Elevated D-Dimer CTA negative for PE Venous doppler:No DVT within the right or left lower extremity. No DVT within the right upper extremity. will obtain upper/lower ext dopplers r/o DVTs Hypertension Previously on Lisinopril Currently not on any medications Started on lisinopril 5 mg daily Monitor BP HLD continue statin DVT Px: SQ Lovenox Code Status FULL CODE Admission and Anticipated Discharge Date Admission Date: May 29, 2023 Subjective Patient is seen and examined at bedside States feeling well today Denies any shortness of breath, dizziness, nausea, vomiting, chest pain, abdominal pain Prefers to be discharge home today Blood pressure elevated slightly Review of Systems Review of Systems: All systems reviewed & are unremarkable except as noted in Subjective Physical Exam Physical Exam: Physical Exam: Vitals signs as noted above General Appearance:Moderately built and nourished, no apparent distress Head: normocephalic, Atraumatic Eyes: normal inspection, EOMI Neck: supple, Trachea midline Respiratory/Chest: Decreased breath sounds, CTA, No accessory muscle use Cardiovascular: S1, S2, No murmur Abdomen/GI:Soft, Non tender, Bowel sounds present Extremities/Musculoskeletal:normal inspection, 1+ edema Neurologic/Psych:AAOX3, grossly no focal neurological deficits Skin: normal color, warm Results & Data Results & Data Vital Signs (Past 12 Hours) Vital Signs Temp Pulse Pulse Resp BP Pulse Ox O2 Del Method 05/30/23 07:15 72 05/30/23 10:15 Room Air 05/30/23 07:33 36.4 C L 75 18 152/88 H Room Air 05/30/23 02:36 80 18 140/76 94 Room Air Laboratory Results Short CBC 05/30/23 Range/Units 06:56 WBC 13.20 H (4.8-10.8) K/ul Hgb 14.8 (14.0-18.0) g/dl Hct 42.5 (42.0-52.0) % Plt Count 156 (130-400) K/uL BMP 05/30/23 06:56 Sodium 138 Potassium 4.2 Chloride 108 H Carbon Dioxide 23 BUN 22 Creatinine 0.74 Glucose 147 H Calcium 8.7 Liver Function 05/30/23 Range/Units 06:56 Total Bilirubin 0.8 (0.2-1.0) mg/dl AST 31 (13-39) U/L ALT 42 (7-52) U/L Alkaline Phosphatase 64 (34-104) U/L Albumin 4.0 (3.4-5.0) gm/dl
[2023-05-30] MEDS ORDERED: lisinopril 5 MG TAB PO ONE (12:25)
--- NOTE | 2023-05-30 13:01 | Discharge Summary ---
Date of Service May 30, 2023 Admission HPI Per Admitting Provider This is a 67-year-old male who has significant past medical history of interstitial lung disease, restrictive lung disease, COPD, ex-smoker, hyperlipidemia and history of COVID-19 pneumonia who presents to ED secondary to shortness of breath x2 days. Patient's is at bedside. Up until the past 2 days he has been in a good state of health. Over the last 2 days he had noted getting increasingly more short of breath with exertion and at rest. Last night he was unable to sleep due to being short of breath. His took his pulse ox and it was 89%. He did take albuterol at home with mild relief. He also states having chills, sweats and feeling feverish. He did mow the grass last evening and feels the shortness of breath got worse after that. He also tends to have difficulty with breathing in relation to humidity. He follows [facility] pulmonology in regards to his restrictive lung disease. He has been following on a yearly basis. He is prescribed [place] daily but does admit to not always being compliant with it. Due to worsening shortness of breath he opted to present to ED. He does admit to having fever as took his temperature and it was 100.4. He currently feels sweaty at the moment. He denies any other respiratory symptoms including cough, current wheezing, sinus congestion, postnasal drip, chest pain, hemoptysis, nausea, vomiting, abdominal pain, dysuria, increased urgency or frequency with urination, change in bowel habits. He denies orthopnea or lower ext edema. He has had a throbbing pain in his right arm but denies any redness or swelling. He denies target lesion/rash. He does have chronic arthralgias but nothing worse than baseline. In ED patient was slightly hypoxic requiring 2 L of oxygen. He did receive an albuterol nebulizer treatment as well as 60 mg of IV Solu-Medrol. From a respiratory standpoint he does feel much improved although he does still feel feverish. His D-dimer was elevated in ED and therefore a CTA was pursued which was negative for PE and pneumonia did reveal stable pulmonary nodules. His initial Lyme titer was equivocal and therefore he was started on IV Rocephin. Patient does meet SIRS criteria in setting of fever and tachycardia. He did receive 2 g IV ceftriaxone. Admission Exam Per Admitting Provider Constitutional: WD/WN, vitals as above, NAD, sitting up in bed, pleasant, conversing easily Head: Normocephalic, Atraumatic Eyes: PERRL, conjunctivae normal, anicteric sclerae ENMT: external ear and nose normal, oropharynx normal Neck: trachea midline, no thyromegaly normal visual inspection Respiratory: normal respiratory effort, lungs clear to auscultation, no wheeze, rales, rhonchi. Normal insp/exp effort, no accessory muscle use Cardiovascular: RRR, no murmur, no edema Vessels: no JVD or carotid bruit Chest: normal inspection of chest Abdomen: normal bowel sounds, protuberant abd, soft, nontender, no hepa tosplenomegaly Musculoskeletal: no cyanosis or clubbing, extremities motor strength 5/5 Skin: no rashes, warm and dry normal turgor Neurologic: PERRL, EOMI, accommodation nl, no face palsy, no dysarthria CN's II-XI intact bilaterally and moves all extremities Psychiatric: A+Ox3, euthymic affect Lymphatic: no cervical or axillary lymphadenopathy : deferred Principal Diagnosis Suspected acute Lyme's disease Transient hypoxia Hypertension Discharge Data Allergies Allergy/AdvReac Type Severity Reaction Status Date / Time naproxen [From Naprosyn] Allergy Intermediate Rash Unverified 12/18/22 15:36 atorvastatin [From Lipitor] Allergy Unknown Verified 12/18/22 15:36 house dust Allergy Unknown Verified 12/18/22 15:36 lactose AdvReac Mild Gastrointestinal Verified 12/18/22 15:36 Upset Consultations 05/29/23 11:45 ED Decision to Admit Stat Procedures Performed Laboratory Results WBC 13.20 K/ul (4.8-10.8) H 05/30/23 06:56 RBC 4.73 M/uL (4.70-6.10) 05/30/23 06:56 Hgb 14.8 g/dl (14.0-18.0) 05/30/23 06:56 Hct 42.5 % (42.0-52.0) 05/30/23 06:56 MCV 89.9 fL (80.0-100.0) 05/30/23 06:56 MCH 31.3 pg (25.0-34.0) 05/30/23 06:56 MCHC 34.8 g/dL (32.0-36.0) 05/30/23 06:56 RDW Std Deviation 40.2 fL (36.4-46.3) 05/30/23 06:56 RDW Coeff of Veronica 12.1 % (11.5-14.5) 05/30/23 06:56 Plt Count 156 K/uL (130-400) 05/30/23 06:56 MPV 9.9 fL (9.4-12.4) 05/30/23 06:56 Immature Gran % (Auto) 0.4 % 05/30/23 06:56 Neut % (Auto) 86.7 % 05/30/23 06:56 Lymph % (Auto) 6.4 % 05/30/23 06:56 [place] % (Auto) 6.4 % 05/30/23 06:56 Eos % (Auto) 0.0 % 05/30/23 06:56 Baso % (Auto) 0.1 % 05/30/23 06:56 Neut # (Auto) 11.45 K/uL (1.40-6.50) H 05/30/23 06:56 Lymph # (Auto) 0.84 K/uL (1.2-3.4) L 05/30/23 06:56 [place] # (Auto) 0.85 K/uL (0.11-0.59) H 05/30/23 06:56 Eos # (Auto) 0.00 K/uL (0-0.50) 05/30/23 06:56 Baso # (Auto) 0.01 K/uL (0-0.2) 05/30/23 06:56 Immature Gran # (Auto) 0.05 K/uL (0.01-0.20) 05/30/23 06:56 PT 11.9 Seconds (9.0-12.0) 05/29/23 09:10 INR 1.1 (0.9-1.1) 05/29/23 09:10 D-Dimer 1240 ug/L FEU (0-500) H* 05/29/23 09:10 Sodium 138 mmol/L (136-145) 05/30/23 06:56 Potassium 4.2 mmol/L (3.5-5.1) 05/30/23 06:56 Chloride 108 mmol/L (98-107) H 05/30/23 06:56 Carbon Dioxide 23 mmol/L (21-32) 05/30/23 06:56 Anion Gap 7 (3-11) 05/30/23 06:56 BUN 22 mg/dl (6-23) 05/30/23 06:56 Creatinine 0.74 mg/dl (0.6-1.4) 05/30/23 06:56 Est Cr Clr Drug Dosing 113.9 ml/min 05/30/23 06:56 Est GFR ( Amer) 110.6 ml/min 05/30/23 06:56 Est GFR (Non-Af Amer) 95.4 ml/min 05/30/23 06:56 BUN/Creatinine Ratio 29.7 (10-20) H 05/30/23 06:56 Glucose 147 mg/dl (70-99(Fasting)) H 05/30/23 06:56 Lactate 1.8 mmol/L (0.4-2.0) 05/29/23 08:07 Calcium 8.7 mg/dl (8.6-10.3) 05/30/23 06:56 Magnesium 2.2 mg/dl (1.7-2.4) 05/30/23 06:56 Total Bilirubin 0.8 mg/dl (0.2-1.0) 05/30/23 06:56 Direct Bilirubin 0.2 mg/dl (0-0.2) 05/29/23 09:10 AST 31 U/L (13-39) 05/30/23 06:56 ALT 42 U/L (7-52) 05/30/23 06:56 Alkaline Phosphatase 64 U/L (34-104) 05/30/23 06:56 Troponin I High Sens 4.8 pg/ml (0-20) 05/29/23 07:44 Total Protein 7.1 gm/dl (6.0-8.3) 05/30/23 06:56 Albumin 4.0 gm/dl (3.4-5.0) 05/30/23 06:56 Globulin 3.1 gm/dl (2.5-4.0) 05/30/23 06:56 Albumin/Globulin Ratio 1.3 (0.9-2) 05/30/23 06:56 Procalcitonin 1.09 ng/ml (0-0.5) H 05/29/23 07:44 Urine Color Yellow 05/29/23 08:10 Urine Appearance Clear (Clear) 05/29/23 08:10 Urine pH 5.5 (4.5-7.5) 05/29/23 08:10 Ur Specific [place] 1.024 (1.000-1.030) 05/29/23 08:10 Urine Protein 1+ (Negative) H 05/29/23 08:10 Urine Glucose (UA) Negative (Negative) 05/29/23 08:10 Urine Ketones 2+ (Negative) H 05/29/23 08:10 Urine Blood Negative (Negative) 05/29/23 08:10 Urine Nitrite Negative (Negative) 05/29/23 08:10 Urine Bilirubin Negative (Negative) 05/29/23 08:10 Urine Urobilinogen Negative (Negative) 05/29/23 08:10 Ur Leukocyte Esterase Trace (Negative) H 05/29/23 08:10 Urine WBC (Auto) 1-5 /hpf (0-5) 05/29/23 08:10 Urine RBC (Auto) 0-4 /hpf (0-4) 05/29/23 08:10 U Hyaline Cast (Auto) 1-5 /lpf (0-5) 05/29/23 08:10 U Epithel Cells (Auto) 0-5 /lpf (0-5) 05/29/23 08:10 Urine Bacteria (Auto) Negative (Negative) 05/29/23 08:10 Adenovirus (PCR) Not Detected (NotDetected) 05/29/23 07:44 B. pertussis DNA (PCR) Not Detected (NotDetected) 05/29/23 07:44 B.parapertussis DNA PCR Not Detected (NotDetected) 05/29/23 07:44 Lyme Disease IgG Ab Negative (Negative) 05/29/23 07:51 Lyme Disease IgM Ab Equivocal (Negative) A 05/29/23 07:51 C. pneumoniae DNA (PCR) Not Detected (NotDetected) 05/29/23 07:44 Coronavirus OC43 (PCR) Not Detected (NotDetected) 05/29/23 07:44 Coronavirus HKU1 (PCR) Not Detected (NotDetected) 05/29/23 07:44 Coronavirus 229E (PCR) Not Detected (NotDetected) 05/29/23 07:44 SARS-CoV-2 (PCR) Not Detected (NotDetected) 05/29/23 07:44 Coronavirus NL63 (PCR) Not Detected (NotDetected) 05/29/23 07:44 Human Metapneumovir PCR Not Detected (NotDetected) 05/29/23 07:44 Influenza Type A (PCR) Not Detected (NotDetected) 05/29/23 07:44 Influenza Type B (PCR) Not Detected (NotDetected) 05/29/23 07:44 M. pneumoniae (PCR) Not Detected (NotDetected) 05/29/23 07:44 Parainfluenza 1 (PCR) Not Detected (NotDetected) 05/29/23 07:44 Parainfluenza 2 (PCR) Not Detected (NotDetected) 05/29/23 07:44 Parainfluenza 3 (PCR) Not Detected (NotDetected) 05/29/23 07:44 Parainfluenza 4 (PCR) Not Detected (NotDetected) 05/29/23 07:44 RSV (PCR) Not Detected (NotDetected) 05/29/23 07:44 Entero/Rhino (PCR) Not Detected (NotDetected) 05/29/23 07:44 Impressions Chest X-Ray 05/29/23 07:34 XR chest 1V portable HISTORY: 67 years-old Male Sepsis acute sepsis COMPARISON: 11/26/2022 TECHNIQUE: AP view of the chest FINDINGS: Cardiomediastinal and hilar silhouettes are within normal limits. No pneumothorax, pleural effusion, airspace consolidation or pulmonary edema. Mild chronic interstitial coarsening. Spondylotic spurring of the spine. IMPRESSION: No acute process. ACT 112: Negative or not required by law. The above report was generated using voice recognition software. It may contain grammatical, syntax or spelling errors. Electronically signed by: Venkata Edwards M.D. 05/29/2023 7:58 AM Chest CTA 05/29/23 10:30 CHEST CTA for PULMONARY ARTERIES CT DOSE: HISTORY: Shortness of breath. TECHNIQUE: Multiaxial CT images of the chest were performed following the intravenous administration of contrast to evaluate the pulmonary arteries. 3D/Maximal intensity projection images were also obtained. Sagittal and coronal reformations were also reviewed. A dose lowering technique was utilized adhering to the principles of ALARA. COMPARISON STUDY: CT lung screening 11/26/2022. Chest CTA 08/03/2021. FINDINGS: Normal caliber thoracic aorta with no evidence for a dissection. The heart is borderline enlarged. No pleural or pericardial effusions. Respiratory motion artifact results in nondiagnostic evaluation of the majority of the lingular, right middle lobe, bilateral lower lobe segmental/subsegmental pulmonary emboli. Questionable filling defect seen within the right lower lobe segmental pulmonary emboli are likely due to the motion artifact. The remaining pulmonary arteries are patent. No mediastinal or hilar lymphadenopathy. Limited views the upper abdomen demonstrate normal liver, spleen, and adrenal glands. Normal caliber esophagus. No acute fractures identified. No pneumothorax. The central airways are patent. Emphysema again noted. No new focal lung consolidations to suggest a pneumonia. No evidence for pulmonary edema. Mild peripheral subpleural reticulation persistent could represent mild fibrotic change. A few scattered subcentimeter pulmonary nodules are likely stable but suboptimally assessed due to the motion artifact. IMPRESSION: 1. Suboptimal evaluation of the chest due to the respiratory motion artifact. 2. No evidence for a pulmonary embolus with limitations as described above. 3. Emphysema and mild fibrotic change again noted. No new focal lung consolidations to suggest a pneumonia. 4. A few scattered subcentimeter pulmonary nodules are likely stable. ACT 112: Negative or not required by law. Electronically signed by: Carlos Alberto Howard M.D. 05/29/2023 11:49 AM Venous Doppler Study 05/29/23 14:43 RIGHT UPPER EXTREMITY VENOUS DOPPLER HISTORY: Shortness of breath. Right arm swelling. COMPARISON STUDY: None. FINDINGS: The right internal jugular vein is patent. There is normal flow within the right subclavian vein. There is normal flow and compressibility within the right axillary, basilic, brachial, radial, ulnar, and visualized cephalic veins. IMPRESSION: No DVT within the right upper extremity. ACT 112: Negative or not required by law. Electronically signed by: Carlos Alberto Howard M.D. 05/29/2023 3:52 PM Ordered Studies 05/29/23 10:30 CT angio chest PE protocol Stat 05/29/23 12:44 US venous doppler LE BI Routine 05/29/23 14:43 US venous doppler UE RT Stat Hospital Course (1) SIRS (systemic inflammatory response syndrome): (2) Hypoxia: (3) Shortness of breath: (4) Acute Lyme disease: (5) COPD with emphysema: (6) ILD (interstitial lung disease): (7) HLD (hyperlipidemia): Plan Patient is a 67-year-old male who has significant past medical history of interstitial lung disease, restrictive lung disease, COPD, ex-smoker, hyperlipidemia and history of COVID-19 pneumonia who presents to ED secondary to shortness of breath x2 days. Hypoxia - transient/resolved SOB likely multifactorial: due ot ILD, RLD and COPD Pt presented with SOB, hypoxia 89-90% which has resolved since albuterol neb tx and solumedrol -Biofire:Negative -CTA:Suboptimal evaluation of the chest due to the respiratory motion artifact. No evidence for a pulmonary embolus with limitations as described above. Emphysema and mild fibrotic change again noted. No new focal lung consolidations to suggest a pneumonia. A few scattered subcentimeter pulmonary nodules are likely stable. -- Continue p.o. prednisone for now Pulmonary hygiene with incentive spirometer, flutter Continue home inhalers DuoNebs as needed Dyspnea resolved Saturating well on room Advised to follow-up with pulmonology as outpatient SIRS Possible Acute Lyme disease Lyme Serology: Equivocal IgM, IgG antibody negative. Western blot pending Blood cultures: Negative to date Empirically started on ceftriaxone, doxycycline Normal lactate levels Received IV fluids Patient refuses to continue to be hospitalized despite explaining the risks and complications of being untreated appropriately. He understands the risks and complications and agrees to continue doxycycline until final Lyme serology results and follow-up with PCP for further management. Plan to continue doxycycline upon discharge Elevated D-Dimer CTA negative for PE Venous doppler:No DVT within the right or left lower extremity. No DVT within the right upper extremity. will obtain upper/lower ext dopplers r/o DVTs Hypertension Previously on Lisinopril Currently not on any medications Started on lisinopril 5 mg daily Monitor BP HLD continue statin DVT Px: SQ Lovenox Code Status FULL CODE Total Time Total Time Spent Total Time Spent (In Minutes): 55 minutes Discharge Plan Discharge Items Patient Disposition: Home - Self-Care Reason For Visit: SOB Discharge Diagnosis: Suspected acute Lyme's disease Transient hypoxia Hypertension Activity: Per Instructions section Exercise/Sports: Gradually increase as tolerated Non-emergency contact: Primary Care Provider Call non-emergency contact if: you have any medication questions, your symptoms worsen, your pain is concerning for you and you have a fever Follow-up/Referrals: Betty Martin DO [Primary Care Provider] - Diet: Heart Healthy Addtl Attending Provider Instructions: --Follow-up with your primary care physician Dr. Betty Martin in 1 week as advised. 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 If you are tested negative for Lyme's, can discontinue doxycycline after consulting with your primary care physician as advised. --Follow-up with your primary care physician for Lyme's blood test results as advised. --Complete the prednisone course as prescribed. -- You are started on lisinopril 5 mg daily for better control of your blood pressure. Monitor your blood pressure regularly at home. Discuss with your primary care physician for further adjustment of medications as needed. Seek immediate medical attention if your symptoms reoccur or worsen Please take all medications as instructed on discharge list below. Please call if you have any questions or problems. You can reach a [facility] hospitalist on duty at [facility] 24 hours a day by calling [phone] Pending Studies at Discharge: Yes Studies:: Serological test for Lyme Stand-Alone Forms: [facility], Smoking Cessation Medications and DC Order Prescriptions: New doxycycline hyclate 100 mg Capsule 100 mg PO BID Qty: 18 0RF lisinopril [Zestril] 5 mg Tablet 5 mg PO QAM Qty: 30 0RF prednisone 20 mg tablet 20 mg PO DAILY 3 Days Qty: 3 0RF Rx Instructions: Start taking from 05/31/23 Continued rosuvastatin [Crestor] 10 mg tablet 10 mg PO DAILY cholecalciferol (vitamin D3) 1 tab PO DAILY Rx Instructions: Patient not sure of strength Anoro Ellipta 62.5-25 mcg/actuation blister with device 1 ea inhalation DAILY Qty: 60 12RF albuterol sulfate [Ventolin HFA] 90 mcg/actuation HFA aerosol inhaler 1 puff INHALATION DAILY PRN (Reason: Shortness Of Breath) Qty: 8.5 3RF meloxicam 15 mg tablet 15 mg PO DAILY garlic 1,000 mg Capsule 1,000 mg PO DAILY Men's One Daily Tablet 1 tab PO DAILY [facility] 2 cap PO DAILY aspirin [Brian Low Dose Aspirin] 81 mg Tablet,Delayed Release (Dr/Ec) 81 mg PO DAILY Emergen-C 500 mg tablet,chewable 1 tab PO DAILY Rx Instructions: every other day Discharge Orders: Discharge Order (Routine); Ordered 05/30/23 Ordered By: Riley Todd Admission Data Admit Date/Time: 05/29/23 12:20 Attending Provider: Riley Todd Admit Provider: Jackie Beltrán Primary Care Provider: Betty Martin Other Providers: Jackie Beltrán
[2023-05-31 00:27] LABS: 18KDIGG Band NON-REACTIVE; 23KDIGG Band NON-REACTIVE; 23KDIGM Band NON-REACTIVE; 28KDIGG Band NON-REACTIVE; 30KDIGG Band NON-REACTIVE; 39KDIGG Band NON-REACTIVE; 39KDIGM Band NON-REACTIVE; 41KDIGG Band NON-REACTIVE; 41KDIGM Band NON-REACTIVE; 45KDIGG Band NON-REACTIVE; 58KDIGG Band NON-REACTIVE; 66KDIGG Band NON-REACTIVE; 93KDIGG Band NON-REACTIVE; Lyme Antibodies, WB IgG NEGATIVE (NEGATIVE); Lyme Antibodies, WB IgM NEGATIVE (NEGATIVE)
[2023-05-31] MEDS ORDERED: lisinopril 5 MG TAB PO SCH (09:00)
--- NOTE | 2023-06-01 07:46 | Coding Query ---
SEPSIS To promote full compliance with coding requirements relating to patient care, physician participation is requested in all cases of nurse uncertainty. Please assist us with the question(s) below: In responding to this query, please exercise your independent professional judgement. The fact that a question is asked does not imply that any particular answer is desired or expected. We appreciate your clarification on this issue. Throughout the medical record, you have clearly documented a localized infection and your patient has clinical evidence of a generalized sepsis or severe sepsis. The term urosepsis is a nonspecific entity and is coded as an UTI. If the patient has sepsis, severe sepsis, from an urinary source or some other source, please clarify in your response below. The medical record reflects the following clinical findings: H/P , progress note & DS document SIRS. Please check below the diagnosis that was treated during this brief inpatient stay. Thank you . Horace Copeland [employer] [facility] ____ ( )Bacteremia (Nonspecific laboratory finding of bacteria in the blood) Specify Organism ( ) Present on Admission ( x ) Not present on admission ( ) Unable to clinically determine ( ) Septicemia (Systemic disease associated with the presence of pathogenic microorganisms in the blood): Specify Organism ( ) Present on Admission ( x ) Not present on admission ( ) Unable to clinically determine ( ) Sepsis Specify Organism Specify Associated Condition/Diagnosis ( ) Present on Admission ( ) Not present on admission ( x ) Unable to clinically determine ( ) Severe Sepsis (Sepsis associated with acute organ dysfunction) Specify Organism Specify Associated Condition/Diagnosis ( ) Present on Admission ( x) Not present on admission ( ) Unable to clinically determine ( ) Septic Shock (Severe sepsis with acute circulatory failure, unexplained by other causes) ( ) Present on Admission (x ) Not present on admission ( ) Unable to clinically determine ( x) Other, patient has: SIRS, unclear etiology MTDD
== END 2023-05-30 13:53 | disposition home or self-care (01) | DRG 868 ==
LOC: ED 07:22 → EDINP 12:20 → SUATTDRO 12:20 → EDINP 16:15 → 2N 16:29